=== PATIENT | male | born 1975 | race Caucasian/White ===

== ENCOUNTER 2022-10-01 14:35 | Outpatient (OUT) | payer BC, MEDICARE, SELFPAY ==
[2022-10-01 15:21] LABS: INR 3.48; Prothrombin Time 34.4 sec (9.0-11.6)
== END 2022-10-01 14:36 ==
PROVIDERS: PCP Family Medicine; Visit Provider Family Medicine
DX: I26.99 Other pulmonary embolism without acute cor pulmonale (principal)
CPT/HCPCS: 36415; 85610

== ENCOUNTER 2022-12-18 13:56 | Outpatient (OUT) | payer BC, MEDICARE, SELFPAY ==
[2022-12-18 14:49] LABS: Prothrombin Time 29.9 sec (9.0-11.6)
== END 2022-12-18 13:57 | disposition home or self-care (01) ==
LOC: LAB 14:00
PROVIDERS: PCP Family Medicine; Visit Provider Family Medicine
DX: Z79.01 Long term (current) use of anticoagulants (principal); I26.99 Other pulmonary embolism without acute cor pulmonale
CPT/HCPCS: 36415; 85610

== ENCOUNTER 2023-03-26 13:48 | Outpatient (OUT) | payer BC, MEDICARE, SELFPAY ==
[2023-03-26 15:00] LABS: INR 3.25; Prothrombin Time 32.2 sec (9.0-11.6)
== END 2023-03-26 13:49 | disposition home or self-care (01) ==
LOC: LAB 13:51
PROVIDERS: PCP Family Medicine; Visit Provider Family Medicine
DX: I26.99 Other pulmonary embolism without acute cor pulmonale (principal)
CPT/HCPCS: 36415; 85610

== ENCOUNTER 2023-04-07 10:26 | Outpatient (OUT) | payer BC, MEDICARE, SELFPAY ==
[2023-04-07 11:33] LABS: Estimated Average Glucose 189 mg/dL; Glycohemoglobin A1C 8.2 % (4.5-6.2)
[2023-04-07 11:50] LABS: Basophils Percent Auto 0.2 % (0.2-2.0); Eosinophils Absolute Auto 0.1 10^3/uL (0.0-0.7); Eosinophils Percent Auto 1.8 % (0.9-7.0); Hematocrit 53.5 % (42.0-54.0); Hemoglobin 17.9 g/dL (14.0-18.0); Lymphocytes Absolute Auto 1.7 10^3/uL (1.2-3.8); Lymphocytes Percent Auto 30.9 % (20.5-60.0); Mean Corpuscular HGB Conc 33.5 g/dL (29.9-35.2); Mean Corpuscular Hemoglobin 31.1 pg (25.9-34.0); Mean Corpuscular Volume 92.9 fL (80.0-94.0); Mean Platelet Volume 11.3 fL (9.5-13.5); Monocytes Absolute Auto 0.7 10^3/uL (0.3-0.8); Monocytes Percent Auto 12.1 % (1.7-12.0); Platelet Count 196 10^3/uL (150-450); Red Blood Count 5.76 10^6/uL (4.70-6.10); Red Cell Distribution Width 14.3 % (11.0-15.0); White Blood Count 5.5 10^3/uL (4.0-11.0)
[2023-04-07 11:51] LABS: Alanine Aminotransferase 70 U/L (16-63); Albumin Globulin Ratio 0.9; Albumin Level 3.6 g/dL (3.4-5.0); Alkaline Phosphatase 59 U/L (46-116); Aspartate Amino Transferase 35 U/L (15-37); BUN Creatinine Ratio 17.6; Bilirubin Total 0.6 mg/dL (0.2-1.0); Calcium 9.8 mg/dL (8.5-10.1); Carbon Dioxide 32.8 mmol/L (21.0-32.0); Chloride 99 mmol/L (98-107); Chol HDL Ratio 4.3; Cholesterol 162 mg/dL (<=200); Estimated GFR (African America >60 (>=60); Estimated GFR (Non-African Ame >60 (>=60); Free T3 3.57 pg/mL (2.18-3.98); Globulin 3.8 g/dL; Glucose 152 mg/dL (74-106); HDL Cholesterol 38 mg/dL (40-60); Potassium 4.8 mmol/L (3.5-5.1); Sodium 137 mmol/L (136-145); Total Protein 7.4 g/dL (6.4-8.2); Triglycerides 145 mg/dL (<=150)
[2023-04-07 11:56] LABS: Prostate Specific Antigen Scrn 0.61 ng/mL (<=4.00)
[2023-04-08 04:06] LABS: Testosterone 825 ng/dL (264-916)
== END 2023-04-07 10:27 | disposition home or self-care (01) ==
LOC: LAB 10:28
PROVIDERS: PCP Family Medicine; Visit Provider Family Medicine
DX: Z00.00 Encounter for general adult medical examination without abnormal findings (principal); E78.5 Hyperlipidemia, unspecified; R73.09 Other abnormal glucose; Z12.5 Encounter for screening for malignant neoplasm of prostate; E29.1 Testicular hypofunction
CPT/HCPCS: 36415; 80053; 80061; 83036; 84403; 84436; 84443; 84481; 85025; G0103

== ENCOUNTER 2023-07-01 14:02 | Outpatient (OUT) | payer BC, MEDICARE, SELFPAY ==
--- OUTSIDE RECORDS SUMMARY | 2023-07-01 14:19 | XMS_ITS | CCD ---
Author Organization [facility] Care Team Providers Care Reporting Process Consultant Name Role Phone SKIE, CHICHO Unavailable Unavailable SKIE, CHICHO Unavailable Unavailable HOY, DANE Unavailable Unavailable FOGT, CELIO Unavailable Unavailable [place] Unavailable Unavailable SKIE, CHICHO Unavailable Unavailable [place] Unavailable Unavailable PITRODA, SHAHANA Unavailable Unavailable Dane Pompa Primary Care Physician Durga BANKS Attending Unavailable HOY ., DR VELA Primary Care Unavailable HOY ., DR VELA Admitting Unavailable HOY ., DR VELA Attending Unavailable HOY ., DR VELA Consulting Unavailable HOY ., DR VELA Primary Care Unavailable HOY ., DR VELA Admitting Unavailable HOY ., DR VELA Attending Unavailable HOY ., DR VELA Consulting Unavailable HOY ., DR VELA Admitting Unavailable HOY ., DR VELA Primary Care Unavailable HOY ., DR VELA Attending Unavailable HOY ., DR VELA Consulting Unavailable HOY ., DR VELA Admitting Unavailable HOY ., DR VELA Primary Care Unavailable HOY ., DR VELA Attending Unavailable HOY ., DR VELA Consulting Unavailable HOY ., DR VELA Admitting Unavailable HOY ., DR VELA Primary Care Unavailable HOY ., DR VELA Attending Unavailable HOY ., DR VELA Consulting Unavailable HOY ., DR VELA Consulting Unavailable HOY ., DR VELA Admitting Unavailable HOY ., DR VELA Primary Care Unavailable HOY ., DR VELA Attending Unavailable HOY ., DR VELA Consulting Unavailable HOY ., DR VELA Attending Unavailable HOY ., DR VELA Admitting Unavailable HOY ., DR VELA Primary Care Unavailable HOY ., DR VELA Consulting Unavailable HOY ., DR VELA Primary Care Unavailable HOY ., DR VELA Admitting Unavailable HOY ., DR VELA Attending Unavailable Allergies Allergy Classification Reported Allergen(s) Allergy Type Date of Onset Reaction(s) Facility (2 sources) celecoxib; 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: [CELEBREX] Drug Allergy 3 [facility] (3 sources) morphine; 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: [MORPHINE] Drug Allergy 0 Unknown (qualifier value) [facility] (2 sources) orphenadrine; 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: [Norflex] Drug Allergy 0 [facility] (2 sources) Adhesive bandage; 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: [Adhesive Bandage] Drug allergy Unknown (qualifier value) [facility] [place] (2 sources) celecoxib; 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: [celecoxib] Drug Allergy 3 Unknown [facility] [place] (3 sources) Orphenadrine; 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: [orphenadrine] Drug Allergy 0 Unknown (qualifier value) [facility] [place] (1 source) Orphenadrine Drug Allergy [address] [facility] Rep[facility] Medications Current Medications Medication Drug Class(es) Dates Sig (Normalized) Sig (Original) acetaminophen 325 mg / oxyCODONE hydrochloride 5 mg oral tablet (1 source) Opioid Agonist Start: 2 take 2 tablets by mouth every four hours as needed for pain Percocet 5 mg-325 mg oral tablet 2 tab(s), Oral, q4hr as needed for pain, Refill(s) 0 Start Date: 04/09/22 Status: Ordered adapalene 0.003 mg/mg topical gel (1 source) Retinoid Start: 2 Differin 0.3% topical gel 1 noemy, Topical, Once a day (at bedtime), Refill(s) 0 Start Date: 04/09/22 Status: Ordered atorvastatin 40 mg oral tablet (1 source) HMG-CoA Reductase Inhibitor Start: 2 take 1 tablet by mouth once daily atorvastatin 40 mg Tab 40 mg = 1 tab(s), Oral, Daily, Refills(s) 0 Start Date: 04/09/22 Status: Ordered azelastine hydrochloride 0.5 mg/ml ophthalmic solution (1 source) Histamine-1 Receptor Antagonist Start: 2 azelastine 0.05% Opth Annette 1 drop(s), Daily, Refill(s) 0 Start Date: 04/09/22 Status: Ordered cyclobenzaprine hydrochloride 10 mg oral tablet (1 source) Muscle Relaxant Start: 2 take 2 tablets by mouth at bedtime as needed for muscle spasms cyclobenzaprine 10 mg Tab 20 mg = 2 tab(s), Oral, Bedtime, PRN for spasm, Refills(s) 0 Start Date: 04/09/22 Status: Ordered doxycycline monohydrate 100 mg oral capsule (1 source) Tetracycline-class Drug Start: 2 take 1 capsule by mouth twice daily doxycycline monohydrate 100 mg oral capsule 100 mg = 1 cap(s), Oral, BID, Refills(s) 0 Start Date: 04/09/22 Status: Ordered ibuprofen 800 mg oral tablet (1 source) Nonsteroidal Anti-inflammatory Drug Start: 2 take 1 tablet by mouth four times daily as needed for pain ibuprofen 800 mg Tab 800 mg = 1 tab(s), Oral, QID, PRN as needed for pain, Refills(s) 0 Start Date: 04/09/22 Status: Ordered lisinopril 20 mg oral tablet (1 source) Angiotensin Converting Enzyme Inhibitor Start: 2 take 1 tablet by mouth once daily lisinopril 20 mg Tab 20 mg = 1 tab(s), Oral, Daily, Refills(s) 0 Start Date: 04/09/22 Status: Ordered metFORMIN hydrochloride 500 mg oral tablet (1 source) Biguanide Start: 2 take 1 tablet by mouth twice daily metformin 500 mg Tab 500 mg = 1 tab(s), Oral, BID, Refills(s) 0 Start Date: 04/09/22 Status: Ordered omeprazole 20 mg delayed release oral capsule (1 source) Proton Pump Inhibitor Start: 2 take 1 capsule by mouth once daily omeprazole 20 mg Cap-DR 20 mg = 1 cap(s), Oral, Daily, Refills(s) 0 Start Date: 04/09/22 Status: Ordered oxyCODONE hydrochloride 10 mg oral tablet (1 source) Opioid Agonist Start: 2 take 1-2 tablets by mouth twice daily oxycodone 10 mg oral tablet 1-2 tabs, Oral, BID, Refills(s) 0 Start Date: 04/09/22 Status: Ordered pioglitazone 30 mg oral tablet (1 source) Peroxisome Proliferator Receptor alpha Agonist, Peroxisome Proliferator Receptor gamma Agonist, Thiazolidinedione Start: 2 take 1 tablet by mouth once daily pioglitazone 30 mg Tab 30 mg = 1 tab(s), Oral, Daily, Refills(s) 0 Start Date: 04/09/22 Status: Ordered pregabalin 100 mg oral capsule (1 source) Start: 2 take 1 capsule by mouth three times daily Lyrica 100 mg Cap 100 mg = 1 cap(s), Oral, TID, Refills(s) 0 Start Date: 04/09/22 Status: Ordered testosterone cypionate 200 mg/mL IM Annette (1 source) Start: 2 inject 100 mg by intramuscular injection every week testosterone cypionate 200 mg/mL IM Annette 100 mg = 0.5 mL, IntraMuscular, qWeek, Refills(s) 0 Start Date: 04/09/22 Status: Ordered Vitamin D3 2000 intl units oral Tab (1 source) Start: 2 take 1 tablet by mouth once daily Vitamin D3 2000 intl units oral Tab 50 mcg, Oral, Daily, Refills(s) 0 Start Date: 04/09/22 Status: Ordered warfarin sodium 10 mg oral tablet (2 sources) Vitamin K Antagonist Start: 2 Coumadin 10 mg oral tablet as directed, Refills(s) 0 Start Date: 04/09/22 Status: Ordered Start: 04-09-2022 Coumadin 7.5 m g Tab as directed, Refills(s) 0 Start Date: 04/09/22 Status: Ordered Problems Active Problems Problem Classification Problem Date Documented Da te Episodic/Chronic Diabetes mellitus with complications (1 source) Type 2 diabetes mellitus with 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 edema, bilateral; 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: [TYPE 2 DM MILD NPDR W/O MAC ED KAVIN] Onset: 2 Chronic Diabetes mellitus without complication (2 sources) Type 2 diabetes mellitus without complications; 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: [Diabetes mellitus] Onset: 7 04-09-2022 Chronic Esophageal disorders (1 source) Gastro-esophageal reflux disease without esophagitis; 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: [GASTRO-ESOPHAGEAL REFLUX DISEASE WITHOUT ESOPHAGITIS] Onset: 7 Chronic Essential hypertension (2 sources) Essential hypertension; 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: [Hypertensive disorder] Onset: 2 04-09-2022 Chronic Glaucoma (1 source) Glaucoma 04-09-2022 Chronic Headache; including migraine (1 source) Migraine 04-09-2022 Chronic Other aftercare (5 sources) detention (current) use of anticoagulants; 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: [INTERMEDIATE CURRNT USE 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] Onset: 3 Episodic Other endocrine disorders (1 source) Male hypogonadism 04-09-2022 Chronic Other endocrine disorders (5 sources) Testicular hypofunction; 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: [TESTICULAR HYPOFUNCTION] Onset: 2 Chronic Other eye disorders (1 source) 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 Other inflammatory condition of skin (1 source) Psoriasis 04-09-2022 Chronic Other nervous system disorders (1 source) 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 Other nutritional; endocrine; and metabolic disorders (1 source) Body mass index 30+ - obesity 04-23-2022 Chronic Other skin disorders (2 sources) Actinic keratosis; 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: [Actinic keratosis] Onset: 3 Episodic Other skin disorders (1 source) Acne vulgaris 04-09-2022 Episodic Other upper respiratory disease (1 source) Allergic rhinitis 04-09-2022 Chronic Phlebitis; thrombophlebitis and thromboembolism (2 sources) H/O: Deep vein thrombosis; 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: [Superficial thrombophlebitis] 04-09-2022 Episodic Pulmonary heart disease (6 sources) H/O: pulmonary embolus; 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: [Other pulmonary embolism without acute cor pulmonale] Onset: 3 04-09-2022 Episodic Spondylosis; intervertebral disc disorders; other back problems (1 source) Prolapsed lumbar intervertebral disc 04-09-2022 Chronic 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 (1 source) detention (current) use of oral hypoglycemic drugs; 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: [INTERMEDIATE (CURRENT) USE OF ORAL HYPOGLYCEMIC DRUGS] Onset: 7 Past or Other Problems Problem Classification Problem Date Documented Da te Episodic/Chronic Deficiency and other anemia (1 source) Anemia, unspecified; 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: [ANEMIA UNSPECIFIED] Onset: 10-11-2021 Episodic Malaise and fatigue (1 source) Other fatigue; 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: [OTHER FATIGUE] Onset: 04-10-2022 Episodic Other aftercare (1 source) Other usp (current) drug therapy; 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: [OTH INTERMEDIATE CURRENT DRUG THERAPY] Onset: 04-10-2022 Episodic Other non-traumatic joint disorders (4 sources) Other instability, right wrist; 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: [OTHER INSTABILITY, RIGHT WRIST] Onset: 10-20-2016 Episodic Other screening for suspected conditions (not mental disorders or infectious disease) (6 sources) Encounter for screening for malignant neoplasm of colon; 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: [Encounter for screening for malignant neoplasm of prostate] Onset: 04-10-2022 Episodic Sprains and strains (1 source) Other specified sprain of right wrist, initial encounter; 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: [OTHER SPECIFIED SPRAIN OF RIGHT WRIST, INITIAL ENCOUNTER] Onset: 10-20-2016 Episodic 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 (2 sources) Unknown / UNK(Unknown) Onset: 10-20-2016 Results Test Name Value Interpretation Reference Range Facility PROTIMEon 08-14-2022 INR Coag (PPP) [Relative time] 2.84 {INR} Normal [facility] Comment on above: Performed By: #### P T #### [facility] [address] [place] [address] Dr. Teddy Purcell INR GUIDELINES SEE BELOW Normal [facility] Comment on above: Result Comment: ISMA RED INR: 2.0 - 3.0 CONDITIONS NOT LISTED BELOW 2.5 - 3.5 FOR PROSTHETIC HEART VALVE REPLACEMENT 2.5 - 3.5 RECURRENT THROMBOSIS Performed By: #### P T #### [facility] [address] [address] [address] Teddy Purcell PT Coag (PPP) [Time] 28.4 s Critically high 9.0-11.[address] [facility] Comment on above: Performed By: #### P T #### [facility] [address] [address] [address] Teddy Purcell PROTIMEon 06-23-2022 INR Coag (PPP) [Relative time] 3.22 {INR} Normal [facility] Comment on above: Performed By: #### P T #### [facility] [address] [address] [address] Teddy Purcell INR GUIDELINES SEE BELOW Normal [facility] Comment on above: Result Comment: ISMA RED INR: 2.0 - 3.0 CONDITIONS NOT LISTED BELOW 2.5 - 3.5 FOR PROSTHETIC HEART VALVE REPLACEMENT 2.5 - 3.5 RECURRENT THROMBOSIS Performed By: #### P T #### [facility] [address] [place] [address] Dr. Teddy Purcell PT Coag (PPP) [Time] 31.9 s Critically high 9.0-11.6 [facility] Comment on above: Performed By: #### P T #### [facility] [address] [place] [address] Dr. Teddy Purcell PROTIMEon 06-16-2022 INR Coag (PPP) [Relative time] 3.26 {INR} Normal [facility] Comment on above: Performed By: #### P SASC #### [facility] [address] [place] [address] Dr. Teddy Purcell INR GUIDELINES SEE BELOW Normal [facility] Comment on above: Result Comment: ISMA RED INR: 2.0 - 3.0 CONDITIONS NOT LISTED BELOW 2.5 - 3.5 FOR PROSTHETIC HEART VALVE REPLACEMENT 2.5 - 3.5 RECURRENT THROMBOSIS Performed By: #### P SASC #### [facility] [address] [place] [address] Dr. Teddy Purcell PT Coag (PPP) [Time] 32.3 s Critically high 9.0-11.6 [facility] Comment on above: Performed By: #### P SASC #### [facility] [address] [place] [address] Dr. Teddy Purcell PROTIMEon 06-09-2022 INR Coag (PPP) [Relative time] 4.37 {INR} Critically high [facility] Comment on above: Performed By: #### P T #### [facility] [address] [place] [address] Dr. Teddy Purcell INR GUIDELINES SEE BELOW Normal [facility] Comment on above: Result Comment: ISMA RED INR: 2.0 - 3.0 CONDITIONS NOT LISTED BELOW 2.5 - 3.5 FOR PROSTHETIC HEART VALVE REPLACEMENT 2.5 - 3.5 RECURRENT THROMBOSIS Performed By: #### P T #### [facility] [address] [place] [address] Dr. Teddy Purcell PT Coag (PPP) [Time] 42.6 s Critically high 9.0-11.6 [facility] Comment on above: Performed By: #### P T #### [facility] [address] [place] [address] Dr. Teddy Purcell Facesheeton 04-24-2022 Facesheet [id number] Normal [facility] OCC BLD IMMUNO SCREENon 03-15 OCCULT BLOOD Negative Normal NEGATIVE [facility] Comment on above: Performed By: #### P SASC #### [facility] [address] [place] [address] Dr. Teddy Purcell TESTOSTERONE, TOTALon 2021 Testosterone [Mass/Vol] 905 ng/dL Normal 264-[address] [facility] Comment on above: Result Comment: Adul t male reference interval is based on a population of healthy nonobese males (BMI <30) between 19 and 39 years old. Thea et.al. JCEM 2017,102;5090-1485. PMID: [id number]. Performed By: #### P SASC #### [facility] [address] [place] [address] Dr. Teddy Purcell CBC AUTO DIFFon 04-03-2022 BASO # 0.0 103/ul Normal 0.0-0.1 [facility] Comment on above: Performed By: #### P SASC #### [facility] [address] [place] [address] Dr. Teddy Purcell Basophils/100 WBC (Bld) 0.2 % Normal 0.2-2.[address] [facility] Comment on above: Performed By: #### P SASC #### [facility] [address] [place] [address] Dr. Teddy Purcell EO # 0.1 103/ul Normal 0.0-0.7 [facility] Comment on above: Performed By: #### P SASC #### [facility] [address] [place] [address] Dr. Teddy Purcell Eosinophils/100 WBC (Bld) 2.4 % Normal 0.9-7.0 [facility] Comment on above: Performed By: #### P SASC #### [facility] [address] [place] [address] Dr. Teddy Purcell Erythrocyte distribution width (RBC) [Ratio] 15.7 % Critically high 11.0-15.0 [facility] Comment on above: Performed By: #### P SASC #### [facility] [address] [place] [address] Dr. Teddy Purcell Hematocrit (Bld) [Volume fraction] 51.4 % Normal 42.0-54.0 [facility] Comment on above: Performed By: #### P SASC #### [facility] [address] [place] [address] Dr. Teddy Purcell Hemoglobin (Bld) [Mass/Vol] 16.9 g/dL Normal 14.0-18.0 [facility] Comment on above: Performed By: #### P SASC #### [facility] [address] [place] [address] Dr. Teddy Purcell IG # 0.01 10e3/ul Normal 0.00-0.03 [facility] Comment on above: Performed By: #### P SASC #### [facility] [address] [place] [address] Dr. Teddy Purcell IG % 0.2 % Normal 0.0-0.5 [facility] Comment on above: Performed By: #### P SASC #### [facility] [address] [place] [address] Dr. Teddy Purcell LYMPH # 2.0 103/ul Normal 1.2-3.[address] [facility] Comment on above: Performed By: #### P SASC #### [facility] [address] [place] [address] Dr. Teddy Purcell Lymphocytes/100 WBC (Bld) 33.1 % Normal 20.5-60.0 [facility] Comment on above: Performed By: #### P SASC #### [facility] [address] [place] [address] Dr. Teddy Purcell MANUAL DIFF REQ NO Normal [facility] Comment on above: Performed By: #### P SASC #### [facility] [address] [place] [address] Dr. Teddy Purcell MCH (RBC) [Entitic mass] 29.8 pg Normal 25.9-34.0 [facility] Comment on above: Performed By: #### P SASC #### [facility] [address] [place] [address] Dr. Teddy Purcell MCHC (RBC) [Mass/Vol] 32.9 g/dL Normal 29.9-35.[address] [facility] Comment on above: Performed By: #### P SASC #### [facility] [address] [place] [address] Dr. Teddy Purcell MCV (RBC) [Entitic vol] 90.7 fL Normal 80.0-94.0 [facility] Comment on above: Performed By: #### P SASC #### [facility] [address] [place] [address] Dr. Teddy Purcell MONO # 0.8 103/ul Normal 0.3-0.8 [facility] Comment on above: Performed By: #### P SASC #### [facility] [address] [place] [address] Dr. Teddy Purcell Monocytes/100 WBC (Bld) 12.9 % Critically high 1.7-12.0 [facility] Comment on above: Performed By: #### P SASC #### [facility] [address] [place] [address] Dr. Teddy Purcell NEUT # 3.1 103/ul Normal 1.4-6.[address] [facility] Comment on above: Performed By: #### P SASC #### [facility] [address] [place] [address] Dr. Teddy Purcell Neutrophils/100 WBC (Bld) 51.2 % Normal 43.0-75.[address] [facility] Comment on above: Performed By: #### P SASC #### [facility] [address] [place] [address] Dr. Teddy Purcell Platelet mean volume (Bld) [Entitic vol] 10.0 fL Normal 9.5-13.5 [facility] Comment on above: Performed By: #### P SASC #### [facility] [address] [address] [address] Teddy Purcell PLT 302 103/ul Normal 150-[address] [facility] Comment on above: Performed By: #### P SASC #### [facility] [address] [address] [address] Teddy Purcell RBC 5.67 106/ul Normal 4.70-6.10 [facility] Comment on above: Performed By: #### P SASC #### [facility] [address] [address] [address] Teddy Purcell WBC 6.0 103/ul Normal 4.0-11.0 [facility] Comment on above: Performed By: #### P SASC #### [facility] [address] [place] [address] Dr. Teddy Purcell FREE T3on 04-03-2022 FREE T3 3.52 pg/mlL Normal 2.18-3.98 [facility] Comment on above: Performed By: #### P SASC #### [facility] [address] [address] [address] Teddy Purcell GLYCOHEMOGLOBIN A1Con 2021 ADA RECOMMENDATION SEE BELOW Normal [facility] Comment on above: Result Comment: ADA RECOMMENDED LIMIT 4.0 - 6.0 ADA THERAPEUTIC TARGET < 7.0 ACTION SUGGESTED > 7.0 Performed By: #### P SASC #### [facility] [address] [address] [address] Teddy Purcell Glucose [Mass/Vol] 209 mg/dL Normal [facility] Comment on above: Performed By: #### P SASC #### [facility] [address] [place] [address] Dr. Teddy Purcell HbA1c (Bld) [Mass fraction] 8.9 % Critically high 4.5-6.2 [facility] Comment on above: Performed By: #### P SASC #### [facility] [address] [address] [address] Teddy Purcell LIPID PROFILEon 04-03-2022 CHOL-HDL RATIO NORM SEE BELOW Normal [facility] Comment on above: Result Comment: 3.3 - 4.4 LOW RISK 4.4 - 7.1 AVERAGE RISK 7.1 - 11.0 MODERATE RISK >11.0 HIGH RISK Performed By: #### L IPID, FT3, T4, CMP, TSH #### [facility] [address] [address] [address] Teddy Purcell Cholesterol [Mass/Vol] 150 mg/dL Normal <=200 [facility] Comment on above: Performed By: #### L IPID, FT3, T4, CMP, TSH #### [facility] [address] [address] [address] Teddy Purecll Cholesterol in HDL [Mass/Vol] 31 mg/dL Critically low 40-60 [facility] Comment on above: Performed By: #### L IPID, FT3, T4, CMP, TSH #### [facility] [address] [address] [address] Teddy Purcell Cholesterol in LDL [Mass/Vol] 85.4 mg/dL Normal [facility] Comment on above: Performed By: #### L IPID, FT3, T4, CMP, TSH #### [facility] [address] [address] [address] Teddy Purcell Cholesterol.total/C holesterol in HDL [Mass ratio] 4.8 {ratio} Normal [facility] Comment on above: Performed By: #### L IPID, FT3, T4, CMP, TSH #### [facility] [address] [address] [address] Teddy Purcell HDL NORMAL > or = 60 mg/dl - LO W CARDIOVASCULAR RISK <40 mg/dl - HIGH CARDIOVASCULAR RISK Normal [facility] Comment on above: Performed By: #### L IPID, FT3, T4, CMP, TSH #### [facility] [address] [address] [address] Teddy Purcell LDL CALC NORMAL SEE BELOW Normal [facility] Comment on above: Result Comment: <100 mg/dl OPTIMAL 100 - 129 mg/dl NEAR OR ABOVE OPTIMAL 130 - 159 mg/dl BORDERLINE HIGH 160 - 189 mg/dl HIGH >190 mg/dl VERY HIGH Performed By: #### L IPID, FT3, T4, CMP, TSH #### [facility] [address] [address] [address] Teddy uPrcell Triglyceride [Mass/Vol] 168 mg/dL Critically high <=150 [facility] Comment on above: Performed By: #### L IPID, FT3, T4, CMP, TSH #### [facility] [address] [address] [address] Teddy Purcell VLDL CALC 33.6 mg/dL Normal [facility] Comment on above: Performed By: #### L IPID, FT3, T4, CMP, TSH #### [facility] [address] [place] [address] Dr. Teddy Purcell PROF 14(COMP METB)on 022 Albumin [Mass/Vol] 3.7 g/dL Normal 3.4-5.0 [facility] Comment on above: Performed By: #### L IPID, FT3, T4, CMP, TSH #### [facility] [address] [place] [address] Dr. Teddy Purcell Albumin/Globulin [Mass ratio] 0.9 {ratio} Normal [facility] Comment on above: Performed By: #### L IPID, FT3, T4, CMP, TSH #### [facility] [address] [address] [address] Teddy Purcell ALP [Catalytic activity/Vol] 63 U/L Normal 46-[address] [facility] Comment on above: Performed By: #### L IPID, FT3, T4, CMP, TSH #### [facility] [address] [address] [address] Teddy Purcell ALT [Catalytic activity/Vol] 61 U/L Normal 16-63 [facility] Comment on above: Performed By: #### L IPID, FT3, T4, CMP, TSH #### [facility] [address] [place] [address] Dr. Teddy Purcell Anion gap [Moles/Vol] 9.7 mmol/L Normal [facility] Comment on above: Performed By: #### L IPID, FT3, T4, CMP, TSH #### [facility] [address] [place] [address] Dr. Teddy Purcell AST [Catalytic activity/Vol] 30 U/L Normal 15-37 [facility] Comment on above: Performed By: #### L IPID, FT3, T4, CMP, TSH #### [facility] [address] [place] [address] Dr. Teddy Purcell Bilirubin [Mass/Vol] 0.3 mg/dL Normal 0.2-1.0 [facility] Comment on above: Performed By: #### L IPID, FT3, T4, CMP, TSH #### [facility] [address] [place] [address] Dr. Teddy Purcell Calcium [Mass/Vol] 9.7 mg/dL Normal 8.5-10.1 [facility] Comment on above: Performed By: #### L IPID, FT3, T4, CMP, TSH #### [facility] [address] [place] [address] Dr. Teddy Purcell Chloride [Moles/Vol] 96 mmol/L Critically low 98-107 [facility] Comment on above: Performed By: #### L IPID, FT3, T4, CMP, TSH #### [facility] [address] [place] [address] Dr. Teddy Purcell CO2 [Moles/Vol] 34.7 mmol/L Critically high 21.0-32.0 [facility] Comment on above: Performed By: #### L IPID, FT3, T4, CMP, TSH #### [facility] [address] [place] [address] Dr. Teddy Purcell Creatinine [Mass/Vol] 0.78 mg/dL Normal 0.70-1.30 [facility] Comment on above: Performed By: #### L IPID, FT3, T4, CMP, TSH #### [facility] [facility] [address] [place] [address] Dr. Teddy Purcell EGFR-AF RWANDAN >60 Normal >=60 [facility] Comment on above: Performed By: #### L IPID, FT3, T4, CMP, TSH #### [facility] [address] [address] [address] Teddy Purcell EGFR-NON AF RWANDAN >60 Normal >=60 [facility] Comment on above: Performed By: #### L IPID, FT3, T4, CMP, TSH #### [facility] [address] [address] [address] Teddy Purcell Globulin (S) [Mass/Vol] 3.9 g/dL Normal [facility] Comment on above: Performed By: #### L IPID, FT3, T4, CMP, TSH #### [facility] [address] [address] [address] Teddy Purcell Glucose [Mass/Vol] 165 mg/dL Critically high 74-106 T [facility] Comment on above: Performed By: #### L IPID, FT3, T4, CMP, TSH #### [facility] [address] [address] [address] Teddy Pucrell Potassium [Moles/Vol] 4.4 mmol/L Normal 3.5-5.1 [facility] Comment on above: Performed By: #### L IPID, FT3, T4, CMP, TSH #### [facility] [address] [address] [address] Teddy Purcell Protein [Mass/Vol] 7.6 g/dL Normal 6.4-8.2 [facility] Comment on above: Performed By: #### L IPID, FT3, T4, CMP, TSH #### [facility] [address] [address] [address] Teddy Purcell Sodium [Moles/Vol] 136 mmol/L Normal 136-145 [facility] Comment on above: Performed By: #### L IPID, FT3, T4, CMP, TSH #### [facility] [address] [address] [address] Teddy Purcell Urea nitrogen [Mass/Vol] 14.0 mg/dL Normal 7.0-18.0 [facility] Comment on above: Performed By: #### L IPID, FT3, T4, CMP, TSH #### [facility] [address] [address] [address] Teddy Purcell Urea nitrogen/Creatinine [Mass ratio] 17.9 mg/mg Normal [facility] Comment on above: Performed By: #### L IPID, FT3, T4, CMP, TSH #### [facility] [address] [address] [address] Teddy Purcell PROTIMEon 04-03-2022 INR Coag (PPP) [Relative time] 3.13 {INR} Normal [facility] Comment on above: Performed By: #### P T #### [facility] [address] [place] [address] Dr. Teddy Purcell INR GUIDELINES SEE BELOW Normal [facility] Comment on above: Result Comment: ISMA RED INR: 2.0 - 3.0 CONDITIONS NOT LISTED BELOW 2.5 - 3.5 FOR PROSTHETIC HEART VALVE REPLACEMENT 2.5 - 3.5 RECURRENT THROMBOSIS Performed By: #### P T #### [facility] [address] [place] [address] Dr. Teddy Purcell PT Coag (PPP) [Time] 31.4 s Critically high 9.0-11.6 [facility] Comment on above: Performed By: #### P T #### [facility] [address] [place] [address] Dr. Teddy Purcell Physician Referralon 022 Physician Referral [id number] Normal [facility] T4on 04-03-2022 T4 [Mass/Vol] 7.60 ug/dL Normal 4.50-12.10 [facility] Comment on above: Performed By: #### L IPID, FT3, T4, CMP, TSH #### [facility] [address] [address] [address] Teddy Purcell TSHon 04-03-2022 TSH 1.595 uIU/mL Normal 0.358-3.740 [facility] Comment on above: Performed By: #### L IPID, FT3, T4, CMP, TSH #### [facility] [address] [address] [address] Teddy Purcell PROTIMEon 12-05-2021 INR Coag (PPP) [Relative time] 3.69 {INR} Normal [facility] Comment on above: Performed By: #### P T #### [facility] [address] [address] [address] Teddy Purcell INR GUIDELINES SEE BELOW Normal [facility] Comment on above: Result Comment: ISMA RED INR: 2.0 - 3.0 CONDITIONS NOT LISTED BELOW 2.5 - 3.5 FOR PROSTHETIC HEART VALVE REPLACEMENT 2.5 - 3.5 RECURRENT THROMBOSIS Performed By: #### P T #### [facility] [address] [address] [address] Teddy Purcell PT Coag (PPP) [Time] 36.6 s Critically high 9.0-11.6 [facility] Comment on above: Performed By: #### P T #### [facility] [address] [address] [address] Teddy Purcell TESTOSTERONE, TOTALon 2021 Testosterone [Mass/Vol] 633 ng/dL Normal 264-916 [facility] Comment on above: Result Comment: Adul t male reference interval is based on a population of healthy nonobese males (BMI <30) between 19 and 39 years old. Thea et.al. JCEM 2017,102;[id number]. PMID: [id number]. Performed By: #### P T #### [facility] [address] [address] [address] Teddy Purcell CBC AUTO DIFFon 10-08-2021 BASO # 0.0 103/ul Normal 0.0-0.1 [facility] Comment on above: Performed By: #### C BC #### [facility] [address] [address] [address] Teddy Purcell Basophils/100 WBC (Bld) 0.4 % Normal 0.2-2.0 [facility] Comment on above: Performed By: #### C BC #### [facility] [address] [address] [address] Teddy Purcell EO # 0.1 103/ul Normal 0.0-0.7 [facility] Comment on above: Performed By: #### C BC #### [facility] [address] [place] [address] Dr. Teddy Purcell Eosinophils/100 WBC (Bld) 2.0 % Normal 0.9-7.0 [facility] Comment on above: Performed By: #### C BC #### [facility] [address] [place] [address] Dr. Teddy Purcell Erythrocyte distribution width (RBC) [Ratio] 13.7 % Normal 11.0-15.0 [facility] Comment on above: Performed By: #### C BC #### [facility] [address] [place] [address] Dr. Teddy Purcell Hematocrit (Bld) [Volume fraction] 45.6 % Normal 42.0-54.0 [facility] Comment on above: Performed By: #### C BC #### [facility] [address] [place] [address] Dr. Teddy Purcell Hemoglobin (Bld) [Mass/Vol] 14.8 g/dL Normal 14.0-18.0 [facility] Comment on above: Performed By: #### C BC #### [facility] [address] [place] [address] Dr. Teddy Purcell IG # 0.01 10e3/ul Normal 0.00-0.03 [facility] Comment on above: Performed By: #### C BC #### [facility] [address] [place] [address] Dr. Teddy Purcell IG % 0.2 % Normal 0.0-0.[address] [facility] Comment on above: Performed By: #### C BC #### [facility] [address] [place] [address] Dr. Teddy Purcell LYMPH # 1.8 103/ul Normal 1.2-3.[address] [facility] Comment on above: Performed By: #### C BC #### [facility] [address] [place] [address] Dr. Teddy Purcell Lymphocytes/100 WBC (Bld) 36.6 % Normal 20.5-60.0 [facility] Comment on above: Performed By: #### C BC #### [facility] [address] [place] [address] Dr. Teddy Purcell MANUAL DIFF REQ NO Normal [facility] Comment on above: Performed By: #### C BC #### [facility] [address] [place] [address] Dr. Teddy Purcell MCH (RBC) [Entitic mass] 30.0 pg Normal 25.9-34.0 [facility] Comment on above: Performed By: #### C BC #### [facility] [address] [place] [address] Dr. Teddy Purcell MCHC (RBC) [Mass/Vol] 32.5 g/dL Normal 29.9-35.2 [facility] Comment on above: Performed By: #### C BC #### [facility] [address] [place] [address] Dr. Teddy Purcell MCV (RBC) [Entitic vol] 92.3 fL Normal 80.0-94.0 [facility] Comment on above: Performed By: #### C BC #### [facility] [address] [place] [address] Dr. Teddy Purcell MONO # 0.7 103/ul Normal 0.3-0.8 [facility] Comment on above: Performed By: #### C BC #### [facility] [address] [place] [address] Dr. Teddy Purcell Monocytes/100 WBC (Bld) 13.7 % Critically high 1.7-12.[address] [facility] Comment on above: Performed By: #### C BC #### [facility] [address] [place] [address] Dr. Teddy Purcell NEUT # 2.3 103/ul Normal 1.4-6.[address] [facility] Comment on above: Performed By: #### C BC #### [facility] [address] [place] [address] Dr. Teddy Purcell Neutrophils/100 WBC (Bld) 47.1 % Normal 43.0-75.0 [facility] Comment on above: Performed By: #### C BC #### [facility] [address] [place] [address] Dr. Teddy Purcell Platelet mean volume (Bld) [Entitic vol] 10.3 fL Normal 9.5-13.[address] [facility] Comment on above: Performed By: #### C BC #### [facility] [address] [place] [address] Dr. Teddy Purcell PLT 252 103/ul Normal 150-[address] [facility] Comment on above: Performed By: #### C BC #### [facility] [address] [place] [address] Dr. Teddy Purcell RBC 4.94 106/ul Normal 4.70-6.[address] [facility] Comment on above: Performed By: #### C BC #### [facility] [address] [place] [address] Dr. Teddy Purcell WBC 5.0 103/ul Normal 4.0-11.[address] [facility] Comment on above: Performed By: #### C BC #### [facility] [address] [place] [address] Dr. Teddy Purcell IRONon 10-08-2021 Iron [Mass/Vol] 85.0 ug/dL Normal 65.0-175.0 [facility] Comment on above: Performed By: #### P SASC #### [facility] [address] [place] [address] Dr. Teddy Purcell MAGNESIUMon 10-08-2021 Magnesium [Mass/Vol] 1.9 mg/dL Normal 1.8-2.[address] [facility] Comment on above: Performed By: #### P SASC #### [facility] [address] [place] [address] Dr. Teddy Purcell PHOSPHORUSon 10-08-2021 Phosphate [Mass/Vol] 3.1 mg/dL Normal 2.6-4.[address] [facility] Comment on above: Performed By: #### P SASC #### [facility] [address] [address] [address] Teddy Purcell PROF 14(COMP METB)on 022 Albumin [Mass/Vol] 3.5 g/dL Normal 3.4-5.0 [facility] Comment on above: Performed By: #### P SASC #### [facility] [address] [address] [address] Teddy Purcell Albumin/Globulin [Mass ratio] 1.0 {ratio} Normal [facility] Comment on above: Performed By: #### P SASC #### [facility] [address] [address] [address] Teddy Purcell ALP [Catalytic activity/Vol] 59 U/L Normal 46-116 [facility] Comment on above: Performed By: #### P SASC #### [facility] [address] [address] [address] Teddy Purcell ALT [Catalytic activity/Vol] 58 U/L Normal 16-63 [facility] Comment on above: Performed By: #### P SASC #### [facility] [address] [address] [address] Teddy Purcell Anion gap [Moles/Vol] 9.5 mmol/L Normal [facility] Comment on above: Performed By: #### P SASC #### [facility] [address] [address] [address] Teddy Purcell AST [Catalytic activity/Vol] 28 U/L Normal 15-[address] [facility] Comment on above: Performed By: #### P SASC #### [facility] [address] [address] [address] Teddy Purcell Bilirubin [Mass/Vol] 0.3 mg/dL Normal 0.2-1.0 [facility] Comment on above: Performed By: #### P SASC #### [facility] [address] [place] [address] Dr. Teddy Purcell Calcium [Mass/Vol] 9.1 mg/dL Normal 8.5-10.1 [facility] Comment on above: Performed By: #### P SASC #### [facility] [address] [address] [address] Teddy Purcell Chloride [Moles/Vol] 104 mmol/L Normal 98-107 [facility] Comment on above: Performed By: #### P SASC #### [facility] [address] [address] [address] Teddy Purcell CO2 [Moles/Vol] 30.8 mmol/L Normal 21.0-32.0 [facility] Comment on above: Performed By: #### P SASC #### [facility] [address] [address] [address] Teddy Purcell Creatinine [Mass/Vol] 0.90 mg/dL Normal 0.70-1.30 [facility] Comment on above: Performed By: #### P SASC #### [facility] [address] [address] [address] Teddy Purcell EGFR-AF RWANDAN >60 Normal >=60 [facility] Comment on above: Performed By: #### P SASC #### [facility] [address] [address] [address] Teddy Purcell EGFR-NON AF RWANDAN >60 Normal >=60 [facility] Comment on above: Performed By: #### P SASC #### [facility] [address] [address] [address] Teddy Purcell Globulin (S) [Mass/Vol] 3.5 g/dL Normal [facility] Comment on above: Performed By: #### P SASC #### [facility] [address] [address] [address] Teddy Purcell Glucose [Mass/Vol] 145 mg/dL Critically high 74-106 [facility] Comment on above: Performed By: #### P SASC #### [facility] [address] [address] [address] Teddy Purcell Potassium [Moles/Vol] 4.3 mmol/L Normal 3.5-5.1 [facility] Comment on above: Performed By: #### P SASC #### [facility] [address] [address] [address] Teddy Purcell Protein [Mass/Vol] 7.0 g/dL Normal 6.4-8.2 [facility] Comment on above: Performed By: #### P SASC #### [facility] [address] [address] [address] Teddy Purcell Sodium [Moles/Vol] 140 mmol/L Normal 136-145 [facility] Comment on above: Performed By: #### P SASC #### [facility] [address] [address] [address] Teddy Purcell Urea nitrogen [Mass/Vol] 17.0 mg/dL Normal 7.0-18.0 [facility] Comment on above: Performed By: #### P SASC #### [facility] [address] [place] [address] Dr. Teddy Purcell Urea nitrogen/Creatinine [Mass ratio] 18.9 mg/mg Normal [facility] Comment on above: Performed By: #### P SASC #### [facility] [address] [address] [address] Teddy Purcell PROTIMEon 10-08-2021 INR Coag (PPP) [Relative time] 2.83 {INR} Normal [facility] Comment on above: Performed By: #### P T #### [facility] [address] [place] [address] Dr. Teddy Purcell INR GUIDELINES SEE BELOW Normal [facility] Comment on above: Result Comment: ISMA RED INR: 2.0 - 3.0 CONDITIONS NOT LISTED BELOW 2.5 - 3.5 FOR PROSTHETIC HEART VALVE REPLACEMENT 2.5 - 3.5 RECURRENT THROMBOSIS Performed By: #### P T #### [facility] [address] [place] [address] Dr. Teddy Purcell PT Coag (PPP) [Time] 28.6 s Critically high 9.0-11.6 [facility] Comment on above: Performed By: #### P T #### [facility] [address] [place] [address] Dr. Teddy Purcell Prothrombin Time INRon 07-04 INR Coag (Bld) [Relative time] 10.5 s Normal 9.0-12.9 [facility] Comment on above: Performed By: #### P T #### [id number] [facility] INR Coag (PPP) [Relative time] 0.9 {INR} Normal [facility] Comment on above: Result Comment: INR Therapeutic Range A) Pre- and Peroperative OAT started two weeks before surgery. NOT HIP SURGERY: 1.5 - 2.5 HIP SURGERY: 2 - 3 B) Primary and secondary prevention of venous THROMBOSIS: 2 - 3 C) Active venous thrombosis, pulmonary embolism and prevention of recurrent venous thrombosis: 2 - 3 D) Prevention of arterial thromboembolism including patients with mechanical heart valves: 3 - 4.5 PERFORMED BY: [place] [address] PATHOLOGIST PLASTICS PATTERNMAKER DANIKA COE M.D. Performed By: #### P T #### [address] Operative Reporton 7 Operative Report MR#: [id number] [facility] Pt. Name: Mariajose Corral Room #: 0C Discharge 10/20/2016 Date: Birthdate: 1975 OPERATIVE REPORTDATE OF SURGERY: 10/20/2016SURGEON: Chicho Barba M.D.PREOPERATIVE DIAGNOSISScapholunate instability, right wrist.POSTOPERATIVE DIAGNOSES1.Scapholunate instability, right wrist2.Type 1B triangular fibrocartilage complex tear, right wrist.PROCEDURE1.Arthrosc opic examination, right wrist.2.Repair of triangular fiber cartilage, right wrist.3.Thermal capsulorrhaphy, right wrist.Babita Jordan M.D.ANESTHESIARegional with an axillary block.INDICATION FOR SURGERYThe patient is a 41-year-old gentleman, who we [facility] with complaints of radial sided wrist pain. His examinationis consistent with a scapholunate instability. He has had persistentworsening pain, but really not much treatment. After discussing options, wefelt that an arthroscopic examination to see the extent of the instabilityand then a thermal capsulorrhaphy would probably be indicated as he has nosignificant x-ray changes. He is brought to the operating room today forthat purpose. The risks and benefits are explained prior to surgery, andwith good understanding, he agreed to proceed.PROCEDURE IN DETAILThe patient was brought to the operating room and placed on the table inthe supine position. An axillary block had been administered per theanesthesia service in the holding area. He was given preoperativeantibiotics. A tourniquet is placed around the proximal right arm and theright upper extremity was prepped and draped in a sterile manner. Duringthe procedure, after standard time-out, the arm was exsanguinated with anEsmarch bandage and the tourniquet was inflated to 250 mmHg. The arm wassuspended with a wrist tower with fingertrap traction on the long and ringfingers. The radial carpal joint distended with normal saline solution andthen standard 3-4 and 4-5 portals were created. The arthroscope wasinserted in the 3-4. As I started looking around, there was a little bit ofsynovitis around the radial styloid dorsally. There was a large step-off chano wall of interosseous ligament at the scapholunate joint. It was difficultto pass. I was able to get under the lunate. The lunate fossa as expectedstill looks good. As to get over to the ulnar side of the wrist, there wasa peripheral tear of the TFCC. I can get my probe under it and lift it upaway from the fovea a little bit. I took a 2.5 full radius shaver, debridedthe edges of the tear, debrided some of the synovitis that was on the ulnarside of the wrist. We then took a zone-specific cannula and placed one 2-0FiberWire suture across the tear. The needles were passed out through theskin and made a 1.5 cm longitudinal incision over the ulnar styloid,dissected down to the capsular plane, and retrieved our sutures. The suturewas tied over the capsule making sure there were no sensory nerves trapped.The wound was later closed with some 5-0 Novafil suture. While I was doingthat, we went to the midcarpal joint and created radial and ulnar midcarpal portals. Once we had adequate visualization, we started ulnarly. Thelunotriquetral joint is stable. He does have a peaked lunate. Thescapholunate joint is unstable. With a probe, I can grossly open the jointup and spread to bones apart. I could not really do a drive-through, so itis a probably stage III instability. I went back down to the radiocarpaljoint and at this time put the scope in the 4-5 portal. We debrided some ofthe synovitis along the dorsal radial aspect of the joint. An Oratec probewas placed in the 3-4 portal, and I did a capsular shrinkage of the capsulebehind the proximal pole of the scaphoid. With our shaver, we debrided alittle bit of the membranous portion of the interosseous ligament. Once weshrink the capsule, the arthroscopic equipment was removed. The portalswere closed with 5-0 Novafil, sterile dressing, Xeroform gauze, 4 x 4,fluffs, Webril and a volar plaster splint, placing the wrist in slightextension was applied and the tourniquet released. All sponge and needlecounts were correct at the time of closure.Electronically Signed by:Chicho Barba M.D. 10/27/2016 09:05 A Chicho Barba M.D.Date Dict: 10/20/2016//Cihcho Barba M.D.Date Trans: 10/24/2016 05:16 P/[id number] c: Celio Oseguera M.D. [facility] [address] [place] [id number] Dane Pompa M.D. [address] [id number] [facility] [place] [id number] Normal [facility] POC GLUCOSE LABon 10-20-2016 Glucose mass conc 117 mg/dL High 70-100 [facility] Comment on above: Performed By: #### 8 [id number] ####[facility] [place] [address], [facility] Glucose mass conc 132 mg/dL High 70-100 [facility] Comment on above: Performed By: #### 8 [id number] ####[facility] [place] [address], [facility] Vital Signs Date Time Vital Sign Value Performing Clinician Bree reyes 04-23-2022 15:13-0500 Blood Pressure Location Durga NILL [facility] [place] 04-23-2022 15:13-0500 Diastolic blood pressure 84 mm[Hg] Durga NILL [facility] [place] 04-23-2022 15:13-0500 Heart rate 76 /min Durga NILL [facility] [place] 04-23-2022 15:13-0500 Respiratory rate 16 /min Durga NILL [facility] [place] 04-23-2022 15:13-0500 Systolic blood pressure 132 mm[Hg] Durga NILL [facility] [place] Encounters Encounter Date Encounter Type Care Provider Facility Start: 08-14-2022 End: 08-15-[address] DANE POMPA . Facility: Start: 06-23-2022 End: 06-24-[address] DANE POMPA . Facility: Start: 06-16-2022 End: 06-17-[address] DANE POMPA . Facility: Start: 06-09-2022 End: 06-10-[address] DANE POMPA . Facility: Start: 04-23-2022 End: 04-24-2022 ambulatory Durga BANKS Facility: [place] Start: 04-23-2022 End: 04-23-2022 Patient encounter procedure Durga BANKS [facility] [place] Start: 04-11-2022 End: 04-11-[address] DANE POMPA . Facility: Start: 04-10-2022 Encounter for genera l adult medical examination without abnormal findings DR DANE POMPA . [facility] Start: 04-03-2022 End: 04-04-[address] DANE POMPA . Facility: Start: 04-03-2022 End: 04-04-2022 Encounter for general adult medical examination without abnormal findings DR DANE POMPA . Facility:[facility] Start: 04-02-2022 ambulatory Durga BANKS Facility:[facility] Start: 12-05-2021 End: 12-06-[address] DANE POMPA . Facility:[facility] Start: 10-08-2021 End: 10-09-[address] DANE POMPA . Facility: Start: 10-20-2016 End: 10-21-2016 Ambulatory [facility] Facility[facility] Procedures Date Procedure Procedure Detail Performing Clinician Start: 04-03-[address] RYAN POMPA . Comment on above: Performed By: #### P [facility] #### [facility] [address] [place] [address] Dr. Teddy Purcell Start: 10-20-2016 ANESTH LOWER ARM SURGERY SHAHANA CALVO Start: 10-20-2016 WRIST ARTHROSCOPY/SURGERY CHICHO CHRIS History of lumbar laminectomy Durga NILL Open acromioplasty f or decompression of rotator cuff Durga NILL Partial resection of colon M ichmaira NILL Repair of ligament Durga N ILL Repair of meniscus Durga N ILL Repair of musculoten dinous cuff of shoulder Durga NILL Tonsillectomy Durga NILL Immunizations Immunization Date Immunization Notes Care Provider Fa cility NEGATED: Highlighted row has not occurred!04-23-2022 influenza virus vaccine, unspecified formulation Durga NILL [facility] [place] Payers Date Payer Category Payer Unknown [id number] 2.16.8 [id number] 1975 Unknown [id number] 2.16.84 [id number] 1975 Unknown [id number] 2.16.84 [id number] 1975 Unknown [id number] 2.16.84 [id number] 1975 Unknown [id number] 2.16.84 [id number] 1975 Unknown [id number] 2.16.84 [id number] 1975 Unknown [id number] 2.16.84 [id number] 1975 Unknown [id number] 2.16.84 [id number] 1975 Unknown [id number] 2.16.84 [id number] 1961 Medicare [id number] 1961 Unknown [id number] Social History Date Type Detail Facility Start: 04-23-2022 Tobacco smoking status Never s moked tobacco (finding) [facility] [place] Tobacco smoking status Never [facility] [place] Sex Assigned At Male [facility] Functional Status Date Assessment Result Facility 04-23-2022 Functional Status N/A [facility] Clinical Note 04-23-2022 Note Date & Type Note Facility 04-23-2022 Note Chief Complaint consultation for scalp lesion HPI Staff 48 year old male presents on consultation from Dr. Pompa for scalp lesion. Reports right parietal lesion present roughly one year. Has not changed in size since first noted. Denies tenderness, itching, bleeding or drainage. 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 Review of Systems PHQ Score Initial Depression Screen Score: 0 ROS - Provider Constitutional: no fever, no sweats, no weight loss. Eyes: no glasses, no blurred vision, no visual loss. ENMT: no dentures, no hoarseness, no swallowing difficulties, no hearing loss, no ear infection(s), no nose bleeds. Cardiovascular: normal blood pressure, no chest pain, regular heartbeat, no heart murmur. Respiratory: no shortness of breath, no cough, no asthma, no wheezing. Gastrointestinal: no nausea, no vomiting, no diarrhea, no constipation, no blood in stool, no change in bowel habits, no abdominal pain, no hepatitis. Genitourinary: no kidney stones, no urine infection, no dysuria. Musculoskeletal: no pain, no weakness. Skin: no changing moles, no rash, yes skin lumps. Neurologic: no seizures, no epilepsy, no headache. Psychiatric: no emotional or psychiatric problem. Heme/Lymph: no bleeding problems, no anemia, no blood clots, no transfusions. Allergy/Immunologic: no swollen lymph nodes/glands, no IV drug abuse. Other: Additional ROS info: Except as noted in the above Review of Systems and in the History of Present Illness, all other systems have been reviewed and are negative or noncontributory. s Physical Exam Vitals & Measurements HR: 76(Peripheral) RR: 16 BP: 132/84 HT: 73 in HT: 185.4 cm WT: 133 kg WT: 292.6 lb BMI: 38.69 HEENT: normal conjunctiva, sclera clear, no scleral icterus, EOM intact, PERRLA, oral mucosa moist without lesions. Neck: trachea midline, no mass, symmetric, no thyromegaly or nodules, no adenopathy Respiratory: lungs CTA, respirations non labored. Cardiovascular: regular rate and rhythm, no murmur, no pedal edema or varicosities. Musculoskeletal: normal gait, digits and nails without infection, nodes, cyanosis, clubbing. Skin: no rashes, no lesions, no ulcers, right parietal scalp with 3 mm raised, firm, nonpigmented lesion, no ulceration or scab Psychiatric/Neuro: oriented to time, place, person, judgement normal, affect appropriate for age, insight intact, no focal deficits. Tests: review of old records completed, Assessment/Plan 1. Solar keratosis (L57.0: Actinic keratosis) likely solar keratosis, no suspicious features; patient unable to stop Coumadin without bridging; recommend observation for now, if increases in size or changes pigmentaion or ulcerates/bleeds, will proceed with excision/cautery; if patient needs to stop Coumadin for another procedure, can try and coordinate excision at that time; call with problems/questions. Follow-up No qualifying data available Problem List/Past Medical History Ongoing Acne vulgaris Allergic rhinitis BMI 38.0-38.9,adult Diabetes Essential hypertension Glaucoma History of DVT (deep vein thrombosis) History of pulmonary embolism HTN (hypertension) Hypogonadism, testicular Lumbar disc herniation Migraines Craig's neuroma Psoriasis Retinal scar Solar keratosis Superficial thrombophlebitis Historical No qualifying data Procedure/Surgical History History of lumbar laminectomy, Ligament repair, Meniscal repair, Open acromioplasty for decompression of rotator cuff, Partial colectomy, Rotator cuff repair, Tonsillectomy. Medications atorvastatin 40 mg Tab, 40 mg= 1 tab(s), Oral, Daily azelastine 0.05% Opth Annette, 1 drop(s), Daily Coumadin 10 mg oral tablet Coumadin 7.5 mg Tab cyclobenzaprine 10 mg Tab, 20 mg= 2 tab(s), Oral, Bedtime, PRN Differin 0.3% topical gel, 1 noemy, Topical, Once a day (at bedtime) doxycycline monohydrate 100 mg oral capsule, 100 mg= 1 cap(s), Oral, BID ibuprofen 800 mg Tab, 800 mg= 1 tab(s), Oral, QID, PRN lisinopril 20 mg Tab, 20 mg= 1 tab(s), Oral, Daily Lyrica 100 mg Cap, 100 mg= 1 cap(s), Oral, TID metformin 500 mg Tab, 500 mg= 1 tab(s), Oral, BID omeprazole 20 mg Cap-DR, 20 mg= 1 cap(s), Oral, Daily oxycodone 10 mg oral tablet, 1-2 tabs, Oral, BID Percocet 5 mg-325 mg oral tablet, 2 tab(s), Oral, q4hr, PRN pioglitazone 30 mg Tab, 30 mg= 1 tab(s), Oral, Daily testosterone cypionate 200 mg/mL IM Annette, 100 mg= 0.5 mL, IntraMuscular, qWeek Vitamin D3 2000 intl units oral Tab, 50 mcg, Oral, Daily Allergies Adhesive Bandage (Unknown) Norflex (Unknown) celecoxib (Unknown) morphine (Unknown) orphenadrine (AOF) Social History Alcohol - Denies Alcohol Use, 04/23/2022 Substa (more content not included)... [facility] Comment on above: Result Comment: Elec tronically Signed By: JOCELYN GUNTER, Durga Myers\Date and Time Signed: 04/23/22 16:03 EST Evaluation + Plan note Note Date & Type Note Facility Evaluation + Plan note No data available for this section [facility] [place] [facility] Discharge instructions Note Date & Type Note Facility Hospital Discharge instructions No data available for this section [facility] [place] Progress note Note Date & Type Note Facility Progress note No data available for this section [facility] [place] Summary Purpose Family History No Family History Records FoundNo Family History Records FoundNo Family History Records FoundNo Family History Records Found Advance Directives No Advanced Directives Records FoundNo Advanced Directives Records FoundNo Advanced Directives Records FoundNo Advanced Directives Records Found Additional Source Comments (unrecognized sect ion and content) No Status Records FoundNo Status Records FoundNo Status Records FoundNo Status Records Found INFORMATION SOURCE (unrecogn ized section and content) DATE CREATED AUTHOR 10/07/2017 [facility] DATE CREATED AUTHOR AUTHOR'S ORGANIZ ATION 07/12/2020 [facility] DATE CREATED AUTHOR AUTHOR'S ORGANIZ ATION 04/24/2022 [facility] DATE CREATED AUTHOR AUTHOR'S ORGANIZ ATION 08/22/2022 [facility] Patient Care team informatio n (unrecognized section and content) Personnel Name: Dane Pompa MD Address: Address: [address] [place] [address] FOR RECORDS PERTAINING TO PATIENTS WHO ARE OR HAVE BEEN ENROLLED IN A CHEMICAL DEPENDENCY/SUBSTANCEABUSE PROGRAM, SOME INFORMATION MAY BE OMITTED. This clinical summary was aggregated from multiple sources. Caution should be exercised in using it in the provision of clinical care. This summary normalizes information from multiple sources, and as a consequence, information in this document may materially change the coding, format and clinical context of patient data. In addition, data may be omitted in some cases. CLINICAL DECISIONS SHOULD BE BASED ON THE PRIMARY CLINICAL RECORDS. [facility] [employer] [facility]. provides no warranty or guarantee of the accuracy or completeness of information in this document.
[2023-07-01 15:03] LABS: INR 3.31; Prothrombin Time 32.8 sec (9.0-11.6)
== END 2023-07-01 14:03 | disposition home or self-care (01) ==
LOC: LAB 14:03
PROVIDERS: PCP Family Medicine; Visit Provider Family Medicine
DX: I26.99 Other pulmonary embolism without acute cor pulmonale (principal)
CPT/HCPCS: 36415; 85610

== ENCOUNTER 2023-09-09 13:04 | Outpatient (OUT) | payer BC, MEDICARE, SELFPAY ==
[2023-09-09 14:42] LABS: Basophils Percent Auto 0.4 % (0.2-2.0); Eosinophils Absolute Auto 0.2 10^3/uL (0.0-0.7); Eosinophils Percent Auto 2.7 % (0.9-7.0); Hematocrit 52.6 % (42.0-54.0); Hemoglobin 17.5 g/dL (14.0-18.0); Immature Granulocytes Abs Auto 0.01 10^3/uL (0.00-0.03); Immature Granulocytes Pct Auto 0.2 % (0.0-0.5); Lymphocytes Absolute Auto 1.7 10^3/uL (1.2-3.8); Lymphocytes Percent Auto 31.3 % (20.5-60.0); Mean Corpuscular HGB Conc 33.3 g/dL (29.9-35.2); Mean Corpuscular Hemoglobin 31.2 pg (25.9-34.0); Mean Corpuscular Volume 93.8 fL (80.0-94.0); Mean Platelet Volume 11.2 fL (9.5-13.5); Monocytes Absolute Auto 0.7 10^3/uL (0.3-0.8); Monocytes Percent Auto 12.7 % (1.7-12.0); Neutrophils Absolute Auto 2.9 10^3/uL (1.4-6.5); Neutrophils Percent Auto 52.7 % (43.0-75.0); Platelet Count 221 10^3/uL (150-450); Red Blood Count 5.61 10^6/uL (4.70-6.10); Red Cell Distribution Width 13.5 % (11.0-15.0); White Blood Count 5.5 10^3/uL (4.0-11.0)
[2023-09-09 15:28] LABS: INR 3.02; Prothrombin Time 28.7 sec (9.0-11.6)
[2023-09-10 04:07] LABS: Testosterone 608 ng/dL (264-916)
== END 2023-09-09 13:05 | disposition home or self-care (01) ==
LOC: LAB 13:10
PROVIDERS: PCP Family Medicine; Visit Provider Family Medicine
DX: E29.1 Testicular hypofunction (principal); I26.99 Other pulmonary embolism without acute cor pulmonale; R79.9 Abnormal finding of blood chemistry, unspecified
CPT/HCPCS: 36415; 84403; 85025; 85610

== ENCOUNTER 2023-12-03 13:42 | Outpatient (OUT) | payer BC, MEDICARE, SELFPAY ==
[2023-12-03 14:33] LABS: INR 3.14; Prothrombin Time 29.7 sec (9.0-11.6)
== END 2023-12-03 13:43 | disposition home or self-care (01) ==
LOC: LAB 13:44
PROVIDERS: PCP Family Medicine; Visit Provider Family Medicine
DX: I26.99 Other pulmonary embolism without acute cor pulmonale (principal)
CPT/HCPCS: 36415; 85610

== ENCOUNTER 2024-04-11 09:25 | Outpatient (OUT) | payer BC, MEDICARE, SELFPAY ==
--- OUTSIDE RECORDS SUMMARY | 2024-04-11 09:47 | XMS_ITS | CCD ---
Author Organization [facility] Care Team Providers Care Analysis Tester Name Role Phone CHRIS, CHICHO Unavailable Unavailable SKIE, CHICHO Unavailable Unavailable SWATI DANE Unavailable Unavailable FOGT, CELIO Unavailable Unavailable [place] Unavailable Unavailable SKIE, CHICHO Unavailable Unavailable [place] Unavailable Unavailable PITRODA, SHAHANA Unavailable Unavailable Dane Pompa Primary Care Physician [phone] Durga BANKS Attending Unavailable HOY ., DR [...] DR VELA Admitting Unavailable HOY ., DR VLEA Primary Care Unavailable HOY ., DR VELA Consulting Unavailable HOY ., DR VELA Primary Care Unavailable HOY ., DR VELA Admitting Unavailable HOY ., DR VELA Attending Unavailable Allergies Allergy Classification Reported Allergen(s) Allergy Type Date of Onset Reaction(s) Facility (2 sources) celecoxib; 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: [CELEBREX] Drug Allergy 3 [facility] Repository (3 sources) morphine; 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: [MORPHINE] Drug Allergy 0 Unknown (qualifier value) [facility] Repository (2 sources) orphenadrine; 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: [Norflex] Drug Allergy 0 AOF [facility] Repository (2 sources) Adhesive bandage; 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: [Adhesive Bandage] Drug allergy Unknown (qualifier value) [facility] [place] (2 sources) celecoxib; 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: [celecoxib] Drug Allergy 3 Unknown [facility] [place] (3 sources) Orphenadrine; 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: [orphenadrine] Drug Allergy 0 Unknown (qualifier value) [facility] [place] (1 source) Orphenadrine Drug Allergy 4 [facility] Rep[facility] Medications Current Medications Medication Drug [...] Migraine 04-09-2022 Chronic Other aftercare (5 sources) rn long term care (current) use of anticoagulants; 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: [NURSING HOME CURRNT USE 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] Onset: 3 Episodic Other [...] intervertebral disc 04-09-2022 Chronic 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 (1 source) residential (current) use of oral hypoglycemic drugs; 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: [MEDICAL INSURANCE BILLER (CURRENT) USE OF ORAL HYPOGLYCEMIC DRUGS] Onset: 7 Past or Other Problems Problem Classification Problem Date Documented Da te Episodic/Chronic Deficiency and other anemia (1 source) Anemia, unspecified; 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: [ANEMIA UNSPECIFIED] Onset: 10-11-2021 Episodic Malaise and fatigue (1 source) Other fatigue; 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: [OTHER FATIGUE] Onset: 04-10-2022 Episodic Other aftercare (1 source) Other group home (current) drug therapy; 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: [OTH MEDICAL INSURANCE BILLER CURRENT DRUG THERAPY] Onset: 04-10-2022 Episodic Other [...] Coag (PPP) [Relative time] 2.84 {INR} Normal [facility] Comment on above: Performed By: #### P T #### [facility] [address] [address] [address] Teddy Purcell INR GUIDELINES SEE BELOW Normal [facility] Comment on above: Result Comment: ISMA RED INR: 2.0 - 3.0 CONDITIONS NOT LISTED BELOW 2.5 - 3.5 FOR PROSTHETIC HEART VALVE REPLACEMENT 2.5 - 3.5 RECURRENT THROMBOSIS Performed By: #### P T #### [facility] [address] [address] [address] Teddy Purcell PT Coag (PPP) [Time] 28.4 s Critically high 9.0-11.6 [facility] Comment on above: Performed By: #### P T #### [facility] [address] [address] [address] Teddy Purcell PROTIMEon 06-23-2022 INR Coag (PPP) [Relative time] 3.22 {INR} Normal [facility] Comment on above: Performed By: #### P T #### [facility] [address] [address] [address] Teddy Purcell INR GUIDELINES SEE BELOW Normal [facility] Comment on above: Result Comment: ISMA RED INR: 2.0 - 3.0 CONDITIONS NOT LISTED BELOW 2.5 - 3.5 FOR PROSTHETIC HEART VALVE REPLACEMENT 2.5 - 3.5 RECURRENT THROMBOSIS Performed By: #### P T #### [facility] [address] [place] [address] Dr. Teddy Purcell PT Coag (PPP) [Time] 31.9 s Critically high 9.0-11.6 [facility] Comment on above: Performed By: #### P T #### [facility] [address] [place] [address] Dr. Teddy Purcell PROTIMEon 06-16-2022 INR Coag (PPP) [Relative time] 3.26 {INR} Normal [facility] Comment on above: Performed By: #### P SASC #### [facility] [address] [place] [address] Dr. Teddy Purcell INR GUIDELINES SEE BELOW Normal [facility] Comment on above: Result Comment: ISMA RED INR: 2.0 - 3.0 CONDITIONS NOT LISTED BELOW 2.5 - 3.5 FOR PROSTHETIC HEART VALVE REPLACEMENT 2.5 - 3.5 RECURRENT THROMBOSIS Performed By: #### P SASC #### [facility] [address] [place] [address] Dr. Teddy Purcell PT Coag (PPP) [Time] 32.3 s Critically high 9.0-11.6 [facility] Comment on above: Performed By: #### P SASC #### [facility] [address] [place] [address] Dr. Teddy Purcell PROTIMEon 06-09-2022 INR Coag (PPP) [Relative time] 4.37 {INR} Critically high [facility] Comment on above: Performed By: #### P T #### [facility] [address] [place] [address] Dr. Teddy Purcell INR GUIDELINES SEE BELOW Normal [facility] Comment on above: Result Comment: ISMA RED INR: 2.0 - 3.0 CONDITIONS NOT LISTED BELOW 2.5 - 3.5 FOR PROSTHETIC HEART VALVE REPLACEMENT 2.5 - 3.5 RECURRENT THROMBOSIS Performed By: #### P T #### [facility] [address] [place] [address] Dr. Teddy Purcell PT Coag (PPP) [Time] 42.6 s Critically high 9.0-11.6 [facility] Comment on above: Performed By: #### P T #### [facility] [address] [place] [address] Dr. Teddy Purcell Facesheeton 04-24-2022 Facesheet [id number]:12 7 [facility] OCC BLD IMMUNO SCREENon 03-15 OCCULT BLOOD Negative Normal NEGATIVE [facility] Comment on above: Performed By: #### P SASC #### [facility] [address] [place] [address] Dr. Teddy Purcell TESTOSTERONE, TOTALon 2021 Testosterone [Mass/Vol] 905 ng/dL Normal 264-916 [facility] Comment on above: Result Comment: Adul t male reference interval is based on a population of healthy nonobese males (BMI <30) between 19 and 39 years old. Thea et.al. JCEM 2017,102;8373-6351. PMID: [id number]. Performed By: #### P SASC #### [facility] [address] [place] [address] Dr. Teddy Purcell CBC AUTO DIFFon 04-03-2022 BASO # 0.0 103/ul Normal 0.0-0.1 [facility] Comment on above: Performed By: #### P SASC #### [facility] [address] [place] [address] Dr. Teddy Purcell Basophils/100 WBC (Bld) 0.2 % Normal 0.2-2.0 [facility] Comment on above: Performed By: #### P SASC #### [facility] [address] [place] [address] Dr. Teddy Purcell EO # 0.1 103/ul Normal 0.0-0.7 [facility] Comment on above: Performed By: #### P SASC #### [facility] [address] [place] [address] Dr. Teddy Purcell Eosinophils/100 WBC (Bld) 2.4 % Normal 0.9-7.0 [facility] Comment on above: Performed By: #### P SASC #### [facility] [address] [place] [address] Dr. Teddy Purcell Erythrocyte distribution width (RBC) [Ratio] 15.7 % Critically high 11.0-15.0 [facility] Comment on above: Performed By: #### P SASC #### [facility] [address] [place] [address] Dr. Teddy Purcell Hematocrit (Bld) [Volume fraction] 51.4 % Normal 42.0-54.0 [facility] Comment on above: Performed By: #### P SASC #### [facility] [address] [place] [address] Dr. Teddy Purcell Hemoglobin (Bld) [Mass/Vol] 16.9 g/dL Normal 14.0-18.0 [facility] Comment on above: Performed By: #### P SASC #### [facility] [address] [place] [address] Dr. Teddy Purcell IG # 0.01 10e3/ul Normal 0.00-0.03 [facility] Comment on above: Performed By: #### P SASC #### [facility] [address] [place] [address] Dr. Teddy Purcell IG % 0.2 % Normal 0.0-0.5 [facility] Comment on above: Performed By: #### P SASC #### [facility] [address] [place] [address] Dr. Teddy Purcell LYMPH # 2.0 103/ul Normal 1.2-3.8 [facility] Comment on above: Performed By: #### P SASC #### [facility] [address] [place] [address] Dr. Teddy Purcell Lymphocytes/100 WBC (Bld) 33.1 % Normal 20.5-60.0 [facility] Comment on above: Performed By: #### P SASC #### [facility] [address] [place] [address] Dr. Teddy Purcell MANUAL DIFF REQ NO Normal [facility] Comment on above: Performed By: #### P SASC #### [facility] [address] [place] [address] Dr. Teddy Purcell MCH (RBC) [Entitic mass] 29.8 pg Normal 25.9-34.0 [facility] Comment on above: Performed By: #### P SASC #### [facility] [address] [place] [address] Dr. Teddy Purcell MCHC (RBC) [Mass/Vol] 32.9 g/dL Normal 29.9-35.2 [facility] Comment on above: Performed By: #### P SASC #### [facility] [address] [place] [address] Dr. Teddy Purcell MCV (RBC) [Entitic vol] 90.7 fL Normal 80.0-94.0 [facility] Comment on above: Performed By: #### P SASC #### [facility] [address] [place] [address] Dr. Teddy Purcell MONO # 0.8 103/ul Normal 0.3-0.8 [facility] Comment on above: Performed By: #### P SASC #### [facility] [address] [place] [address] Dr. Teddy Purcell Monocytes/100 WBC (Bld) 12.9 % Critically high 1.7-12.0 [facility] Comment on above: Performed By: #### P SASC #### [facility] [address] [place] [address] Dr. Teddy Purcell NEUT # 3.1 103/ul Normal 1.4-6.5 [facility] Comment on above: Performed By: #### P SASC #### [facility] [address] [place] [address] Dr. Teddy Purcell Neutrophils/100 WBC (Bld) 51.2 % Normal 43.0-75.0 [facility] Comment on above: Performed By: #### P SASC #### [facility] [address] [place], [place] [id number] Dr. Teddy Purcell Platelet mean volume (Bld) [Entitic vol] 10.0 fL Normal 9.5-13.5 [facility] Comment on above: Performed By: #### P SASC #### [facility] [address] [place] [address] Dr. Teddy Purcell PLT 302 103/ul Normal 150-450 [facility] Comment on above: Performed By: #### P SASC #### [facility] [address] [address] [address] Teddy Purcell RBC 5.67 106/ul Normal 4.70-6.10 [facility] Comment on above: Performed By: #### P SASC #### [facility] [address] [address] [address] Teddy Purcell WBC 6.0 103/ul Normal 4.0-11.0 [facility] Comment on above: Performed By: #### P SASC #### [facility] [address] [place] [address] Dr. Teddy Purcell FREE T3on 04-03-2022 FREE T3 3.52 pg/mlL Normal 2.18-3.98 [facility] Comment on above: Performed By: #### P SASC #### [facility] [address] [place] [address] Dr. Teddy Purcell GLYCOHEMOGLOBIN A1Con 2021 ADA RECOMMENDATION SEE BELOW Normal [facility] Comment on above: Result Comment: ADA RECOMMENDED LIMIT 4.0 - 6.0 ADA THERAPEUTIC TARGET < 7.0 ACTION SUGGESTED > 7.0 Performed By: #### P SASC #### [facility] [address] [place] [address] Dr. Teddy Purcell Glucose [Mass/Vol] 209 mg/dL Normal [facility] Comment on above: Performed By: #### P SASC #### [facility] [address] [place] [address] Dr. Teddy Purcell HbA1c (Bld) [Mass fraction] 8.9 % Critically high 4.5-6.2 [facility] Comment on above: Performed By: #### P SASC #### [facility] [address] [address] [address] Teddy Purcell LIPID PROFILEon 04-03-2022 CHOL-HDL RATIO NORM SEE BELOW Normal [facility] Comment on above: Result Comment: 3.3 - 4.4 LOW RISK 4.4 - 7.1 AVERAGE RISK 7.1 - 11.0 MODERATE RISK >11.0 HIGH RISK Performed By: #### L IPID, FT3, T4, CMP, TSH #### [facility] [address] [address] [address] Teddy Purcell Cholesterol [Mass/Vol] 150 mg/dL Normal <=200 [facility] Comment on above: Performed By: #### L IPID, FT3, T4, CMP, TSH #### [facility] [address] [address] [address] Teddy Purcell Cholesterol in HDL [Mass/Vol] 31 mg/dL Critically low 40-60 [facility] Comment on above: Performed By: #### L IPID, FT3, T4, CMP, TSH #### [facility] [address] [address] [address] Teddy Purcell Cholesterol in LDL [Mass/Vol] 85.4 mg/dL Normal [facility] Comment on above: Performed By: #### L IPID, FT3, T4, CMP, TSH #### [facility] [address] [address] [address] Teddy Purcell Cholesterol.total/C holesterol in HDL [Mass ratio] 4.8 {ratio} Normal [facility] Comment on above: Performed By: #### L IPID, FT3, T4, CMP, TSH #### [facility] [address] [address] [address] Teddy Purcell HDL NORMAL > or = 60 mg/dl - LO W CARDIOVASCULAR RISK <40 mg/dl - HIGH CARDIOVASCULAR RISK Normal [facility] Comment on above: Performed By: #### L IPID, FT3, T4, CMP, TSH #### [facility] [address] [address] [address] Teddy Purcell LDL CALC NORMAL SEE BELOW Normal [facility] Comment on above: Result Comment: <100 mg/dl OPTIMAL 100 - 129 mg/dl NEAR OR ABOVE OPTIMAL 130 - 159 mg/dl BORDERLINE HIGH 160 - 189 mg/dl HIGH >190 mg/dl VERY HIGH Performed By: #### L IPID, FT3, T4, CMP, TSH #### [facility] [address] [address] [address] Teddy Purcell Triglyceride [Mass/Vol] 168 mg/dL Critically high <=150 [facility] Comment on above: Performed By: #### L IPID, FT3, T4, CMP, TSH #### [facility] [address] [address] [address] Teddy Purcell VLDL CALC 33.6 mg/dL Normal [facility] Comment on above: Performed By: #### L IPID, FT3, T4, CMP, TSH #### [facility] [address] [place] [address] Dr. Teddy Purcell PROF 14(COMP METB)on 022 Albumin [Mass/Vol] 3.7 g/dL Normal 3.4-5.0 [facility] Comment on above: Performed By: #### L IPID, FT3, T4, CMP, TSH #### [facility] [address] [place] [address] Dr. Teddy Purcell Albumin/Globulin [Mass ratio] 0.9 {ratio} Normal [facility] Comment on above: Performed By: #### L IPID, FT3, T4, CMP, TSH #### [facility] [address] [address] [address] Teddy Purcell ALP [Catalytic activity/Vol] 63 U/L Normal 46-116 [facility] Comment on above: Performed By: #### L IPID, FT3, T4, CMP, TSH #### [facility] [address] [address] [address] Teddy Purcell ALT [Catalytic activity/Vol] 61 U/L Normal 16-63 [facility] Comment on above: Performed By: #### L IPID, FT3, T4, CMP, TSH #### [facility] [address] [place] [address] Dr. Teddy Purcell Anion gap [Moles/Vol] 9.7 mmol/L Normal [facility] Comment on above: Performed By: #### L IPID, FT3, T4, CMP, TSH #### [facility] [address] [place] [address] Dr. Teddy Purcell AST [Catalytic activity/Vol] 30 U/L Normal 15-37 [facility] Comment on above: Performed By: #### L IPID, FT3, T4, CMP, TSH #### [facility] [address] [place] [address] Dr. Teddy Purcell Bilirubin [Mass/Vol] 0.3 mg/dL Normal 0.2-1.0 [facility] Comment on above: Performed By: #### L IPID, FT3, T4, CMP, TSH #### [facility] [address] [place] [address] Dr. Teddy Purcell Calcium [Mass/Vol] 9.7 mg/dL Normal 8.5-10.1 [facility] Comment on above: Performed By: #### L IPID, FT3, T4, CMP, TSH #### [facility] [address] [place] [address] Dr. Teddy Purcell Chloride [Moles/Vol] 96 mmol/L Critically low 98-107 [facility] Comment on above: Performed By: #### L IPID, FT3, T4, CMP, TSH #### [facility] [address] [place] [address] Dr. Teddy Purcell CO2 [Moles/Vol] 34.7 mmol/L Critically high 21.0-32.0 [facility] Comment on above: Performed By: #### L IPID, FT3, T4, CMP, TSH #### [facility] [address] [place] [address] Dr. Teddy Purcell Creatinine [Mass/Vol] 0.78 mg/dL Normal 0.70-1.30 [facility] Comment on above: Performed By: #### L IPID, FT3, T4, CMP, TSH #### [facility] [address] [address] [address] Teddy Purcell EGFR-AF ANGUILLAN >60 Normal >=60 [facility] Comment on above: Performed By: #### L IPID, FT3, T4, CMP, TSH #### [facility] [address] [place] [address] Dr. Teddy Purcell EGFR-NON AF ANGUILLAN >60 Normal >=60 [facility] Comment on above: Performed By: #### L IPID, FT3, T4, CMP, TSH #### [facility] [address] [place] [address] Dr. Teddy Purcell Globulin (S) [Mass/Vol] 3.9 g/dL Normal [facility] Comment on above: Performed By: #### L IPID, FT3, T4, CMP, TSH #### [facility] [address] [place] [address] Dr. Teddy Purcell Glucose [Mass/Vol] 165 mg/dL Critically high 74-[address] [facility] Comment on above: Performed By: #### L IPID, FT3, T4, CMP, TSH #### [facility] [address] [place] [address] Dr. Teddy Purcell Potassium [Moles/Vol] 4.4 mmol/L Normal 3.5-5.1 [facility] Comment on above: Performed By: #### L IPID, FT3, T4, CMP, TSH #### [facility] [address] [place] [address] Dr. Teddy Purcell Protein [Mass/Vol] 7.6 g/dL Normal 6.4-8.2 [facility] Comment on above: Performed By: #### L IPID, FT3, T4, CMP, TSH #### [facility] [address] [place] [address] Dr. Teddy Purcell Sodium [Moles/Vol] 136 mmol/L Normal 136-145 [facility] Comment on above: Performed By: #### L IPID, FT3, T4, CMP, TSH #### [facility] [address] [place] [address] Dr. Teddy Purcell Urea nitrogen [Mass/Vol] 14.0 mg/dL Normal 7.0-18.0 [facility] Comment on above: Performed By: #### L IPID, FT3, T4, CMP, TSH #### [facility] [address] [address] [address] Teddy Purcell Urea nitrogen/Creatinine [Mass ratio] 17.9 mg/mg Normal [facility] Comment on above: Performed By: #### L IPID, FT3, T4, CMP, TSH #### [facility] [address] [address] [address] Teddy Purcell PROTIMEon 04-03-2022 INR Coag (PPP) [Relative time] 3.13 {INR} Normal [facility] Comment on above: Performed By: #### P T #### [facility] [address] [place] [address] Dr. Teddy Purcell INR GUIDELINES SEE BELOW Normal [facility] Comment on above: Result Comment: ISMA RED INR: 2.0 - 3.0 CONDITIONS NOT LISTED BELOW 2.5 - 3.5 FOR PROSTHETIC HEART VALVE REPLACEMENT 2.5 - 3.5 RECURRENT THROMBOSIS Performed By: #### P T #### [facility] [address] [place] [address] Dr. Teddy Purcell PT Coag (PPP) [Time] 31.4 s Critically high 9.0-11.6 [facility] Comment on above: Performed By: #### P T #### [facility] [address] [place] [address] Dr. Teddy Purcell Physician Referralon 022 Physician Referral [id number]:12 7 [facility] T4on 04-03-2022 T4 [Mass/Vol] 7.60 ug/dL Normal 4.50-12.10 [facility] Comment on above: Performed By: #### L IPID, FT3, T4, CMP, TSH #### [facility] [address] [address] [address] Teddy Purcell TSHon 12-22-2022 TSH 1.595 uIU/mL Normal 0.358-3.740 [facility] Comment on above: Performed By: #### L IPID, FT3, T4, CMP, TSH #### [facility] [address] [address] [address] Teddy Purcell PROTIMEon 12-05-2021 INR Coag (PPP) [Relative time] 3.69 {INR} Normal [facility] Comment on above: Performed By: #### P T #### [facility] [address] [address] [address] Teddy Purcell INR GUIDELINES SEE BELOW Normal [facility] Comment on above: Result Comment: ISMA RED INR: 2.0 - 3.0 CONDITIONS NOT LISTED BELOW 2.5 - 3.5 FOR PROSTHETIC HEART VALVE REPLACEMENT 2.5 - 3.5 RECURRENT THROMBOSIS Performed By: #### P T #### [facility] [address] [address] [address] Teddy Purcell PT Coag (PPP) [Time] 36.6 s Critically high 9.0-11.6 [facility] Comment on above: Performed By: #### P T #### [facility] [address] [place] [address] Dr. Teddy Purcell TESTOSTERONE, TOTALon 2021 Testosterone [Mass/Vol] 633 ng/dL Normal 264-916 [facility] Comment on above: Result Comment: Adul t male reference interval is based on a population of healthy nonobese males (BMI <30) between 19 and 39 years old. Thea et.al. JCEM 2017,102;6554-3218. PMID: [id number]. Performed By: #### P T #### [facility] [address] [address] [address] Teddy Purcell CBC AUTO DIFFon 10-08-2021 BASO # 0.0 103/ul Normal 0.0-0.1 [facility] Comment on above: Performed By: #### C BC #### [facility] [address] [address] [address] Teddy Purcell Basophils/100 WBC (Bld) 0.4 % Normal 0.2-2.0 [facility] Comment on above: Performed By: #### C BC #### [facility] [address] [place] [address] Dr. Teddy Purcell EO # 0.1 103/ul Normal 0.0-0.7 [facility] Comment on above: Performed By: #### C BC #### [facility] [address] [place] [address] Dr. Teddy Purcell Eosinophils/100 WBC (Bld) 2.0 % Normal 0.9-7.0 [facility] Comment on above: Performed By: #### C BC #### [facility] [address] [place] [address] Dr. Teddy Purcell Erythrocyte distribution width (RBC) [Ratio] 13.7 % Normal 11.0-15.0 [facility] Comment on above: Performed By: #### C BC #### [facility] [address] [place] [address] Dr. Teddy Purcell Hematocrit (Bld) [Volume fraction] 45.6 % Normal 42.0-54.0 [facility] Comment on above: Performed By: #### C BC #### [facility] [address] [place] [address] Dr. Teddy Purcell Hemoglobin (Bld) [Mass/Vol] 14.8 g/dL Normal 14.0-18.0 [facility] Comment on above: Performed By: #### C BC #### [facility] [address] [place] [address] Dr. Teddy Purcell IG # 0.01 10e3/ul Normal 0.00-0.03 [facility] Comment on above: Performed By: #### C BC #### [facility] [address] [place] [address] Dr. Teddy Purcell IG % 0.2 % Normal 0.0-0.5 [facility] Comment on above: Performed By: #### C BC #### [facility] [address] [place] [address] Dr. Teddy Purcell LYMPH # 1.8 103/ul Normal 1.2-3.8 [facility] Comment on above: Performed By: #### C BC #### [facility] [address] [place] [address] Dr. Teddy Purcell Lymphocytes/100 WBC (Bld) 36.6 % Normal 20.5-60.0 [facility] Comment on above: Performed By: #### C BC #### [facility] [address] [place] [address] Dr. Teddy Purcell MANUAL DIFF REQ NO Normal [facility] Comment on above: Performed By: #### C BC #### [facility] [address] [place] [address] Dr. Teddy Purcell MCH (RBC) [Entitic mass] 30.0 pg Normal 25.9-34.0 [facility] Comment on above: Performed By: #### C BC #### [facility] [address] [place] [address] Dr. Teddy Purcell MCHC (RBC) [Mass/Vol] 32.5 g/dL Normal 29.9-35.2 [facility] Comment on above: Performed By: #### C BC #### [facility] [address] [place] [address] Dr. Teddy Purcell MCV (RBC) [Entitic vol] 92.3 fL Normal 80.0-94.0 [facility] Comment on above: Performed By: #### C BC #### [facility] [address] [place] [address] Dr. Teddy Purcell MONO # 0.7 103/ul Normal 0.3-0.8 [facility] Comment on above: Performed By: #### C BC #### [facility] [address] [place] [address] Dr. Teddy Purcell Monocytes/100 WBC (Bld) 13.7 % Critically high 1.7-12.0 [facility] Comment on above: Performed By: #### C BC #### [facility] [address] [place] [address] Dr. Teddy Purcell NEUT # 2.3 103/ul Normal 1.4-6.5 [facility] Comment on above: Performed By: #### C BC #### [facility] [address] [place] [address] Dr. Teddy Purcell Neutrophils/100 WBC (Bld) 47.1 % Normal 43.0-75.0 [facility] Comment on above: Performed By: #### C BC #### [facility] [address] [place] [address] Dr. Teddy Purcell Platelet mean volume (Bld) [Entitic vol] 10.3 fL Normal 9.5-13.5 [facility] Comment on above: Performed By: #### C BC #### [facility] [address] [place] [address] Dr. Teddy Purcell PLT 252 103/ul Normal 150-450 [facility] Comment on above: Performed By: #### C BC #### [facility] [address] [place] [address] Dr. Teddy Purcell RBC 4.94 106/ul Normal 4.70-6.10 [facility] Comment on above: Performed By: #### C BC #### [facility] [address] [place] [address] Dr. Teddy Purcell WBC 5.0 103/ul Normal 4.0-11.0 [facility] Comment on above: Performed By: #### C BC #### [facility] [address] [place] [address] Dr. Teddy Purcell IRONon 10-08-2021 Iron [Mass/Vol] 85.0 ug/dL Normal 65.0-175.0 [facility] Comment on above: Performed By: #### P SASC #### [facility] [address] [place] [address] Dr. Teddy Purcell MAGNESIUMon 10-08-2021 Magnesium [Mass/Vol] 1.9 mg/dL Normal 1.8-2.4 [facility] Comment on above: Performed By: #### P SASC #### [facility] [address] [place] [address] Dr. Teddy Purcell PHOSPHORUSon 10-08-2021 Phosphate [Mass/Vol] 3.1 mg/dL Normal 2.6-4.7 [facility] Comment on above: Performed By: #### P SASC #### [facility] [address] [address] [address] Teddy Purcell PROF 14(COMP METB)on 022 Albumin [Mass/Vol] 3.5 g/dL Normal 3.4-5.0 [facility] Comment on above: Performed By: #### P SASC #### [facility] [address] [address] [address] Teddy Purcell Albumin/Globulin [Mass ratio] 1.0 {ratio} Normal [facility] Comment on above: Performed By: #### P SASC #### [facility] [address] [address] [address] Teddy Purcell ALP [Catalytic activity/Vol] 59 U/L Normal 46-116 [facility] Comment on above: Performed By: #### P SASC #### [facility] [address] [address] [address] Teddy Purcell ALT [Catalytic activity/Vol] 58 U/L Normal 16-63 [facility] Comment on above: Performed By: #### P SASC #### [facility] [address] [address] [address] Teddy Purcell Anion gap [Moles/Vol] 9.5 mmol/L Normal [facility] Comment on above: Performed By: #### P SASC #### [facility] [address] [address] [address] Teddy Purcell AST [Catalytic activity/Vol] 28 U/L Normal 15-37 [facility] Comment on above: Performed By: #### P SASC #### [facility] [address] [address] [address] Teddy Purcell Bilirubin [Mass/Vol] 0.3 mg/dL Normal 0.2-1.0 [facility] Comment on above: Performed By: #### P SASC #### [facility] [address] [address] [address] Teddy Purcell Calcium [Mass/Vol] 9.1 mg/dL Normal 8.5-10.1 [facility] Comment on above: Performed By: #### P SASC #### [facility] [address] [address] [address] Teddy Purcell Chloride [Moles/Vol] 104 mmol/L Normal 98-107 [facility] Comment on above: Performed By: #### P SASC #### [facility] [address] [address] [address] Teddy Purcell CO2 [Moles/Vol] 30.8 mmol/L Normal 21.0-32.0 [facility] Comment on above: Performed By: #### P SASC #### [facility] [address] [address] [address] Teddy Purcell Creatinine [Mass/Vol] 0.90 mg/dL Normal 0.70-1.30 [facility] Comment on above: Performed By: #### P SASC #### [facility] [address] [address] [address] Teddy Purcell EGFR-AF ANGUILLAN >60 Normal >=60 [facility] Comment on above: Performed By: #### P SASC #### [facility] [address] [address] [address] Teddy Purcell EGFR-NON AF ANGUILLAN >60 Normal >=60 [facility] Comment on above: Performed By: #### P SASC #### [facility] [address] [address] [address] Teddy Purcell Globulin (S) [Mass/Vol] 3.5 g/dL Normal [facility] Comment on above: Performed By: #### P SASC #### [facility] [address] [address] [address] Teddy Purcell Glucose [Mass/Vol] 145 mg/dL Critically high 74-106 [facility] Comment on above: Performed By: #### P SASC #### [facility] [address] [address] [address] Teddy Purcell Potassium [Moles/Vol] 4.3 mmol/L Normal 3.5-5.1 [facility] Comment on above: Performed By: #### P SASC #### [facility] [address] [address] [address] Teddy Purcell Protein [Mass/Vol] 7.0 g/dL Normal 6.4-8.2 [facility] Comment on above: Performed By: #### P SASC #### [facility] [address] [address] [address] Teddy Purcell Sodium [Moles/Vol] 140 mmol/L Normal 136-145 [facility] Comment on above: Performed By: #### P SASC #### [facility] [address] [address] [address] Teddy Purcell Urea nitrogen [Mass/Vol] 17.0 mg/dL Normal 7.0-18.0 [facility] Comment on above: Performed By: #### P SASC #### [facility] [address] [place] [address] Dr. Teddy Purcell Urea nitrogen/Creatinine [Mass ratio] 18.9 mg/mg Normal [facility] Comment on above: Performed By: #### P SASC #### [facility] [address] [address] [address] Teddy Purcell PROTIMEon 10-08-2021 INR Coag (PPP) [Relative time] 2.83 {INR} Normal [facility] Comment on above: Performed By: #### P T #### [facility] [address] [place] [address] Dr. Teddy Purcell INR GUIDELINES SEE BELOW Normal [facility] Comment on above: Result Comment: ISMA RED INR: 2.0 - 3.0 CONDITIONS NOT LISTED BELOW 2.5 - 3.5 FOR PROSTHETIC HEART VALVE REPLACEMENT 2.5 - 3.5 RECURRENT THROMBOSIS Performed By: #### P T #### [facility] [address] [address] [address] Teddy Purcell PT Coag (PPP) [Time] 28.6 s Critically high 9.0-11.6 [facility] Comment on above: Performed By: #### P T #### [facility] [address] [place] [address] Dr. Teddy Purcell Prothrombin Time INRon 07-04 INR Coag (Bld) [Relative time] 10.5 s Normal 9.0-12.9 [facility] Comment on above: Performed By: #### P T #### [address] [id number] [facility] INR Coag (PPP) [Relative time] 0.9 {INR} Normal [facility] Comment on above: Result Comment: INR Therapeutic [...] heart valves: 3 - 4.5 PERFORMED BY: [place] [address] PATHOLOGIST [employer] SPECIALIST DANIKA COE M.D. Performed By: #### P T #### [place] [id number] [facility] Operative Reporton 7 Operative Report MR#: [id number] [facility] Pt. Name: Mariajose Corral Room #: 0C [...] 10/27/2016 09:05 A Chicho Barba M.D.Date Dict: 10/20/2016//Chicho Barba M.D.Date Trans: 10/24/2016 05:16 P/[id number] c: Celio Oseguera M.D. [facility] [address] [facility] [place] [address] Dane Pompa M.D. [place] [id number] [facility] [place] [address] Normal [facility] POC GLUCOSE LABon 10-20-2016 Glucose mass conc 117 mg/dL High 70-100 [facility] Comment on above: Performed By: #### [id number] ####[facility] [place] [address], [facility] Glucose mass conc 132 mg/dL High 70-100 [facility] Comment on above: Performed By: #### [id number] ####[facility] [place] [address], [facility] Vital Signs Date Time Vital Sign Value Performing Clinician Bree reyes 04-23-2022 15:13-0500 Blood Pressure Location Durga NILL [facility] 04-23-2022 15:13-0500 Diastolic blood pressure 84 mm[Hg] Durga NILL [facility] [place] 04-23-2022 15:13-0500 Heart rate 76 /min Durga NILL [facility] [place] 04-23-2022 15:13-0500 Respiratory rate 16 /min Durga NILL [facility] 04-23-2022 15:13-0500 Systolic blood pressure 132 mm[Hg] Durga NILL [facility] [place] Encounters Encounter Date Encounter Type Care Provider Facility Start: 08-14-2022 End: 08-15-[address] DANE POMPA . Facility:[facility] Start: 06-23-2022 End: 06-24-[address] DANE POMPA . Facility:[facility] Start: 06-16-2022 End: 06-17-[address] DANE POMPA . Facility:[facility] Start: 06-09-2022 End: 06-10-[address] DANE POMPA . Facility: Start: 04-23-2022 End: 04-24-2022 ambulatory Durga BANKS Facility: [facility] Start: 04-23-2022 End: 04-23-2022 Patient encounter procedure Durga BANKS [facility] Start: 04-11-2022 End: 04-11-[address] DANE POMPA . Facility: Start: 04-10-2022 Encounter for genera l adult medical examination without abnormal findings DR DANE POMPA . [facility] Start: 04-03-2022 End: 04-04-[address] DANE POMPA . Facility: Start: 04-03-2022 End: 04-04-2022 Encounter for general adult medical examination without abnormal findings DR DANE POMPA . Facility:[facility] Start: 04-02-2022 ambulatory Durga BANKS Facility:[facility] Start: 12-05-2021 End: 12-06-[address] DANE POMPA . Facility:[facility] Start: 10-08-2021 End: 10-09-[address] DANE POMPA . Facility: Start: 10-20-2016 End: 10-21-2016 Ambulatory [facility] Facility:[facility] Procedures Date Procedure Procedure Detail Performing Clinician Start: 04-03-[address] RYAN POMPA . Comment on above: Performed By: #### P [facility] #### [facility] [address] [place] [address] Dr. Teddy Purcell Start: 10-20-2016 ANESTH LOWER [...] [place] Payers Date Payer Category Payer Unknown [id number] 2.16.8 [id number] 1973 Unknown [id number] 2.16.84 [id number] 1973 Unknown [id number] 2.16.84 [id number] 1973 Unknown [id number] 2.16.84 [id number] 1973 Unknown [id number] 2.16.84 [id number] 1973 Unknown [id number] 2.16.84 [id number] 1973 Unknown [id number] 2.16.84 [id number] 1973 Unknown [id number] 2.16.84 [id number] 1973 Unknown [id number] 2.16.84 [id number] 1961 Medicare [id number] 1961 Unknown [id number] Social History Date Type Detail Facility Start: 04-23-2022 Tobacco smoking status Never s moked tobacco (finding) [facility] Tobacco smoking status Never Gener [facility] Sex Assigned At Male [facility] Functional Status Date Assessment Result Facility 04-23-2022 Functional Status N/A [facility] Clinical Note 04-23-2022 Note Date [...] Use, 04/23/2022 Substa (more content not included)... [facility] Comment on above: Result Comment: Elec [...] section and content) DATE CREATED AUTHOR 10/07/2017 [facility] DATE CREATED AUTHOR AUTHOR'S ORGANIZ ATION 07/12/2020 [facility] DATE CREATED AUTHOR AUTHOR'S ORGANIZ ATION 04/24/2022 [facility] DATE CREATED AUTHOR AUTHOR'S ORGANIZ ATION 08/22/2022 [facility] Patient Care team informatio n (unrecognized section and content) Personnel Name: Dane Pompa MD Address: Address: [address] [place] [address] FOR RECORDS PERTAINING TO PATIENTS WHO ARE [...] BE BASED ON THE PRIMARY CLINICAL RECORDS. [facility] [employer] [facility]. provides no warranty or guarantee of the accuracy or completeness of information in this document.
[2024-04-11 09:58] LABS: Basophils Percent Auto 0.2 % (0.2-2.0); Eosinophils Absolute Auto 0.2 10^3/uL (0.0-0.7); Eosinophils Percent Auto 4.2 % (0.9-7.0); Hematocrit 54.8 % (42.0-54.0); Hemoglobin 18.7 g/dL (14.0-18.0); Immature Granulocytes Abs Auto 0.01 10^3/uL (0.00-0.03); Immature Granulocytes Pct Auto 0.2 % (0.0-0.5); Lymphocytes Absolute Auto 1.7 10^3/uL (1.2-3.8); Lymphocytes Percent Auto 35.7 % (20.5-60.0); Mean Corpuscular HGB Conc 34.1 g/dL (29.9-35.2); Mean Corpuscular Hemoglobin 31.7 pg (25.9-34.0); Mean Corpuscular Volume 92.9 fL (80.0-94.0); Mean Platelet Volume 10.5 fL (9.5-13.5); Monocytes Absolute Auto 0.6 10^3/uL (0.3-0.8); Monocytes Percent Auto 12.3 % (1.7-12.0); Neutrophils Absolute Auto 2.2 10^3/uL (1.4-6.5); Neutrophils Percent Auto 47.4 % (43.0-75.0); Platelet Count 222 10^3/uL (150-450); Red Cell Distribution Width 13.2 % (11.0-15.0); White Blood Count 4.7 10^3/uL (4.0-11.0)
[2024-04-11 10:13] LABS: Estimated Average Glucose 197 mg/dL; Glycohemoglobin A1C 8.5 % (4.5-6.2)
[2024-04-11 10:21] LABS: INR 3.31; Prothrombin Time 31.2 sec (9.0-11.6)
[2024-04-11 10:32] LABS: Alanine Aminotransferase 62 U/L (16-63); Albumin Level 3.5 g/dL (3.4-5.0); Alkaline Phosphatase 56 U/L (46-116); Aspartate Amino Transferase 30 U/L (15-37); BUN Creatinine Ratio 13.3; Bilirubin Total 0.5 mg/dL (0.2-1.0); Calcium 9.4 mg/dL (8.5-10.1); Carbon Dioxide 31.1 mmol/L (21.0-32.0); Chloride 100 mmol/L (98-107); Chol HDL Ratio 7.5; Cholesterol 263 mg/dL (<=200); Estimated GFR (African America >60 (>=60 mL/min/1.73m^2); Estimated GFR (Non-African Ame >60 (>=60 mL/min/1.73m^2); Free T3 3.78 pg/mL (2.18-3.98); Globulin 3.5 g/dL; Glucose 188 mg/dL (74-106); HDL Cholesterol 35 mg/dL (40-60); Potassium 4.1 mmol/L (3.5-5.1); Sodium 137 mmol/L (136-145); Thyroid Stimulating Hormone 1.675 uIU/mL (0.358-3.740); Triglycerides 236 mg/dL (<=150); Uric Acid 4.2 mg/dL (3.5-7.2); VLDL CHOLESTEROL 47.2 mg/dL
[2024-04-11 10:48] LABS: Prostate Specific Antigen Scrn 0.72 ng/mL (<=4.00)
[2024-04-12 04:06] LABS: Testosterone 784 ng/dL (264-916)
== END 2024-04-11 09:26 | disposition home or self-care (01) ==
LOC: LAB 09:28
PROVIDERS: PCP Family Medicine; Visit Provider Family Medicine
DX: E11.3293 Type 2 diabetes mellitus with 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 edema, bilateral (principal); I10 Essential (primary) hypertension; E29.1 Testicular hypofunction; N41.9 Inflammatory disease of prostate, unspecified; M51.26 Other intervertebral disc displacement, lumbar region; M10.9 Gout, unspecified; Z12.12 Encounter for screening for malignant neoplasm of rectum; Z12.5 Encounter for screening for malignant neoplasm of prostate; I26.99 Other pulmonary embolism without acute cor pulmonale
CPT/HCPCS: 36415; 80053; 80061; 83036; 84403; 84436; 84443; 84481; 84550; 85025; 85610; G0103

== ENCOUNTER 2024-07-20 13:26 | Outpatient (OUT) | payer BC, MEDICARE, SELFPAY ==
[2024-07-20 14:35] LABS: INR 3.15; Prothrombin Time 29.8 sec (9.0-11.6)
[2024-07-21 04:11] LABS: Testosterone 317 ng/dL (264-916)
== END 2024-07-20 13:27 | disposition home or self-care (01) ==
LOC: LAB 13:27
PROVIDERS: PCP Family Medicine; Visit Provider Family Medicine
DX: E29.1 Testicular hypofunction (principal); I26.99 Other pulmonary embolism without acute cor pulmonale
CPT/HCPCS: 36415; 84403; 85610

== ENCOUNTER 2024-11-30 13:35 | Outpatient (OUT) | payer BC, MEDICARE, SELFPAY ==
--- OUTSIDE RECORDS SUMMARY | 2024-11-30 13:59 | XMS_ITS | CCD ---
Author Organization [facility] Care Team Providers Care Box Inspector Name Role Phone CHRIS, CHICHO Unavailable Unavailable SKIE, CHICHO Unavailable Unavailable SWATI DANE Unavailable Unavailable FOGT, CELIO Unavailable Unavailable GA Unavailable Unavailable SKIE, CHICHO Unavailable Unavailable GA Unavailable Unavailable PITRODA, SHAHANA Unavailable Unavailable Dane [...] celecoxib; 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: [CELEBREX] Drug Allergy 3 [facility] Rep[facility] (3 sources) morphine; 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: [MORPHINE] Drug Allergy 0 Unknown (qualifier value) [facility] (2 sources) orphenadrine; 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: [Norflex] Drug Allergy 0 AOF [facility] (2 sources) Adhesive bandage; 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: [Adhesive Bandage] Drug allergy Unknown (qualifier value) [facility] [place] (2 sources) celecoxib; 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: [celecoxib] Drug Allergy 3 Unknown General Surgery [place] (3 sources) Orphenadrine; 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: [orphenadrine] Drug Allergy 0 Unknown (qualifier value) General Surgery [place] (1 source) Orphenadrine Drug Allergy 4 [facility] Medications Current Medications Medication Drug Class(es) [...] Migraine 04-09-2022 Chronic Other aftercare (5 sources) long term acute care registered nurse (current) use of anticoagulants; 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: [[facility] CURRNT USE 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] Onset: 3 Episodic Other [...] intervertebral disc 04-09-2022 Chronic 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 (1 source) long term acute care registered nurse (current) use of oral hypoglycemic drugs; 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: [CLIENT SERVICES ACCOUNT MANAGER (CURRENT) USE OF ORAL HYPOGLYCEMIC DRUGS] Onset: 7 Past or Other Problems Problem Classification Problem Date Documented Da te Episodic/Chronic Deficiency and other anemia (1 source) Anemia, unspecified; 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: [ANEMIA UNSPECIFIED] Onset: 10-11-2021 Episodic Malaise and fatigue (1 source) Other fatigue; 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: [OTHER FATIGUE] Onset: 04-10-2022 Episodic Other aftercare (1 source) Other adjunct faculty for medical terminology (current) drug therapy; 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: [OTH CLIENT SERVICES ACCOUNT MANAGER CURRENT DRUG THERAPY] Onset: 04-10-2022 Episodic Other [...] Coag (PPP) [Relative time] 2.84 {INR} Normal [facility] Comment on above: Performed By: #### P T #### [facility] [address] [address] [address] Teddy Purcell INR GUIDELINES SEE BELOW Normal [facility] Comment on above: Result Comment: ISMA RED INR: 2.0 - 3.0 CONDITIONS NOT LISTED BELOW 2.5 - 3.5 FOR PROSTHETIC HEART VALVE REPLACEMENT 2.5 - 3.5 RECURRENT THROMBOSIS Performed By: #### P T #### [facility] [address] [address] [address] Teddy Purcell PT Coag (PPP) [Time] 28.4 s Critically high 9.0-11.6 [facility] Comment on above: Performed By: #### P T #### [facility] [address] [address] [address] Teddy Purcell PROTIMEon 06-23-2022 INR Coag (PPP) [Relative time] 3.22 {INR} Normal [facility] Comment on above: Performed By: #### P T #### [facility] [address] [address] [address] Teddy Purcell INR GUIDELINES SEE BELOW Normal [facility] Comment on above: Result Comment: ISMA RED INR: 2.0 - 3.0 CONDITIONS NOT LISTED BELOW 2.5 - 3.5 FOR PROSTHETIC HEART VALVE REPLACEMENT 2.5 - 3.5 RECURRENT THROMBOSIS Performed By: #### P T #### [facility] [address] [place] [address] Dr. Teddy Purcell PT Coag (PPP) [Time] 31.9 s Critically high 9.0-11.6 [facility] Comment on above: Performed By: #### P T #### [facility] [address] [place] [address] Dr. Teddy Purcell PROTIMEon 06-16-2022 INR Coag (PPP) [Relative time] 3.26 {INR} Normal [facility] Comment on above: Performed By: #### P SASC #### [facility] [address] [place] [address] Dr. Teddy Purcell INR GUIDELINES SEE BELOW Normal [facility] Comment on above: Result Comment: ISMA RED INR: 2.0 - 3.0 CONDITIONS NOT LISTED BELOW 2.5 - 3.5 FOR PROSTHETIC HEART VALVE REPLACEMENT 2.5 - 3.5 RECURRENT THROMBOSIS Performed By: #### P SASC #### [facility] [address] [place] [address] Dr. Teddy Purcell PT Coag (PPP) [Time] 32.3 s Critically high 9.0-11.6 [facility] Comment on above: Performed By: #### P SASC #### [facility] [address] [place] [address] Dr. Teddy Purcell PROTIMEon 06-09-2022 INR Coag (PPP) [Relative time] 4.37 {INR} Critically high [facility] Comment on above: Performed By: #### P T #### [facility] [address] [place] [address] Dr. Teddy Pucrell INR GUIDELINES SEE BELOW Normal [facility] Comment on above: Result Comment: ISMA RED INR: 2.0 - 3.0 CONDITIONS NOT LISTED BELOW 2.5 - 3.5 FOR PROSTHETIC HEART VALVE REPLACEMENT 2.5 - 3.5 RECURRENT THROMBOSIS Performed By: #### P T #### [facility] [address] [place] [address] Dr. Teddy Purcell PT Coag (PPP) [Time] 42.6 s Critically high 9.0-11.6 [facility] Comment on above: Performed By: #### P T #### [facility] [address] [place] [address] Dr. Teddy Purcell Facesheeton 04-24-2022 Facesheet [id number]:12 7 Normal [facility] OCC BLD IMMUNO SCREENon 03-15 OCCULT BLOOD Negative Normal NEGATIVE [facility] Comment on above: Performed By: #### P SASC #### [facility] [address] [place] [address] Dr. Teddy Purcell TESTOSTERONE, TOTALon 2021 Testosterone [Mass/Vol] 905 ng/dL Normal 264-916 [facility] Comment on above: Result Comment: Adul t male reference interval is based on a population of healthy nonobese males (BMI <30) between 19 and 39 years old. Thea et.al. JCEM 2017,102;4488-8344. PMID: [id number]. Performed By: #### P SASC #### [facility] [address] [place] [address] Dr. Teddy Purcell CBC AUTO DIFFon 04-03-2022 BASO # 0.0 103/ul Normal 0.0-0.1 [facility] Comment on above: Performed By: #### P SASC #### [facility] [address] [place] [address] Dr. Teddy Purcell Basophils/100 WBC (Bld) 0.2 % Normal 0.2-2.0 [facility] Comment on above: Performed By: #### P SASC #### [facility] [address] [place] [address] Dr. Teddy Purcell EO # 0.1 103/ul Normal 0.0-0.7 [facility] Comment on above: Performed By: #### P SASC #### [facility] [address] [place] [address] Dr. Teddy Purcell Eosinophils/100 WBC (Bld) 2.4 % Normal 0.9-7.0 [facility] Comment on above: Performed By: #### P SASC #### [facility] [address] [place] [address] Dr. Teddy Purcell Erythrocyte distribution width (RBC) [Ratio] 15.7 % Critically high 11.0-15.0 [facility] Comment on above: Performed By: #### P SASC #### [facility] [address] [place] [address] Dr. Teddy Purcell Hematocrit (Bld) [Volume fraction] 51.4 % Normal 42.0-54.0 [facility] Comment on above: Performed By: #### P SASC #### [facility] [address] [place] [address] Dr. Teddy Purcell Hemoglobin (Bld) [Mass/Vol] 16.9 g/dL Normal 14.0-18.0 [facility] Comment on above: Performed By: #### P SASC #### [facility] [address] [place] [address] Dr. Teddy Purcell IG # 0.01 10e3/ul Normal 0.00-0.03 [facility] Comment on above: Performed By: #### P SASC #### [facility] [address] [place] [address] Dr. Teddy Purcell IG % 0.2 % Normal 0.0-0.5 [facility] Comment on above: Performed By: #### P SASC #### [facility] [address] [place] [address] Dr. Teddy Purcell LYMPH # 2.0 103/ul Normal 1.2-3.8 [facility] Comment on above: Performed By: #### P SASC #### [facility] [address] [place] [address] Dr. Tdedy Purcell Lymphocytes/100 WBC (Bld) 33.1 % Normal 20.5-60.0 [facility] Comment on above: Performed By: #### P SASC #### [facility] [address] [place] [address] Dr. Teddy Purcell MANUAL DIFF REQ NO Normal [facility] Comment on above: Performed By: #### P SASC #### [facility] [address] [place] [address] Dr. Teddy Purcell MCH (RBC) [Entitic mass] 29.8 pg Normal 25.9-34.0 [facility] Comment on above: Performed By: #### P SASC #### [facility] [address] [place] [address] Dr. Teddy Purcell MCHC (RBC) [Mass/Vol] 32.9 g/dL Normal 29.9-35.2 [facility] Comment on above: Performed By: #### P SASC #### [facility] [address] [place] [address] Dr. Teddy Purcell MCV (RBC) [Entitic vol] 90.7 fL Normal 80.0-94.0 [facility] Comment on above: Performed By: #### P SASC #### [facility] [address] [place] [address] Dr. Teddy Purcell MONO # 0.8 103/ul Normal 0.3-0.8 [facility] Comment on above: Performed By: #### P SASC #### [facility] [address] [place] [address] Dr. Teddy Purcell Monocytes/100 WBC (Bld) 12.9 % Critically high 1.7-12.0 [facility] Comment on above: Performed By: #### P SASC #### [facility] [address] [place] [address] Dr. Teddy Purcell NEUT # 3.1 103/ul Normal 1.4-6.5 [facility] Comment on above: Performed By: #### P SASC #### [facility] [address] [place] [address] Dr. Teddy Purcell Neutrophils/100 WBC (Bld) 51.2 % Normal 43.0-75.0 [facility] Comment on above: Performed By: #### P SASC #### [facility] [address] [place], [place] [id number] Dr. Teddy Purcell Platelet mean volume (Bld) [Entitic vol] 10.0 fL Normal 9.5-13.5 [facility] Comment on above: Performed By: #### P SASC #### [facility] [address] [place] [address] Dr. Teddy Purcell PLT 302 103/ul Normal 150-450 [facility] Comment on above: Performed By: #### P SASC #### [facility] [address] [address] [address] Teddy Purcell RBC 5.67 106/ul Normal 4.70-6.10 [facility] Comment on above: Performed By: #### P SASC #### [facility] [address] [address] [address] Teddy Purcell WBC 6.0 103/ul Normal 4.0-11.0 [facility] Comment on above: Performed By: #### P SASC #### [facility] [address] [place] [address] Dr. Teddy Purcell FREE T3on 04-03-2022 FREE T3 3.52 pg/mlL Normal 2.18-3.98 [facility] Comment on above: Performed By: #### P SASC #### [facility] [address] [place] [address] Dr. Teddy Purcell GLYCOHEMOGLOBIN A1Con 2021 ADA RECOMMENDATION SEE BELOW Normal [facility] Comment on above: Result Comment: ADA RECOMMENDED LIMIT 4.0 - 6.0 ADA THERAPEUTIC TARGET < 7.0 ACTION SUGGESTED > 7.0 Performed By: #### P SASC #### [facility] [address] [place] [address] Dr. Teddy Purcell Glucose [Mass/Vol] 209 mg/dL Normal [facility] Comment on above: Performed By: #### P SASC #### [facility] [address] [place] [address] Dr. Teddy Purcell HbA1c (Bld) [Mass fraction] 8.9 % Critically high 4.5-6.2 [facility] Comment on above: Performed By: #### P SASC #### [facility] [address] [address] [address] Teddy Purcell LIPID PROFILEon 04-03-2022 CHOL-HDL RATIO NORM SEE BELOW Normal [facility] Comment on above: Result Comment: 3.3 - 4.4 LOW RISK 4.4 - 7.1 AVERAGE RISK 7.1 - 11.0 MODERATE RISK >11.0 HIGH RISK Performed By: #### L IPID, FT3, T4, CMP, TSH #### [facility] [address] [address] [address] Teddy Purcell Cholesterol [Mass/Vol] 150 mg/dL Normal <=200 [facility] Comment on above: Performed By: #### L IPID, FT3, T4, CMP, TSH #### [facility] [address] [address] [address] Teddy Purcell Cholesterol in HDL [Mass/Vol] 31 mg/dL Critically low 40-60 [facility] Comment on above: Performed By: #### L IPID, FT3, T4, CMP, TSH #### [facility] [address] [address] [address] Teddy Purcell Cholesterol in LDL [Mass/Vol] 85.4 mg/dL Normal [facility] Comment on above: Performed By: #### L IPID, FT3, T4, CMP, TSH #### [facility] [address] [address] [address] Teddy Purcell Cholesterol.total/C holesterol in HDL [Mass ratio] 4.8 {ratio} Normal [facility] Comment on above: Performed By: #### L IPID, FT3, T4, CMP, TSH #### [facility] [address] [address] [address] Teddy Purcell HDL NORMAL > or = 60 mg/dl - LO W CARDIOVASCULAR RISK <40 mg/dl - HIGH CARDIOVASCULAR RISK Normal [facility] Comment on above: Performed By: #### L IPID, FT3, T4, CMP, TSH #### [facility] [address] [address] [address] Teddy Purcell LDL CALC NORMAL SEE BELOW Normal [facility] Comment on above: Result Comment: <100 mg/dl OPTIMAL 100 - 129 mg/dl NEAR OR ABOVE OPTIMAL 130 - 159 mg/dl BORDERLINE HIGH 160 - 189 mg/dl HIGH >190 mg/dl VERY HIGH Performed By: #### L IPID, FT3, T4, CMP, TSH #### [facility] [address] [address] [address] Teddy Purcell Triglyceride [Mass/Vol] 168 mg/dL Critically high <=150 [facility] Comment on above: Performed By: #### L IPID, FT3, T4, CMP, TSH #### [facility] [address] [address] [address] Teddy Purcell VLDL CALC 33.6 mg/dL Normal [facility] Comment on above: Performed By: #### L IPID, FT3, T4, CMP, TSH #### [facility] [address] [place] [address] Dr. Teddy Purcell PROF 14(COMP METB)on 022 Albumin [Mass/Vol] 3.7 g/dL Normal 3.4-5.[address] [facility] Comment on above: Performed By: #### L IPID, FT3, T4, CMP, TSH #### [facility] [address] [place] [address] Dr. Teddy Purcell Albumin/Globulin [Mass ratio] 0.9 {ratio} Normal [facility] Comment on above: Performed By: #### L IPID, FT3, T4, CMP, TSH #### [facility] [address] [address] [address] Teddy Purcell ALP [Catalytic activity/Vol] 63 U/L Normal 46-116 [facility] Comment on above: Performed By: #### L IPID, FT3, T4, CMP, TSH #### [facility] [address] [address] [address] Teddy Purcell ALT [Catalytic activity/Vol] 61 U/L Normal 16-63 [facility] Comment on above: Performed By: #### L IPID, FT3, T4, CMP, TSH #### [facility] [address] [place] [address] Dr. Teddy Purcell Anion gap [Moles/Vol] 9.7 mmol/L Normal [facility] Comment on above: Performed By: #### L IPID, FT3, T4, CMP, TSH #### [facility] [address] [place] [address] Dr. Teddy Purcell AST [Catalytic activity/Vol] 30 U/L Normal 15-37 [facility] Comment on above: Performed By: #### L IPID, FT3, T4, CMP, TSH #### [facility] [address] [place] [address] Dr. Teddy Purcell Bilirubin [Mass/Vol] 0.3 mg/dL Normal 0.2-1.0 [facility] Comment on above: Performed By: #### L IPID, FT3, T4, CMP, TSH #### [facility] [address] [place] [address] Dr. Teddy Purcell Calcium [Mass/Vol] 9.7 mg/dL Normal 8.5-10.[address] [facility] Comment on above: Performed By: #### L IPID, FT3, T4, CMP, TSH #### [facility] [address] [place] [address] Dr. Teddy Purcell Chloride [Moles/Vol] 96 mmol/L Critically low 98-107 [facility] Comment on above: Performed By: #### L IPID, FT3, T4, CMP, TSH #### [facility] [address] [place] [address] Dr. Teddy Purcell CO2 [Moles/Vol] 34.7 mmol/L Critically high 21.0-32.0 [facility] Comment on above: Performed By: #### L IPID, FT3, T4, CMP, TSH #### [facility] [address] [place] [address] Dr. Teddy Purcell Creatinine [Mass/Vol] 0.78 mg/dL Normal 0.70-1.30 [facility] Comment on above: Performed By: #### L IPID, FT3, T4, CMP, TSH #### [facility] [address] [address] [address] Teddy Purcell EGFR-AF ANGUILLAN >60 Normal >=60 [facility] Comment on above: Performed By: #### L IPID, FT3, T4, CMP, TSH #### [facility] [address] [place] [address] Dr. Teddy Purcell EGFR-NON AF ANGUILLAN >60 Normal >=60 [facility] Comment on above: Performed By: #### L IPID, FT3, T4, CMP, TSH #### [facility] [address] [place] [address] Dr. Teddy Purcell Globulin (S) [Mass/Vol] 3.9 g/dL Normal [facility] Comment on above: Performed By: #### L IPID, FT3, T4, CMP, TSH #### [facility] [address] [place] [address] Dr. Teddy Purcell Glucose [Mass/Vol] 165 mg/dL Critically high 74-106 [facility] Comment on above: Performed By: #### L IPID, FT3, T4, CMP, TSH #### [facility] [address] [place] [address] Dr. Teddy Purcell Potassium [Moles/Vol] 4.4 mmol/L Normal 3.5-5.1 [facility] Comment on above: Performed By: #### L IPID, FT3, T4, CMP, TSH #### [facility] [address] [place] [address] Dr. Teddy Purcell Protein [Mass/Vol] 7.6 g/dL Normal 6.4-8.[address] [facility] Comment on above: Performed By: #### L IPID, FT3, T4, CMP, TSH #### [facility] [address] [place] [address] Dr. Teddy Purcell Sodium [Moles/Vol] 136 mmol/L Normal 136-[address] [facility] Comment on above: Performed By: #### L IPID, FT3, T4, CMP, TSH #### [facility] [address] [place] [address] Dr. Teddy Purcell Urea nitrogen [Mass/Vol] 14.0 mg/dL Normal 7.0-18.0 [facility] Comment on above: Performed By: #### L IPID, FT3, T4, CMP, TSH #### [facility] [address] [address] [address] Teddy Purcell Urea nitrogen/Creatinine [Mass ratio] 17.9 mg/mg Normal [facility] Comment on above: Performed By: #### L IPID, FT3, T4, CMP, TSH #### [facility] [address] [address] [address] Teddy Purcell PROTIMEon 04-03-2022 INR Coag (PPP) [Relative time] 3.13 {INR} Normal [facility] Comment on above: Performed By: #### P T #### [facility] [address] [place] [address] Dr. Teddy Purcell INR GUIDELINES SEE BELOW Normal [facility] Comment on above: Result Comment: ISMA RED INR: 2.0 - 3.0 CONDITIONS NOT LISTED BELOW 2.5 - 3.5 FOR PROSTHETIC HEART VALVE REPLACEMENT 2.5 - 3.5 RECURRENT THROMBOSIS Performed By: #### P T #### [facility] [address] [place] [address] Dr. Teddy Purcell PT Coag (PPP) [Time] 31.4 s Critically high 9.0-11.6 [facility] Comment on above: Performed By: #### P T #### [facility] [address] [place] [address] Dr. Teddy Purcell Physician Referralon 022 Physician Referral [id number]:12 7 Normal [facility] T4on 04-03-2022 T4 [Mass/Vol] 7.60 ug/dL Normal 4.50-12.10 The [facility] Comment on above: Performed By: #### L IPID, FT3, T4, CMP, TSH #### [facility] [address] [address] [address] Teddy Purcell TSHon 12-22-2022 TSH 1.595 uIU/mL Normal 0.358-3.740 [facility] Comment on above: Performed By: #### L IPID, FT3, T4, CMP, TSH #### [facility] [address] [address] [address] Teddy Purcell PROTIMEon 12-05-2021 INR Coag (PPP) [Relative time] 3.69 {INR} Normal [facility] Comment on above: Performed By: #### P T #### [facility] [address] [address] [address] Teddy Purcell INR GUIDELINES SEE BELOW Normal [facility] Comment on above: Result Comment: ISMA RED INR: 2.0 - 3.0 CONDITIONS NOT LISTED BELOW 2.5 - 3.5 FOR PROSTHETIC HEART VALVE REPLACEMENT 2.5 - 3.5 RECURRENT THROMBOSIS Performed By: #### P T #### [facility] [address] [address] [address] Teddy Purcell PT Coag (PPP) [Time] 36.6 s Critically high 9.0-11.6 [facility] Comment on above: Performed By: #### P T #### [facility] [address] [place] [address] Dr. Teddy Purcell TESTOSTERONE, TOTALon 2021 Testosterone [Mass/Vol] 633 ng/dL Normal 264-916 [facility] Comment on above: Result Comment: Adul t male reference interval is based on a population of healthy nonobese males (BMI <30) between 19 and 39 years old. Thea et.al. JCEM 2017,102;5233-0540. PMID: [id number]. Performed By: #### P T #### [facility] [address] [address] [address] Teddy Purcell CBC AUTO DIFFon 10-08-2021 BASO # 0.0 103/ul Normal 0.0-0.1 [facility] Comment on above: Performed By: #### C BC #### [facility] [address] [address] [address] Teddy Purcell Basophils/100 WBC (Bld) 0.4 % Normal 0.2-2.0 [facility] Comment on above: Performed By: #### C BC #### [facility] [address] [place] [address] Dr. Teddy Purcell EO # 0.1 103/ul Normal 0.0-0.7 [facility] Comment on above: Performed By: #### C BC #### [facility] [address] [place] [address] Dr. Teddy Purcell Eosinophils/100 WBC (Bld) 2.0 % Normal 0.9-7.0 [facility] Comment on above: Performed By: #### C BC #### [facility] [address] [place] [address] Dr. Teddy Purcell Erythrocyte distribution width (RBC) [Ratio] 13.7 % Normal 11.0-15.0 [facility] Comment on above: Performed By: #### C BC #### [facility] [address] [place] [address] Dr. Teddy Purcell Hematocrit (Bld) [Volume fraction] 45.6 % Normal 42.0-54.0 [facility] Comment on above: Performed By: #### C BC #### [facility] [address] [place] [address] Dr. Teddy Purcell Hemoglobin (Bld) [Mass/Vol] 14.8 g/dL Normal 14.0-18.0 [facility] Comment on above: Performed By: #### C BC #### [facility] [address] [place] [address] Dr. Teddy Purcell IG # 0.01 10e3/ul Normal 0.00-0.03 [facility] Comment on above: Performed By: #### C BC #### [facility] [address] [place] [address] Dr. Teddy Purcell IG % 0.2 % Normal 0.0-0.5 [facility] Comment on above: Performed By: #### C BC #### [facility] [address] [place] [address] Dr. Teddy Purcell LYMPH # 1.8 103/ul Normal 1.2-3.8 [facility] Comment on above: Performed By: #### C BC #### [facility] [address] [place] [address] Dr. Teddy Purcell Lymphocytes/100 WBC (Bld) 36.6 % Normal 20.5-60.0 [facility] Comment on above: Performed By: #### C BC #### [facility] [address] [place] [address] Dr. Teddy Purcell MANUAL DIFF REQ NO Normal [facility] Comment on above: Performed By: #### C BC #### [facility] [address] [place] [address] Dr. Teddy Purcell MCH (RBC) [Entitic mass] 30.0 pg Normal 25.9-34.0 [facility] Comment on above: Performed By: #### C BC #### [facility] [address] [place] [address] Dr. Teddy Purcell MCHC (RBC) [Mass/Vol] 32.5 g/dL Normal 29.9-35.2 [facility] Comment on above: Performed By: #### C BC #### [facility] [address] [place] [address] Dr. Teddy Purcell MCV (RBC) [Entitic vol] 92.3 fL Normal 80.0-94.0 [facility] Comment on above: Performed By: #### C BC #### [facility] [address] [place] [address] Dr. Teddy Purcell MONO # 0.7 103/ul Normal 0.3-0.8 [facility] Comment on above: Performed By: #### C BC #### [facility] [address] [place] [address] Dr. Teddy Purcell Monocytes/100 WBC (Bld) 13.7 % Critically high 1.7-12.0 [facility] Comment on above: Performed By: #### C BC #### [facility] [address] [place] [address] Dr. Teddy Purcell NEUT # 2.3 103/ul Normal 1.4-6.5 [facility] Comment on above: Performed By: #### C BC #### [facility] [address] [place] [address] Dr. Teddy Prucell Neutrophils/100 WBC (Bld) 47.1 % Normal 43.0-75.0 [facility] Comment on above: Performed By: #### C BC #### [facility] [address] [place] [address] Dr. Teddy Purcell Platelet mean volume (Bld) [Entitic vol] 10.3 fL Normal 9.5-13.5 [facility] Comment on above: Performed By: #### C BC #### [facility] [address] [place] [address] Dr. Teddy Purcell PLT 252 103/ul Normal 150-450 [facility] Comment on above: Performed By: #### C BC #### [facility] [address] [place] [address] Dr. Teddy Purcell RBC 4.94 106/ul Normal 4.70-6.10 [facility] Comment on above: Performed By: #### C BC #### [facility] [address] [place] [address] Dr. Teddy Purcell WBC 5.0 103/ul Normal 4.0-11.0 [facility] Comment on above: Performed By: #### C BC #### [facility] [address] [place] [address] Dr. Teddy Purcell IRONon 10-08-2021 Iron [Mass/Vol] 85.0 ug/dL Normal 65.0-175.0 [facility] Comment on above: Performed By: #### P SASC #### [facility] [address] [place] [address] Dr. Teddy Purcell MAGNESIUMon 10-08-2021 Magnesium [Mass/Vol] 1.9 mg/dL Normal 1.8-2.4 [facility] Comment on above: Performed By: #### P SASC #### [facility] [address] [place] [address] Dr. Teddy Purcell PHOSPHORUSon 10-08-2021 Phosphate [Mass/Vol] 3.1 mg/dL Normal 2.6-4.7 [facility] Comment on above: Performed By: #### P SASC #### [facility] [address] [address] [address] Teddy Purcell PROF 14(COMP METB)on 022 Albumin [Mass/Vol] 3.5 g/dL Normal 3.4-5.0 [facility] Comment on above: Performed By: #### P SASC #### [facility] [address] [address] [address] Teddy Purcell Albumin/Globulin [Mass ratio] 1.0 {ratio} Normal [facility] Comment on above: Performed By: #### P SASC #### [facility] [address] [address] [address] Teddy Purcell ALP [Catalytic activity/Vol] 59 U/L Normal 46-116 [facility] Comment on above: Performed By: #### P SASC #### [facility] [address] [address] [address] Teddy Purcell ALT [Catalytic activity/Vol] 58 U/L Normal 16-63 [facility] Comment on above: Performed By: #### P SASC #### [facility] [address] [address] [address] Teddy Purcell Anion gap [Moles/Vol] 9.5 mmol/L Normal [facility] Comment on above: Performed By: #### P SASC #### [facility] [address] [address] [address] Teddy Purcell AST [Catalytic activity/Vol] 28 U/L Normal 15-37 [facility] Comment on above: Performed By: #### P SASC #### [facility] [address] [address] [address] Teddy Purcell Bilirubin [Mass/Vol] 0.3 mg/dL Normal 0.2-1.0 [facility] Comment on above: Performed By: #### P SASC #### [facility] [address] [address] [address] Teddy Purcell Calcium [Mass/Vol] 9.1 mg/dL Normal 8.5-10.[address] [facility] Comment on above: Performed By: #### P SASC #### [facility] [address] [address] [address] Teddy Purcell Chloride [Moles/Vol] 104 mmol/L Normal 98-107 [facility] Comment on above: Performed By: #### P SASC #### [facility] [address] [address] [address] Teddy Purcell CO2 [Moles/Vol] 30.8 mmol/L Normal 21.0-32.0 [facility] Comment on above: Performed By: #### P SASC #### [facility] [address] [address] [address] Teddy Purcell Creatinine [Mass/Vol] 0.90 mg/dL Normal 0.70-1.30 [facility] Comment on above: Performed By: #### P SASC #### [facility] [address] [address] [address] Teddy Purcell EGFR-AF ANGUILLAN >60 Normal >=60 [facility] Comment on above: Performed By: #### P SASC #### [facility] [address] [address] [address] Teddy Purcell EGFR-NON AF ANGUILLAN >60 Normal >=60 [facility] Comment on above: Performed By: #### P SASC #### [facility] [address] [address] [address] Teddy Purcell Globulin (S) [Mass/Vol] 3.5 g/dL Normal [facility] Comment on above: Performed By: #### P SASC #### [facility] [address] [address] [address] Teddy Purcell Glucose [Mass/Vol] 145 mg/dL Critically high 74-106 [facility] Comment on above: Performed By: #### P SASC #### [facility] [address] [address] [address] Teddy Purcell Potassium [Moles/Vol] 4.3 mmol/L Normal 3.5-5.1 [facility] Comment on above: Performed By: #### P SASC #### [facility] [address] [address] [address] Teddy Purcell Protein [Mass/Vol] 7.0 g/dL Normal 6.4-8.2 [facility] Comment on above: Performed By: #### P SASC #### [facility] [address] [address] [address] Teddy Purcell Sodium [Moles/Vol] 140 mmol/L Normal 136-[address] [facility] Comment on above: Performed By: #### P SASC #### [facility] [address] [address] [address] Teddy Purcell Urea nitrogen [Mass/Vol] 17.0 mg/dL Normal 7.0-18.0 [facility] Comment on above: Performed By: #### P SASC #### [facility] [address] [place] [address] Dr. Teddy Purcell Urea nitrogen/Creatinine [Mass ratio] 18.9 mg/mg Normal [facility] Comment on above: Performed By: #### P SASC #### [facility] [address] [address] [address] Teddy Purcell PROTIMEon 10-08-2021 INR Coag (PPP) [Relative time] 2.83 {INR} Normal [facility] Comment on above: Performed By: #### P T #### [facility] [address] [place] [address] Dr. Teddy Purcell INR GUIDELINES SEE BELOW Normal [facility] Comment on above: Result Comment: ISMA RED INR: 2.0 - 3.0 CONDITIONS NOT LISTED BELOW 2.5 - 3.5 FOR PROSTHETIC HEART VALVE REPLACEMENT 2.5 - 3.5 RECURRENT THROMBOSIS Performed By: #### P T #### [facility] [address] [address] [address] Teddy Purcell PT Coag (PPP) [Time] 28.6 s Critically high 9.0-11.6 [facility] Comment on above: Performed By: #### P T #### [facility] [address] [place] [address] Dr. Teddy Purcell Prothrombin Time INRon 07-04 INR Coag (Bld) [Relative time] 10.5 s Normal 9.0-12.9 [facility] Comment on above: Performed By: #### P T #### [id number] [facility] INR Coag (PPP) [Relative time] 0.9 {INR} Normal [facility] Comment on above: Result Comment: INR Therapeutic [...] heart valves: 3 - 4.5 PERFORMED BY: [place] [address] PATHOLOGIST [employer]UCK UNLOADER DANIKA COE M.D. Performed By: #### P T #### [address] [place] [id number] [facility] Operative Reporton 7 Operative Report MR#: [id number] [facility] Pt. Name: Mariajose Corral Room #: [...] Dict: 10/20/2016//Chicho Barba M.D.Date Trans: 10/24/2016 05:16 P/Gloria_JN:[id number] c: Celio Oseguera M.D. [facility] [address] [facility] [place] [address] Dane Pompa M.D. [address] [id number] [facility] [place] [address] Normal [facility] POC GLUCOSE LABon 10-20-2016 Glucose mass conc 117 mg/dL High 70-100 [facility] Comment on above: Performed By: #### 8 5499 ####[facility] [place] [address], [facility] Glucose mass conc 132 mg/dL High 70-100 [facility] Comment on above: Performed By: #### 8 5499 ####[facility] [place] [address], [facility] Vital Signs Date Time Vital Sign Value Performing Clinician Bree reyse 04-23-2022 15:13-0500 Blood Pressure Location Udrga NILL [facility] [place] 04-23-2022 15:13-0500 Diastolic blood pressure 84 mm[Hg] Durga NILL [facility] [place] 04-23-2022 15:13-0500 Heart rate 76 /min Durga NILL [facility] [place] 04-23-2022 15:13-0500 Respiratory rate 16 /min Durga NILL [facility] [place] 04-23-2022 15:13-0500 Systolic blood pressure 132 mm[Hg] Durga NILL [facility] [place] Encounters Encounter Date Encounter Type Care Provider [...] abnormal findings DR DANE POMPA . [facility] Start: 04-03-2022 End: 04-04-[address] DANE POMPA . Facility: Start: 04-03-2022 End: 04-04-2022 Encounter for general adult medical examination without abnormal findings DR DANE POMPA . Facility:[facility] Start: 04-02-2022 ambulatory Durga BANKS Facility:[facility] Start: 12-05-2021 End: 12-06-[address] DANE POMPA . Facility:[facility] Start: 10-08-2021 End: 10-09-[address] DANE POMPA . Facility: Start: 10-20-2016 End: 10-21-2016 Ambulatory [facility] Facility:[facility] Procedures Date Procedure Procedure Detail Performing Clinician Start: 04-03-[address] RYAN POMPA . Comment on above: Performed By: #### P [facility] #### [facility] [address] [place] [address] Dr. Teddy Purcell Start: 10-20-2016 ANESTH LOWER [...] vaccine, unspecified formulation Durga NILL [facility] [place] Payers Date Payer Category Payer Unknown [id number] 2.16.8 [id number] 1975 Unknown [id number] 2.16.84 [id number] 1973 Unknown [id number] 2.16.84 [id number] 1973 Unknown [id number] 2.16.84 [id number] 1973 Unknown [id number] 2.16.84 [id number] 1973 Unknown [id number] 2.16.84 [id number] 1973 Unknown [id number] 2.16.84 [id number] 1973 Unknown [id number] 2.16.84 [id number] 1973 Unknown [id number] 2.16.84 [id number] 1961 Medicare [id number] 1961 Unknown [id number] Social History Date Type Detail Facility Start: 04-23-2022 Tobacco smoking status Never s moked tobacco (finding) [facility] [place] Tobacco smoking status Never Gener al [facility] [place] Sex Assigned At Male [facility] Functional Status Date Assessment Result Facility 04-23-2022 Functional Status N/A [facility] Clinical Note 04-23-2022 Note Date & Type [...] Use, 04/23/2022 Substa (more content not included)... [facility] Comment on above: Result Comment: Elec tronically Signed By: JOCELYN GUNTER, Durga Myers\Date and Time Signed: 04/23/22 16:03 EST Evaluation + Plan note Note Date & Type Note Facility Evaluation + Plan note No data available for this section [facility] [place] [facility] Discharge instructions Note Date & Type Note Facility Hospital Discharge instructions No data available for this section [facility] [place] Progress note Note Date & Type Note Facility Progress note No data available for this section [facility] [place] Summary Purpose Family History No Family History [...] section and content) DATE CREATED AUTHOR 10/07/2017 [facility] DATE CREATED AUTHOR AUTHOR'S ORGANIZ ATION 07/12/2020 [facility] DATE CREATED AUTHOR AUTHOR'S ORGANIZ ATION 04/24/2022 [facility] DATE CREATED AUTHOR AUTHOR'S ORGANIZ ATION 08/22/2022 [facility] Patient Care team informatio n (unrecognized section and content) Personnel Name: Dane Pompa MD Address: Address: [address] [place] [address] FOR RECORDS PERTAINING TO PATIENTS WHO ARE [...] BE BASED ON THE PRIMARY CLINICAL RECORDS. [facility] [email or web address] [facility]. provides no warranty or guarantee of the accuracy or completeness of information in this document.
[2024-11-30 14:33] LABS: INR 2.57; Prothrombin Time 24.8 sec (9.0-11.6)
== END 2024-11-30 13:36 | disposition home or self-care (01) ==
LOC: LAB 13:40
PROVIDERS: PCP Family Medicine; Visit Provider Family Medicine
DX: E29.1 Testicular hypofunction (principal); I26.99 Other pulmonary embolism without acute cor pulmonale
CPT/HCPCS: 36415; 84403; 85610

== ENCOUNTER 2024-12-15 13:44 | Outpatient (OUT) | payer BC, MEDICARE, SELFPAY ==
--- OUTSIDE RECORDS SUMMARY | 2024-11-30 13:06 | XMS_ITS ---
Author Organization [facility] [place] Address [address] [place] [address] Care Team Providers Care Purchasing Expeditor Name Role Phone Jeffrey Pompa Primary Care Provider REASON FOR VISIT inr Medications Medication SIG (Take, Route, Fr equency, Duration) Notes Start Date End Date Status Warfarin Sodium 10 MG 1 tablet Orally Once a day PRN Active Warfarin Sodium 1 MG TAKE 1 TABLET BY [facility] THURSDAY, thursday, THURSDAY, , THURSDAY DIRECTED *TAKE WITH 7.5MG* for 28 days Active Encounters Encounter Location Date Provider Diagnosis [facility] [address] [place] [address] 11/30/2024 Jeffrey Banksjose Plan Of Treatment Medication Medication Name Sig Start Date Stop Date Notes Warfarin Sodium 10 MG 1 tablet Orally Once a day PRN Warfarin Sodium 1 MG TAKE 1 TABLET BY [facility] THURSDAY, thursday, THURSDAY, , THURSDAY DIRECTED *TAKE WITH 7.5MG* for 28 days Next Appt Details Provider Name:Jeffrey Pompa, 01:15:00 PM, [address] [place], [address], Provider Name:Jeffrey Rizvi Aletha, 01:30:00 PM, [address] [place], [address], Progress Notes * Ernesto PACKERDOB:[birth year] (49 yo M)Acc No.[id number]:11/30/2024 Patient: Ernesto ASTORGA :1975 A ge:49 Y S ex:Male Address:[address] [place] [address], [place], [address] * Refills Continue Warfarin Sodium Tablet, 10 MG, Orally, 1 tablet, Once a day Refill Warfarin Sodium Tablet, 1 MG, TAKE 1 TABLET BY MOUTH THURSDAY, thursday, THURSDAY, , THURSDAY DIRECTED *TAKE WITH 7.5MG*, 28 days, Refills=29 * true * Date: Generated for Aquiles salter/Kendra/Lannyitting on: 0 12/15/2024 01:48 PM EDT
--- OUTSIDE RECORDS SUMMARY | 2024-12-01 08:55 | XMS_ITS ---
Author Organization The [facility] [place] Address [address] [place] [address] Care Team Providers Care Stock Trader Name Role Phone Jeffrey Pompa Primary Care Provider REASON FOR VISIT T level Encounters Encounter Location Date Provider Diagnosis [facility] [address] [facility] [address] 12/01/2024 Jeffrey Pompa Plan Of Treatment Next Appt Details Provider Name:Jeffrey Pompa, 01:15:00 PM, [address] [facility] [address], [place], [address], Provider Name:Jeffrey Pompa, 01:30:00 PM, [address] [facility] [address], [place], [address], Progress Notes * Ernesto PACKERDOB:[birth year] (49 yo M)Acc No.[id number]:12/01/2024 Patient: Elvira VANN Ernesto Hickey :1975 A ge:49 Y S ex:Male Address:[address] [place], [address] * true * Date: Generated for Printi ng/Faxing/eTransmitting on: 0 12/15/2024 01:48 PM EDT
--- OUTSIDE RECORDS SUMMARY | 2024-12-01 09:30 | XMS_ITS ---
Author Organization [facility] [place] Address [address] [place] [address] Care Team Providers Care Light Armored Vehicle Officer Name Role Phone Jeffrey Pompa Primary Care Provider REASON FOR VISIT Testosterone Injection Encounters Encounter Location Date Provider Diagnosis [address] [address] 12/01/2024 Jeffrey Pompa Low testosterone E29 .1 Assessments Encounter Date Diagnosis (ICD Code) Assessment Notes Treatment Notes Treatment Clinical Notes Section Notes 12/01/2024 Low testosterone (ICD-10 - E29.1) Plan Of Treatment Next Appt Details Provider Name:Jeffrey Pompa, 01:15:00 PM, [address] [place] [address], [address], Provider Name:Jeffrey Pompa, 01:30:00 PM, [address] [place] [address], [address], Medications Administered Medication Instructions Date of Administration Dosage Notes Testosterone Cypionate 12/01/2024 0.4 mL Progress Notes * Ernesto PACKERDOB:[birth year] (49 yo M)Acc No.[id number]:12/01/2024 Progress Note Patient: Elvira VANNErnesto Provider: Kang Pompa ([facility])MD :1975 A ge:49 Y S ex:Male Date:12/01/2024 Address:[facility] [address] [place], [id number] Check In:01:17 PM ESTCheck O ut:01:24 PM EST Subjective: * Chief Complaints: * T estosterone Injection * HPI: G eneral: presents to the office for a standing order testosterone injection. 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, l umbar Modified On:07/04/2022 Status:confirmed I10 BP (high blood press ure) Modified On:07/01/2023 Status:confirmed D22.9 Nevus Modified On:07/14/2022 Status:confirmed E29.1 Low testosterone Modified On:06/04/2023 Status:confirmed R53.83 Fatigue Modified On:07/14/2022 Status:confirmed L70.0 Acne vulgaris Modified On:07/14/2022 Status:confirmed L40.9 Psoriasis Modified On:07/14/2022 Status:confirmed U07.1 COVID-19 virus infec tion Modified On:07/14/2022 Status:confirmed J01.90 Acute sinusitis Modified On:07/14/2022 Status:confirmed M75.40 Shoulder impingement syndrome Modified On:07/14/2022 Status:confirmed N41.9 Prostatitis Modified On:07/14/2022 Status:confirmed H52.229 Regular astigmatism Modified On:07/14/2022 Status:confirmed H31.009 Retinal scar, unspec ified laterality Modified On:07/14/2022 Status:confirmed 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, unspecified laterality Modified On:07/14/2022 Status:confirmed E11.3293 Mild nonproliferativ e diabetic retinopathy of both eyes without macular edema associated with type 2 diabetes mellitus Modified On:04/03/2023W/U Status:confirmed I80.9 Superficial thrombop hlebitis Modified On:07/14/2022 Status:confirmed M51.26 Herniated lumbar dis c without myelopathy Modified On:07/01/2023 Status:confirmed G57.61 Mortons neuroma, rig ht Modified On:07/14/2022 Status:confirmed G43.909 Migraine headache Modified On:07/14/2022 Status:confirmed I80.209 Thrombophlebitis of deep vein of lower leg, unspecified laterality Modified On:07/14/2022 Status:confirmed J30.9 Allergic rhinitis Modified On:07/14/2022 Status:confirmed I10 Benign hypertension Modified On:07/14/2022 Status:confirmed I26.99 Pulmonary embolism Modified On:07/01/2023 Status:confirmed E29.1 Testicular hypofunct ion Modified On:07/01/2023 Status:confirmed Z00.00 Well adult Modified On:04/01/2023 Status:confirmed L02.211 Abdominal wall absce ss Modified On:09/14/2023 Status:confirmed K21.9 GERD (gastroesophage al reflux disease) Modified On:12/31/2023 Status:confirmed * Medical History: * Surgical History: * Hospitalization/Major Diagno stic Procedure: * Medications: Objective: * Vitals: Assessment: * Assessment: 1. L ow testosterone - E29.1 (Primary) Plan: * Treatment: * Therapeutic Injections: Testosterone Cypionate 200mg : 0.4 mL (Route: Intramuscular) given by SOLITARIO Cannon on left gluteus (Low testosterone) * Procedure Codes: 9 6372 THERAP.INJ. OF MED. INTRAMUSCULAR OR [id number] TESTOST CYPIONATE 1MG * * Sign off status: Completed Visit Status: C HK (Check Out) true * Provider: Kang Pompa ([facility])MD Date: 0 12/01/2024 Generated for Aquiles salter/Kendra/eTransmitting on: 0 12/15/2024 01:47 PM EDT History and Physical Notes * HPI (History of Present Illness) Category Sub-Category Detail Notes Category Not es General presents to the office for a standing order testosterone injection
--- OUTSIDE RECORDS SUMMARY | 2024-12-08 09:30 | XMS_ITS ---
Author Organization The [facility] [place] Address [address] [place] [address] Care Team Providers Care Tuna Purse Seiner Name Role Phone DarrenJeffrey garcia Primary Care Provider REASON FOR VISIT testosterone injection Encounters Encounter Location Date Provider Diagnosis [facility] [address] [place] [address] 12/08/2024 Jeffrey Pompa Decreased testostero ne level E29.1 Assessments Encounter Date Diagnosis (ICD Code) Assessment Notes Treatment Notes Treatment Clinical Notes Section Notes 12/08/2024 Decreased testosterone level (ICD-10 - E29.1) Plan Of Treatment Next Appt Details Provider Name:Jeffrey Pompa, 01:15:00 PM, [address] [place], [address], Provider Name:Jeffrey Pompa, 01:30:00 PM, [address] [place], [address], Medications Administered Medication Instructions Date of Administration Dosage Notes Testosterone Cypionate 12/08/2024 0.4 mL Progress Notes * Ernesto PACKERDOB:[birth year] (49 yo M)Acc No.[id number]:12/08/2024 Progress Note Patient: Elvira VANN Ernesto Hickey Provider: Kang Pompa ([facility])MD :1975 A ge:49 Y S ex:Male Date:12/08/2024 Address:[facility] [address], [address] [place], [id number] Check In:01:19 PM ESTCheck O ut:01:25 PM EST Subjective: * Chief Complaints: * T estosterone injection * HPI: G eneral: patient presents to the office for standing order testosterone injection. * Active Problem [...] associated with type 2 diabetes mellitus Modified On:07/14/2022 Status:confirmed I80.9 Superficial thrombop hlebitis Modified On:07/14/2022 [...] Objective: * Vitals: Assessment: * Assessment: 1. D ecreased testosterone level - E29.1 (Primary) Plan: * Treatment: * Therapeutic Injections: Testosterone Cypionate 200mg : 0.4 mL (Route: Intramuscular) given by SOLITARIO Cannon on right gluteus (Decreased testosterone level) * Procedure Codes: 9 6372 THERAP.INJ. OF MED. INTRAMUSCULAR OR [id number] TESTOST CYPIONATE 1MG * * Sign off status: Completed Visit Status: C HK (Check Out) true * Provider: Kang Pompa ([facility])MD Date: 0 12/08/2024 Generated for Jayeshi ng/Fazackg/eTransmitting on: 0 12/15/2024 01:47 PM EDT History and Physical Notes * HPI (History of Present Illness) Category Sub-Category Detail Notes Category Not es General patient present s to the office for standing order testosterone injection
--- OUTSIDE RECORDS SUMMARY | 2024-12-15 13:48 | XMS_ITS | Clinical Summary ---
Author Organization [facility] Address [address] [place] [address] Care Team Providers Care Home Health Physical Therapist Name Role Phone Unavailable Primary Care Provider Unavailabl e Social History Tobacco Use Types Packs/Day Years Used Date Smoking Tobacco: Never Assessed Sex and Gender Information Value Date Recorded Sex Assigned at Not on file Legal Sex Male 6:35 PM EDT Gender Identity Not on file Sexual Orientation Not on file Last Filed Vital Signs Vital Sign Reading Time Taken Comments Blood Pressure 120/78 03/12/2018 12:00 PM EST Pulse - - Temperature - - Respiratory Rate - - Oxygen Saturation - - Inhaled Oxygen Concentration - - Weight 119 kg (262 lb) 03/12/2018 12:00 PM EST Height 182.9 cm (6') 03/12/2018 12:00 PM EST Body Mass Index 35.53 03/12/2018 12:00 PM EST Plan of Treatment Not on file Insurance [facility]
--- OUTSIDE RECORDS SUMMARY | 2024-12-15 13:48 | XMS_ITS | Patient Health Record ---
Author Organization [facility] in [place] Address [address] [place] [address] Care Team Providers Care [facility]al [facility] Rn Name Role Phone Jeffrey Pompa Primary Care Provider Allergies Allergen (clinical drug ingredient) Drug/Non Drug Allergy documented on EMR Reaction Allergy Type Onset Date Status celecoxib CeleBREX Unknown Drug Allergy Active Norflex Unknown Drug Allergy Active Adhesive Unknown Allergy Active Results Component Value Reference Range Notes CBC AUTO DIFF Reviewed date:04/11/2024 08:31:42 PM Interpretation: Performing Lab: Notes/Report: [facility] , White Blood Count 4.7 4.0-11.0 10 3/uL Red Blood Count 5.90 4.70-6.10 10 6/uL Hemoglobin 18.7 14.0-18.0 g/dL Hematocrit 54.8 42.0-54.0 % Mean Corpuscular Volume 92.9 80.0-94.0 fL Mean Corpuscular Hemoglobin 31.7 25.9-34.0 pg Mean Corpuscular HGB Conc 34.1 29.9-35.2 g/dL Red Cell Distribution Width 13.2 11.0-15.0 % Platelet Count 222 150-450 10 3/uL Mean Platelet Volume 10.5 9.5-13.5 fL Neutrophils Percent Auto 47.4 43.0-75.0 % Lymphocytes Percent Auto 35.7 20.5-60.0 % Monocytes Percent Auto 12.3 1.7-12.0 % Eosinophils Percent Auto 4.2 0.9-7.0 % Basophils Percent Auto 0.2 0.2-2.0 % Immature Granulocytes Pct Auto 0.2 0.0-0.5 % Neutrophils Absolute Auto 2.2 1.4-6.5 10 3/uL Lymphocytes Absolute Auto 1.7 1.2-3.8 10 3/uL Monocytes Absolute Auto 0.6 0.3-0.8 10 3/uL Eosinophils Absolute Auto 0.2 0.0-0.7 10 3/uL Basophils Absolute Auto 0.0 0.0-0.1 10 3/uL Immature Granulocytes Abs Auto 0.01 0.00-0.03 10 3/uL Performing Lab: see note ML - [facility] GLYCOHEMOGLOBIN A1C Reviewed date:04/11/2024 08:31:42 PM Interpretation: Performing Lab: Notes/Report: [facility] , Glycohemoglobin A1C 8.5 4.5-6.2 % > 7.0 ADA RECOMMENDED LIMIT 4.0 - 6.0 ADA THERAPEUTIC TARGET < 7.0 ACTION SUGGESTED Estimated Average Glucose 197 Performing Lab: see note [facility] PSA SCREENING Reviewed date:04/11/2024 08:31:42 PM Interpretation: Performing Lab: Notes/Report: [facility] , Prostate Specific Antigen Scrn 0.72 <=4.00 ng/mL Performing Lab: see note - [facility] Prothrombin Time INR Reviewed date:07/20/2024 06:24:03 PM Interpretation: Performing Lab: Notes/Report: [facility] , Prothrombin Time 29.8 9.0-11.6 sec INR 3.15 2.5-3.5 RECURRENT THROMBOSIS DESIRED INR: 2.5-3.5 FOR PROSTHETIC HEART VALVE REPLACEMENT 2.0-3.0 CONDITIONS NOT LISTED BELOW Performing Lab: see note - [facility] Testosterone Reviewed date:2024 12:13:48 PM Interpretation: Performing Lab: Notes/Report: [facility] , Testosterone 317 264-916 ng/dL Performed at: [facility] healthy nonobese males (BMI <30) between 19 and 39 years Business Project Analyst: Duglas Jacob PhD, Phone: [phone]. Adult male reference interval is based on a population of [address] [place] [id number] old. Thea et.al. JCEM 2017,102;0258-1012. PMID: Performing Lab: see note - [facility] Prothrombin Time INR Reviewed date:11/30/2024 05:07:11 PM Interpretation: Performing Lab: Notes/Report: [facility] , Prothrombin Time 24.8 9.0-11.6 sec INR 2.57 DESIRED INR: 2.5-3.5 RECURRENT THROMBOSIS 2.0-3.0 CONDITIONS NOT LISTED BELOW 2.5-3.5 FOR PROSTHETIC HEART VALVE REPLACEMENT Performing Lab: see note ML - [facility] LB Testosterone Reviewed date:12/01/2024 12:57:42 PM Interpretation: Performing Lab: Notes/Report: [facility] , Testosterone 502 264-916 ng/dL [address] [place], [place] [phone] Adult male reference interval is based on a population of healthy nonobese males (BMI <30) between 19 and 39 years Performed at: [facility] Business Project Analyst: Duglas Jacob PhD, Phone: [phone] old. viviana Sidhu.al. JCEM 2017,102;2149-4150. PMID: [id number]. Performing Lab: see note [facility] Prothrombin Time INR Reviewed date:04/11/2024 08:31:42 PM Interpretation: Performing Lab: Notes/Report: [facility] , Prothrombin Time 31.2 9.0-11.6 sec INR 3.31 2.5-3.5 RECURRENT THROMBOSIS DESIRED INR: 2.0-3.0 CONDITIONS NOT LISTED BELOW 2.5-3.5 FOR PROSTHETIC HEART VALVE REPLACEMENT Performing Lab: see note ML - [facility] LB URIC ACID SERUM Reviewed date:04/11/2024 08:31:42 PM Interpretation: Performing Lab: Notes/Report: [facility] , Uric Acid 4.2 3.5-7.2 mg/dL Performing Lab: see note ML - [facility] LB TSH Reviewed date:04/11/2024 08:31:42 PM Interpretation: Performing Lab: Notes/Report: [facility] , Thyroid Stimulating Hormone 1.675 0.358-3.740 u IU/mL Performing Lab: see note ML - [facility] LB T4 Reviewed date:04/11/2024 08:31:42 PM Interpretation: Performing Lab: Notes/Report: [facility] , T4 Thyroxine 7.60 4.50-12.10 ug/dL Performing Lab: see note ML - [facility] LB PROF 14(COMP METB) Reviewed date:04/11/2024 08:31:42 PM Interpretation: Performing Lab: Notes/Report: [facility] , Sodium 137 136-145 mmol/L Potassium 4.1 3.5-5.1 mmol/L Chloride 100 98-107 mmol/L Carbon Dioxide 31.1 21.0-32.0 mmol/L Anion Gap 10.0 Glucose 188 74-106 mg/dL Blood Urea Nitrogen 12.0 7.0-18.0 mg/dL Creatinine 0.90 0.70-1.30 mg/dL Estimated GFR ( Urmila >60 >=60 mL/min/1.73m 2 Estimated GFR (Non- Aracely >60 >=60 mL/min/1.73m 2 BUN Creatinine Ratio 13.3 Calcium 9.4 8.5-10.1 mg/dL Bilirubin Total 0.5 0.2-1.0 mg/dL Aspartate Amino Transferase 30 15-37 U/L Alanine Aminotransferase 62 16-63 U/L Alkaline Phosphatase 56 46-116 U/L Total Protein 7.0 6.4-8.2 g/dL Albumin Level 3.5 3.4-5.0 g/dL Globulin 3.5 Albumin Globulin Ratio 1.0 Performing Lab: see note ML - [facility] LIPID PROFILE Reviewed date:04/11/2024 08:31:42 PM Interpretation: Performing Lab: Notes/Report: [facility] , Triglycerides 236 <=150 mg/dL Cholesterol 263 <=200 mg/dL HDL Cholesterol 35 40-60 mg/dL > or =60 mg/dl - LOW CARDIOVASCULAR RISK <40 mg/dl - HIGH CARDIOVASCULAR RISK LDL Cholesterol Calculated 181.0 130-159 mg/dl BORDERLINE HIGH 160-189 mg/dl HIGH >190 mg/dl VERY HIGH <100 mg/dl OPTIMAL 100-129 mg/dl NEAR OR ABOVE OPTIMAL VLDL CHOLESTEROL 47.2 Chol HDL Ratio 7.5 >11.0 HIGH RISK 7.1 - 11.0 MODERATE RISK 4.4 - 7.1 AVERAGE RISK 3.3 - 4.4 LOW RISK Performing Lab: see note ML - [facility] FREE T3 Reviewed date:04/11/2024 08:31:42 PM Interpretation: Performing Lab: Notes/Report: [facility] , Free T3 3.78 2.18-3.98 pg/mL Performing Lab: see note ML - [facility] LB Testosterone Reviewed date:04/13/2024 03:33:53 PM Interpretation: Performing Lab: Notes/Report: [facility] , Testosterone 784 264-916 ng/dL Business Project Analyst: Duglas Jacob PhD, Phone: [phone] Adult male reference interval is based on a population of [id number]. [address] [place], [place] [id number] old. Thea et.al. JCEM 2017,102;9937-9346. PMID: healthy nonobese males (BMI <30) between 19 and 39 years Performed at: - [facility] [place] Performing Lab: see note - [facility] Reason For Referral No Information Medications Medication SIG (Take, Route, Frequency, Duration) Notes Start Date End Date Status metFORMIN HCl 500 MG TAKE 1 TABLET BY MO UTH TWICE A DAY for 90 Active Adapalene 0.3 % APPLY SMALL AMOUNT T O AFFECTED AREA DAILY for 30 Activ e Omeprazole 20 MG TAKE 1 CAPSULE BY MO UTH EVERY DAY for 90 Active Warfarin Sodium 7.5 MG TAKE 1 TABLET BY MOUTH EVERY DAY for 30 Active Cholecalciferol 50 MCG (1999) 1 tablet Orally Once a day for 30 day(s) Active Cialis 20 MG 1 tablet as needed O rally every 3 days for 90 days Active Cyclobenzaprine HCl 10 MG TAKE 2 TABLETS BY MOUTH AT BEDTIME for 30 Active Ezetimibe 10 MG 1 tablet Orally Once a day for 30 days 04/14/2024 Active Pioglitazone HCl 30 MG Take 1 tablet by mouth once daily for 30 Active Ibuprofen 800 MG TAKE 1 TABLET BY KISHOR TH FOUR TIMES A DAY NEEDED FOR PAIN for 25 Active Test Strips - Dx: E11.9 Dx: Diabet es Type II Once daily for 90 days 09/29/2024 Active Warfarin Sodium 1 MG TAKE 1 TABLET BY MO UTH THURSDAY, thursday, THURSDAY, , THURSDAY DIRECTED *TAKE WITH 7.5MG* for 28 days Active Lisinopril 20 MG TAKE 1 TABLET BY KISHOR TH EVERY DAY for 90 Active Triamcinolone Acetonide 0.1 % 1 application Externally Twice a day for 30 07/01/2023 Active Blood Glucose Monitor System w/Device use device Dx:E11.9 daily to monitor blood glucose level 09/29/2024 Active Lancets 30G - Use 1 lancet E11.9 o nce daily for 90 09/29/2024 Active Testosterone Cypionate 200 MG/ML INJECT 0.4ML INTRAMUSCULARLY ONCE A WEEK for 28 days 10/02/2024 Active Ketoconazole 2 % 1 application Auto Glass Worker ally Twice a day for 14 PRN 04/01/2023 Active oxyCODONE HCl 10 MG 1-2 tabs Orally dx M 51.26 every 4 to 6 hours for 30 days 11/30/2024 Active Warfarin Sodium 10 MG 1 tablet Orally Once a day PRN Active Lyrica 100 MG 1 capsule Orally DX m51.26 TID for 30 days 11/17/2024 Active Percocet 5-325 MG 2 tablets Orally dx M51.26 every 4 to 6 hours prn for 30 days 11/30/2024 Active Social History Tobacco Use: Social History Observation Description Date Details (start date - stop date) Never Smoker NA - NA Tobacco Use/Smoking Question Answer Notes Patient is a nonsmoker Alcohol Screen (Audit-C) Question Answer Notes Did you have a drink contain ing alcohol in the past year? Yes How often did you have 6 or more drinks on one occasion in the past year? Never (0 point) How many drinks did you have on a typical day when you were drinking in the past year? 3 or 4 drinks (1 point) How often did you have a dri nk containing alcohol in the past year? 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 confirmed Problem Acne vulgaris (17197842) Acne vulgaris (L70.0) Active confirmed Problem Fatigue (66582469) Fatigue (R53.83) Active conf irmed Problem Migraine variant with headache (disorder) (528904417) Migraine headache (G43.909) Active confirmed Problem Psoriasis (5912824) Psoriasis (L40.9) Active co nfirmed Problem Gastroesophageal reflux disease (887838993) GERD (gastroesophageal reflux disease) (K21.9) Active confirmed Problem Pulmonary embolism (14099980) Pulmonary embolism (I26.99) Active confirmed Problem Acute sinusitis (41278514) Acute sinusitis (J01.90) Active confirmed Problem Allergic rhinitis (09498747) Allergic rhinitis (J30.9) Active confirmed Problem Well adult (196194679) Well adult (Z00.00) Active confirmed Problem Benign hypertension (37342899) Benign hypertension (I10) Active confirmed Problem Low testosterone (750686855) Low testosterone (E29.1) Active confirmed Problem Displacement of lumbar intervertebral disc without myelopathy (20079770) Herniated lumbar disc without myelopathy (M51.26) Active confirmed Problem Cellulitis and abscess of trunk (316777659) Abdominal wall abscess (L02.211) Active confirmed Problem Nevus (9958501628) Nevus (D22.9) Active confirm ed Problem Decreased testosterone level (043352125) Decreased testosterone level (E29.1) Active confirmed Problem Prostatitis (1633984) Prostatitis (N41.9) Active confirmed Problem Superficial thrombophlebitis (6222663) Superficial thrombophlebitis (I80.9) Active confirmed Problem Regular astigmatism (71308244) Regular astigmatism (H52.229) Active confirmed Problem Displacement of lumbar intervertebral disc without myelopathy (20020117) Disc displacement, lumbar (M51.26) Active confirmed Problem Shoulder impingement syndrome (050759138) Shoulder impingement syndrome (M75.40) Active confirmed Problem Essential hypertension (02486848) BP (high blood pressure) (I10) Active confirmed Problem Mild nonproliferative retinopathy due to type 2 diabetes mellitus (312324923159247) Type 2 diabetes mellitus with 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 edema, bilateral (E11.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) Active confirmed Problem Mortons neuroma of right foot (184154670964062) Mortons neuroma, right (G57.61) Active confirmed Problem Mild nonproliferative retinopathy due to diabetes mellitus (disorder) (870078463) Mild nonproliferative diabetic retinopathy of both eyes without macular edema associated with type 2 diabetes mellitus (E11.3293) Active confirmed Problem Chorioretinal scar (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78 kg/m2 09/29/2024 Encounters Encounter Location Date Provider Diagnosis [address] [address] 12/31/2023 Jeffrey Hoy Low testosterone E29 .1 ; Type 2 diabetes mellitus with 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 edema, bilateral E11.3293 ; Herniated lumbar disc without myelopathy M51.26 and GERD (gastroesophageal reflux disease) K21.[address] [address] 06/30/2024 Jeffrey Hoy Low testosterone E29 .1 ; Herniated lumbar disc without myelopathy M51.26 ; Benign hypertension I10 and Type 2 diabetes mellitus with 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 edema, bilateral E11.[address] [address] 09/29/2024 Jeffrey Hoy Low testosterone E29 .1 ; Type 2 diabetes mellitus with 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 edema, bilateral E11.3293 ; Herniated lumbar disc without myelopathy M51.26 ; GERD (gastroesophageal reflux disease) K21.9 ; Benign hypertension I10 and Ankle pain M25.[address] [address] 03/30/2024 Jeffrey Hoy Type 2 diabetes neli itus with 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 edema, bilateral E11.3293 ; BP (high blood pressure) I10 ; Low testosterone E29.1 ; Prostatitis N41.9 and Herniated lumbar disc without myelopathy M51.[address] [address] 10/06/2024 Jeffrey Hoy Low testosterone E29 .1 [facility] [address] [place] [place] [place] [address] 10/13/2024 Jeffrey Hoy Low testosterone E29 .1 [facility] [address] [place] [place] [address] 10/19/2024 Jeffrey Hoy Low testosterone E29 .1 [facility] [address] [place] [place] [address] 10/27/2024 Jeffrey Hoy Low testosterone E29 .1 [facility] [address] [place] [place] [address] 11/03/2024 Jeffrey Hoy Low testosterone E29 .1 [facility] [address] [place] [place] [address] 11/17/2024 Jeffrey Hoy 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 [facility] [address] [place] [place] [address] 11/10/2024 Jeffrey Hoy [facility] [address] [place] [place] [place] [address] 11/23/2024 Jeffrey Hoy Low testosterone E29 .1 [facility] [address] [place] [place] [address] 12/01/2024 Jeffrey Hoy Low testosterone E29 .1 [facility] [address] [place] [place] [address] 12/08/2024 Jeffrey Hoy Decreased testostero ne level E29.1 [facility] [address] [place] [place] [address] 12/15/2024 Jeffrey Hoy 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 [facility] [address] [place] [place] [address] 03/24/2024 Jeffrey Hoy Low testosterone E29 .1 [facility] [address] [place] [place] [address] 04/07/2024 Jeffrey Hoy Low testosterone E29 .1 [facility] [address] [place] [place] [address] 2024 Jeffrey Hoy Low testosterone E29 .1 [facility] [address] [place] [place] [address] 07/28/2024 Jeffrey Hoy Low testosterone E29 .1 [facility] [address] [place] [place] [address] 08/04/2024 Jeffrey Hoy Low testosterone E29 .1 [facility] [address] [place] [place] [address] 08/11/2024 Jeffrey Hoy Decreased testostero ne level E29.1 [facility] [address] [place] [place] [address] 08/17/2024 Jeffrey Hoy 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 [facility] [address] [place] [address] 08/25/2024 Jeffrey Hoy 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 [facility] [address] [place] [address] 09/01/2024 Jeffrey Hoy Low testosterone E29 .1 [facility] [address] [place] [place] [address] 09/08/2024 Jeffrey Hoy Low testosterone E29 .1 [facility] [address] [place] [address] 09/15/2024 Jeffrey Hoy 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 [facility] [address] [place] [address] 09/22/2024 Jeffrey Hoy Low testosterone E29 .1 [facility] [address] [place] [place] [address] 04/14/2024 Jeffrey Hoy Low testosterone E29 .1 [facility] [address] [place] [address] 04/21/2024 Jefrfey Hoy Low testosterone E29 .1 [facility] [address] [place] [place] [address] 04/28/2024 Jeffrey Hoy Low testosterone E29 .1 [facility] [address] [place] [place] [address] 05/05/2024 Jeffrey Hoy Decreased testostero ne level E29.1 [facility] [address] [place] [address] 05/12/2024 Jeffrey Hoy Decreased testostero ne level E29.1 [facility] [address] [place] [address] 05/19/2024 Jeffrey Hoy Low testosterone E29 .1 [facility] [address] [place] [address] 05/26/2024 Jeffrey Hoy Decreased testostero ne level E29.1 [facility] [address] [place] [address] 06/02/2024 Jeffrey Hoy Low testosterone E29 .1 [facility] [address] [place] [place] [address] 06/09/2024 Jeffrey Hoy Low testosterone E29 .1 [facility] [address] [place] [address] 06/16/2024 Jeffrey Hoy Low testosterone E29 .1 [facility] [address] [place] [place] [address] 06/23/2024 Jeffrey Hoy Low testosterone E29 .1 [facility] [address] [place] [address] 07/07/2024 Jeffrey Hoy Low testosterone E29 .1 [facility] [address] [place] [address] 07/14/2024 Jeffrey Hoy Decreased testostero ne level E29.1 [facility] [address] [place] [address] 01/14/2024 Jeffrey Hoy Low testosterone E29 .1 [facility] [address] [place] [place] [address] 01/21/2024 Jeffrey Hoy 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 [facility] [address] [place] [address] 01/28/2024 Jeffrey Hoy Low testosterone E29 .1 [facility] [address] [place] [address] 02/04/2024 Jeffrey Hoy Low testosterone E29 .1 [facility] [address] [place] [address] 02/11/2024 Jeffrey Hoy Decreased testostero ne level E29.1 [facility] [address] [place] [place] [address] 02/18/2024 Jeffrey Hoy Low testosterone E29 .1 [facility] [address] [place] [address] 02/25/2024 Jeffrey Hoy 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 [facility] [address] [place] [address] 03/03/2024 Jeffrey Hoy Decreased testostero ne level E29.1 [facility] [address] [place] [address] 03/09/2024 Jeffrey Hoy 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 [facility] [address] [place] [address] 03/17/2024 Jeffrey Hoy Low testosterone E29 .1 [facility] [address] [place] [address] 12/17/2023 Jeffrey Hoy Low testosterone E29 .1 [facility] [address] [place] [address] 12/24/2023 Jeffrey Hoy Decreased testostero ne level E29.1 [facility] [address] [place] [address] 01/07/2024 Jeffrey Hoy Decreased testostero ne level E29.1 [facility] [address] [place] [address] 12/22/2023 Jeffrey Hoy [facility] [address] [facility] [place] [address] 01/04/2024 Jeffrey Hoy [facility] [address] [facility] [place] [address] 01/21/2024 Jeffrey Pompa [facility] [address] [facility] [place] [address] 02/02/2024 Jeffrey Pompa [facility] [address] [facility] [place] [address] 02/19/2024 Jeffrey Pompa [facility] [address] [facility] [place] [address] 03/03/2024 Jeffrey Pompa [facility] [address] [facility] [place] [address] 03/24/2024 Jeffrey Pompa [facility] [address] [facility] [address] 04/11/2024 Jeffrey Pompa High cholesterol E78 .00 [facility] [address] [facility] [place] [address] 04/13/2024 Jeffrey Pompa [facility] [address] [facility] [place] [address] 04/25/2024 Jeffrey Pompa [facility] [address] [facility] [place] [address] 05/02/2024 Jeffrey Darreny Type 2 diabetes neli itus with 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 edema, bilateral E11.3293 [facility] [address] [facility] [place] [address] 05/23/2024 Jeffrey Pompa [facility] [address] [facility] [place] [address] 05/25/2024 Jeffrey Pompa [facility] [address] [facility] [address] 06/01/2024 Jeffrey Darreny Type 2 diabetes neli itus with 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 edema, bilateral E11.3293 [facility] [address] [place] [address] 06/22/2024 Jeffrey Banksy [facility] [address] [place] [address] 07/04/2024 Jeffrey Hoy Type 2 diabetes neli itus with 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 edema, bilateral E11.3293 [facility] [address] [facility] [place] [address] 07/12/2024 Jeffrey Hoy 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 [facility] [address] [place] [place] [address] 07/12/2024 Jeffrey Hoy 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 [facility] [address] [place] [place] [address] 07/14/2024 Jeffrey Hoy 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 [facility] [address] [place] [place] [address] 07/20/2024 Jeffrey Hoy Pulmonary embolism I 26.99 [facility] [address] [place] [place] [address] 07/20/2024 Jeffrey Hoy [facility] [address] [place] [address] 2024 Jeffrey Hoy [facility] [address] [place] [address] 2024 Jeffrey Hoy 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 [facility] [address] [place] [place] [address] 07/22/2024 Jeffrey Hoy [facility] [address] [place] [place] [place] [address] 08/03/2024 Jeffrey Hoy Type 2 diabetes neli itus with 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 edema, bilateral E11.3293 [facility] [address] [place] [address] 08/19/2024 Jeffrey Hoy [facility] [address] [place] [place] [place] [address] 09/01/2024 Jeffrey Hoy Type 2 diabetes neli itus with 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 edema, bilateral E11.3293 [facility] [address] [place] [place] [place] [address] 09/19/2024 Jeffrey Hoy [facility] [address] [place] [place] [place] [address] 09/29/2024 Jeffrey Aletha [facility] [address] [place] [place] [place] [address] 10/02/2024 Jeffrey Aletha [facility] [address] [place] [place] [place] [address] 10/17/2024 Jeffrey Aletha [facility] [address] [place] [place] [place] [address] 11/01/2024 Jeffrey Aletha Low testosterone E29 .1 [facility] [address] [place] [address] 11/17/2024 Jeffrey Pompa [facility] [address] [place] [address] 11/30/2024 Jeffrey Pompa Low testosterone E29 .1 [facility] [address] [place] [place] [address] 11/30/2024 Jeffrey Aletha [facility] [address] [place] [place] [address] 12/01/2024 Jeffrey Pompa Assessments Encounter Date Diagnosis (ICD Code) Assessment Notes Treatment Notes Treatment Clinical Notes Section Notes 12/31/2023 Low testosterone (ICD-10 - E29.1) 12/31/2023 Type 2 diabetes mellitus with 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 edema, bilateral (ICD-10 - E11.3293) 12/17/2023 Low testosterone (ICD-10 - E29.1) 12/24/2023 Decreased testosterone level (ICD-10 - E29.1) 01/07/2024 Decreased testosterone level (ICD-10 - E29.1) 01/14/2024 Low testosterone (ICD-10 - E29.1) 01/21/2024 Testicular hypofunction (ICD-10 - E29.1) 01/28/2024 Low testosterone (ICD-10 - E29.1) 02/04/2024 Low testosterone (ICD-10 - E29.1) 02/11/2024 Decreased testosterone level (ICD-10 - E29.1) 02/18/2024 Low testosterone (ICD-10 - E29.1) 02/25/2024 Testicular hypofunction (ICD-10 - E29.1) 03/03/2024 Decreased testosterone level (ICD-10 - E29.1) 03/09/2024 Testicular hypofunction (ICD-10 - E29.1) 03/17/2024 Low testosterone (ICD-10 - E29.1) 03/30/2024 Type 2 diabetes mellitus with 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 edema, bilateral (ICD-10 - E11.3293) 03/30/2024 BP (high blood pressure) (ICD-10 - I10) 03/24/2024 Low testosterone (ICD-10 - E29.1) 04/07/2024 Low testosterone (ICD-10 - E29.1) 06/30/2024 Low testosterone (ICD-10 - E29.1) 06/30/2024 Herniated lumbar disc without myelopathy (ICD-10 - M51.26) 2024 Low testosterone (ICD-10 - E29.1) 07/28/2024 Low testosterone (ICD-10 - E29.1) 08/04/2024 Low testosterone (ICD-10 - E29.1) 08/11/2024 Decreased testosterone level (ICD-10 - E29.1) 08/17/2024 Testicular hypofunction (ICD-10 - E29.1) 08/25/2024 Testicular hypofunction (ICD-10 - E29.1) 09/01/2024 Low testosterone (ICD-10 - E29.1) 09/08/2024 Low testosterone (ICD-10 - E29.1) 09/15/2024 Testicular hypofunction (ICD-10 - E29.1) 09/22/2024 Low testosterone (ICD-10 - E29.1) 10/06/2024 Low testosterone (ICD-10 - E29.1) 10/13/2024 Low testosterone (ICD-10 - E29.1) 10/19/2024 Low testosterone (ICD-10 - E29.1) 10/27/2024 Low testosterone (ICD-10 - E29.1) 11/03/2024 Low testosterone (ICD-10 - E29.1) 11/17/2024 Testicular hypofunction (ICD-10 - E29.1) 11/23/2024 Low testosterone (ICD-10 - E29.1) 12/01/2024 Low testosterone (ICD-10 - E29.1) 12/08/2024 Decreased testosterone level (ICD-10 - E29.1) 12/15/2024 Testicular hypofunction (ICD-10 - E29.1) 04/11/2024 High cholesterol (ICD-10 - E78.00) 05/02/2024 Type 2 diabetes mellitus with 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 edema, bilateral (ICD-10 - E11.3293) 06/01/2024 Type 2 diabetes mellitus with 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 edema, bilateral (ICD-10 - E11.3293) 07/04/2024 Type 2 diabetes mellitus with 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 edema, bilateral (ICD-10 - E11.3293) 07/12/2024 Testicular hypofunction (ICD-10 - E29.1) 07/12/2024 Testicular hypofunction (ICD-10 - E29.1) 07/14/2024 Testicular hypofunction (ICD-10 - E29.1) 07/20/2024 Pulmonary embolism (ICD-10 - I26.99) 2024 Testicular hypofunction (ICD-10 - E29.1) 08/03/2024 Type 2 diabetes mellitus with 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 edema, bilateral (ICD-10 - E11.3293) 09/01/2024 Type 2 diabetes mellitus with 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 edema, bilateral (ICD-10 - E11.3293) 11/01/2024 Low testosterone (ICD-10 - E29.1) 11/30/2024 Low testosterone (ICD-10 - E29.1) 04/14/2024 Low testosterone (ICD-10 - E29.1) 04/21/2024 Low testosterone (ICD-10 - E29.1) 04/28/2024 Low testosterone (ICD-10 - E29.1) 05/05/2024 Decreased testosterone level (ICD-10 - E29.1) 05/12/2024 Decreased testosterone level (ICD-10 - E29.1) 05/19/2024 Low testosterone (ICD-10 - E29.1) 05/26/2024 Decreased testosterone level (ICD-10 - E29.1) 06/02/2024 Low testosterone (ICD-10 - E29.1) 06/09/2024 Low testosterone (ICD-10 - E29.1) 06/16/2024 Low testosterone (ICD-10 - E29.1) 06/23/2024 Low testosterone (ICD-10 - E29.1) 07/07/2024 Low testosterone (ICD-10 - E29.1) 07/14/2024 Decreased testosterone level (ICD-10 - E29.1) 09/29/2024 Low testosterone (ICD-10 - E29.1) 09/29/2024 Type 2 diabetes mellitus with 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 edema, bilateral (ICD-10 - E11.3293) 09/29/2024 Herniated lumbar disc without myelopathy (ICD-10 - M51.26) 06/30/2024 Benign hypertension (ICD-10 - I10) 03/30/2024 Low testosterone (ICD-10 - E29.1) 12/31/2023 Herniated lumbar disc without myelopathy (ICD-10 - M51.26) 12/31/2023 GERD (gastroesophageal reflux disease) (ICD-10 - K21.9) 03/30/2024 Prostatitis (ICD-10 - N41.9) 06/30/2024 Type 2 diabetes mellitus with 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 edema, bilateral (ICD-10 - E11.3293) 09/29/2024 GERD (gastroesophageal reflux disease) (ICD-10 - K21.9) 09/29/2024 Benign hypertension (ICD-10 - I10) 03/30/2024 Herniated lumbar disc without myelopathy (ICD-10 - M51.26) 09/29/2024 Ankle pain (ICD-10 - M25.579) 09/29/2024 Other Recommended to rest and use a heating pad on the area. Take NSAIDs for pain as needed Plan Of Treatment Pending Test Test Name Order Date CMP (COMPLETE METABOLIC PANEL) 3 CMP (COMPLETE METABOLIC PANEL) 4 HEMOGLOBIN A1C (GLYCO) 04/01/2023 HEMOGLOBIN A1C (GLYCO) 03/30/2024 LIPID PANEL (CHOL/TRIG/HDL/LDL) 03/30/20 24 LIPID PANEL (CHOL/TRIG/HDL/LDL) 04/01/20 23 CBC WITH DIFF 04/01/2023 CBC WITH DIFF 03/30/2024 PSA, PROSTATE-SPECIFIC ANTIGEN 3 URIC ACID 03/30/2024 PT - INR 07/20/2024 TESTOSTERONE 09/03/2023 PSA, TOTAL 03/30/2024 STOOL OCCULT BLOOD 03/30/2024 CBC AUTO DIFF 2023 LIPID PROFILE 04/11/2024 LIVER PROFILE 04/11/2024 TESTOSTERONE, TOTAL 03/30/2024 TESTOSTERONE, TOTAL 06/30/2024 TESTOSTERONE, TOTAL 09/29/2024 TESTOSTERONE, TOTAL 04/01/2023 THYROID PANEL (T4/TSH/FREE T3) 3 THYROID PANEL (T4/TSH/FREE T3) 4 Testosterone 04/08/2023 PROTIME-INR 07/01/2023 Next Appt Details Provider Name:Jeffrey Pompa, 01:15:00 PM, [address] [place], [address], Provider Name:Jeffrey Pompa, 01:30:00 PM, [address] [place], [address], Insurance Providers Payer Name Payer Address Payer Phone Subscriber Number Group Number Insured Name Patient Relationship to Insured Coverage Start Date Coverage End Date [employer] [address] [place] [phone] [id number] Celia Packer Spouse - patient is the spouse of the insured 3 [place] [address] [place] [place] [address] [id number] Ernesto Packer Self - patient is the insured 5 Medications Administered Medication Instructions Date of Administration Dosage Notes Testosterone Cypionate 200mg 07/17/2022 0.5 mL Testosterone Cypionate 200mg 07/23/2022 0.5 mL Testosterone Cypionate 200mg 07/31/2022 0.5 mL Testosterone Cypionate 200mg 07/31/2022 0.5 mL Testosterone Cypionate 200mg 08/07/2022 0.5 mL Testosterone Cypionate 200mg 08/14/2022 0.5 mL Testosterone Cypionate 200mg 08/21/2022 0.5 mL Testosterone Cypionate 200mg 08/28/2022 0.5 mL Testosterone Cypionate 200mg 09/04/2022 100 mg Testosterone Cypionate 200mg 09/04/2022 100 mg Testosterone Cypionate 200mg 09/11/2022 100 mg Testosterone Cypionate 200mg 09/18/2022 0.5 mL Testosterone Cypionate 200mg 09/25/2022 100 mg Testosterone Cypionate 200mg 10/01/2022 Testosterone Cypionate 200mg 10/01/2022 200 mg Testosterone Cypionate 200mg 10/09/2022 0.5 mL Testosterone Cypionate 200mg 10/16/2022 0.5 mL Testosterone Cypionate 200mg 10/23/2022 0.5 mL Testosterone Cypionate 200mg 10/30/2022 0.5 mg Testosterone Cypionate 200mg 11/06/2022 0.5 mL Testosterone Cypionate 200mg 11/13/2022 100 mg Testosterone Cypionate 200mg 11/20/2022 100 mg Testosterone Cypionate 200mg 11/27/2022 0.5 mL Testosterone Cypionate 12/04/2022 0.5 mL Testosterone Cypionate 12/04/2022 0.5 mL Testosterone Cypionate 12/11/2022 0.5 mL Testosterone Cypionate 12/18/2022 0.5 mL Testosterone Cypionate 12/25/2022 1 mL Testosterone Cypionate 12/31/2022 0.5 mL Testosterone Cypionate 12/31/2022 0.5 mL Testosterone Cypionate 01/08/2023 0.5 mL Testosterone Cypionate 01/15/2023 0.5 mL Testosterone Cypionate 01/22/2023 0.5 mL Testosterone Cypionate 01/30/2023 100 mg Testosterone Cypionate 02/05/2023 0.5 mL Testosterone Cypionate 02/12/2023 100 mg Testosterone Cypionate 02/19/2023 0.5 mL Testosterone Cypionate 02/26/2023 0.5 mL Testosterone Cypionate 03/04/2023 100 mg Testosterone Cypionate 03/12/2023 0.5 mL Testosterone Cypionate 03/19/2023 0.5 mL Testosterone Cypionate 03/26/2023 0.5 mL Testosterone Cypionate 04/01/2023 0.5 mL Testosterone Cypionate 04/09/2023 0.5 mL Testosterone Cypionate 04/16/2023 0.5 mL Testosterone Cypionate 04/23/2023 0.5 mL Testosterone Cypionate 04/30/2023 0.5 mL Testosterone Cypionate 05/07/2023 0.5 mL Testosterone Cypionate 05/14/2023 0.5 mL Testosterone Cypionate 05/21/2023 0.5 mL Testosterone Cypionate 05/28/2023 0.5 mL Testosterone Cypionate 06/04/2023 0.5 mL Testosterone Cypionate 06/11/2023 100 mg Testosterone Cypionate 06/18/2023 0.5 mL Testosterone Cypionate 06/25/2023 0.5 mL Testosterone Cypionate 07/01/2023 0.5 mL Testosterone Cypionate 07/09/2023 .5 mL Testosterone Cypionate 07/16/2023 0.5 mL Testosterone Cypionate 07/23/2023 .5 mL Testosterone Cypionate 07/30/2023 .5 mL Testosterone Cypionate 08/06/2023 .5 mL Testosterone Cypionate 08/12/2023 100 mg Testosterone Cypionate 08/20/2023 100 mg Testosterone Cypionate 08/27/2023 .5 mL Testosterone Cypionate 09/03/2023 .5 mL Testosterone Cypionate 09/10/2023 100 mg Testosterone Cypionate 09/17/2023 0.5 mL Testosterone Cypionate 09/24/2023 .5 mL Testosterone Cypionate 09/30/2023 0.5 mL Testosterone Cypionate 10/09/2023 100 mg Testosterone Cypionate 10/16/2023 0.5 mL Testosterone Cypionate 10/22/2023 0.5 mL Testosterone Cypionate 10/29/2023 0.5 mL Testosterone Cypionate 11/05/2023 100 mg Testosterone Cypionate 11/12/2023 0.5 mL Testosterone Cypionate 11/19/2023 0.5 mL Testosterone Cypionate 11/26/2023 Testosterone Cypionate 11/26/2023 0.5 mL Testosterone Cypionate 12/03/2023 0.5 mL Testosterone Cypionate 12/10/2023 0.5 mL Testosterone Cypionate 12/17/2023 0.5 mL Testosterone Cypionate 12/24/2023 100 mg Testosterone Cypionate 12/31/2023 0.5 mg Testosterone Cypionate 01/07/2024 0.5 mL Testosterone Cypionate 01/14/2024 0.5 mL Testosterone Cypionate 01/21/2024 0.5 mL Testosterone Cypionate 01/28/2024 0.5 mL Testosterone Cypionate 02/04/2024 0.5 mL Testosterone Cypionate 02/04/2024 0.5 mL Testosterone Cypionate 02/11/2024 0.5 mL Testosterone Cypionate 02/18/2024 0.5 mL Testosterone Cypionate 02/25/2024 0.5 mL Testosterone Cypionate 03/03/2024 0.5 mL Testosterone Cypionate 03/09/2024 0.5 mL Testosterone Cypionate 03/17/2024 0.5 mg Testosterone Cypionate 03/24/2024 0.5 mL Testosterone Cypionate 03/30/2024 0.5 mL Testosterone Cypionate 04/07/2024 0.5 mL Testosterone Cypionate 04/14/2024 0.3 mL Testosterone Cypionate 04/21/2024 0.3 mL Testosterone Cypionate 04/28/2024 0.3 mL Testosterone Cypionate 05/05/2024 0.3 mL Testosterone Cypionate 05/12/2024 0.5 mL Testosterone Cypionate 05/19/2024 0.5 mL Testosterone Cypionate 05/26/2024 0.3 mL Testosterone Cypionate 05/26/2024 0.3 mL Testosterone Cypionate 06/02/2024 0.3 mL Testosterone Cypionate 06/09/2024 0.3 mL Testosterone Cypionate 06/16/2024 0.3 mL Testosterone Cypionate 06/23/2024 0.3 mL Testosterone Cypionate 06/30/2024 0.3 mL Testosterone Cypionate 07/07/2024 0.3 mL Testosterone Cypionate 07/14/2024 0.3 mL Testosterone Cypionate 2024 0.3 mL Testosterone Cypionate 07/28/2024 0.4 mL Testosterone Cypionate 08/04/2024 0.4 mL Testosterone Cypionate 08/11/2024 0.4 mL Testosterone Cypionate 08/17/2024 0.4 mL Testosterone Cypionate 08/25/2024 0.4 mL Testosterone Cypionate 09/01/2024 0.4 mL Testosterone Cypionate 09/08/2024 0.4 mL Testosterone Cypionate 09/15/2024 0.4 mL Testosterone Cypionate 09/22/2024 0.4 mL Testosterone Cypionate 09/29/2024 0.4 mg Testosterone Cypionate 10/06/2024 0.4 mL Testosterone Cypionate 10/13/2024 0.4 mL Testosterone Cypionate 10/19/2024 0.4 mL Testosterone Cypionate 10/27/2024 0.4 mg Testosterone Cypionate 11/03/2024 0.4 mL Testosterone Cypionate 11/10/2024 0.4 mL Testosterone Cypionate 11/17/2024 0.4 mL Testosterone Cypionate 11/23/2024 0.4 mL Testosterone Cypionate 12/01/2024 0.4 mL Testosterone Cypionate 12/08/2024 0.4 mL Testosterone Cypionate 12/15/2024 0.4 mL Medical (General) History Medical History History ICD Code Nevus D22.9 Low testosterone E29.1 Fatigue R53.83 Acne vulgaris L70.0 Psoriasis L40.9 COVID-19 virus infection U07.1 Acute sinusitis J01.90 Shoulder impingement syndrome M75.40 Prostatitis N41.9 Regular astigmatism H52.229 Retinal scar, unspecified laterality H31 .009 Borderline glaucoma with ocular hyperten marilyn, unspecified laterality H40.059 Mild nonproliferative diabet ic retinopathy of both eyes without macular edema associated with type 2 diabetes mellitus E11.3293 Superficial thrombophlebitis I80.9 Herniated lumbar disc without myelopathy M51.26 Mortons neuroma, right G57.61 Migraine headache G43.909 Thrombophlebitis of deep vein of lower l eg, unspecified laterality I80.209 Allergic rhinitis J30.9 Benign hypertension I10 Pulmonary embolism I26.99 Surgical History Surgery Date(Month/Year) bck surgery 05/2011 right shoulder surgery 05/2002 colon resection 06/2009 left knee surgery 08/2005 right hand surgery 06/2016 Left eye surgery- glaucoma 08/2024 left shoulder surgery 05/2019 Hospitalization History Reason Date(Month/Year) infection scrotum 06/2022
--- OUTSIDE RECORDS SUMMARY | 2024-12-15 14:01 | XMS_ITS | CCD ---
Author Organization [facility] Care Team Providers Care Ethnology Teacher Name Role Phone DAMIE, CHICHO Unavailable Unavailable SKIE, CHICHO Unavailable Unavailable SWATI DANE Unavailable Unavailable FOGT, CELIO Unavailable Unavailable CA Unavailable Unavailable SKIE, CHICHO Unavailable Unavailable CA Unavailable Unavailable PITRODA, SHAHANA Unavailable Unavailable Dane [place] Primary Care Physician [phone] Durga BANKS Attending Unavailable HOY ., DR [...] DR VELA Admitting Unavailable HOY ., DR VEAL Primary Care Unavailable HOY ., DR VELA [...] celecoxib; 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: [CELEBREX] Drug Allergy 3 [facility] Rep[facility] (3 sources) morphine; 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: [MORPHINE] Drug Allergy 0 Unknown (qualifier value) [facility] (2 sources) orphenadrine; 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: [Norflex] Drug Allergy 0 AOF [facility] (2 sources) Adhesive bandage; 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: [Adhesive Bandage] Drug allergy Unknown (qualifier value) [facility] (2 sources) celecoxib; 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: [celecoxib] Drug Allergy 3 Unknown [facility] (3 sources) Orphenadrine; 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: [orphenadrine] Drug Allergy 0 Unknown (qualifier value) [facility] (1 source) Orphenadrine Drug Allergy [address] 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 (CURRENT) USE OF ORAL HYPOGLYCEMIC DRUGS] Onset: 7 Past or Other Problems Problem Classification Problem Date Documented Da te Episodic/Chronic Deficiency and other anemia (1 source) Anemia, unspecified; 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: [ANEMIA UNSPECIFIED] Onset: 10-11-2021 Episodic Malaise and fatigue (1 source) Other fatigue; 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: [OTHER FATIGUE] Onset: 04-10-2022 Episodic Other aftercare (1 source) Other retirement (current) drug therapy; 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: [OTH SOCIAL PSYCHOLOGIST CURRENT DRUG THERAPY] Onset: 04-10-2022 Episodic Other [...] Coag (PPP) [Relative time] 2.84 {INR} Normal [facility] Comment on above: Performed By: #### P T #### [facility] [address] [address] [address] Teddy Purcell INR GUIDELINES SEE BELOW Normal [facility] Comment on above: Result Comment: ISMA RED INR: 2.0 - 3.0 CONDITIONS NOT LISTED BELOW 2.5 - 3.5 FOR PROSTHETIC HEART VALVE REPLACEMENT 2.5 - 3.5 RECURRENT THROMBOSIS Performed By: #### P T #### [facility] [address] [address] [address] Teddy Purcell PT Coag (PPP) [Time] 28.4 s Critically high 9.0-11.6 [facility] Comment on above: Performed By: #### P T #### [facility] [address] [address] [address] Teddy Purcell PROTIMEon 06-23-2022 INR Coag (PPP) [Relative time] 3.22 {INR} Normal [facility] Comment on above: Performed By: #### P T #### [facility] [address] [address] [address] Teddy Purcell INR GUIDELINES SEE BELOW Normal [facility] Comment on above: Result Comment: ISMA RED INR: 2.0 - 3.0 CONDITIONS NOT LISTED BELOW 2.5 - 3.5 FOR PROSTHETIC HEART VALVE REPLACEMENT 2.5 - 3.5 RECURRENT THROMBOSIS Performed By: #### P T #### [facility] [address] [place] [address] Dr. Teddy Purcell PT Coag (PPP) [Time] 31.9 s Critically high 9.0-11.6 [facility] Comment on above: Performed By: #### P T #### [facility] [address] [place] [address] Dr. Teddy Purcell PROTIMEon 06-16-2022 INR Coag (PPP) [Relative time] 3.26 {INR} Normal [facility] Comment on above: Performed By: #### P SASC #### [facility] [address] [place] [address] Dr. Teddy Purcell INR GUIDELINES SEE BELOW Normal [facility] Comment on above: Result Comment: ISMA RED INR: 2.0 - 3.0 CONDITIONS NOT LISTED BELOW 2.5 - 3.5 FOR PROSTHETIC HEART VALVE REPLACEMENT 2.5 - 3.5 RECURRENT THROMBOSIS Performed By: #### P SASC #### [facility] [address] [place] [address] Dr. Teddy Purcell PT Coag (PPP) [Time] 32.3 s Critically high 9.0-11.6 [facility] Comment on above: Performed By: #### P SASC #### [facility] [address] [place] [address] Dr. Teddy Purcell PROTIMEon 06-09-2022 INR Coag (PPP) [Relative time] 4.37 {INR} Critically high [facility] Comment on above: Performed By: #### P T #### [facility] [address] [place] [address] Dr. Teddy Purcell INR GUIDELINES SEE BELOW Normal [facility] Comment on above: Result Comment: ISMA RED INR: 2.0 - 3.0 CONDITIONS NOT LISTED BELOW 2.5 - 3.5 FOR PROSTHETIC HEART VALVE REPLACEMENT 2.5 - 3.5 RECURRENT THROMBOSIS Performed By: #### P T #### [facility] [address] [place] [address] Dr. Teddy Purcell PT Coag (PPP) [Time] 42.6 s Critically high 9.0-11.6 [facility] Comment on above: Performed By: #### P T #### [facility] [address] [place] [address] Dr. Teddy Purcell Facesheeton 04-24-2022 Facesheet [id number]:12 7 Normal [facility] OCC BLD IMMUNO SCREENon 03-15 OCCULT BLOOD Negative Normal NEGATIVE [facility] Comment on above: Performed By: #### P SASC #### [facility] [address] [place] [address] Dr. Teddy Purcell TESTOSTERONE, TOTALon 2021 Testosterone [Mass/Vol] 905 ng/dL Normal 264-916 [facility] Comment on above: Result Comment: Adul t male reference interval is based on a population of healthy nonobese males (BMI <30) between 19 and 39 years old. Thea et.al. JCEM 2017,102;7827-5063. PMID: [id number]. Performed By: #### P SASC #### [facility] [address] [place] [address] Dr. Teddy Purcell CBC AUTO DIFFon 04-03-2022 BASO # 0.0 103/ul Normal 0.0-0.1 [facility] Comment on above: Performed By: #### P SASC #### [facility] [address] [place] [address] Dr. Teddy Purcell Basophils/100 WBC (Bld) 0.2 % Normal 0.2-2.0 [facility] Comment on above: Performed By: #### P SASC #### [facility] [address] [place] [address] Dr. Teddy Purcell EO # 0.1 103/ul Normal 0.0-0.[address] [facility] Comment on above: Performed By: #### P SASC #### [facility] [address] [place] [address] Dr. Teddy Purcell Eosinophils/100 WBC (Bld) 2.4 % Normal 0.9-7.[address] [facility] Comment on above: Performed By: #### P SASC #### [facility] [address] [place] [address] Dr. Teddy Purcell Erythrocyte distribution width (RBC) [Ratio] 15.7 % Critically high 11.0-15.0 [facility] Comment on above: Performed By: #### P SASC #### [facility] [address] [place] [address] Dr. Teddy Purcell Hematocrit (Bld) [Volume fraction] 51.4 % Normal 42.0-54.[address] [facility] Comment on above: Performed By: #### P SASC #### [facility] [address] [place] [address] Dr. Teddy Purcell Hemoglobin (Bld) [Mass/Vol] 16.9 g/dL Normal 14.0-18.[address] [facility] Comment on above: Performed By: #### P SASC #### [facility] [address] [place] [address] Dr. Teddy Purcell IG # 0.01 10e3/ul Normal 0.00-0.[address] [facility] Comment on above: Performed By: #### P SASC #### [facility] [address] [place] [address] Dr. Teddy Purcell IG % 0.2 % Normal 0.0-0.[address] [facility] Comment on above: Performed By: #### P SASC #### [facility] [address] [place] [address] Dr. Teddy Purcell LYMPH # 2.0 103/ul Normal 1.2-3.[address] [facility] Comment on above: Performed By: #### P SASC #### [facility] [address] [place] [address] Dr. Teddy Purcell Lymphocytes/100 WBC (Bld) 33.1 % Normal 20.5-60.[address] [facility] Comment on above: Performed By: #### P SASC #### [facility] [address] [place] [address] Dr. Teddy Purcell MANUAL DIFF REQ NO Normal [facility] Comment on above: Performed By: #### P SASC #### [facility] [address] [place] [address] Dr. Teddy Purcell MCH (RBC) [Entitic mass] 29.8 pg Normal 25.9-34.0 [facility] Comment on above: Performed By: #### P SASC #### [facility] [address] [place] [address] Dr. Teddy Purcell MCHC (RBC) [Mass/Vol] 32.9 g/dL Normal 29.9-35.[address] [facility] Comment on above: Performed By: #### P SASC #### [facility] [address] [place] [address] Dr. Teddy Purcell MCV (RBC) [Entitic vol] 90.7 fL Normal 80.0-94.0 [facility] Comment on above: Performed By: #### P SASC #### [facility] [address] [place] [address] Dr. Teddy Purcell MONO # 0.8 103/ul Normal 0.3-0.8 [facility] Comment on above: Performed By: #### P SASC #### [facility] [address] [place] [address] Dr. Teddy Purcell Monocytes/100 WBC (Bld) 12.9 % Critically high 1.7-12.[address] [facility] Comment on above: Performed By: #### P SASC #### [facility] [address] [place] [address] Dr. Teddy Purcell NEUT # 3.1 103/ul Normal 1.4-6.[address] [facility] Comment on above: Performed By: #### P SASC #### [facility] [address] [place] [address] Dr. Teddy Purcell Neutrophils/100 WBC (Bld) 51.2 % Normal 43.0-75.[address] [facility] Comment on above: Performed By: #### P SASC #### [facility] [address] [place], [place] [id number] Dr. Teddy Purcell Platelet mean volume (Bld) [Entitic vol] 10.0 fL Normal 9.5-13.5 [facility] Comment on above: Performed By: #### P SASC #### [facility] [address] [place] [address] Dr. Teddy Purcell PLT 302 103/ul Normal 150-[address] [facility] Comment on above: Performed By: #### P SASC #### [facility] [address] [address] [address] Teddy Purcell RBC 5.67 106/ul Normal 4.70-6.[address] [facility] Comment on above: Performed By: #### P SASC #### [facility] [address] [address] [address] Teddy Purcell WBC 6.0 103/ul Normal 4.0-11.0 [facility] Comment on above: Performed By: #### P SASC #### [facility] [address] [place] [address] Dr. Teddy Purcell FREE T3on 04-03-2022 FREE T3 3.52 pg/mlL Normal 2.18-3.98 [facility] Comment on above: Performed By: #### P SASC #### [facility] [address] [place] [address] Dr. Teddy Purcell GLYCOHEMOGLOBIN A1Con 2021 ADA RECOMMENDATION SEE BELOW Normal [facility] Comment on above: Result Comment: ADA RECOMMENDED LIMIT 4.0 - 6.0 ADA THERAPEUTIC TARGET < 7.0 ACTION SUGGESTED > 7.0 Performed By: #### P SASC #### [facility] [address] [place] [address] Dr. Teddy Purcell Glucose [Mass/Vol] 209 mg/dL Normal [facility] Comment on above: Performed By: #### P SASC #### [facility] [address] [place] [address] Dr. Teddy Purcell HbA1c (Bld) [Mass fraction] 8.9 % Critically high 4.5-6.[address] [facility] Comment on above: Performed By: #### P SASC #### [facility] [address] [address] [address] Teddy Purcell LIPID PROFILEon 04-03-2022 CHOL-HDL RATIO NORM SEE BELOW Normal [facility] Comment on above: Result Comment: 3.3 - 4.4 LOW RISK 4.4 - 7.1 AVERAGE RISK 7.1 - 11.0 MODERATE RISK >11.0 HIGH RISK Performed By: #### L IPID, FT3, T4, CMP, TSH #### [facility] [address] [address] [address] Teddy Purcell Cholesterol [Mass/Vol] 150 mg/dL Normal <=200 [facility] Comment on above: Performed By: #### L IPID, FT3, T4, CMP, TSH #### [facility] [address] [address] [address] Teddy Purcell Cholesterol in HDL [Mass/Vol] 31 mg/dL Critically low 40-60 [facility] Comment on above: Performed By: #### L IPID, FT3, T4, CMP, TSH #### [facility] [address] [address] [address] Teddy Purcell Cholesterol in LDL [Mass/Vol] 85.4 mg/dL Normal [facility] Comment on above: Performed By: #### L IPID, FT3, T4, CMP, TSH #### [facility] [address] [address] [address] Teddy Purcell Cholesterol.total/C holesterol in HDL [Mass ratio] 4.8 {ratio} Normal [facility] Comment on above: Performed By: #### L IPID, FT3, T4, CMP, TSH #### [facility] [address] [address] [address] Teddy Purcell HDL NORMAL > or = 60 mg/dl - LO W CARDIOVASCULAR RISK <40 mg/dl - HIGH CARDIOVASCULAR RISK Normal [facility] Comment on above: Performed By: #### L IPID, FT3, T4, CMP, TSH #### [facility] [address] [address] [address] Teddy Purcell LDL CALC NORMAL SEE BELOW Normal [facility] Comment on above: Result Comment: <100 mg/dl OPTIMAL 100 - 129 mg/dl NEAR OR ABOVE OPTIMAL 130 - 159 mg/dl BORDERLINE HIGH 160 - 189 mg/dl HIGH >190 mg/dl VERY HIGH Performed By: #### L IPID, FT3, T4, CMP, TSH #### [facility] [address] [address] [address] Teddy Purcell Triglyceride [Mass/Vol] 168 mg/dL Critically high <=150 [facility] Comment on above: Performed By: #### L IPID, FT3, T4, CMP, TSH #### [facility] [address] [address] [address] Teddy Purcell VLDL CALC 33.6 mg/dL Normal [facility] Comment on above: Performed By: #### L IPID, FT3, T4, CMP, TSH #### [facility] [address] [place] [address] Dr. Teddy Purcell PROF 14(COMP METB)on 022 Albumin [Mass/Vol] 3.7 g/dL Normal 3.4-5.0 [facility] Comment on above: Performed By: #### L IPID, FT3, T4, CMP, TSH #### [facility] [address] [place] [address] Dr. Teddy Purcell Albumin/Globulin [Mass ratio] 0.9 {ratio} Normal [facility] Comment on above: Performed By: #### L IPID, FT3, T4, CMP, TSH #### [facility] [address] [address] [address] Teddy Purcell ALP [Catalytic activity/Vol] 63 U/L Normal 46-[address] [facility] Comment on above: Performed By: #### L IPID, FT3, T4, CMP, TSH #### [facility] [address] [address] [address] Teddy Purcell ALT [Catalytic activity/Vol] 61 U/L Normal 16-63 [facility] Comment on above: Performed By: #### L IPID, FT3, T4, CMP, TSH #### [facility] [address] [place] [address] Dr. Teddy Purcell Anion gap [Moles/Vol] 9.7 mmol/L Normal [facility] Comment on above: Performed By: #### L IPID, FT3, T4, CMP, TSH #### [facility] [address] [place] [address] Dr. Teddy Purcell AST [Catalytic activity/Vol] 30 U/L Normal 15-37 [facility] Comment on above: Performed By: #### L IPID, FT3, T4, CMP, TSH #### [facility] [address] [place] [address] Dr. Teddy Purcell Bilirubin [Mass/Vol] 0.3 mg/dL Normal 0.2-1.0 [facility] Comment on above: Performed By: #### L IPID, FT3, T4, CMP, TSH #### [facility] [address] [place] [address] Dr. Teddy Purcell Calcium [Mass/Vol] 9.7 mg/dL Normal 8.5-10.1 [facility] Comment on above: Performed By: #### L IPID, FT3, T4, CMP, TSH #### [facility] [address] [place] [address] Dr. Teddy Purcell Chloride [Moles/Vol] 96 mmol/L Critically low 98-107 [facility] Comment on above: Performed By: #### L IPID, FT3, T4, CMP, TSH #### [facility] [address] [place] [address] Dr. Teddy Purcell CO2 [Moles/Vol] 34.7 mmol/L Critically high 21.0-32.0 [facility] Comment on above: Performed By: #### L IPID, FT3, T4, CMP, TSH #### [facility] [address] [place] [address] Dr. Teddy Purcell Creatinine [Mass/Vol] 0.78 mg/dL Normal 0.70-1.30 [facility] Comment on above: Performed By: #### L IPID, FT3, T4, CMP, TSH #### [facility] [address] [address] [address] Teddy Purcell EGFR-AF PARAGUAYAN >60 Normal >=60 [facility] Comment on above: Performed By: #### L IPID, FT3, T4, CMP, TSH #### [facility] [address] [place] [address] Dr. Teddy Purcell EGFR-NON AF PARAGUAYAN >60 Normal >=60 [facility] Comment on above: Performed By: #### L IPID, FT3, T4, CMP, TSH #### [facility] [address] [place] [address] Dr. Teddy Purcell Globulin (S) [Mass/Vol] 3.9 g/dL Normal [facility] Comment on above: Performed By: #### L IPID, FT3, T4, CMP, TSH #### [facility] [address] [place] [address] Dr. Teddy Purcell Glucose [Mass/Vol] 165 mg/dL Critically high 74-106 [facility] Comment on above: Performed By: #### L IPID, FT3, T4, CMP, TSH #### [facility] [address] [place] [address] Dr. Teddy Purcell Potassium [Moles/Vol] 4.4 mmol/L Normal 3.5-5.1 [facility] Comment on above: Performed By: #### L IPID, FT3, T4, CMP, TSH #### [facility] [address] [place] [address] Dr. Teddy Purcell Protein [Mass/Vol] 7.6 g/dL Normal 6.4-8.2 [facility] Comment on above: Performed By: #### L IPID, FT3, T4, CMP, TSH #### [facility] [address] [place] [address] Dr. Teddy Purcell Sodium [Moles/Vol] 136 mmol/L Normal 136-145 [facility] Comment on above: Performed By: #### L IPID, FT3, T4, CMP, TSH #### [facility] [address] [place] [address] Dr. Teddy Purcell Urea nitrogen [Mass/Vol] 14.0 mg/dL Normal 7.0-18.0 [facility] Comment on above: Performed By: #### L IPID, FT3, T4, CMP, TSH #### [facility] [address] [address] [address] Teddy Purcell Urea nitrogen/Creatinine [Mass ratio] 17.9 mg/mg Normal [facility] Comment on above: Performed By: #### L IPID, FT3, T4, CMP, TSH #### [facility] [address] [address] [address] Teddy Purcell PROTIMEon 04-03-2022 INR Coag (PPP) [Relative time] 3.13 {INR} Normal [facility] Comment on above: Performed By: #### P T #### [facility] [address] [place] [address] Dr. Teddy Purcell INR GUIDELINES SEE BELOW Normal [facility] Comment on above: Result Comment: ISMA RED INR: 2.0 - 3.0 CONDITIONS NOT LISTED BELOW 2.5 - 3.5 FOR PROSTHETIC HEART VALVE REPLACEMENT 2.5 - 3.5 RECURRENT THROMBOSIS Performed By: #### P T #### [facility] [address] [place] [address] Dr. Teddy Purcell PT Coag (PPP) [Time] 31.4 s Critically high 9.0-11.6 [facility] Comment on above: Performed By: #### P T #### [facility] [address] [place] [address] Dr. Teddy Purcell Physician Referralon 022 Physician Referral [id number]:12 7 Normal [facility] T4on 04-03-2022 T4 [Mass/Vol] 7.60 ug/dL Normal 4.50-12.10 [facility] Comment on above: Performed By: #### L IPID, FT3, T4, CMP, TSH #### [facility] [address] [address] [address] Teddy Purcell TSHon 12-22-2022 TSH 1.595 uIU/mL Normal 0.358-3.740 [facility] Comment on above: Performed By: #### L IPID, FT3, T4, CMP, TSH #### [facility] [address] [address] [address] Teddy Purcell PROTIMEon 12-05-2021 INR Coag (PPP) [Relative time] 3.69 {INR} Normal [facility] Comment on above: Performed By: #### P T #### [facility] [address] [address] [address] Teddy Purcell INR GUIDELINES SEE BELOW Normal [facility] Comment on above: Result Comment: ISMA RED INR: 2.0 - 3.0 CONDITIONS NOT LISTED BELOW 2.5 - 3.5 FOR PROSTHETIC HEART VALVE REPLACEMENT 2.5 - 3.5 RECURRENT THROMBOSIS Performed By: #### P T #### [facility] [address] [address] [address] Teddy Purcell PT Coag (PPP) [Time] 36.6 s Critically high 9.0-11.6 [facility] Comment on above: Performed By: #### P T #### [facility] [address] [place] [address] Dr. Teddy Purcell TESTOSTERONE, TOTALon 2021 Testosterone [Mass/Vol] 633 ng/dL Normal 264-916 [facility] Comment on above: Result Comment: Adul t male reference interval is based on a population of healthy nonobese males (BMI <30) between 19 and 39 years old. Thea et.al. JCEM 2017,102;0899-7105. PMID: [id number]. Performed By: #### P T #### [facility] [address] [address] [address] Teddy Purcell CBC AUTO DIFFon 10-08-2021 BASO # 0.0 103/ul Normal 0.0-0.1 [facility] Comment on above: Performed By: #### C BC #### [facility] [address] [address] [address] Teddy Purcell Basophils/100 WBC (Bld) 0.4 % Normal 0.2-2.0 [facility] Comment on above: Performed By: #### C BC #### [facility] [address] [place] [address] Dr. Teddy Purcell EO # 0.1 103/ul Normal 0.0-0.7 [facility] Comment on above: Performed By: #### C BC #### [facility] [address] [place] [address] Dr. Teddy Purcell Eosinophils/100 WBC (Bld) 2.0 % Normal 0.9-7.0 [facility] Comment on above: Performed By: #### C BC #### [facility] [address] [place] [address] Dr. Teddy Purcell Erythrocyte distribution width (RBC) [Ratio] 13.7 % Normal 11.0-15.0 [facility] Comment on above: Performed By: #### C BC #### [facility] [address] [place] [address] Dr. Teddy Purcell Hematocrit (Bld) [Volume fraction] 45.6 % Normal 42.0-54.0 [facility] Comment on above: Performed By: #### C BC #### [facility] [address] [place] [address] Dr. Teddy Purcell Hemoglobin (Bld) [Mass/Vol] 14.8 g/dL Normal 14.0-18.0 [facility] Comment on above: Performed By: #### C BC #### [facility] [address] [place] [address] Dr. Teddy Purcell IG # 0.01 10e3/ul Normal 0.00-0.03 [facility] Comment on above: Performed By: #### C BC #### [facility] [address] [place] [place] [address] Dr. Teddy Purcell IG % 0.2 % Normal 0.0-0.[address] [facility] Comment on above: Performed By: #### C BC #### [facility] [address] [place] [address] Dr. Teddy Purcell LYMPH # 1.8 103/ul Normal 1.2-3.[address] [facility] Comment on above: Performed By: #### C BC #### [facility] [address] [place] [address] Dr. Teddy Purcell Lymphocytes/100 WBC (Bld) 36.6 % Normal 20.5-60.0 [facility] Comment on above: Performed By: #### C BC #### [facility] [address] [place] [address] Dr. Teddy Purcell MANUAL DIFF REQ NO Normal [facility] Comment on above: Performed By: #### C BC #### [facility] [address] [place] [address] Dr. Teddy Purcell MCH (RBC) [Entitic mass] 30.0 pg Normal 25.9-34.0 [facility] Comment on above: Performed By: #### C BC #### [facility] [address] [place] [address] Dr. Teddy Purcell MCHC (RBC) [Mass/Vol] 32.5 g/dL Normal 29.9-35.2 [facility] Comment on above: Performed By: #### C BC #### [facility] [address] [place] [address] Dr. Teddy Purcell MCV (RBC) [Entitic vol] 92.3 fL Normal 80.0-94.0 [facility] Comment on above: Performed By: #### C BC #### [facility] [address] [place] [address] Dr. Teddy Purcell MONO # 0.7 103/ul Normal 0.3-0.[address] [facility] Comment on above: Performed By: #### C BC #### [facility] [address] [place] [address] Dr. Teddy Purcell Monocytes/100 WBC (Bld) 13.7 % Critically high 1.7-12.[address] [facility] Comment on above: Performed By: #### C BC #### [facility] [address] [place] [address] Dr. Teddy Purcell NEUT # 2.3 103/ul Normal 1.4-6.[address] [facility] Comment on above: Performed By: #### C BC #### [facility] [address] [place] [address] Dr. Teddy Purcell Neutrophils/100 WBC (Bld) 47.1 % Normal 43.0-75.0 [facility] Comment on above: Performed By: #### C BC #### [facility] [address] [place] [address] Dr. Teddy Purcell Platelet mean volume (Bld) [Entitic vol] 10.3 fL Normal 9.5-13.5 [facility] Comment on above: Performed By: #### C BC #### [facility] [address] [place] [address] Dr. Teddy Purcell PLT 252 103/ul Normal 150-[address] [facility] Comment on above: Performed By: #### C BC #### [facility] [address] [place] [address] Dr. Teddy Purcell RBC 4.94 106/ul Normal 4.70-6.[address] [facility] Comment on above: Performed By: #### C BC #### [facility] [address] [place] [address] Dr. Teddy Purcell WBC 5.0 103/ul Normal 4.0-11.[address] [facility] Comment on above: Performed By: #### C BC #### [facility] [address] [place] [address] Dr. Teddy Purcell IRONon 10-08-2021 Iron [Mass/Vol] 85.0 ug/dL Normal 65.0-175.0 [facility] Comment on above: Performed By: #### P SASC #### [facility] [address] [place] [address] Dr. Teddy Purcell MAGNESIUMon 10-08-2021 Magnesium [Mass/Vol] 1.9 mg/dL Normal 1.8-2.[address] [facility] Comment on above: Performed By: #### P SASC #### [facility] [address] [place] [address] Dr. Teddy Purcell PHOSPHORUSon 10-08-2021 Phosphate [Mass/Vol] 3.1 mg/dL Normal 2.6-4.7 [facility] Comment on above: Performed By: #### P SASC #### [facility] [address] [address] [address] Teddy Purcell PROF 14(COMP METB)on 022 Albumin [Mass/Vol] 3.5 g/dL Normal 3.4-5.0 [facility] Comment on above: Performed By: #### P SASC #### [facility] [address] [address] [address] Teddy Purcell Albumin/Globulin [Mass ratio] 1.0 {ratio} Normal [facility] Comment on above: Performed By: #### P SASC #### [facility] [address] [address] [address] Teddy Purcell ALP [Catalytic activity/Vol] 59 U/L Normal 46-116 [facility] Comment on above: Performed By: #### P SASC #### [facility] [address] [address] [address] Teddy Purcell ALT [Catalytic activity/Vol] 58 U/L Normal 16-63 [facility] Comment on above: Performed By: #### P SASC #### [facility] [address] [address] [address] Teddy Purcell Anion gap [Moles/Vol] 9.5 mmol/L Normal [facility] Comment on above: Performed By: #### P SASC #### [facility] [address] [address] [address] Teddy Purcell AST [Catalytic activity/Vol] 28 U/L Normal 15-37 [facility] Comment on above: Performed By: #### P SASC #### [facility] [address] [address] [address] Teddy Purcell Bilirubin [Mass/Vol] 0.3 mg/dL Normal 0.2-1.[address] [facility] Comment on above: Performed By: #### P SASC #### [facility] [address] [address] [address] Teddy Purcell Calcium [Mass/Vol] 9.1 mg/dL Normal 8.5-10.1 [facility] Comment on above: Performed By: #### P SASC #### [facility] [address] [address] [address] Teddy Purcell Chloride [Moles/Vol] 104 mmol/L Normal 98-107 [facility] Comment on above: Performed By: #### P SASC #### [facility] [address] [address] [address] Teddy Purcell CO2 [Moles/Vol] 30.8 mmol/L Normal 21.0-32.0 [facility] Comment on above: Performed By: #### P SASC #### [facility] [address] [address] [address] Teddy Purcell Creatinine [Mass/Vol] 0.90 mg/dL Normal 0.70-1.30 [facility] Comment on above: Performed By: #### P SASC #### [facility] [address] [address] [address] Teddy Purcell EGFR-AF PARAGUAYAN >60 Normal >=60 [facility] Comment on above: Performed By: #### P SASC #### [facility] [address] [address] [address] Teddy Purcell EGFR-NON AF PARAGUAYAN >60 Normal >=60 [facility] Comment on above: Performed By: #### P SASC #### [facility] [address] [address] [address] Teddy Purcell Globulin (S) [Mass/Vol] 3.5 g/dL Normal [facility] Comment on above: Performed By: #### P SASC #### [facility] [address] [address] [address] Teddy Purcell Glucose [Mass/Vol] 145 mg/dL Critically high 74-106 [facility] Comment on above: Performed By: #### P SASC #### [facility] [address] [address] [address] Teddy Purcell Potassium [Moles/Vol] 4.3 mmol/L Normal 3.5-5.1 [facility] Comment on above: Performed By: #### P SASC #### [facility] [address] [address] [address] Teddy Purcell Protein [Mass/Vol] 7.0 g/dL Normal 6.4-8.2 [facility] Comment on above: Performed By: #### P SASC #### [facility] [address] [address] [address] Teddy Purcell Sodium [Moles/Vol] 140 mmol/L Normal 136-145 [facility] Comment on above: Performed By: #### P SASC #### [facility] [address] [address] [address] Teddy Purcell Urea nitrogen [Mass/Vol] 17.0 mg/dL Normal 7.0-18.0 [facility] Comment on above: Performed By: #### P SASC #### [facility] [address] [place] [address] Dr. Teddy Purcell Urea nitrogen/Creatinine [Mass ratio] 18.9 mg/mg Normal [facility] Comment on above: Performed By: #### P SASC #### [facility] [address] [address] [address] Teddy Purcell PROTIMEon 10-08-2021 INR Coag (PPP) [Relative time] 2.83 {INR} Normal [facility] Comment on above: Performed By: #### P T #### [facility] [address] [place] [address] Dr. Teddy Purcell INR GUIDELINES SEE BELOW Normal [facility] Comment on above: Result Comment: ISMA RED INR: 2.0 - 3.0 CONDITIONS NOT LISTED BELOW 2.5 - 3.5 FOR PROSTHETIC HEART VALVE REPLACEMENT 2.5 - 3.5 RECURRENT THROMBOSIS Performed By: #### P T #### [facility] [address] [address] [address] Teddy Purcell PT Coag (PPP) [Time] 28.6 s Critically high 9.0-11.6 [facility] Comment on above: Performed By: #### P T #### [facility] [address] [place] [address] Dr. Teddy Purcell Prothrombin Time INRon 07-04 INR Coag (Bld) [Relative time] 10.5 s Normal 9.0-12.9 [facility] Comment on above: Performed By: #### P T #### [address] [place] [id number] [facility] INR Coag (PPP) [Relative time] 0.9 {INR} Normal [facility] Comment on above: Result Comment: INR [...] heart valves: 3 - 4.5 PERFORMED BY: [place] [address] PATHOLOGIST COMPUTER OPERATIONS ANALYST DANIKA COE M.D. Performed By: #### P T #### [place] [id number] [facility] Operative Reporton 7 Operative Report MR#: [id number] [facility] Pt. Name: Mariajose Corral Room #: [...] Dict: 10/20/2016//Chicho Barba M.D.Date Trans: 10/24/2016 05:16 P/[id number] c: Celio Oseguera M.D. [facility] [address] [facility] [place] [address] Dane Pompa M.D. [id number] [facility] [place] [address] Normal [facility] POC GLUCOSE LABon 10-20-2016 Glucose mass conc 117 mg/dL High 70-100 [facility] Comment on above: Performed By: #### [id number] ####[facility] [place] [address], [facility] Glucose mass conc 132 mg/dL High 70-100 [facility] Comment on above: Performed By: #### 8 [id number] ####[facility] [place] [address], [facility] Vital Signs Date Time Vital Sign Value Performing Clinician Bree reyes 04-23-2022 15:13-0500 Blood Pressure Location [facility] 04-23-2022 15:13-0500 Diastolic blood pressure 84 mm[Hg] [facility] 04-23-2022 15:13-0500 Heart rate 76 /min [facility] N[facility] 04-23-2022 15:13-0500 Respiratory rate 16 /min Durga N[facility] 04-23-2022 15:13-0500 Systolic blood pressure 132 mm[Hg] [facility]ga N[facility] Encounters Encounter Date Encounter Type Care Provider [...] DR DANE POMPA . [facility] Start: 04-03-2022 End: 04-04-[address] DANE POMPA . Facility: Start: 04-03-2022 End: 04-04-2022 Encounter for general adult medical examination without abnormal findings DR DANE POMPA . Facility:[facility] Start: 04-02-2022 ambulatory Durga BANKS Facility:[facility] Start: 12-05-2021 End: 12-06-[address] DANE POMPA . Facility:[facility] Start: 10-08-2021 End: 10-09-[address] DANE POMPA . Facility: Start: 10-20-2016 End: 10-21-2016 Ambulatory [facility] Facility:[facility] Procedures Date Procedure Procedure Detail Performing Clinician Start: 04-03-[address] RYAN POMPA . Comment on above: Performed By: #### P [facility] #### [facility] [address] [place] [address] Dr. Teddy Purcell Start: 10-20-2016 ANESTH LOWER [...] vaccine, unspecified formulation [facility]ga N[facility] Payers Date Payer Category Payer Unknown [id number] [id number] [id number] 1973 Unknown [id number] 2.16.84 [id number] 1973 Unknown [id number] 2.16.84 [id number] 1973 Unknown [id number] 2.16.84 [id number] 1973 Unknown [id number] 2.16.84 [id number] 1973 Unknown [id number] 2.16.84 [id number] 1973 Unknown [id number] 2.16.84 [id number] 1973 Unknown [id number] 2.16.84 [id number] 1973 Unknown [id number] 2.16.84 [id number] 1961 Medicare [id number] 1961 Unknown [id number] Social History Date Type Detail Facility Start: 04-23-2022 Tobacco smoking status Never s moked tobacco (finding) [facility] Tobacco smoking status Never [facility] Sex Assigned At Male [facility] Functional Status Date Assessment Result Facility 04-23-2022 Functional Status N/A [facility] Clinical Note 04-23-2022 Note Date & Type [...] Use, 04/23/2022 Substa (more content not included)... [facility] Comment on above: Result Comment: Elec tronically Signed By: JOCELYN GUNTER, Durga Myers\Date and Time Signed: 04/23/22 16:03 EST Evaluation + Plan note Note Date & Type Note Facility Evaluation + Plan note No data available for this section [facility] Discharge instructions Note Date & Type Note Facility Hospital Discharge instructions No data available for this section [facility] Progress note Note Date & Type Note Facility Progress note No data available for this section [facility] Summary Purpose Family History No Family History [...] section and content) DATE CREATED AUTHOR 10/07/2017 [facility] DATE CREATED AUTHOR AUTHOR'S ORGANIZ ATION 07/12/2020 [facility] DATE CREATED AUTHOR AUTHOR'S ORGANIZ ATION 04/24/[address] [facility] DATE CREATED AUTHOR AUTHOR'S ORGANIZ ATION 08/22/2022 [facility] Patient Care team informatio n (unrecognized section and content) Personnel Name: Dane Pompa MD Address: Address: [address] [place] [address] FOR RECORDS PERTAINING TO PATIENTS WHO ARE [...] BE BASED ON THE PRIMARY CLINICAL RECORDS. [facility]. provides no warranty or guarantee of the accuracy or completeness of information in this document.
[2024-12-15 14:42] LABS: INR 2.42; Prothrombin Time 23.5 sec (9.0-11.6)
== END 2024-12-15 13:45 | disposition home or self-care (01) ==
LOC: LAB 13:45
PROVIDERS: PCP Family Medicine; Visit Provider Family Medicine
DX: I26.99 Other pulmonary embolism without acute cor pulmonale (principal)
CPT/HCPCS: 36415; 85610

== ENCOUNTER 2024-12-16 13:30 | Outpatient (OUT) | payer BC, MEDICARE, SELFPAY ==
--- OUTSIDE RECORDS SUMMARY | 2024-12-16 13:38 | XMS_ITS | CCD ---
Author Organization [facility] Care Team Providers Care Scientific Informatics Analyst Name Role Phone DAMIE, CHICHO Unavailable Unavailable SKIE, CHICHO Unavailable Unavailable SWATI DANE Unavailable Unavailable FOGT, CELIO Unavailable Unavailable [place] Unavailable Unavailable SKIE, CHICHO Unavailable Unavailable [place] Unavailable Unavailable PITRODA, SHAHANA Unavailable Unavailable Dane [place] Primary Care Physician [phone] Durga BANKS Attending Unavailable HOY ., DR [...] celecoxib; 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: [CELEBREX] Drug Allergy 3 [facility] (3 sources) morphine; 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: [MORPHINE] Drug Allergy 0 Unknown (qualifier value) [facility] (2 sources) orphenadrine; 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: [Norflex] Drug Allergy 0 AOF [facility] (2 sources) Adhesive bandage; 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: [Adhesive Bandage] Drug allergy Unknown (qualifier value) [facility] [place] (2 sources) celecoxib; 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: [celecoxib] Drug Allergy 3 Unknown [facility] [place] (3 sources) Orphenadrine; 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: [orphenadrine] Drug Allergy 0 Unknown (qualifier value) [facility] [place] (1 source) Orphenadrine Drug Allergy [address] 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; 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: [ASSISTED CURRNT USE 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] Onset: 3 Episodic Other [...] intervertebral disc 04-09-2022 Chronic 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 (1 source) [facility] (current) use of oral hypoglycemic drugs; 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: [BUYER RENTER (CURRENT) USE OF ORAL HYPOGLYCEMIC DRUGS] Onset: 7 Past or Other Problems Problem Classification Problem Date Documented Da te Episodic/Chronic Deficiency and other anemia (1 source) Anemia, unspecified; 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: [ANEMIA UNSPECIFIED] Onset: 10-11-2021 Episodic Malaise and fatigue (1 source) Other fatigue; 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: [OTHER FATIGUE] Onset: 04-10-2022 Episodic Other aftercare (1 source) Other nursing home (current) drug therapy; 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: [OTH BUYER RENTER CURRENT DRUG THERAPY] Onset: 04-10-2022 Episodic Other [...] Coag (PPP) [Relative time] 2.84 {INR} Normal [facility] Comment on above: Performed By: #### P T #### [facility] [address] [address] [address] Teddy Purcell INR GUIDELINES SEE BELOW Normal [facility] Comment on above: Result Comment: ISMA RED INR: 2.0 - 3.0 CONDITIONS NOT LISTED BELOW 2.5 - 3.5 FOR PROSTHETIC HEART VALVE REPLACEMENT 2.5 - 3.5 RECURRENT THROMBOSIS Performed By: #### P T #### [facility] [address] [address] [address] Teddy Purcell PT Coag (PPP) [Time] 28.4 s Critically high 9.0-11.6 [facility] Comment on above: Performed By: #### P T #### [facility] [address] [address] [address] Teddy Purcell PROTIMEon 06-23-2022 INR Coag (PPP) [Relative time] 3.22 {INR} Normal [facility] Comment on above: Performed By: #### P T #### [facility] [address] [address] [address] Teddy Purcell INR GUIDELINES SEE BELOW Normal [facility] Comment on above: Result Comment: ISMA RED INR: 2.0 - 3.0 CONDITIONS NOT LISTED BELOW 2.5 - 3.5 FOR PROSTHETIC HEART VALVE REPLACEMENT 2.5 - 3.5 RECURRENT THROMBOSIS Performed By: #### P T #### [facility] [address] [place] [address] Dr. Teddy Purcell PT Coag (PPP) [Time] 31.9 s Critically high 9.0-11.6 [facility] Comment on above: Performed By: #### P T #### [facility] [address] [place] [address] Dr. Teddy Purcell PROTIMEon 06-16-2022 INR Coag (PPP) [Relative time] 3.26 {INR} Normal [facility] Comment on above: Performed By: #### P SASC #### [facility] [address] [place] [address] Dr. Teddy Purecll INR GUIDELINES SEE BELOW Normal [facility] Comment on above: Result Comment: ISMA RED INR: 2.0 - 3.0 CONDITIONS NOT LISTED BELOW 2.5 - 3.5 FOR PROSTHETIC HEART VALVE REPLACEMENT 2.5 - 3.5 RECURRENT THROMBOSIS Performed By: #### P SASC #### [facility] [address] [place] [address] Dr. Teddy Purcell PT Coag (PPP) [Time] 32.3 s Critically high 9.0-11.6 [facility] Comment on above: Performed By: #### P SASC #### [facility] [address] [place] [address] Dr. Teddy Purcell PROTIMEon 06-09-2022 INR Coag (PPP) [Relative time] 4.37 {INR} Critically high [facility] Comment on above: Performed By: #### P T #### [facility] [address] [place] [address] Dr. Teddy Purcell INR GUIDELINES SEE BELOW Normal [facility] Comment on above: Result Comment: ISMA RED INR: 2.0 - 3.0 CONDITIONS NOT LISTED BELOW 2.5 - 3.5 FOR PROSTHETIC HEART VALVE REPLACEMENT 2.5 - 3.5 RECURRENT THROMBOSIS Performed By: #### P T #### [facility] [address] [place] [address] Dr. Teddy Purcell PT Coag (PPP) [Time] 42.6 s Critically high 9.0-11.6 [facility] Comment on above: Performed By: #### P T #### [facility] [address] [place] [address] Dr. Teddy Purcell Facesheeton 04-24-2022 Facesheet [id number]:12 7 Normal [facility] OCC BLD IMMUNO SCREENon 03-15 OCCULT BLOOD Negative Normal NEGATIVE [facility] Comment on above: Performed By: #### P SASC #### [facility] [address] [place] [address] Dr. Teddy Purcell TESTOSTERONE, TOTALon 2021 Testosterone [Mass/Vol] 905 ng/dL Normal 264-916 [facility] Comment on above: Result Comment: Adul t male reference interval is based on a population of healthy nonobese males (BMI <30) between 19 and 39 years old. Thea et.al. JCEM 2017,102;5990-4118. PMID: [id number]. Performed By: #### P SASC #### [facility] [address] [place] [address] Dr. Teddy Purcell CBC AUTO DIFFon 04-03-2022 BASO # 0.0 103/ul Normal 0.0-0.1 [facility] Comment on above: Performed By: #### P SASC #### [facility] [address] [place] [address] Dr. Teddy Purcell Basophils/100 WBC (Bld) 0.2 % Normal 0.2-2.0 [facility] Comment on above: Performed By: #### P SASC #### [facility] [address] [place] [address] Dr. Teddy Purcell EO # 0.1 103/ul Normal 0.0-0.[address] [facility] Comment on above: Performed By: #### P SASC #### [facility] [address] [place] [address] Dr. Teddy Purcell Eosinophils/100 WBC (Bld) 2.4 % Normal 0.9-7.[address] [facility] Comment on above: Performed By: #### P SASC #### [facility] [address] [place] [address] Dr. Teddy Purcell Erythrocyte distribution width (RBC) [Ratio] 15.7 % Critically high 11.0-15.0 [facility] Comment on above: Performed By: #### P SASC #### [facility] [address] [place] [address] Dr. Teddy Purcell Hematocrit (Bld) [Volume fraction] 51.4 % Normal 42.0-54.[address] [facility] Comment on above: Performed By: #### P SASC #### [facility] [address] [place] [address] Dr. Teddy Purcell Hemoglobin (Bld) [Mass/Vol] 16.9 g/dL Normal 14.0-18.[address] [facility] Comment on above: Performed By: #### P SASC #### [facility] [address] [place] [address] Dr. Teddy Purcell IG # 0.01 10e3/ul Normal 0.00-0.[address] [facility] Comment on above: Performed By: #### P SASC #### [facility] [address] [place] [address] Dr. Teddy Purcell IG % 0.2 % Normal 0.0-0.[address] [facility] Comment on above: Performed By: #### P SASC #### [facility] [address] [place] [address] Dr. Teddy Purcell LYMPH # 2.0 103/ul Normal 1.2-3.[address] [facility] Comment on above: Performed By: #### P SASC #### [facility] [address] [place] [address] Dr. Teddy Purcell Lymphocytes/100 WBC (Bld) 33.1 % Normal 20.5-60.[address] [facility] Comment on above: Performed By: #### P SASC #### [facility] [address] [place] [address] Dr. Teddy Purcell MANUAL DIFF REQ NO Normal [facility] Comment on above: Performed By: #### P SASC #### [facility] [address] [place] [address] Dr. Teddy Purcell MCH (RBC) [Entitic mass] 29.8 pg Normal 25.9-34.0 [facility] Comment on above: Performed By: #### P SASC #### [facility] [address] [place] [address] Dr. Teddy Purcell MCHC (RBC) [Mass/Vol] 32.9 g/dL Normal 29.9-35.[address] [facility] Comment on above: Performed By: #### P SASC #### [facility] [address] [place] [address] Dr. Teddy Purcell MCV (RBC) [Entitic vol] 90.7 fL Normal 80.0-94.0 [facility] Comment on above: Performed By: #### P SASC #### [facility] [address] [place] [address] Dr. Teddy Purcell MONO # 0.8 103/ul Normal 0.3-0.8 [facility] Comment on above: Performed By: #### P SASC #### [facility] [address] [place] [address] Dr. Teddy Purcell Monocytes/100 WBC (Bld) 12.9 % Critically high 1.7-12.[address] [facility] Comment on above: Performed By: #### P SASC #### [facility] [address] [place] [address] Dr. Teddy Purcell NEUT # 3.1 103/ul Normal 1.4-6.[address] [facility] Comment on above: Performed By: #### P SASC #### [facility] [address] [place] [address] Dr. Teddy Purcell Neutrophils/100 WBC (Bld) 51.2 % Normal 43.0-75.[address] [facility] Comment on above: Performed By: #### P SASC #### [facility] [address] [place], [place] [id number] Dr. Teddy Purcell Platelet mean volume (Bld) [Entitic vol] 10.0 fL Normal 9.5-13.5 [facility] Comment on above: Performed By: #### P SASC #### [facility] [address] [place] [address] Dr. Teddy Purcell PLT 302 103/ul Normal 150-[address] [facility] Comment on above: Performed By: #### P SASC #### [facility] [address] [address] [address] Teddy Purcell RBC 5.67 106/ul Normal 4.70-6.[address] [facility] Comment on above: Performed By: #### P SASC #### [facility] [address] [address] [address] Teddy Purcell WBC 6.0 103/ul Normal 4.0-11.0 [facility] Comment on above: Performed By: #### P SASC #### [facility] [address] [place] [address] Dr. Teddy Purcell FREE T3on 04-03-2022 FREE T3 3.52 pg/mlL Normal 2.18-3.98 [facility] Comment on above: Performed By: #### P SASC #### [facility] [address] [place] [address] Dr. Teddy Purcell GLYCOHEMOGLOBIN A1Con 2021 ADA RECOMMENDATION SEE BELOW Normal [facility] Comment on above: Result Comment: ADA RECOMMENDED LIMIT 4.0 - 6.0 ADA THERAPEUTIC TARGET < 7.0 ACTION SUGGESTED > 7.0 Performed By: #### P SASC #### [facility] [address] [place] [address] Dr. Teddy Purcell Glucose [Mass/Vol] 209 mg/dL Normal [facility] Comment on above: Performed By: #### P SASC #### [facility] [address] [place] [address] Dr. Teddy Purcell HbA1c (Bld) [Mass fraction] 8.9 % Critically high 4.5-6.[address] [facility] Comment on above: Performed By: #### P SASC #### [facility] [address] [address] [address] Teddy Purcell LIPID PROFILEon 04-03-2022 CHOL-HDL RATIO NORM SEE BELOW Normal [facility] Comment on above: Result Comment: 3.3 - 4.4 LOW RISK 4.4 - 7.1 AVERAGE RISK 7.1 - 11.0 MODERATE RISK >11.0 HIGH RISK Performed By: #### L IPID, FT3, T4, CMP, TSH #### [facility] [address] [address] [address] Teddy Purcell Cholesterol [Mass/Vol] 150 mg/dL Normal <=200 [facility] Comment on above: Performed By: #### L IPID, FT3, T4, CMP, TSH #### [facility] [address] [address] [address] Teddy Purcell Cholesterol in HDL [Mass/Vol] 31 mg/dL Critically low 40-60 [facility] Comment on above: Performed By: #### L IPID, FT3, T4, CMP, TSH #### [facility] [address] [address] [address] Teddy Purcell Cholesterol in LDL [Mass/Vol] 85.4 mg/dL Normal [facility] Comment on above: Performed By: #### L IPID, FT3, T4, CMP, TSH #### [facility] [address] [address] [address] Teddy Purcell Cholesterol.total/C holesterol in HDL [Mass ratio] 4.8 {ratio} Normal [facility] Comment on above: Performed By: #### L IPID, FT3, T4, CMP, TSH #### [facility] [address] [address] [address] Teddy Purcell HDL NORMAL > or = 60 mg/dl - LO W CARDIOVASCULAR RISK <40 mg/dl - HIGH CARDIOVASCULAR RISK Normal [facility] Comment on above: Performed By: #### L IPID, FT3, T4, CMP, TSH #### [facility] [address] [address] [address] Teddy Purcell LDL CALC NORMAL SEE BELOW Normal [facility] Comment on above: Result Comment: <100 mg/dl OPTIMAL 100 - 129 mg/dl NEAR OR ABOVE OPTIMAL 130 - 159 mg/dl BORDERLINE HIGH 160 - 189 mg/dl HIGH >190 mg/dl VERY HIGH Performed By: #### L IPID, FT3, T4, CMP, TSH #### [facility] [address] [address] [address] Teddy Purcell Triglyceride [Mass/Vol] 168 mg/dL Critically high <=150 [facility] Comment on above: Performed By: #### L IPID, FT3, T4, CMP, TSH #### [facility] [address] [address] [address] Teddy Purcell VLDL CALC 33.6 mg/dL Normal [facility] Comment on above: Performed By: #### L IPID, FT3, T4, CMP, TSH #### [facility] [address] [place] [address] Dr. Teddy Purcell PROF 14(COMP METB)on 022 Albumin [Mass/Vol] 3.7 g/dL Normal 3.4-5.0 [facility] Comment on above: Performed By: #### L IPID, FT3, T4, CMP, TSH #### [facility] [address] [place] [address] Dr. Teddy Purcell Albumin/Globulin [Mass ratio] 0.9 {ratio} Normal [facility] Comment on above: Performed By: #### L IPID, FT3, T4, CMP, TSH #### [facility] [address] [address] [address] Teddy Purcell ALP [Catalytic activity/Vol] 63 U/L Normal 46-[address] [facility] Comment on above: Performed By: #### L IPID, FT3, T4, CMP, TSH #### [facility] [address] [address] [address] Teddy Purcell ALT [Catalytic activity/Vol] 61 U/L Normal 16-63 [facility] Comment on above: Performed By: #### L IPID, FT3, T4, CMP, TSH #### [facility] [address] [place] [address] Dr. Teddy Purcell Anion gap [Moles/Vol] 9.7 mmol/L Normal [facility] Comment on above: Performed By: #### L IPID, FT3, T4, CMP, TSH #### [facility] [address] [place] [address] Dr. Teddy Purcell AST [Catalytic activity/Vol] 30 U/L Normal 15-37 [facility] Comment on above: Performed By: #### L IPID, FT3, T4, CMP, TSH #### [facility] [address] [place] [address] Dr. Teddy Purcell Bilirubin [Mass/Vol] 0.3 mg/dL Normal 0.2-1.0 [facility] Comment on above: Performed By: #### L IPID, FT3, T4, CMP, TSH #### [facility] [address] [place] [address] Dr. Teddy Purcell Calcium [Mass/Vol] 9.7 mg/dL Normal 8.5-10.1 [facility] Comment on above: Performed By: #### L IPID, FT3, T4, CMP, TSH #### [facility] [address] [place] [address] Dr. Teddy Purcell Chloride [Moles/Vol] 96 mmol/L Critically low 98-107 [facility] Comment on above: Performed By: #### L IPID, FT3, T4, CMP, TSH #### [facility] [address] [place] [address] Dr. Teddy Purcell CO2 [Moles/Vol] 34.7 mmol/L Critically high 21.0-32.0 [facility] Comment on above: Performed By: #### L IPID, FT3, T4, CMP, TSH #### [facility] [address] [place] [address] Dr. Teddy Purcell Creatinine [Mass/Vol] 0.78 mg/dL Normal 0.70-1.30 [facility] Comment on above: Performed By: #### L IPID, FT3, T4, CMP, TSH #### [facility] [address] [address] [address] Teddy Purcell EGFR-AF LIBERIAN >60 Normal >=60 [facility] Comment on above: Performed By: #### L IPID, FT3, T4, CMP, TSH #### [facility] [address] [place] [address] Dr. Teddy Purcell EGFR-NON AF LIBERIAN >60 Normal >=60 [facility] Comment on above: Performed By: #### L IPID, FT3, T4, CMP, TSH #### [facility] [address] [place] [address] Dr. Teddy Purcell Globulin (S) [Mass/Vol] 3.9 g/dL Normal [facility] Comment on above: Performed By: #### L IPID, FT3, T4, CMP, TSH #### [facility] [address] [place] [address] Dr. Teddy Purcell Glucose [Mass/Vol] 165 mg/dL Critically high 74-106 [facility] Comment on above: Performed By: #### L IPID, FT3, T4, CMP, TSH #### [facility] [address] [place] [address] Dr. Teddy Purcell Potassium [Moles/Vol] 4.4 mmol/L Normal 3.5-5.1 [facility] Comment on above: Performed By: #### L IPID, FT3, T4, CMP, TSH #### [facility] [address] [place] [address] Dr. Teddy Purcell Protein [Mass/Vol] 7.6 g/dL Normal 6.4-8.2 [facility] Comment on above: Performed By: #### L IPID, FT3, T4, CMP, TSH #### [facility] [address] [place] [address] Dr. Teddy Purcell Sodium [Moles/Vol] 136 mmol/L Normal 136-145 [facility] Comment on above: Performed By: #### L IPID, FT3, T4, CMP, TSH #### [facility] [address] [place] [address] Dr. Teddy Purcell Urea nitrogen [Mass/Vol] 14.0 mg/dL Normal 7.0-18.0 [facility] Comment on above: Performed By: #### L IPID, FT3, T4, CMP, TSH #### [facility] [address] [address] [address] Teddy Purcell Urea nitrogen/Creatinine [Mass ratio] 17.9 mg/mg Normal [facility] Comment on above: Performed By: #### L IPID, FT3, T4, CMP, TSH #### [facility] [address] [address] [address] Teddy Purcell PROTIMEon 04-03-2022 INR Coag (PPP) [Relative time] 3.13 {INR} Normal [facility] Comment on above: Performed By: #### P T #### [facility] [address] [place] [address] Dr. Teddy Purcell INR GUIDELINES SEE BELOW Normal [facility] Comment on above: Result Comment: ISMA RED INR: 2.0 - 3.0 CONDITIONS NOT LISTED BELOW 2.5 - 3.5 FOR PROSTHETIC HEART VALVE REPLACEMENT 2.5 - 3.5 RECURRENT THROMBOSIS Performed By: #### P T #### [facility] [address] [place] [address] Dr. Teddy Purcell PT Coag (PPP) [Time] 31.4 s Critically high 9.0-11.6 [facility] Comment on above: Performed By: #### P T #### [facility] [address] [place] [address] Dr. Teddy Purcell Physician Referralon 022 Physician Referral [id number]:12 7 Normal [facility] T4on 04-03-2022 T4 [Mass/Vol] 7.60 ug/dL Normal 4.50-12.10 [facility] Comment on above: Performed By: #### L IPID, FT3, T4, CMP, TSH #### [facility] [address] [address] [address] Teddy Purcell TSHon 12-22-2022 TSH 1.595 uIU/mL Normal 0.358-3.740 [facility] Comment on above: Performed By: #### L IPID, FT3, T4, CMP, TSH #### [facility] [address] [address] [address] Teddy Purcell PROTIMEon 12-05-2021 INR Coag (PPP) [Relative time] 3.69 {INR} Normal [facility] Comment on above: Performed By: #### P T #### [facility] [address] [address] [address] Teddy Purcell INR GUIDELINES SEE BELOW Normal [facility] Comment on above: Result Comment: ISMA RED INR: 2.0 - 3.0 CONDITIONS NOT LISTED BELOW 2.5 - 3.5 FOR PROSTHETIC HEART VALVE REPLACEMENT 2.5 - 3.5 RECURRENT THROMBOSIS Performed By: #### P T #### [facility] [address] [address] [address] Teddy Purcell PT Coag (PPP) [Time] 36.6 s Critically high 9.0-11.6 [facility] Comment on above: Performed By: #### P T #### [facility] [address] [place] [address] Dr. Teddy Purcell TESTOSTERONE, TOTALon 2021 Testosterone [Mass/Vol] 633 ng/dL Normal 264-916 [facility] Comment on above: Result Comment: Adul t male reference interval is based on a population of healthy nonobese males (BMI <30) between 19 and 39 years old. Thea et.al. JCEM 2017,102;6166-6353. PMID: [id number]. Performed By: #### P T #### [facility] [address] [address] [address] Teddy Purcell CBC AUTO DIFFon 10-08-2021 BASO # 0.0 103/ul Normal 0.0-0.1 [facility] Comment on above: Performed By: #### C BC #### [facility] [address] [address] [address] Teddy Purcell Basophils/100 WBC (Bld) 0.4 % Normal 0.2-2.0 [facility] Comment on above: Performed By: #### C BC #### [facility] [address] [place] [address] Dr. Teddy Purcell EO # 0.1 103/ul Normal 0.0-0.7 [facility] Comment on above: Performed By: #### C BC #### [facility] [address] [place] [address] Dr. Teddy Purcell Eosinophils/100 WBC (Bld) 2.0 % Normal 0.9-7.0 [facility] Comment on above: Performed By: #### C BC #### [facility] [address] [place] [address] Dr. Teddy Purcell Erythrocyte distribution width (RBC) [Ratio] 13.7 % Normal 11.0-15.0 [facility] Comment on above: Performed By: #### C BC #### [facility] [address] [place] [address] Dr. Teddy Purcell Hematocrit (Bld) [Volume fraction] 45.6 % Normal 42.0-54.0 [facility] Comment on above: Performed By: #### C BC #### [facility] [address] [place] [address] Dr. Teddy Purcell Hemoglobin (Bld) [Mass/Vol] 14.8 g/dL Normal 14.0-18.0 [facility] Comment on above: Performed By: #### C BC #### [facility] [address] [place] [address] Dr. Teddy Purcell IG # 0.01 10e3/ul Normal 0.00-0.03 [facility] Comment on above: Performed By: #### C BC #### [facility] [address] [place] [address] Dr. Teddy Purcell IG % 0.2 % Normal 0.0-0.[address] [facility] Comment on above: Performed By: #### C BC #### [facility] [address] [place] [address] Dr. Teddy Purcell LYMPH # 1.8 103/ul Normal 1.2-3.[address] [facility] Comment on above: Performed By: #### C BC #### [facility] [address] [place] [address] Dr. Teddy Purcell Lymphocytes/100 WBC (Bld) 36.6 % Normal 20.5-60.0 [facility] Comment on above: Performed By: #### C BC #### [facility] [address] [place] [address] Dr. Teddy Purcell MANUAL DIFF REQ NO Normal [facility] Comment on above: Performed By: #### C BC #### [facility] [address] [place] [address] Dr. Teddy Purcell MCH (RBC) [Entitic mass] 30.0 pg Normal 25.9-34.0 [facility] Comment on above: Performed By: #### C BC #### [facility] [address] [place] [address] Dr. Teddy Purcell MCHC (RBC) [Mass/Vol] 32.5 g/dL Normal 29.9-35.2 [facility] Comment on above: Performed By: #### C BC #### [facility] [address] [place] [address] Dr. Teddy Purcell MCV (RBC) [Entitic vol] 92.3 fL Normal 80.0-94.0 [facility] Comment on above: Performed By: #### C BC #### [facility] [address] [place] [address] Dr. Teddy Purcell MONO # 0.7 103/ul Normal 0.3-0.[address] [facility] Comment on above: Performed By: #### C BC #### [facility] [address] [place] [address] Dr. Teddy Purcell Monocytes/100 WBC (Bld) 13.7 % Critically high 1.7-12.[address] [facility] Comment on above: Performed By: #### C BC #### [facility] [address] [place] [address] Dr. Teddy Purcell NEUT # 2.3 103/ul Normal 1.4-6.[address] [facility] Comment on above: Performed By: #### C BC #### [facility] [address] [place] [address] Dr. Teddy Purcell Neutrophils/100 WBC (Bld) 47.1 % Normal 43.0-75.0 [facility] Comment on above: Performed By: #### C BC #### [facility] [address] [place] [address] Dr. Teddy Purcell Platelet mean volume (Bld) [Entitic vol] 10.3 fL Normal 9.5-13.5 [facility] Comment on above: Performed By: #### C BC #### [facility] [address] [place] [address] Dr. Teddy Purcell PLT 252 103/ul Normal 150-[address] [facility] Comment on above: Performed By: #### C BC #### [facility] [address] [place] [address] Dr. Teddy Purcell RBC 4.94 106/ul Normal 4.70-6.[address] [facility] Comment on above: Performed By: #### C BC #### [facility] [address] [place] [address] Dr. Teddy Purcell WBC 5.0 103/ul Normal 4.0-11.[address] [facility] Comment on above: Performed By: #### C BC #### [facility] [address] [place] [address] Dr. Teddy Purcell IRONon 10-08-2021 Iron [Mass/Vol] 85.0 ug/dL Normal 65.0-175.0 [facility] Comment on above: Performed By: #### P SASC #### [facility] [address] [place] [address] Dr. Teddy Purcell MAGNESIUMon 10-08-2021 Magnesium [Mass/Vol] 1.9 mg/dL Normal 1.8-2.[address] [facility] Comment on above: Performed By: #### P SASC #### [facility] [address] [place] [address] Dr. Teddy Purcell PHOSPHORUSon 10-08-2021 Phosphate [Mass/Vol] 3.1 mg/dL Normal 2.6-4.7 [facility] Comment on above: Performed By: #### P SASC #### [facility] [address] [address] [address] Teddy Purcell PROF 14(COMP METB)on 022 Albumin [Mass/Vol] 3.5 g/dL Normal 3.4-5.0 [facility] Comment on above: Performed By: #### P SASC #### [facility] [address] [address] [address] Teddy Purcell Albumin/Globulin [Mass ratio] 1.0 {ratio} Normal [facility] Comment on above: Performed By: #### P SASC #### [facility] [address] [address] [address] Teddy Purcell ALP [Catalytic activity/Vol] 59 U/L Normal 46-116 [facility] Comment on above: Performed By: #### P SASC #### [facility] [address] [address] [address] Teddy Purcell ALT [Catalytic activity/Vol] 58 U/L Normal 16-63 [facility] Comment on above: Performed By: #### P SASC #### [facility] [address] [address] [address] Teddy Purcell Anion gap [Moles/Vol] 9.5 mmol/L Normal [facility] Comment on above: Performed By: #### P SASC #### [facility] [address] [address] [address] Teddy Purcell AST [Catalytic activity/Vol] 28 U/L Normal 15-37 [facility] Comment on above: Performed By: #### P SASC #### [facility] [address] [address] [address] Teddy Purcell Bilirubin [Mass/Vol] 0.3 mg/dL Normal 0.2-1.[address] [facility] Comment on above: Performed By: #### P SASC #### [facility] [address] [address] [address] Teddy Purcell Calcium [Mass/Vol] 9.1 mg/dL Normal 8.5-10.1 [facility] Comment on above: Performed By: #### P SASC #### [facility] [address] [address] [address] Teddy Purcell Chloride [Moles/Vol] 104 mmol/L Normal 98-107 [facility] Comment on above: Performed By: #### P SASC #### [facility] [address] [address] [address] Teddy Purcell CO2 [Moles/Vol] 30.8 mmol/L Normal 21.0-32.0 [facility] Comment on above: Performed By: #### P SASC #### [facility] [address] [address] [address] Teddy Purcell Creatinine [Mass/Vol] 0.90 mg/dL Normal 0.70-1.30 [facility] Comment on above: Performed By: #### P SASC #### [facility] [address] [address] [address] Teddy Purcell EGFR-AF LIBERIAN >60 Normal >=60 [facility] Comment on above: Performed By: #### P SASC #### [facility] [address] [address] [address] Teddy Purcell EGFR-NON AF LIBERIAN >60 Normal >=60 [facility] Comment on above: Performed By: #### P SASC #### [facility] [address] [address] [address] Teddy Purcell Globulin (S) [Mass/Vol] 3.5 g/dL Normal [facility] Comment on above: Performed By: #### P SASC #### [facility] [address] [address] [address] Teddy Purcell Glucose [Mass/Vol] 145 mg/dL Critically high 74-106 [facility] Comment on above: Performed By: #### P SASC #### [facility] [address] [address] [address] Teddy Purcell Potassium [Moles/Vol] 4.3 mmol/L Normal 3.5-5.1 [facility] Comment on above: Performed By: #### P SASC #### [facility] [address] [address] [address] Teddy Purcell Protein [Mass/Vol] 7.0 g/dL Normal 6.4-8.2 [facility] Comment on above: Performed By: #### P SASC #### [facility] [address] [address] [address] Teddy Purcell Sodium [Moles/Vol] 140 mmol/L Normal 136-145 [facility] Comment on above: Performed By: #### P SASC #### [facility] [address] [address] [address] Teddy Purcell Urea nitrogen [Mass/Vol] 17.0 mg/dL Normal 7.0-18.0 [facility] Comment on above: Performed By: #### P SASC #### [facility] [address] [place] [address] Dr. Teddy Purcell Urea nitrogen/Creatinine [Mass ratio] 18.9 mg/mg Normal [facility] Comment on above: Performed By: #### P SASC #### [facility] [address] [address] [address] Teddy Purcell PROTIMEon 10-08-2021 INR Coag (PPP) [Relative time] 2.83 {INR} Normal [facility] Comment on above: Performed By: #### P T #### [facility] [address] [place] [address] Dr. Teddy Purcell INR GUIDELINES SEE BELOW Normal [facility] Comment on above: Result Comment: ISMA RED INR: 2.0 - 3.0 CONDITIONS NOT LISTED BELOW 2.5 - 3.5 FOR PROSTHETIC HEART VALVE REPLACEMENT 2.5 - 3.5 RECURRENT THROMBOSIS Performed By: #### P T #### [facility] [address] [address] [address] Teddy Purcell PT Coag (PPP) [Time] 28.6 s Critically high 9.0-11.6 [facility] Comment on above: Performed By: #### P T #### [facility] [address] [place] [address] Dr. Teddy Purcell Prothrombin Time INRon 07-04 INR Coag (Bld) [Relative time] 10.5 s Normal 9.0-12.9 [facility] Comment on above: Performed By: #### P T #### [address] [id number] [facility] INR Coag (PPP) [Relative time] 0.9 {INR} Normal [facility] Comment on above: Result [...] heart valves: 3 - 4.5 PERFORMED BY: [place] [address] PATHOLOGIST LAB DIRECTOR DANIKA COE M.D. Performed By: #### P T #### [place] [id number] [facility] Operative Reporton 7 Operative Report MR#: [id number] [facility] Pt. Name: Mariajose Corral Room #: 0C [...] Dict: 10/20/2016//Chicho Barba M.D.Date Trans: 10/24/2016 05:16 P/[id number] c: Celio Oseguera M.D. [facility] [address] [facility] [place] [address] Dane Pompa M.D. [place] [id number] [facility] [place] [address] Normal [facility] POC GLUCOSE LABon 10-20-2016 Glucose mass conc 117 mg/dL High 70-100 [facility] Comment on above: Performed By: #### [id number] ####[facility] [place] [address], [facility] Glucose mass conc 132 mg/dL High 70-100 [facility] Comment on above: Performed By: #### [id number] ####[facility] [place] [address], [facility] Vital Signs Date Time Vital Sign Value Performing Clinician Bree reyes 04-23-2022 15:13-0500 Blood Pressure Location Durga NILL [facility] 04-23-2022 15:13-0500 Diastolic blood pressure 84 mm[Hg] Durga NILL [facility] [place] 04-23-2022 15:13-0500 Heart rate 76 /min Durga NILL [facility] [place] 04-23-2022 15:13-0500 Respiratory rate 16 /min Durga NILL [facility] 04-23-2022 15:13-0500 Systolic blood pressure 132 mm[Hg] Durga NILL [facility] [place] Encounters Encounter Date Encounter Type Care Provider [...] DANE POMPA . [facility] Start: 04-03-2022 End: 04-04-[address] DANE POMPA . Facility: Start: 04-03-2022 End: 04-04-2022 Encounter for general adult medical examination without abnormal findings DR DANE POMPA . Facility:[facility] Start: 04-02-2022 ambulatory Durga BANKS Facility:[facility] Start: 12-05-2021 End: 12-06-[address] DANE POMPA . Facility:[facility] Start: 10-08-2021 End: 10-09-[address] DANE POMPA . Facility: Start: 10-20-2016 End: 10-21-2016 Ambulatory [facility] Facility:[facility] Procedures Date Procedure Procedure Detail Performing Clinician Start: 04-03-[address] RYAN POMPA . Comment on above: Performed By: #### P [facility] #### [facility] [address] [place] [address] Dr. Teddy Purcell Start: 10-20-2016 ANESTH LOWER [...] vaccine, unspecified formulation Durga NILL [facility] [place] Payers Date Payer Category Payer Unknown [id number] 2.16.8 [id number] 1973 Unknown [id number] 2.16.84 [id number] 1973 Unknown [id number] 2.16.84 [id number] 1973 Unknown [id number] 2.16.84 [id number] 1973 Unknown [id number] 2.16.84 [id number] 1973 Unknown [id number] 2.16.84 [id number] 1973 Unknown [id number] 2.16.84 [id number] 1973 Unknown [id number] 2.16.84 [id number] 1973 Unknown [id number] 2.16.84 [id number] 1961 Medicare [id number] 1961 Unknown [id number] Social History Date Type Detail Facility Start: 04-23-2022 Tobacco smoking status Never s moked tobacco (finding) [facility] Tobacco smoking status Never [facility] Sex Assigned At Male [facility] Functional Status Date Assessment Result Facility 04-23-2022 Functional Status N/A [facility] Clinical Note 04-23-2022 Note Date & [...] Use, 04/23/2022 Substa (more content not included)... [facility] Comment on above: Result Comment: Elec tronically Signed By: JOCELYN GUNTER, Durga Myers\Date and Time Signed: 04/23/22 16:03 EST Evaluation + Plan note Note Date & Type Note Facility Evaluation + Plan note No data available for this section [facility] [place] [facility] Discharge instructions Note Date & Type Note Facility Hospital Discharge instructions No data available for this section [facility] [place] Progress note Note Date & Type Note Facility Progress note No data available for this section [facility] [place] Summary Purpose Family History No Family History [...] section and content) DATE CREATED AUTHOR 10/07/2017 [facility] DATE CREATED AUTHOR AUTHOR'S ORGANIZ ATION 07/12/2020 [facility] DATE CREATED AUTHOR AUTHOR'S ORGANIZ ATION 04/24/2022 [facility] DATE CREATED AUTHOR AUTHOR'S ORGANIZ ATION 08/22/2022 [facility] Patient Care team informatio n (unrecognized section and content) Personnel Name: Dane Pompa MD Address: Address: [address] [place] [address] FOR RECORDS PERTAINING TO PATIENTS WHO ARE [...] BE BASED ON THE PRIMARY CLINICAL RECORDS. [facility] [employer] [facility]. provides no warranty or guarantee of the accuracy or completeness of information in this document.
[2024-12-16 14:01] LABS: INR 2.56; Prothrombin Time 24.7 sec (9.0-11.6)
== END 2024-12-16 13:31 | disposition home or self-care (01) ==
LOC: LAB 13:30
PROVIDERS: PCP Family Medicine; Visit Provider Family Medicine
DX: I26.99 Other pulmonary embolism without acute cor pulmonale (principal)
CPT/HCPCS: 36415; 85610

== ENCOUNTER 2024-12-22 13:30 | Outpatient (OUT) | payer BC, MEDICARE, SELFPAY ==
--- OUTSIDE RECORDS SUMMARY | 2024-12-22 13:51 | XMS_ITS | CCD ---
Author Organization [facility] Team Providers Care Hand Former Name Role Phone DAMIE, CHICHO Unavailable Unavailable SKIE, CHICHO Unavailable Unavailable SWATI DANE Unavailable Unavailable FOGT, CELIO Unavailable Unavailable [place] Unavailable Unavailable SKIE, CHICHO Unavailable Unavailable [place] Unavailable Unavailable PITRODA, SHAHANA Unavailable Unavailable Dane [place] Primary Care Physician [phone] Durga BANKS Attending Unavailable HOY ., DR [...] celecoxib; 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: [CELEBREX] Drug Allergy 3 [facility] Repository (3 sources) morphine; 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: [MORPHINE] Drug Allergy 0 Unknown (qualifier value) [facility] Rep[facility] (2 sources) orphenadrine; 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: [Norflex] Drug Allergy 0 AOF [facility] Repository (2 sources) Adhesive bandage; 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: [Adhesive Bandage] Drug allergy Unknown (qualifier value) [facility] [place] (2 sources) celecoxib; 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: [celecoxib] Drug Allergy 3 Unknown [facility] [place] (3 sources) Orphenadrine; 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: [orphenadrine] Drug Allergy 0 Unknown (qualifier value) [facility] [place] (1 source) Orphenadrine Drug Allergy 4 [facility] Medications Current Medications Medication Drug [...] sources) detention (current) use of anticoagulants; 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: [HEALTH EVALUATOR CURRNT USE 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] Onset: 3 Episodic Other [...] (current) use of oral hypoglycemic drugs; 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: [HEALTH EVALUATOR (CURRENT) USE OF ORAL HYPOGLYCEMIC DRUGS] Onset: 7 Past or Other Problems Problem Classification Problem Date Documented Da te Episodic/Chronic Deficiency and other anemia (1 source) Anemia, unspecified; 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: [ANEMIA UNSPECIFIED] Onset: 10-11-2021 Episodic Malaise and fatigue (1 source) Other fatigue; 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: [OTHER FATIGUE] Onset: 04-10-2022 Episodic Other aftercare (1 source) Other long term care pharmacist (current) drug therapy; 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: [OTH HEALTH EVALUATOR CURRENT DRUG THERAPY] Onset: 04-10-2022 Episodic Other [...] Coag (PPP) [Relative time] 2.84 {INR} Normal [facility] Comment on above: Performed By: #### P T #### [facility] [address] [address] [address] Teddy Purcell INR GUIDELINES SEE BELOW Normal [facility] Comment on above: Result Comment: ISMA RED INR: 2.0 - 3.0 CONDITIONS NOT LISTED BELOW 2.5 - 3.5 FOR PROSTHETIC HEART VALVE REPLACEMENT 2.5 - 3.5 RECURRENT THROMBOSIS Performed By: #### P T #### [facility] [address] [address] [address] Teddy Purcell PT Coag (PPP) [Time] 28.4 s Critically high 9.0-11.6 [facility] Comment on above: Performed By: #### P T #### [facility] [address] [address] [address] Teddy Purcell PROTIMEon 06-23-2022 INR Coag (PPP) [Relative time] 3.22 {INR} Normal [facility] Comment on above: Performed By: #### P T #### [facility] [address] [address] [address] Teddy Purcell INR GUIDELINES SEE BELOW Normal [facility] Comment on above: Result Comment: ISMA RED INR: 2.0 - 3.0 CONDITIONS NOT LISTED BELOW 2.5 - 3.5 FOR PROSTHETIC HEART VALVE REPLACEMENT 2.5 - 3.5 RECURRENT THROMBOSIS Performed By: #### P T #### [facility] [address] [place] [address] Dr. Teddy Purcell PT Coag (PPP) [Time] 31.9 s Critically high 9.0-11.6 [facility] Comment on above: Performed By: #### P T #### [facility] [address] [place] [address] Dr. Teddy Purcell PROTIMEon 06-16-2022 INR Coag (PPP) [Relative time] 3.26 {INR} Normal [facility] Comment on above: Performed By: #### P SASC #### [facility] [address] [place] [address] Dr. Teddy Purcell INR GUIDELINES SEE BELOW Normal [facility] Comment on above: Result Comment: ISMA RED INR: 2.0 - 3.0 CONDITIONS NOT LISTED BELOW 2.5 - 3.5 FOR PROSTHETIC HEART VALVE REPLACEMENT 2.5 - 3.5 RECURRENT THROMBOSIS Performed By: #### P SASC #### [facility] [address] [place] [address] Dr. Teddy Purcell PT Coag (PPP) [Time] 32.3 s Critically high 9.0-11.6 [facility] Comment on above: Performed By: #### P SASC #### [facility] [address] [place] [address] Dr. Teddy Purcell PROTIMEon 06-09-2022 INR Coag (PPP) [Relative time] 4.37 {INR} Critically high [facility] Comment on above: Performed By: #### P T #### [facility] [address] [place] [address] Dr. Teddy Purcell INR GUIDELINES SEE BELOW Normal [facility] Comment on above: Result Comment: ISMA RED INR: 2.0 - 3.0 CONDITIONS NOT LISTED BELOW 2.5 - 3.5 FOR PROSTHETIC HEART VALVE REPLACEMENT 2.5 - 3.5 RECURRENT THROMBOSIS Performed By: #### P T #### [facility] [address] [place] [address] Dr. Teddy Purcell PT Coag (PPP) [Time] 42.6 s Critically high 9.0-11.6 [facility] Comment on above: Performed By: #### P T #### [facility] [address] [place] [address] Dr. Teddy Purcell Facesheeton 04-24-2022 Facesheet [id number]:[address] [facility] OCC BLD IMMUNO SCREENon 03-15 OCCULT BLOOD Negative Normal NEGATIVE [facility] Comment on above: Performed By: #### P SASC #### [facility] [address] [place] [address] Dr. Teddy Purcell TESTOSTERONE, TOTALon 2021 Testosterone [Mass/Vol] 905 ng/dL Normal 264-916 [facility] Comment on above: Result Comment: Adul t male reference interval is based on a population of healthy nonobese males (BMI <30) between 19 and 39 years old. Thea et.al. JCEM 2017,102;0881-1226. PMID: [id number]. Performed By: #### P SASC #### [facility] [address] [place] [address] Dr. Teddy Purcell CBC AUTO DIFFon 04-03-2022 BASO # 0.0 103/ul Normal 0.0-0.1 [facility] Comment on above: Performed By: #### P SASC #### [facility] [address] [place] [address] Dr. Teddy Purcell Basophils/100 WBC (Bld) 0.2 % Normal 0.2-2.0 [facility] Comment on above: Performed By: #### P SASC #### [facility] [address] [place] [address] Dr. Teddy Purcell EO # 0.1 103/ul Normal 0.0-0.7 [facility] Comment on above: Performed By: #### P SASC #### [facility] [address] [place] [address] Dr. Teddy Purcell Eosinophils/100 WBC (Bld) 2.4 % Normal 0.9-7.0 [facility] Comment on above: Performed By: #### P SASC #### [facility] [address] [place] [address] Dr. Teddy Purcell Erythrocyte distribution width (RBC) [Ratio] 15.7 % Critically high 11.0-15.0 [facility] Comment on above: Performed By: #### P SASC #### [facility] [address] [place] [address] Dr. Teddy Purcell Hematocrit (Bld) [Volume fraction] 51.4 % Normal 42.0-54.0 [facility] Comment on above: Performed By: #### P SASC #### [facility] [address] [place] [address] Dr. Teddy Purcell Hemoglobin (Bld) [Mass/Vol] 16.9 g/dL Normal 14.0-18.0 [facility] Comment on above: Performed By: #### P SASC #### [facility] [address] [place] [address] Dr. Teddy Purcell IG # 0.01 10e3/ul Normal 0.00-0.03 [facility] Comment on above: Performed By: #### P SASC #### [facility] [address] [place] [address] Dr. Teddy Purcell IG % 0.2 % Normal 0.0-0.5 [facility] Comment on above: Performed By: #### P SASC #### [facility] [address] [place] [address] Dr. Teddy Purcell LYMPH # 2.0 103/ul Normal 1.2-3.8 [facility] Comment on above: Performed By: #### P SASC #### [facility] [address] [place] [address] Dr. Teddy Purcell Lymphocytes/100 WBC (Bld) 33.1 % Normal 20.5-60.0 [facility] Comment on above: Performed By: #### P SASC #### [facility] [address] [place] [address] Dr. Teddy Purcell MANUAL DIFF REQ NO Normal [facility] Comment on above: Performed By: #### P SASC #### [facility] [address] [place] [address] Dr. Teddy Purcell MCH (RBC) [Entitic mass] 29.8 pg Normal 25.9-34.0 [facility] Comment on above: Performed By: #### P SASC #### [facility] [address] [place] [address] Dr. Teddy Purcell MCHC (RBC) [Mass/Vol] 32.9 g/dL Normal 29.9-35.2 [facility] Comment on above: Performed By: #### P SASC #### [facility] [address] [place] [address] Dr. Teddy Purcell MCV (RBC) [Entitic vol] 90.7 fL Normal 80.0-94.0 [facility] Comment on above: Performed By: #### P SASC #### [facility] [address] [place] [address] Dr. Teddy Purcell MONO # 0.8 103/ul Normal 0.3-0.8 [facility] Comment on above: Performed By: #### P SASC #### [facility] [address] [place] [address] Dr. Teddy Purcell Monocytes/100 WBC (Bld) 12.9 % Critically high 1.7-12.0 [facility] Comment on above: Performed By: #### P SASC #### [facility] [address] [place] [address] Dr. Teddy Purcell NEUT # 3.1 103/ul Normal 1.4-6.5 [facility] Comment on above: Performed By: #### P SASC #### [facility] [address] [place] [address] Dr. Teddy Purcell Neutrophils/100 WBC (Bld) 51.2 % Normal 43.0-75.0 [facility] Comment on above: Performed By: #### P SASC #### [facility] [address] [place], [place] [address] Dr. Teddy Purcell Platelet mean volume (Bld) [Entitic vol] 10.0 fL Normal 9.5-13.5 [facility] Comment on above: Performed By: #### P SASC #### [facility] [address] [place] [address] Dr. Teddy Purcell PLT 302 103/ul Normal 150-450 [facility] Comment on above: Performed By: #### P SASC #### [facility] [address] [address] [address] Teddy Purcell RBC 5.67 106/ul Normal 4.70-6.10 [facility] Comment on above: Performed By: #### P SASC #### [facility] [address] [address] [address] Teddy Purcell WBC 6.0 103/ul Normal 4.0-11.0 [facility] Comment on above: Performed By: #### P SASC #### [facility] [address] [place] [address] Dr. Teddy Purcell FREE T3on 04-03-2022 FREE T3 3.52 pg/mlL Normal 2.18-3.98 [facility] Comment on above: Performed By: #### P SASC #### [facility] [address] [place] [address] Dr. Teddy Purcell GLYCOHEMOGLOBIN A1Con 2021 ADA RECOMMENDATION SEE BELOW Normal [facility] Comment on above: Result Comment: ADA RECOMMENDED LIMIT 4.0 - 6.0 ADA THERAPEUTIC TARGET < 7.0 ACTION SUGGESTED > 7.0 Performed By: #### P SASC #### [facility] [address] [place] [address] Dr. Teddy Purcell Glucose [Mass/Vol] 209 mg/dL Normal [facility] Comment on above: Performed By: #### P SASC #### [facility] [address] [place] [address] Dr. Teddy Purcell HbA1c (Bld) [Mass fraction] 8.9 % Critically high 4.5-6.2 [facility] Comment on above: Performed By: #### P SASC #### [facility] [address] [address] [address] Teddy Purcell LIPID PROFILEon 04-03-2022 CHOL-HDL RATIO NORM SEE BELOW Normal [facility] Comment on above: Result Comment: 3.3 - 4.4 LOW RISK 4.4 - 7.1 AVERAGE RISK 7.1 - 11.0 MODERATE RISK >11.0 HIGH RISK Performed By: #### L IPID, FT3, T4, CMP, TSH #### [facility] [address] [address] [address] Teddy Purcell Cholesterol [Mass/Vol] 150 mg/dL Normal <=200 [facility] Comment on above: Performed By: #### L IPID, FT3, T4, CMP, TSH #### [facility] [address] [address] [address] Teddy Purcell Cholesterol in HDL [Mass/Vol] 31 mg/dL Critically low 40-60 [facility] Comment on above: Performed By: #### L IPID, FT3, T4, CMP, TSH #### [facility] [address] [address] [address] Teddy Purcell Cholesterol in LDL [Mass/Vol] 85.4 mg/dL Normal [facility] Comment on above: Performed By: #### L IPID, FT3, T4, CMP, TSH #### [facility] [address] [address] [address] Teddy Purcell Cholesterol.total/C holesterol in HDL [Mass ratio] 4.8 {ratio} Normal [facility] Comment on above: Performed By: #### L IPID, FT3, T4, CMP, TSH #### [facility] [address] [address] [address] Teddy Purcell HDL NORMAL > or = 60 mg/dl - LO W CARDIOVASCULAR RISK <40 mg/dl - HIGH CARDIOVASCULAR RISK Normal [facility] Comment on above: Performed By: #### L IPID, FT3, T4, CMP, TSH #### [facility] [address] [address] [address] Teddy Purcell LDL CALC NORMAL SEE BELOW Normal [facility] Comment on above: Result Comment: <100 mg/dl OPTIMAL 100 - 129 mg/dl NEAR OR ABOVE OPTIMAL 130 - 159 mg/dl BORDERLINE HIGH 160 - 189 mg/dl HIGH >190 mg/dl VERY HIGH Performed By: #### L IPID, FT3, T4, CMP, TSH #### [facility] [address] [address] [address] Teddy Purcell Triglyceride [Mass/Vol] 168 mg/dL Critically high <=150 [facility] Comment on above: Performed By: #### L IPID, FT3, T4, CMP, TSH #### [facility] [address] [address] [address] Teddy Purcell VLDL CALC 33.6 mg/dL Normal [facility] Comment on above: Performed By: #### L IPID, FT3, T4, CMP, TSH #### [facility] [address] [place] [address] Dr. Teddy Purcell PROF 14(COMP METB)on 022 Albumin [Mass/Vol] 3.7 g/dL Normal 3.4-5.0 [facility] Comment on above: Performed By: #### L IPID, FT3, T4, CMP, TSH #### [facility] [address] [place] [address] Dr. Teddy Purcell Albumin/Globulin [Mass ratio] 0.9 {ratio} Normal [facility] Comment on above: Performed By: #### L IPID, FT3, T4, CMP, TSH #### [facility] [address] [address] [address] Teddy Purcell ALP [Catalytic activity/Vol] 63 U/L Normal 46-116 [facility] Comment on above: Performed By: #### L IPID, FT3, T4, CMP, TSH #### [facility] [address] [address] [address] Teddy Purcell ALT [Catalytic activity/Vol] 61 U/L Normal 16-63 [facility] Comment on above: Performed By: #### L IPID, FT3, T4, CMP, TSH #### [facility] [address] [place] [address] Dr. Teddy Purcell Anion gap [Moles/Vol] 9.7 mmol/L Normal [facility] Comment on above: Performed By: #### L IPID, FT3, T4, CMP, TSH #### [facility] [address] [place] [address] Dr. Teddy Purcell AST [Catalytic activity/Vol] 30 U/L Normal 15-37 [facility] Comment on above: Performed By: #### L IPID, FT3, T4, CMP, TSH #### [facility] [address] [place] [address] Dr. Teddy Purcell Bilirubin [Mass/Vol] 0.3 mg/dL Normal 0.2-1.0 [facility] Comment on above: Performed By: #### L IPID, FT3, T4, CMP, TSH #### [facility] [address] [place] [address] Dr. Teddy Purcell Calcium [Mass/Vol] 9.7 mg/dL Normal 8.5-10.1 [facility] Comment on above: Performed By: #### L IPID, FT3, T4, CMP, TSH #### [facility] [address] [place] [address] Dr. Teddy Purcell Chloride [Moles/Vol] 96 mmol/L Critically low 98-107 [facility] Comment on above: Performed By: #### L IPID, FT3, T4, CMP, TSH #### [facility] [address] [place] [address] Dr. Teddy Purcell CO2 [Moles/Vol] 34.7 mmol/L Critically high 21.0-32.0 [facility] Comment on above: Performed By: #### L IPID, FT3, T4, CMP, TSH #### [facility] [address] [place] [address] Dr. Teddy Purcell Creatinine [Mass/Vol] 0.78 mg/dL Normal 0.70-1.30 [facility] Comment on above: Performed By: #### L IPID, FT3, T4, CMP, TSH #### [facility] [address] [address] [address] Teddy Purcell EGFR-AF MARTINIQUAIS >60 Normal >=60 [facility] Comment on above: Performed By: #### L IPID, FT3, T4, CMP, TSH #### [facility] [address] [place] [address] Dr. Teddy Purcell EGFR-NON AF MARTINIQUAIS >60 Normal >=60 [facility] Comment on above: Performed By: #### L IPID, FT3, T4, CMP, TSH #### [facility] [address] [place] [address] Dr. Teddy Purcell Globulin (S) [Mass/Vol] 3.9 g/dL Normal [facility] Comment on above: Performed By: #### L IPID, FT3, T4, CMP, TSH #### [facility] [address] [place] [address] Dr. Teddy Purcell Glucose [Mass/Vol] 165 mg/dL Critically high 74-106 [facility] Comment on above: Performed By: #### L IPID, FT3, T4, CMP, TSH #### [facility] [address] [place] [address] Dr. Teddy Purcell Potassium [Moles/Vol] 4.4 mmol/L Normal 3.5-5.1 [facility] Comment on above: Performed By: #### L IPID, FT3, T4, CMP, TSH #### [facility] [address] [place] [address] Dr. Teddy Purcell Protein [Mass/Vol] 7.6 g/dL Normal 6.4-8.2 [facility] Comment on above: Performed By: #### L IPID, FT3, T4, CMP, TSH #### [facility] [address] [place] [address] Dr. Teddy Purcell Sodium [Moles/Vol] 136 mmol/L Normal 136-145 [facility] Comment on above: Performed By: #### L IPID, FT3, T4, CMP, TSH #### [facility] [address] [place] [address] Dr. Teddy Purcell Urea nitrogen [Mass/Vol] 14.0 mg/dL Normal 7.0-18.0 [facility] Comment on above: Performed By: #### L IPID, FT3, T4, CMP, TSH #### [facility] [address] [address] [address] Teddy Purcell Urea nitrogen/Creatinine [Mass ratio] 17.9 mg/mg Normal [facility] Comment on above: Performed By: #### L IPID, FT3, T4, CMP, TSH #### [facility] [address] [address] [address] Teddy Purcell PROTIMEon 04-03-2022 INR Coag (PPP) [Relative time] 3.13 {INR} Normal [facility] Comment on above: Performed By: #### P T #### [facility] [address] [place] [address] Dr. Teddy Purcell INR GUIDELINES SEE BELOW Normal [facility] Comment on above: Result Comment: ISMA RED INR: 2.0 - 3.0 CONDITIONS NOT LISTED BELOW 2.5 - 3.5 FOR PROSTHETIC HEART VALVE REPLACEMENT 2.5 - 3.5 RECURRENT THROMBOSIS Performed By: #### P T #### [facility] [address] [place] [address] Dr. Teddy Purcell PT Coag (PPP) [Time] 31.4 s Critically high 9.0-11.6 [facility] Comment on above: Performed By: #### P T #### [facility] [address] [place] [address] Dr. Teddy Purcell Physician Referralon 022 Physician Referral [id number]:[address] [facility] T4on 04-03-2022 T4 [Mass/Vol] 7.60 ug/dL Normal 4.50-12.10 [facility] Comment on above: Performed By: #### L IPID, FT3, T4, CMP, TSH #### [facility] [address] [address] [address] Teddy Purcell TSHon 12-22-2022 TSH 1.595 uIU/mL Normal 0.358-3.740 [facility] Comment on above: Performed By: #### L IPID, FT3, T4, CMP, TSH #### [facility] [address] [address] [address] Teddy Purcell PROTIMEon 12-05-2021 INR Coag (PPP) [Relative time] 3.69 {INR} Normal [facility] Comment on above: Performed By: #### P T #### [facility] [address] [address] [address] Teddy Purcell INR GUIDELINES SEE BELOW Normal [facility] Comment on above: Result Comment: ISMA RED INR: 2.0 - 3.0 CONDITIONS NOT LISTED BELOW 2.5 - 3.5 FOR PROSTHETIC HEART VALVE REPLACEMENT 2.5 - 3.5 RECURRENT THROMBOSIS Performed By: #### P T #### [facility] [address] [address] [address] Teddy Purcell PT Coag (PPP) [Time] 36.6 s Critically high 9.0-11.6 [facility] Comment on above: Performed By: #### P T #### [facility] [address] [place] [address] Dr. Teddy Purcell TESTOSTERONE, TOTALon 2021 Testosterone [Mass/Vol] 633 ng/dL Normal 264-916 [facility] Comment on above: Result Comment: Adul t male reference interval is based on a population of healthy nonobese males (BMI <30) between 19 and 39 years old. Thea et.al. JCEM 2017,102;6135-5426. PMID: [id number]. Performed By: #### P T #### [facility] [address] [address] [address] Teddy Purcell CBC AUTO DIFFon 10-08-2021 BASO # 0.0 103/ul Normal 0.0-0.1 [facility] Comment on above: Performed By: #### C BC #### [facility] [address] [address] [address] Teddy Purcell Basophils/100 WBC (Bld) 0.4 % Normal 0.2-2.0 [facility] Comment on above: Performed By: #### C BC #### [facility] [address] [place] [address] Dr. Teddy Purcell EO # 0.1 103/ul Normal 0.0-0.7 [facility] Comment on above: Performed By: #### C BC #### [facility] [address] [place] [address] Dr. Teddy Purcell Eosinophils/100 WBC (Bld) 2.0 % Normal 0.9-7.0 [facility] Comment on above: Performed By: #### C BC #### [facility] [address] [place] [address] Dr. Teddy Purcell Erythrocyte distribution width (RBC) [Ratio] 13.7 % Normal 11.0-15.0 [facility] Comment on above: Performed By: #### C BC #### [facility] [address] [place] [address] Dr. Teddy Purcell Hematocrit (Bld) [Volume fraction] 45.6 % Normal 42.0-54.0 [facility] Comment on above: Performed By: #### C BC #### [facility] [address] [place] [address] Dr. Teddy Purcell Hemoglobin (Bld) [Mass/Vol] 14.8 g/dL Normal 14.0-18.0 [facility] Comment on above: Performed By: #### C BC #### [facility] [address] [place] [address] Dr. Teddy Purcell IG # 0.01 10e3/ul Normal 0.00-0.03 [facility] Comment on above: Performed By: #### C BC #### [facility] [address] [place] [address] Dr. Teddy Purcell IG % 0.2 % Normal 0.0-0.5 [facility] Comment on above: Performed By: #### C BC #### [facility] [address] [place] [address] Dr. Teddy Purcell LYMPH # 1.8 103/ul Normal 1.2-3.8 [facility] Comment on above: Performed By: #### C BC #### [facility] [address] [place] [address] Dr. Teddy Purcell Lymphocytes/100 WBC (Bld) 36.6 % Normal 20.5-60.0 [facility] Comment on above: Performed By: #### C BC #### [facility] [address] [place] [address] Dr. Teddy Purcell MANUAL DIFF REQ NO Normal [facility] Comment on above: Performed By: #### C BC #### [facility] [address] [place] [address] Dr. Teddy Purcell MCH (RBC) [Entitic mass] 30.0 pg Normal 25.9-34.0 [facility] Comment on above: Performed By: #### C BC #### [facility] [address] [place] [address] Dr. Teddy Purcell MCHC (RBC) [Mass/Vol] 32.5 g/dL Normal 29.9-35.2 [facility] Comment on above: Performed By: #### C BC #### [facility] [address] [place] [address] Dr. Teddy Purcell MCV (RBC) [Entitic vol] 92.3 fL Normal 80.0-94.0 [facility] Comment on above: Performed By: #### C BC #### [facility] [address] [place] [address] Dr. Teddy Purcell MONO # 0.7 103/ul Normal 0.3-0.8 [facility] Comment on above: Performed By: #### C BC #### [facility] [address] [place] [address] Dr. Teddy Purcell Monocytes/100 WBC (Bld) 13.7 % Critically high 1.7-12.0 [facility] Comment on above: Performed By: #### C BC #### [facility] [address] [place] [address] Dr. Teddy Purcell NEUT # 2.3 103/ul Normal 1.4-6.5 [facility] Comment on above: Performed By: #### C BC #### [facility] [address] [place] [address] Dr. Teddy Purcell Neutrophils/100 WBC (Bld) 47.1 % Normal 43.0-75.0 [facility] Comment on above: Performed By: #### C BC #### [facility] [address] [place] [address] Dr. Teddy Purcell Platelet mean volume (Bld) [Entitic vol] 10.3 fL Normal 9.5-13.5 [facility] Comment on above: Performed By: #### C BC #### [facility] [address] [place] [address] Dr. Teddy Purcell PLT 252 103/ul Normal 150-450 [facility] Comment on above: Performed By: #### C BC #### [facility] [address] [place] [address] Dr. Teddy Purcell RBC 4.94 106/ul Normal 4.70-6.10 [facility] Comment on above: Performed By: #### C BC #### [facility] [address] [place] [address] Dr. Teddy Purcell WBC 5.0 103/ul Normal 4.0-11.0 [facility] Comment on above: Performed By: #### C BC #### [facility] [address] [place] [address] Dr. Teddy Purcell IRONon 10-08-2021 Iron [Mass/Vol] 85.0 ug/dL Normal 65.0-175.0 [facility] Comment on above: Performed By: #### P SASC #### [facility] [address] [place] [address] Dr. Teddy Purcell MAGNESIUMon 10-08-2021 Magnesium [Mass/Vol] 1.9 mg/dL Normal 1.8-2.4 [facility] Comment on above: Performed By: #### P SASC #### [facility] [address] [place] [address] Dr. Tedyd Purcell PHOSPHORUSon 10-08-2021 Phosphate [Mass/Vol] 3.1 mg/dL Normal 2.6-4.7 [facility] Comment on above: Performed By: #### P SASC #### [facility] [address] [address] [address] Teddy Purcell PROF 14(COMP METB)on 022 Albumin [Mass/Vol] 3.5 g/dL Normal 3.4-5.0 [facility] Comment on above: Performed By: #### P SASC #### [facility] [address] [address] [address] Teddy Purcell Albumin/Globulin [Mass ratio] 1.0 {ratio} Normal [facility] Comment on above: Performed By: #### P SASC #### [facility] [address] [address] [address] Teddy Purcell ALP [Catalytic activity/Vol] 59 U/L Normal 46-116 [facility] Comment on above: Performed By: #### P SASC #### [facility] [address] [address] [address] Teddy Purcell ALT [Catalytic activity/Vol] 58 U/L Normal 16-63 [facility] Comment on above: Performed By: #### P SASC #### [facility] [address] [address] [address] Teddy Purcell Anion gap [Moles/Vol] 9.5 mmol/L Normal [facility] Comment on above: Performed By: #### P SASC #### [facility] [address] [address] [address] Teddy Purcell AST [Catalytic activity/Vol] 28 U/L Normal 15-37 [facility] Comment on above: Performed By: #### P SASC #### [facility] [address] [address] [address] Teddy Purcell Bilirubin [Mass/Vol] 0.3 mg/dL Normal 0.2-1.0 [facility] Comment on above: Performed By: #### P SASC #### [facility] [address] [address] [address] Teddy Purcell Calcium [Mass/Vol] 9.1 mg/dL Normal 8.5-10.1 [facility] Comment on above: Performed By: #### P SASC #### [facility] [address] [address] [address] Teddy Purcell Chloride [Moles/Vol] 104 mmol/L Normal 98-107 [facility] Comment on above: Performed By: #### P SASC #### [facility] [address] [address] [address] Teddy Purcell CO2 [Moles/Vol] 30.8 mmol/L Normal 21.0-32.0 [facility] Comment on above: Performed By: #### P SASC #### [facility] [address] [address] [address] Teddy Purcell Creatinine [Mass/Vol] 0.90 mg/dL Normal 0.70-1.30 [facility] Comment on above: Performed By: #### P SASC #### [facility] [address] [address] [address] Teddy Purcell EGFR-AF MARTINIQUAIS >60 Normal >=60 [facility] Comment on above: Performed By: #### P SASC #### [facility] [address] [address] [address] Teddy Purcell EGFR-NON AF MARTINIQUAIS >60 Normal >=60 [facility] Comment on above: Performed By: #### P SASC #### [facility] [address] [address] [address] Teddy Purcell Globulin (S) [Mass/Vol] 3.5 g/dL Normal [facility] Comment on above: Performed By: #### P SASC #### [facility] [address] [address] [address] Teddy Purcell Glucose [Mass/Vol] 145 mg/dL Critically high 74-106 [facility] Comment on above: Performed By: #### P SASC #### [facility] [address] [address] [address] Teddy Purcell Potassium [Moles/Vol] 4.3 mmol/L Normal 3.5-5.1 [facility] Comment on above: Performed By: #### P SASC #### [facility] [address] [address] [address] Teddy Purcell Protein [Mass/Vol] 7.0 g/dL Normal 6.4-8.2 [facility] Comment on above: Performed By: #### P SASC #### [facility] [address] [address] [address] Teddy Purcell Sodium [Moles/Vol] 140 mmol/L Normal 136-145 [facility] Comment on above: Performed By: #### P SASC #### [facility] [address] [address] [address] Teddy Purcell Urea nitrogen [Mass/Vol] 17.0 mg/dL Normal 7.0-18.0 [facility] Comment on above: Performed By: #### P SASC #### [facility] [address] [place] [address] Dr. Teddy Purcell Urea nitrogen/Creatinine [Mass ratio] 18.9 mg/mg Normal [facility] Comment on above: Performed By: #### P SASC #### [facility] [address] [address] [address] Teddy Purcell PROTIMEon 10-08-2021 INR Coag (PPP) [Relative time] 2.83 {INR} Normal [facility] Comment on above: Performed By: #### P T #### [facility] [address] [place] [address] Dr. Teddy Purcell INR GUIDELINES SEE BELOW Normal [facility] Comment on above: Result Comment: ISMA RED INR: 2.0 - 3.0 CONDITIONS NOT LISTED BELOW 2.5 - 3.5 FOR PROSTHETIC HEART VALVE REPLACEMENT 2.5 - 3.5 RECURRENT THROMBOSIS Performed By: #### P T #### [facility] [address] [address] [address] Teddy Purcell PT Coag (PPP) [Time] 28.6 s Critically high 9.0-11.6 [facility] Comment on above: Performed By: #### P T #### [facility] [address] [place] [address] Dr. Teddy Purcell Prothrombin Time INRon 07-04 INR Coag (Bld) [Relative time] 10.5 s Normal 9.0-12.9 [facility] Comment on above: Performed By: #### P T #### [place] [id number] [facility] INR Coag (PPP) [Relative time] 0.9 {INR} Normal [facility] Comment on above: Result [...] heart valves: 3 - 4.5 PERFORMED BY: [place] [address] PATHOLOGIST LABORER PIPELINES DANIKA COE M.D. Performed By: #### P T #### [place] [id number] [facility] Operative Reporton 7 Operative Report MR#: [id number] [facility] Pt. Name: Mariajose Corral Room #: [...] Dict: 10/20/2016//Chicho Barba M.D.Date Trans: 10/24/2016 05:16 P/[id number] c: Celio Oseguera M.D. [facility] [address] [place] [address] Dane Pompa M.D. [place] [id number] [facility] [place] [address] Normal [facility] POC GLUCOSE LABon 10-20-2016 Glucose mass conc 117 mg/dL High 70-100 [facility] Comment on above: Performed By: #### 8 [id number] ####[facility] [place] [address], [facility] Glucose mass conc 132 mg/dL High 70-100 [facility] Comment on above: Performed By: #### 8 5499 ####[facility] [place] [address], [facility] Vital Signs Date Time Vital Sign Value Performing Clinician Bree reyes 04-23-2022 15:13-0500 Blood Pressure Location Durga NILL [facility] 04-23-2022 15:13-0500 Diastolic blood pressure 84 mm[Hg] Durga NILL [facility] 04-23-2022 15:13-0500 Heart rate 76 /min Durga NILL [facility] [place] 04-23-2022 15:13-0500 Respiratory rate 16 /min Durga NILL [facility] 04-23-2022 15:13-0500 Systolic blood pressure 132 mm[Hg] Durga NILL [facility] Encounters Encounter Date Encounter Type Care Provider [...] abnormal findings DR DANE POMPA . [facility] Start: 04-03-2022 End: 04-04-[address] DANE POMPA . Facility: Start: 04-03-2022 End: 04-04-2022 Encounter for general adult medical examination without abnormal findings DR DANE POMPA . Facility:[facility] Start: 04-02-2022 ambulatory Durga BANKS Facility:[facility] Start: 12-05-2021 End: 12-06-[address] DANE POMPA . Facility:[facility] Start: 10-08-2021 End: 10-09-[address] DANE POMPA . Facility: Start: 10-20-2016 End: 10-21-2016 Ambulatory [facility] Facility:[facility] Procedures Date Procedure Procedure Detail Performing Clinician Start: 04-03-[address] RYAN POMPA . Comment on above: Performed By: #### P [facility] #### [facility] [address] [place] [address] Dr. Teddy Purcell Start: 10-20-2016 ANESTH LOWER [...] vaccine, unspecified formulation Durga NILL [facility] [place] Payers Date Payer Category Payer Unknown [id number] 2.16.8 [id number] 1975 Unknown [id number] 2.16.84 [id number] 1973 Unknown [id number] 2.16.84 [id number] 1973 Unknown [id number] 2.16.84 [id number] 1973 Unknown [id number] 2.16.84 [id number] 1973 Unknown [id number] 2.16.84 [id number] 1973 Unknown [id number] 2.16.84 [id number] 1973 Unknown [id number] 2.16.84 [id number] 1973 Unknown [id number] 2.16.84 [id number] 1961 Medicare [id number] 1961 Unknown [id number] Social History Date Type Detail Facility Start: 04-23-2022 Tobacco smoking status Never s moked tobacco (finding) [facility] Tobacco smoking status Never [facility] [place] Sex Assigned At Male [facility] Functional Status Date Assessment Result Facility 04-23-2022 Functional Status N/A [facility] Clinical Note 04-23-2022 Note Date & [...] Use, 04/23/2022 Substa (more content not included)... [facility] Comment on above: Result Comment: Elec tronically Signed By: JOCELYN GUNTER, Durga Myers\Date and Time Signed: 04/23/22 16:03 EST Evaluation + Plan note Note Date & Type Note Facility Evaluation + Plan note No data available for this section [facility] Discharge instructions Note Date & Type Note Facility Hospital Discharge instructions No data available for this section [facility] [place] Progress note Note Date & Type Note Facility Progress note No data available for this section [facility] [place] Summary Purpose Family History No Family History [...] content) DATE CREATED AUTHOR 10/07/2017 [facility] DATE CREATED AUTHOR AUTHOR'S ORGANIZ ATION 07/12/[address] [facility] DATE CREATED AUTHOR AUTHOR'S ORGANIZ ATION 04/24/2022 [facility] DATE CREATED AUTHOR AUTHOR'S ORGANIZ ATION 08/22/[address] [facility] Patient Care team informatio n (unrecognized section and content) Personnel Name: Dane Pompa MD Address: Address: [address] [place] [address] FOR RECORDS PERTAINING TO PATIENTS WHO ARE [...] ON THE PRIMARY CLINICAL RECORDS. [facility]. provides no warranty or guarantee of the accuracy or completeness of information in this document.
[2024-12-22 14:54] LABS: INR 2.80; Prothrombin Time 26.8 sec (9.0-11.6)
== END 2024-12-22 13:31 | disposition home or self-care (01) ==
LOC: LAB 13:32
PROVIDERS: PCP Family Medicine; Visit Provider Family Medicine
DX: I26.99 Other pulmonary embolism without acute cor pulmonale (principal)
CPT/HCPCS: 36415; 85610

== ENCOUNTER 2024-12-26 14:01 | Outpatient (OUT) | payer BC, MEDICARE, SELFPAY ==
[2024-12-26 14:56] LABS: INR 3.02; Prothrombin Time 28.7 sec (9.0-11.6)
--- OUTSIDE RECORDS SUMMARY | 2024-12-26 18:10 | XMS_ITS | CCD ---
Author Organization [facility] Team Providers Care Content Administrator Name Role Phone DAMIE, CHICHO Unavailable Unavailable SKIE, CHICHO Unavailable Unavailable SWATI DANE Unavailable Unavailable FOGT, CELIO Unavailable Unavailable [place] Unavailable Unavailable SKIE, CHICHO Unavailable Unavailable [place] Unavailable Unavailable PITRODA, SHAHANA Unavailable Unavailable Dane [place] Primary Care Physician [phone] [place] BANKS Attending Unavailable HOY ., DR [...] celecoxib; 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: [CELEBREX] Drug Allergy 3 [facility] Repository (3 sources) morphine; 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: [MORPHINE] Drug Allergy 0 Unknown (qualifier value) [facility] Repository (2 sources) orphenadrine; 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: [Norflex] Drug Allergy 0 AOF [facility] Repository (2 sources) Adhesive bandage; 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: [Adhesive Bandage] Drug allergy Unknown (qualifier value) [facility] [place] (2 sources) celecoxib; 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: [celecoxib] Drug Allergy 3 Unknown [facility] [place] (3 sources) Orphenadrine; 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: [orphenadrine] Drug Allergy 0 Unknown (qualifier value) [facility] [place] (1 source) Orphenadrine Drug Allergy 4 [facility] Medications Current Medications Medication Drug [...] Migraine 04-09-2022 Chronic Other aftercare (5 sources) penitentiary (current) use of anticoagulants; 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: [WHIPPED TOPPING MIXER CURRNT USE 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] Onset: 3 Episodic Other [...] intervertebral disc 04-09-2022 Chronic 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 (1 source) penitentiary (current) use of oral hypoglycemic drugs; 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: [WHIPPED TOPPING MIXER (CURRENT) USE OF ORAL HYPOGLYCEMIC DRUGS] Onset: 7 Past or Other Problems Problem Classification Problem Date Documented Da te Episodic/Chronic Deficiency and other anemia (1 source) Anemia, unspecified; 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: [ANEMIA UNSPECIFIED] Onset: 10-11-2021 Episodic Malaise and fatigue (1 source) Other fatigue; 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: [OTHER FATIGUE] Onset: 04-10-2022 Episodic Other aftercare (1 source) Other fingerprint expert (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 Teddy Purcell INR GUIDELINES SEE BELOW Normal [facility] Comment on above: Result Comment: ISMA RED INR: 2.0 - 3.0 CONDITIONS NOT LISTED BELOW 2.5 - 3.5 FOR PROSTHETIC HEART VALVE REPLACEMENT 2.5 - 3.5 RECURRENT THROMBOSIS Performed By: #### P T #### [facility] [address] [address] [address] Teddy Purcell PT Coag (PPP) [Time] 28.4 s Critically high 9.0-11.6 [facility] Comment on above: Performed By: #### P T #### [facility] [address] [address] [address] Teddy Purcell PROTIMEon 06-23-2022 INR Coag (PPP) [Relative time] 3.22 {INR} Normal [facility] Comment on above: Performed By: #### P T #### [facility] [address] [address] [address] Teddy Purcell INR GUIDELINES SEE BELOW Normal [facility] Comment on above: Result Comment: ISMA RED INR: 2.0 - 3.0 CONDITIONS NOT LISTED BELOW 2.5 - 3.5 FOR PROSTHETIC HEART VALVE REPLACEMENT 2.5 - 3.5 RECURRENT THROMBOSIS Performed By: #### P T #### [facility] [address] [place] [address] Dr. Teddy Purcell PT Coag (PPP) [Time] 31.9 s Critically high 9.0-11.6 [facility] Comment on above: Performed By: #### P T #### [facility] [address] [place] [address] Dr. Teddy Purcell PROTIMEon 06-16-2022 INR Coag (PPP) [Relative time] 3.26 {INR} Normal [facility] Comment on above: Performed By: #### P SASC #### [facility] [address] [place] [address] Dr. Teddy Purcell INR GUIDELINES SEE BELOW Normal [facility] Comment on above: Result Comment: ISMA RED INR: 2.0 - 3.0 CONDITIONS NOT LISTED BELOW 2.5 - 3.5 FOR PROSTHETIC HEART VALVE REPLACEMENT 2.5 - 3.5 RECURRENT THROMBOSIS Performed By: #### P SASC #### [facility] [address] [place] [address] Dr. Teddy Purcell PT Coag (PPP) [Time] 32.3 s Critically high 9.0-11.6 [facility] Comment on above: Performed By: #### P SASC #### [facility] [address] [place] [address] Dr. Teddy Purcell PROTIMEon 06-09-2022 INR Coag (PPP) [Relative time] 4.37 {INR} Critically high [facility] Comment on above: Performed By: #### P T #### [facility] [address] [place] [address] Dr. Teddy Purcell INR GUIDELINES SEE BELOW Normal [facility] Comment on above: Result Comment: ISMA RED INR: 2.0 - 3.0 CONDITIONS NOT LISTED BELOW 2.5 - 3.5 FOR PROSTHETIC HEART VALVE REPLACEMENT 2.5 - 3.5 RECURRENT THROMBOSIS Performed By: #### P T #### [facility] [address] [place] [address] Dr. Teddy Purcell PT Coag (PPP) [Time] 42.6 s Critically high 9.0-11.6 [facility] Comment on above: Performed By: #### P T #### [facility] [address] [place] [address] Dr. Teddy Purcell Facesheeton 04-24-2022 Facesheet [id number]:12 7 Normal [facility] OCC BLD IMMUNO SCREENon 03-15 OCCULT BLOOD Negative Normal NEGATIVE [facility] Comment on above: Performed By: #### P SASC #### [facility] [address] [place] [address] Dr. Teddy Purcell TESTOSTERONE, TOTALon 2021 Testosterone [Mass/Vol] 905 ng/dL Normal 264-916 [facility] Comment on above: Result Comment: Adul t male reference interval is based on a population of healthy nonobese males (BMI <30) between 19 and 39 years old. Thea et.al. JCEM 2017,102;8995-9930. PMID: [id number]. Performed By: #### P SASC #### [facility] [address] [place] [address] Dr. Teddy Purcell CBC AUTO DIFFon 04-03-2022 BASO # 0.0 103/ul Normal 0.0-0.1 [facility] Comment on above: Performed By: #### P SASC #### [facility] [address] [place] [address] Dr. Teddy Purcell Basophils/100 WBC (Bld) 0.2 % Normal 0.2-2.0 [facility] Comment on above: Performed By: #### P SASC #### [facility] [address] [place] [address] Dr. Teddy Purcell EO # 0.1 103/ul Normal 0.0-0.7 [facility] Comment on above: Performed By: #### P SASC #### [facility] [address] [place] [address] Dr. Teddy Purcell Eosinophils/100 WBC (Bld) 2.4 % Normal 0.9-7.0 [facility] Comment on above: Performed By: #### P SASC #### [facility] [address] [place] [address] Dr. Teddy Purcell Erythrocyte distribution width (RBC) [Ratio] 15.7 % Critically high 11.0-15.0 [facility] Comment on above: Performed By: #### P SASC #### [facility] [address] [place] [address] Dr. Teddy Purcell Hematocrit (Bld) [Volume fraction] 51.4 % Normal 42.0-54.0 [facility] Comment on above: Performed By: #### P SASC #### [facility] [address] [place] [address] Dr. Teddy Purcell Hemoglobin (Bld) [Mass/Vol] 16.9 g/dL Normal 14.0-18.0 [facility] Comment on above: Performed By: #### P SASC #### [facility] [address] [place] [address] Dr. Teddy Purcell IG # 0.01 10e3/ul Normal 0.00-0.03 [facility] Comment on above: Performed By: #### P SASC #### [facility] [address] [place] [address] Dr. Teddy Purcell IG % 0.2 % Normal 0.0-0.5 [facility] Comment on above: Performed By: #### P SASC #### [facility] [address] [place] [address] Dr. Teddy Purcell LYMPH # 2.0 103/ul Normal 1.2-3.8 [facility] Comment on above: Performed By: #### P SASC #### [facility] [address] [place] [address] Dr. Teddy Purcell Lymphocytes/100 WBC (Bld) 33.1 % Normal 20.5-60.0 [facility] Comment on above: Performed By: #### P SASC #### [facility] [address] [place] [address] Dr. Teddy Purcell MANUAL DIFF REQ NO Normal [facility] Comment on above: Performed By: #### P SASC #### [facility] [address] [place] [address] Dr. Teddy Purcell MCH (RBC) [Entitic mass] 29.8 pg Normal 25.9-34.0 [facility] Comment on above: Performed By: #### P SASC #### [facility] [address] [place] [address] Dr. Teddy Purcell MCHC (RBC) [Mass/Vol] 32.9 g/dL Normal 29.9-35.2 [facility] Comment on above: Performed By: #### P SASC #### [facility] [address] [place] [address] Dr. Teddy Purcell MCV (RBC) [Entitic vol] 90.7 fL Normal 80.0-94.0 [facility] Comment on above: Performed By: #### P SASC #### [facility] [address] [place] [address] Dr. Teddy Purcell MONO # 0.8 103/ul Normal 0.3-0.8 [facility] Comment on above: Performed By: #### P SASC #### [facility] [address] [place] [address] Dr. Teddy Purcell Monocytes/100 WBC (Bld) 12.9 % Critically high 1.7-12.0 [facility] Comment on above: Performed By: #### P SASC #### [facility] [address] [place] [address] Dr. Teddy Purcell NEUT # 3.1 103/ul Normal 1.4-6.5 [facility] Comment on above: Performed By: #### P SASC #### [facility] [address] [place] [address] Dr. Teddy Purcell Neutrophils/100 WBC (Bld) 51.2 % Normal 43.0-75.0 [facility] Comment on above: Performed By: #### P SASC #### [facility] [address] [place], [place] [id number] Dr. Teddy Purcell Platelet mean volume (Bld) [Entitic vol] 10.0 fL Normal 9.5-13.5 [facility] Comment on above: Performed By: #### P SASC #### [facility] [address] [place] [address] Dr. Teddy Purcell PLT 302 103/ul Normal 150-450 [facility] Comment on above: Performed By: #### P SASC #### [facility] [address] [address] [address] Teddy Purcell RBC 5.67 106/ul Normal 4.70-6.10 [facility] Comment on above: Performed By: #### P SASC #### [facility] [address] [address] [address] Teddy Purcell WBC 6.0 103/ul Normal 4.0-11.0 [facility] Comment on above: Performed By: #### P SASC #### [facility] [address] [place] [address] Dr. Teddy Purcell FREE T3on 04-03-2022 FREE T3 3.52 pg/mlL Normal 2.18-3.98 [facility] Comment on above: Performed By: #### P SASC #### [facility] [address] [place] [address] Dr. Teddy Purcell GLYCOHEMOGLOBIN A1Con 2021 ADA RECOMMENDATION SEE BELOW Normal [facility] Comment on above: Result Comment: ADA RECOMMENDED LIMIT 4.0 - 6.0 ADA THERAPEUTIC TARGET < 7.0 ACTION SUGGESTED > 7.0 Performed By: #### P SASC #### [facility] [address] [place] [address] Dr. Teddy Purcell Glucose [Mass/Vol] 209 mg/dL Normal [facility] Comment on above: Performed By: #### P SASC #### [facility] [address] [place] [address] Dr. Teddy Purcell HbA1c (Bld) [Mass fraction] 8.9 % Critically high 4.5-6.2 [facility] Comment on above: Performed By: #### P SASC #### [facility] [address] [address] [address] Teddy Purcell LIPID PROFILEon 04-03-2022 CHOL-HDL RATIO NORM SEE BELOW Normal [facility] Comment on above: Result Comment: 3.3 - 4.4 LOW RISK 4.4 - 7.1 AVERAGE RISK 7.1 - 11.0 MODERATE RISK >11.0 HIGH RISK Performed By: #### L IPID, FT3, T4, CMP, TSH #### [facility] [address] [address] [address] Teddy Purcell Cholesterol [Mass/Vol] 150 mg/dL Normal <=200 [facility] Comment on above: Performed By: #### L IPID, FT3, T4, CMP, TSH #### [facility] [address] [address] [address] Teddy Purcell Cholesterol in HDL [Mass/Vol] 31 mg/dL Critically low 40-60 [facility] Comment on above: Performed By: #### L IPID, FT3, T4, CMP, TSH #### [facility] [address] [address] [address] Teddy Purcell Cholesterol in LDL [Mass/Vol] 85.4 mg/dL Normal [facility] Comment on above: Performed By: #### L IPID, FT3, T4, CMP, TSH #### [facility] [address] [address] [address] Teddy Purcell Cholesterol.total/C holesterol in HDL [Mass ratio] 4.8 {ratio} Normal [facility] Comment on above: Performed By: #### L IPID, FT3, T4, CMP, TSH #### [facility] [address] [address] [address] Teddy Purcell HDL NORMAL > or = 60 mg/dl - LO W CARDIOVASCULAR RISK <40 mg/dl - HIGH CARDIOVASCULAR RISK Normal [facility] Comment on above: Performed By: #### L IPID, FT3, T4, CMP, TSH #### [facility] [address] [address] [address] Teddy Purcell LDL CALC NORMAL SEE BELOW Normal [facility] Comment on above: Result Comment: <100 mg/dl OPTIMAL 100 - 129 mg/dl NEAR OR ABOVE OPTIMAL 130 - 159 mg/dl BORDERLINE HIGH 160 - 189 mg/dl HIGH >190 mg/dl VERY HIGH Performed By: #### L IPID, FT3, T4, CMP, TSH #### [facility] [address] [address] [address] Teddy Purcell Triglyceride [Mass/Vol] 168 mg/dL Critically high <=150 [facility] Comment on above: Performed By: #### L IPID, FT3, T4, CMP, TSH #### [facility] [address] [address] [address] Teddy Purcell VLDL CALC 33.6 mg/dL Normal [facility] Comment on above: Performed By: #### L IPID, FT3, T4, CMP, TSH #### [facility] [address] [place] [address] Dr. Teddy Purcell PROF 14(COMP METB)on 022 Albumin [Mass/Vol] 3.7 g/dL Normal 3.4-5.0 [facility] Comment on above: Performed By: #### L IPID, FT3, T4, CMP, TSH #### [facility] [address] [place] [address] Dr. Teddy Purcell Albumin/Globulin [Mass ratio] 0.9 {ratio} Normal [facility] Comment on above: Performed By: #### L IPID, FT3, T4, CMP, TSH #### [facility] [address] [address] [address] Teddy Purcell ALP [Catalytic activity/Vol] 63 U/L Normal 46-116 [facility] Comment on above: Performed By: #### L IPID, FT3, T4, CMP, TSH #### [facility] [address] [address] [address] Teddy Purcell ALT [Catalytic activity/Vol] 61 U/L Normal 16-63 [facility] Comment on above: Performed By: #### L IPID, FT3, T4, CMP, TSH #### [facility] [address] [place] [address] Dr. Teddy Purcell Anion gap [Moles/Vol] 9.7 mmol/L Normal [facility] Comment on above: Performed By: #### L IPID, FT3, T4, CMP, TSH #### [facility] [address] [place] [address] Dr. Teddy Purcell AST [Catalytic activity/Vol] 30 U/L Normal 15-37 [facility] Comment on above: Performed By: #### L IPID, FT3, T4, CMP, TSH #### [facility] [address] [place] [address] Dr. Teddy Purcell Bilirubin [Mass/Vol] 0.3 mg/dL Normal 0.2-1.0 [facility] Comment on above: Performed By: #### L IPID, FT3, T4, CMP, TSH #### [facility] [address] [place] [address] Dr. Teddy Purcell Calcium [Mass/Vol] 9.7 mg/dL Normal 8.5-10.1 [facility] Comment on above: Performed By: #### L IPID, FT3, T4, CMP, TSH #### [facility] [address] [place] [address] Dr. Teddy Purcell Chloride [Moles/Vol] 96 mmol/L Critically low 98-107 [facility] Comment on above: Performed By: #### L IPID, FT3, T4, CMP, TSH #### [facility] [address] [place] [address] Dr. Teddy Purcell CO2 [Moles/Vol] 34.7 mmol/L Critically high 21.0-32.0 [facility] Comment on above: Performed By: #### L IPID, FT3, T4, CMP, TSH #### [facility] [address] [place] [address] Dr. Teddy Purcell Creatinine [Mass/Vol] 0.78 mg/dL Normal 0.70-1.30 [facility] Comment on above: Performed By: #### L IPID, FT3, T4, CMP, TSH #### [facility] [address] [address] [address] Teddy Purcell EGFR-AF PRYDEINIG >60 Normal >=60 [facility] Comment on above: Performed By: #### L IPID, FT3, T4, CMP, TSH #### [facility] [address] [place] [address] Dr. Teddy Purcell EGFR-NON AF PRYDEINIG >60 Normal >=60 [facility] Comment on above: Performed By: #### L IPID, FT3, T4, CMP, TSH #### [facility] [address] [place] [address] Dr. Teddy Purcell Globulin (S) [Mass/Vol] 3.9 g/dL Normal [facility] Comment on above: Performed By: #### L IPID, FT3, T4, CMP, TSH #### [facility] [address] [place] [address] Dr. Teddy Purcell Glucose [Mass/Vol] 165 mg/dL Critically high 74-106 [facility] Comment on above: Performed By: #### L IPID, FT3, T4, CMP, TSH #### [facility] [address] [place] [address] Dr. Teddy Purcell Potassium [Moles/Vol] 4.4 mmol/L Normal 3.5-5.1 [facility] Comment on above: Performed By: #### L IPID, FT3, T4, CMP, TSH #### [facility] [address] [place] [address] Dr. Teddy Purcell Protein [Mass/Vol] 7.6 g/dL Normal 6.4-8.2 [facility] Comment on above: Performed By: #### L IPID, FT3, T4, CMP, TSH #### [facility] [address] [place] [address] Dr. Teddy Purcell Sodium [Moles/Vol] 136 mmol/L Normal 136-145 [facility] Comment on above: Performed By: #### L IPID, FT3, T4, CMP, TSH #### [facility] [address] [place] [address] Dr. Teddy Purcell Urea nitrogen [Mass/Vol] 14.0 mg/dL Normal 7.0-18.0 [facility] Comment on above: Performed By: #### L IPID, FT3, T4, CMP, TSH #### [facility] [address] [address] [address] Teddy Purcell Urea nitrogen/Creatinine [Mass ratio] 17.9 mg/mg Normal [facility] Comment on above: Performed By: #### L IPID, FT3, T4, CMP, TSH #### [facility] [address] [address] [address] Teddy Purcell PROTIMEon 04-03-2022 INR Coag (PPP) [Relative time] 3.13 {INR} Normal [facility] Comment on above: Performed By: #### P T #### [facility] [address] [place] [address] Dr. Teddy Purcell INR GUIDELINES SEE BELOW Normal [facility] Comment on above: Result Comment: ISMA RED INR: 2.0 - 3.0 CONDITIONS NOT LISTED BELOW 2.5 - 3.5 FOR PROSTHETIC HEART VALVE REPLACEMENT 2.5 - 3.5 RECURRENT THROMBOSIS Performed By: #### P T #### [facility] [address] [place] [address] Dr. Teddy Purcell PT Coag (PPP) [Time] 31.4 s Critically high 9.0-11.6 [facility] Comment on above: Performed By: #### P T #### [facility] [address] [place] [address] Dr. Teddy Purcell Physician Referralon 022 Physician Referral [id number]:12 7 Normal [facility] T4on 04-03-2022 T4 [Mass/Vol] 7.60 ug/dL Normal 4.50-12.10 [facility] Comment on above: Performed By: #### L IPID, FT3, T4, CMP, TSH #### [facility] [address] [address] [address] Teddy Purcell TSHon 12-22-2022 TSH 1.595 uIU/mL Normal 0.358-3.740 [facility] Comment on above: Performed By: #### L IPID, FT3, T4, CMP, TSH #### [facility] [address] [address] [address] Teddy Purcell PROTIMEon 12-05-2021 INR Coag (PPP) [Relative time] 3.69 {INR} Normal [facility] Comment on above: Performed By: #### P T #### [facility] [address] [address] [address] Teddy Purcell INR GUIDELINES SEE BELOW Normal [facility] Comment on above: Result Comment: ISMA RED INR: 2.0 - 3.0 CONDITIONS NOT LISTED BELOW 2.5 - 3.5 FOR PROSTHETIC HEART VALVE REPLACEMENT 2.5 - 3.5 RECURRENT THROMBOSIS Performed By: #### P T #### [facility] [address] [address] [address] Teddy Purcell PT Coag (PPP) [Time] 36.6 s Critically high 9.0-11.6 [facility] Comment on above: Performed By: #### P T #### [facility] [address] [place] [address] Dr. Teddy Purcell TESTOSTERONE, TOTALon 2021 Testosterone [Mass/Vol] 633 ng/dL Normal 264-916 [facility] Comment on above: Result Comment: Adul t male reference interval is based on a population of healthy nonobese males (BMI <30) between 19 and 39 years old. Thea et.al. JCEM 2017,102;8835-0642. PMID: [id number]. Performed By: #### P T #### [facility] [address] [address] [address] Teddy Purcell CBC AUTO DIFFon 10-08-2021 BASO # 0.0 103/ul Normal 0.0-0.1 [facility] Comment on above: Performed By: #### C BC #### [facility] [address] [address] [address] Teddy Purcell Basophils/100 WBC (Bld) 0.4 % Normal 0.2-2.0 [facility] Comment on above: Performed By: #### C BC #### [facility] [address] [place] [address] Dr. Teddy Purcell EO # 0.1 103/ul Normal 0.0-0.7 [facility] Comment on above: Performed By: #### C BC #### [facility] [address] [place] [address] Dr. Teddy Purcell Eosinophils/100 WBC (Bld) 2.0 % Normal 0.9-7.0 [facility] Comment on above: Performed By: #### C BC #### [facility] [address] [place] [address] Dr. Teddy Purcell Erythrocyte distribution width (RBC) [Ratio] 13.7 % Normal 11.0-15.0 [facility] Comment on above: Performed By: #### C BC #### [facility] [address] [place] [address] Dr. Teddy Purcell Hematocrit (Bld) [Volume fraction] 45.6 % Normal 42.0-54.0 [facility] Comment on above: Performed By: #### C BC #### [facility] [address] [place] [address] Dr. Teddy Purcell Hemoglobin (Bld) [Mass/Vol] 14.8 g/dL Normal 14.0-18.0 [facility] Comment on above: Performed By: #### C BC #### [facility] [address] [place] [address] Dr. Teddy Purcell IG # 0.01 10e3/ul Normal 0.00-0.03 [facility] Comment on above: Performed By: #### C BC #### [facility] [address] [place] [address] Dr. Teddy Purcell IG % 0.2 % Normal 0.0-0.5 [facility] Comment on above: Performed By: #### C BC #### [facility] [address] [place] [address] Dr. Teddy Purcell LYMPH # 1.8 103/ul Normal 1.2-3.8 [facility] Comment on above: Performed By: #### C BC #### [facility] [address] [place] [address] Dr. Teddy Purcell Lymphocytes/100 WBC (Bld) 36.6 % Normal 20.5-60.0 [facility] Comment on above: Performed By: #### C BC #### [facility] [address] [place] [address] Dr. Teddy Purcell MANUAL DIFF REQ NO Normal [facility] Comment on above: Performed By: #### C BC #### [facility] [address] [place] [address] Dr. Teddy Purcell MCH (RBC) [Entitic mass] 30.0 pg Normal 25.9-34.0 [facility] Comment on above: Performed By: #### C BC #### [facility] [address] [place] [address] Dr. Teddy Purcell MCHC (RBC) [Mass/Vol] 32.5 g/dL Normal 29.9-35.2 [facility] Comment on above: Performed By: #### C BC #### [facility] [address] [place] [address] Dr. Teddy Purcell MCV (RBC) [Entitic vol] 92.3 fL Normal 80.0-94.0 [facility] Comment on above: Performed By: #### C BC #### [facility] [address] [place] [address] Dr. Teddy Purcell MONO # 0.7 103/ul Normal 0.3-0.8 [facility] Comment on above: Performed By: #### C BC #### [facility] [address] [place] [address] Dr. Teddy Purcell Monocytes/100 WBC (Bld) 13.7 % Critically high 1.7-12.0 [facility] Comment on above: Performed By: #### C BC #### [facility] [address] [place] [address] Dr. Teddy Purcell NEUT # 2.3 103/ul Normal 1.4-6.5 [facility] Comment on above: Performed By: #### C BC #### [facility] [address] [place] [address] Dr. Teddy Purcell Neutrophils/100 WBC (Bld) 47.1 % Normal 43.0-75.0 [facility] Comment on above: Performed By: #### C BC #### [facility] [address] [place] [address] Dr. Teddy Purcell Platelet mean volume (Bld) [Entitic vol] 10.3 fL Normal 9.5-13.5 [facility] Comment on above: Performed By: #### C BC #### [facility] [address] [place] [address] Dr. Teddy Purcell PLT 252 103/ul Normal 150-450 [facility] Comment on above: Performed By: #### C BC #### [facility] [address] [place] [address] Dr. Teddy Purcell RBC 4.94 106/ul Normal 4.70-6.10 [facility] Comment on above: Performed By: #### C BC #### [facility] [address] [place] [address] Dr. Teddy Purcell WBC 5.0 103/ul Normal 4.0-11.0 [facility] Comment on above: Performed By: #### C BC #### [facility] [address] [place] [address] Dr. Teddy Purcell IRONon 10-08-2021 Iron [Mass/Vol] 85.0 ug/dL Normal 65.0-175.0 [facility] Comment on above: Performed By: #### P SASC #### [facility] [address] [place] [address] Dr. Teddy Purcell MAGNESIUMon 10-08-2021 Magnesium [Mass/Vol] 1.9 mg/dL Normal 1.8-2.4 [facility] Comment on above: Performed By: #### P SASC #### [facility] [address] [place] [address] Dr. Teddy Purcell PHOSPHORUSon 10-08-2021 Phosphate [Mass/Vol] 3.1 mg/dL Normal 2.6-4.7 [facility] Comment on above: Performed By: #### P SASC #### [facility] [address] [address] [address] Teddy Purcell PROF 14(COMP METB)on 022 Albumin [Mass/Vol] 3.5 g/dL Normal 3.4-5.0 [facility] Comment on above: Performed By: #### P SASC #### [facility] [address] [address] [address] Teddy Purcell Albumin/Globulin [Mass ratio] 1.0 {ratio} Normal [facility] Comment on above: Performed By: #### P SASC #### [facility] [address] [address] [address] Teddy Purcell ALP [Catalytic activity/Vol] 59 U/L Normal 46-116 [facility] Comment on above: Performed By: #### P SASC #### [facility] [address] [address] [address] Teddy Purcell ALT [Catalytic activity/Vol] 58 U/L Normal 16-63 [facility] Comment on above: Performed By: #### P SASC #### [facility] [address] [address] [address] Teddy Purcell Anion gap [Moles/Vol] 9.5 mmol/L Normal [facility] Comment on above: Performed By: #### P SASC #### [facility] [address] [address] [address] Teddy Purcell AST [Catalytic activity/Vol] 28 U/L Normal 15-37 [facility] Comment on above: Performed By: #### P SASC #### [facility] [address] [address] [address] Teddy Purcell Bilirubin [Mass/Vol] 0.3 mg/dL Normal 0.2-1.0 [facility] Comment on above: Performed By: #### P SASC #### [facility] [address] [address] [address] Teddy Purcell Calcium [Mass/Vol] 9.1 mg/dL Normal 8.5-10.1 [facility] Comment on above: Performed By: #### P SASC #### [facility] [address] [address] [address] Teddy Purcell Chloride [Moles/Vol] 104 mmol/L Normal 98-107 [facility] Comment on above: Performed By: #### P SASC #### [facility] [address] [address] [address] Teddy Purcell CO2 [Moles/Vol] 30.8 mmol/L Normal 21.0-32.0 [facility] Comment on above: Performed By: #### P SASC #### [facility] [address] [address] [address] Teddy Purcell Creatinine [Mass/Vol] 0.90 mg/dL Normal 0.70-1.30 [facility] Comment on above: Performed By: #### P SASC #### [facility] [address] [address] [address] Teddy Purcell EGFR-AF PRYDEINIG >60 Normal >=60 [facility] Comment on above: Performed By: #### P SASC #### [facility] [address] [address] [address] Teddy Purcell EGFR-NON AF PRYDEINIG >60 Normal >=60 [facility] Comment on above: Performed By: #### P SASC #### [facility] [address] [address] [address] Teddy Purcell Globulin (S) [Mass/Vol] 3.5 g/dL Normal [facility] Comment on above: Performed By: #### P SASC #### [facility] [address] [address] [address] Teddy Purcell Glucose [Mass/Vol] 145 mg/dL Critically high 74-106 [facility] Comment on above: Performed By: #### P SASC #### [facility] [address] [address] [address] Teddy Purcell Potassium [Moles/Vol] 4.3 mmol/L Normal 3.5-5.1 [facility] Comment on above: Performed By: #### P SASC #### [facility] [address] [address] [address] Teddy Purcell Protein [Mass/Vol] 7.0 g/dL Normal 6.4-8.2 [facility] Comment on above: Performed By: #### P SASC #### [facility] [address] [address] [address] Teddy Purcell Sodium [Moles/Vol] 140 mmol/L Normal 136-145 [facility] Comment on above: Performed By: #### P SASC #### [facility] [address] [address] [address] Teddy Purcell Urea nitrogen [Mass/Vol] 17.0 mg/dL Normal 7.0-18.0 [facility] Comment on above: Performed By: #### P SASC #### [facility] [address] [place] [address] Dr. Teddy Purcell Urea nitrogen/Creatinine [Mass ratio] 18.9 mg/mg Normal [facility] Comment on above: Performed By: #### P SASC #### [facility] [address] [address] [address] Teddy Purcell PROTIMEon 10-08-2021 INR Coag (PPP) [Relative time] 2.83 {INR} Normal [facility] Comment on above: Performed By: #### P T #### [facility] [address] [place] [address] Dr. Teddy Purcell INR GUIDELINES SEE BELOW Normal The [facility] Comment on above: Result Comment: ISMA RED INR: 2.0 - 3.0 CONDITIONS NOT LISTED BELOW 2.5 - 3.5 FOR PROSTHETIC HEART VALVE REPLACEMENT 2.5 - 3.5 RECURRENT THROMBOSIS Performed By: #### P T #### [facility] [address] [address] [address] Teddy Purcell PT Coag (PPP) [Time] 28.6 s Critically high 9.0-11.6 [facility] Comment on above: Performed By: #### P T #### [facility] [address] [place] [address] Dr. Teddy Purcell Prothrombin Time INRon 07-04 INR Coag (Bld) [Relative time] 10.5 s Normal 9.0-12.[address] [facility] Comment on above: Performed By: #### P T #### [id number] [facility] INR Coag (PPP) [Relative time] 0.9 {INR} Normal [facility] Comment on above: Result Comment: INR [...] heart valves: 3 - 4.5 PERFORMED BY: [place] [id number] PATHOLOGIST [employer]IATION ONCOLOGY MANAGER DANIKA COE M.D. Performed By: #### P T #### [id number] [facility] Operative Reporton 7 Operative Report MR#: [id number] [facility] Pt. Name: Mariajose Corral Room #: 0C [...] Dict: 10/20/2016//Chicho Barba M.D.Date Trans: 10/24/2016 05:16 P/[id number] c: Celio Oseguera M.D. [facility] [address] [facility] [place] [address] Dane Pompa M.D. [address] [facility] [place] [address] Normal [facility] POC GLUCOSE LABon 10-20-2016 Glucose mass conc 117 mg/dL High 70-100 [facility] Comment on above: Performed By: #### [id number] ####[facility] [place] [address], [facility] Glucose mass conc 132 mg/dL High 70-100 [facility] Comment on above: Performed By: #### [id number] ####[facility] [place] [address], [facility] Vital Signs Date Time Vital Sign Value Performing Clinician Bree reyes 04-23-2022 15:13-0500 Blood Pressure Location Durga N[facility] 04-23-2022 15:13-0500 Diastolic blood pressure 84 mm[Hg] [facility] [place] 04-23-2022 15:13-0500 Heart rate 76 /min Durga N[facility] [place] 04-23-2022 15:13-0500 Respiratory rate 16 /min Durga [...] abnormal findings DR DANE POMPA . [facility] Start: 04-03-2022 End: 04-04-[address] DANE POMPA . Facility: Start: 04-03-2022 End: 04-04-2022 Encounter for general adult medical examination without abnormal findings DR DANE POMPA . Facility:[facility] Start: 04-02-2022 ambulatory Durga BANKS Facility:[facility] Start: 12-05-2021 End: 12-06-[address] DANE POMPA . Facility:[facility] Start: 10-08-2021 End: 10-09-[address] DANE POMPA . Facility: Start: 10-20-2016 End: 10-21-2016 Ambulatory [facility] Facility:[facility] Procedures Date Procedure Procedure Detail Performing Clinician Start: 04-03-[address] RYAN POMPA . Comment on above: Performed By: #### P [facility] #### [facility] [address] [place] [address] Dr. Teddy Purcell Start: 10-20-2016 ANESTH LOWER [...] vaccine, unspecified formulation Durga NILL [facility] [place] Payers Date Payer Category Payer Unknown [id number] 2.16.8 [id number] 1973 Unknown [id number] 2.16.84 [id number] 1973 Unknown [id number] 2.16.84 [id number] 1973 Unknown [id number] 2.16.84 [id number] 1973 Unknown [id number] 2.16.84 [id number] 1973 Unknown [id number] 2.16.84 [id number] 1973 Unknown [id number] 2.16.84 [id number] 1973 Unknown [id number] 2.16.84 [id number] 1973 Unknown [id number] 2.16.84 [id number] 1961 Medicare [id number] 1961 Unknown [id number] Social History Date Type Detail Facility Start: 04-23-2022 Tobacco smoking status Never s moked tobacco (finding) [facility] Tobacco smoking status Never [facility] [place] Sex Assigned At Male [facility] Functional Status Date Assessment Result Facility 04-23-2022 Functional Status N/A [facility] Clinical Note 04-23-2022 Note Date & [...] Use, 04/23/2022 Substa (more content not included)... [facility] Comment on above: Result Comment: Elec tronically Signed By: JOCELYN GUNTER, Durga Myers\Date and Time Signed: 04/23/22 16:03 EST Evaluation + Plan note Note Date & Type Note Facility Evaluation + Plan note No data available for this section [facility] Discharge instructions Note Date & Type Note Facility Hospital Discharge instructions No data available for this section [facility] [place] Progress note Note Date & Type Note Facility Progress note No data available for this section [facility] [place] Summary Purpose Family History No Family History [...] and content) DATE CREATED AUTHOR 10/07/2017 [facility] DATE CREATED AUTHOR AUTHOR'S ORGANIZ ATION 07/12/2020 [facility] DATE CREATED AUTHOR AUTHOR'S ORGANIZ ATION 04/24/2022 [facility] DATE CREATED AUTHOR AUTHOR'S ORGANIZ ATION 08/22/[address] [facility] Patient Care team informatio n (unrecognized section and content) Personnel Name: Dane Pompa MD Address: Address: [address] [place] [address] FOR RECORDS PERTAINING TO PATIENTS WHO ARE [...] BE BASED ON THE PRIMARY CLINICAL RECORDS. [facility] [employer] [facility]. provides no warranty or guarantee of the accuracy or completeness of information in this document.
== END 2024-12-26 14:02 | disposition home or self-care (01) ==
LOC: LAB 14:03
PROVIDERS: PCP Family Medicine; Visit Provider Family Medicine
DX: I26.99 Other pulmonary embolism without acute cor pulmonale (principal)
CPT/HCPCS: 36415; 85610

== ENCOUNTER 2025-01-05 13:39 | Outpatient (OUT) | payer BC, MEDICARE, SELFPAY ==
--- OUTSIDE RECORDS SUMMARY | 2025-01-05 13:44 | XMS_ITS | CCD ---
Author Organization [facility] Care Team Providers Care Slackman Name Role Phone DAMIE, CHICHO Unavailable Unavailable SKIE, CHICHO Unavailable Unavailable HOY, DANE Unavailable Unavailable FOGT, CELIO Unavailable Unavailable AL Unavailable Unavailable SKIE, CHICHO Unavailable Unavailable AL Unavailable Unavailable PITRODA, SHAHANA Unavailable Unavailable Dane Pompa Primary Care Physician DIMASY ., DR VELA Primary Care Unavailable HOY [...] DR VELA Consulting Unavailable HOY ., DR EVLA Admitting Unavailable HOY ., DR VELA Primary [...] Primary Care Unavailable HOY ., DR VELA Admjoey Unavailable HOY ., DR VELA Attending Unavailable HoyDane Attending Unavailable HoyDane Admitting Unavailable HoyDane Attending Unavailable HoyDane Admitting Unavailable Allergies Allergy Classification Reported Allergen(s) Allergy Type Date of Onset Reaction(s) Facility (2 sources) celecoxib; 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: [CELEBREX] Drug Allergy 3 [facility] Repository (3 sources) morphine; 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: [MORPHINE] Drug Allergy 0 Unknown (qualifier value) [facility] Repository (2 sources) orphenadrine; 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: [Norflex] Drug Allergy 0 [facility] Repository (2 sources) Adhesive bandage; 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: [Adhesive Bandage] Drug allergy Unknown (qualifier value) [facility] [place] (2 sources) celecoxib; 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: [celecoxib] Drug Allergy 3 Unknown [facility] [place] (3 sources) Orphenadrine; 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: [orphenadrine] Drug Allergy 0 Unknown (qualifier value) [facility] [place] (1 source) Orphenadrine Drug Allergy 4 [facility] Repository Medications Current Medications Medication Drug [...] Migraine 04-09-2022 Chronic Other aftercare (5 sources) jail (current) use of anticoagulants; 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: [RETIREMENT CURRNT USE 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] Onset: 3 Episodic Other [...] intervertebral disc 04-09-2022 Chronic 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 (1 source) 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; 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: [RETIREMENT (CURRENT) USE OF ORAL HYPOGLYCEMIC DRUGS] Onset: 7 Past or Other Problems Problem Classification Problem Date Documented Da te Episodic/Chronic Deficiency and other anemia (1 source) Anemia, unspecified; 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: [ANEMIA UNSPECIFIED] Onset: 10-11-2021 Episodic Malaise and fatigue (1 source) Other fatigue; 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: [OTHER FATIGUE] Onset: 04-10-2022 Episodic Other aftercare (1 source) Other snf (current) drug therapy; 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: [OTH DIRECTOR EQUIPMENT CURRENT DRUG THERAPY] Onset: 04-10-2022 Episodic Other [...] Test Name Value Interpretation Reference Range Facility PT & PTTon 12-26-2024 INR Coag (PPP) [Relative time] 2.45 {INR} Invalid Interpretation Code [facility] Comment on above: Result Comment: INR results are specifically intended to assess patients stabilized on long-term Anticoagulation therapy suggested INR???s ???Less Intensive Anticoagulation??? 2.0 ??? 3.0 Conventional Range 3.0 ??? 4.5 Performed By: #### 1 [id number] #### [facility] [address] [place] [address] PT 27.9 second(s) High 9.4-12.5 [facility] Comment on above: Result Comment: 15 d ays - 4 weeks 1 - 5 months 6 -11 months 1- 5 years 6-10 years 11 -17 years Mean: 11.2 (9.5-12.6) Mean: 11.0 (9.7-12.8) Mean: 11.0 (9.8-13.0) Mean: 11.3 (9.9-13.4) Mean: 11.7 (10.0-14.6) Mean: 11.8 (10.0 - 14.1) Pediatric Reference ranges were obtained from a study by viviana Nelson al. prepared from 1437 samples obtained at 7 different centers using the same coagulation reagent and instrumentation as [facility]. Currently there are no coagulation studies available worldwide for children to 14 days, and no normal ranges. Performed By: #### 1 [id number] #### [facility] [address] [place] [address] PTT 51.0 second(s) High 25.1-36.5 [facility] Comment on above: Result Comment: Para meter 15 days - 4 weeks 1 - 5 months 6 - 11 months 1 - 5 years 6 - 10 years 11 - 17 years PTT Mean: 35.4 (27.6-45.6) Mean: 33.5 (24.8-40.7) Mean: 32.4 (25.1-40.7) Mean: 31.6 (24.0-39.2) Mean: 31.6 (26.9-38.7) Mean: 31.0 (24.6-38.4) Pediatric Reference ranges were obtained from a study by viviana Nelson al. prepared from 1437 samples obtained at 7 different centers using the same coagulation reagent and instrumentation as [facility]. Currently there are no coagulation studies available worldwide for children to 14 days, and no normal ranges. Heparin therapeutic range (represented by Anti-Factor Xa activity of 0.2 - 0.4 U/mL) corresponds to PTT of 56.6 - 109.0 sec. Performed By: #### 1 [id number] #### [facility] [address] [place] [address] PROTIMEon 08-14-2022 INR Coag (PPP) [Relative time] 2.84 {INR} Normal [facility] Comment on above: Performed By: #### P T #### [facility] [address] [place] [address] Dr. Teddy Purcell INR GUIDELINES SEE BELOW Normal [facility] Comment on above: Result Comment: ISMA RED INR: 2.0 - 3.0 CONDITIONS NOT LISTED BELOW 2.5 - 3.5 FOR PROSTHETIC HEART VALVE REPLACEMENT 2.5 - 3.5 RECURRENT THROMBOSIS Performed By: #### P T #### [facility] [address] [address] [address] Teddy Purcell PT Coag (PPP) [Time] 28.4 s Critically high 9.0-11.6 [facility] Comment on above: Performed By: #### P T #### [facility] [address] [place] [address] Dr. Teddy Purcell PROTIMEon 06-23-2022 INR Coag (PPP) [Relative time] 3.22 {INR} Normal [facility] Comment on above: Performed By: #### P T #### [facility] [address] [place] [address] Dr. Teddy Purcell INR GUIDELINES SEE BELOW Normal [facility] Comment on above: Result Comment: ISMA RED INR: 2.0 - 3.0 CONDITIONS NOT LISTED BELOW 2.5 - 3.5 FOR PROSTHETIC HEART VALVE REPLACEMENT 2.5 - 3.5 RECURRENT THROMBOSIS Performed By: #### P T #### [facility] [address] [place] [address] Dr. Teddy Purcell PT Coag (PPP) [Time] 31.9 s Critically high 9.0-11.6 [facility] Comment on above: Performed By: #### P T #### [facility] [address] [place] [address] Dr. Teddy Purcell PROTIMEon 06-16-2022 INR Coag (PPP) [Relative time] 3.26 {INR} Normal [facility] Comment on above: Performed By: #### P SASC #### [facility] [address] [place] [address] Dr. Teddy Purcell INR GUIDELINES SEE BELOW Normal [facility] Comment on above: Result Comment: ISMA RED INR: 2.0 - 3.0 CONDITIONS NOT LISTED BELOW 2.5 - 3.5 FOR PROSTHETIC HEART VALVE REPLACEMENT 2.5 - 3.5 RECURRENT THROMBOSIS Performed By: #### P SASC #### [facility] [address] [place] [address] Dr. Teddy Purcell PT Coag (PPP) [Time] 32.3 s Critically high 9.0-11.6 [facility] Comment on above: Performed By: #### P SASC #### [facility] [address] [place] [address] Dr. Teddy SALINASIMEon 06-09-2022 INR Coag (PPP) [Relative time] 4.37 {INR} Critically high [facility] Comment on above: Performed By: #### P T #### [facility] [address] [address] [address] Teddy Purcell INR GUIDELINES SEE BELOW Normal [facility] Comment on above: Result Comment: ISMA RED INR: 2.0 - 3.0 CONDITIONS NOT LISTED BELOW 2.5 - 3.5 FOR PROSTHETIC HEART VALVE REPLACEMENT 2.5 - 3.5 RECURRENT THROMBOSIS Performed By: #### P T #### [facility] [address] [address] [address] Teddy Purcell PT Coag (PPP) [Time] 42.6 s Critically high 9.0-11.6 [facility] Comment on above: Performed By: #### P T #### [facility] [address] [address] [address] Teddy Purcell OCC BLD IMMUNO SCREENon 03-15 OCCULT BLOOD Negative Normal NEGATIVE [facility] Comment on above: Performed By: #### P SASC #### [facility] [address] [address] [address] Teddy Purcell TESTOSTERONE, TOTALon 2021 Testosterone [Mass/Vol] 905 ng/dL Normal 264-916 [facility] Comment on above: Result Comment: Adul t male reference interval is based on a population of healthy nonobese males (BMI <30) between 19 and 39 years old. Thea et.al. JCEM 2017,102;1519-9540. PMID: [id number]. Performed By: #### P SASC #### [facility] [address] [address] [address] Teddy Purcell CBC AUTO DIFFon 04-03-2022 BASO # 0.0 103/ul Normal 0.0-0.1 [facility] Comment on above: Performed By: #### P SASC #### [facility] [address] [address] [address] Teddy Purcell Basophils/100 WBC (Bld) 0.2 % Normal 0.2-2.0 [facility] Comment on above: Performed By: #### P SASC #### [facility] [address] [place] [address] Dr. Teddy Purcell EO # 0.1 103/ul Normal 0.0-0.7 [facility] Comment on above: Performed By: #### P SASC #### [facility] [address] [place] [address] Dr. Teddy Purcell Eosinophils/100 WBC (Bld) 2.4 % Normal 0.9-7.0 [facility] Comment on above: Performed By: #### P SASC #### [facility] [address] [place] [address] Dr. Teddy Purcell Erythrocyte distribution width (RBC) [Ratio] 15.7 % Critically high 11.0-15.0 [facility] Comment on above: Performed By: #### P SASC #### [facility] [address] [place] [address] Dr. Teddy Purcell Hematocrit (Bld) [Volume fraction] 51.4 % Normal 42.0-54.0 [facility] Comment on above: Performed By: #### P SASC #### [facility] [address] [place] [address] Dr. Teddy Purcell Hemoglobin (Bld) [Mass/Vol] 16.9 g/dL Normal 14.0-18.0 [facility] Comment on above: Performed By: #### P SASC #### [facility] [address] [place] [address] Dr. Teddy Purcell IG # 0.01 10e3/ul Normal 0.00-0.03 [facility] Comment on above: Performed By: #### P SASC #### [facility] [address] [place] [address] Dr. Teddy Purcell IG % 0.2 % Normal 0.0-0.5 [facility] Comment on above: Performed By: #### P SASC #### [facility] [address] [place] [address] Dr. Teddy Purcell LYMPH # 2.0 103/ul Normal 1.2-3.8 [facility] Comment on above: Performed By: #### P SASC #### [facility] [address] [place] [address] Dr. Teddy Purcell Lymphocytes/100 WBC (Bld) 33.1 % Normal 20.5-60.0 [facility] Comment on above: Performed By: #### P SASC #### [facility] [address] [place] [address] Dr. Teddy Purcell MANUAL DIFF REQ NO Normal [facility] Comment on above: Performed By: #### P SASC #### [facility] [address] [place] [address] Dr. Teddy Purcell MCH (RBC) [Entitic mass] 29.8 pg Normal 25.9-34.0 [facility] Comment on above: Performed By: #### P SASC #### [facility] [address] [place] [address] Dr. Teddy Purcell MCHC (RBC) [Mass/Vol] 32.9 g/dL Normal 29.9-35.2 [facility] Comment on above: Performed By: #### P SASC #### [facility] [address] [place] [address] Dr. Teddy Purcell MCV (RBC) [Entitic vol] 90.7 fL Normal 80.0-94.0 [facility] Comment on above: Performed By: #### P SASC #### [facility] [address] [place] [address] Dr. Teddy Purcell MONO # 0.8 103/ul Normal 0.3-0.8 [facility] Comment on above: Performed By: #### P SASC #### [facility] [address] [place] [address] Dr. Teddy Purcell Monocytes/100 WBC (Bld) 12.9 % Critically high 1.7-12.0 [facility] Comment on above: Performed By: #### P SASC #### [facility] [address] [place] [address] Dr. Teddy Purcell NEUT # 3.1 103/ul Normal 1.4-6.5 [facility] Comment on above: Performed By: #### P SASC #### [facility] [address] [place] [address] Dr. Teddy Purcell Neutrophils/100 WBC (Bld) 51.2 % Normal 43.0-75.0 [facility] Comment on above: Performed By: #### P SASC #### [facility] [address] [place] [address] Dr. Teddy Purcell Platelet mean volume (Bld) [Entitic vol] 10.0 fL Normal 9.5-13.5 [facility] Comment on above: Performed By: #### P SASC #### [facility] [address] [place] [address] Dr. Teddy Purcell PLT 302 103/ul Normal 150-450 [facility] Comment on above: Performed By: #### P SASC #### [facility] [address] [place] [address] Dr. Teddy Purcell RBC 5.67 106/ul Normal 4.70-6.10 [facility] Comment on above: Performed By: #### P SASC #### [facility] [address] [place] [address] Dr. Teddy Purcell WBC 6.0 103/ul Normal 4.0-11.0 [facility] Comment on above: Performed By: #### P SASC #### [facility] [address] [place] [address] Dr. Teddy Purcell FREE T3on 04-03-2022 FREE T3 3.52 pg/mlL Normal 2.18-3.98 [facility] Comment on above: Performed By: #### P SASC #### [facility] [address] [place] [address] Dr. Teddy Purcell GLYCOHEMOGLOBIN A1Con 2021 ADA RECOMMENDATION SEE BELOW Normal [facility] Comment on above: Result Comment: ADA RECOMMENDED LIMIT 4.0 - 6.0 ADA THERAPEUTIC TARGET < 7.0 ACTION SUGGESTED > 7.0 Performed By: #### P SASC #### [facility] [address] [address] [address] Teddy Purcell Glucose [Mass/Vol] 209 mg/dL Normal [facility] Comment on above: Performed By: #### P SASC #### [facility] [address] [address] [address] Teddy Purcell HbA1c (Bld) [Mass fraction] 8.9 % Critically high 4.5-6.2 [facility] Comment on above: Performed By: #### P SASC #### [facility] [address] [place] [address] Dr. Teddy Purcell LIPID PROFILEon 04-03-2022 CHOL-HDL RATIO NORM SEE BELOW Normal [facility] Comment on above: Result Comment: 3.3 - 4.4 LOW RISK 4.4 - 7.1 AVERAGE RISK 7.1 - 11.0 MODERATE RISK >11.0 HIGH RISK Performed By: #### L IPID, FT3, T4, CMP, TSH #### [facility] [address] [place] [address] Dr. Teddy Purcell Cholesterol [Mass/Vol] 150 mg/dL Normal <=200 [facility] Comment on above: Performed By: #### L IPID, FT3, T4, CMP, TSH #### [facility] [address] [place] [address] Dr. Teddy Purcell Cholesterol in HDL [Mass/Vol] 31 mg/dL Critically low 40-60 [facility] Comment on above: Performed By: #### L IPID, FT3, T4, CMP, TSH #### [facility] [address] [place] [address] Dr. Teddy Purcell Cholesterol in LDL [Mass/Vol] 85.4 mg/dL Normal [facility] Comment on above: Performed By: #### L IPID, FT3, T4, CMP, TSH #### [facility] [address] [address] [address] Teddy Purcell Cholesterol.total/C holesterol in HDL [Mass ratio] 4.8 {ratio} Normal [facility] Comment on above: Performed By: #### L IPID, FT3, T4, CMP, TSH #### [facility] [address] [address] [address] Teddy Purcell HDL NORMAL > or = 60 mg/dl - LO W CARDIOVASCULAR RISK <40 mg/dl - HIGH CARDIOVASCULAR RISK Normal [facility] Comment on above: Performed By: #### L IPID, FT3, T4, CMP, TSH #### [facility] [address] [address] [address] Teddy Purcell LDL CALC NORMAL SEE BELOW Normal [facility] Comment on above: Result Comment: <100 mg/dl OPTIMAL 100 - 129 mg/dl NEAR OR ABOVE OPTIMAL 130 - 159 mg/dl BORDERLINE HIGH 160 - 189 mg/dl HIGH >190 mg/dl VERY HIGH Performed By: #### L IPID, FT3, T4, CMP, TSH #### [facility] [address] [address] [address] Teddy Purcell Triglyceride [Mass/Vol] 168 mg/dL Critically high <=150 [facility] Comment on above: Performed By: #### L IPID, FT3, T4, CMP, TSH #### [facility] [address] [address] [address] Teddy Purcell VLDL CALC 33.6 mg/dL Normal [facility] Comment on above: Performed By: #### L IPID, FT3, T4, CMP, TSH #### [facility] [address] [address] [address] Teddy Purcell PROF 14(COMP METB)on 022 Albumin [Mass/Vol] 3.7 g/dL Normal 3.4-5.0 [facility] Comment on above: Performed By: #### L IPID, FT3, T4, CMP, TSH #### [facility] [address] [address] [address] Teddy Purcell Albumin/Globulin [Mass ratio] 0.9 {ratio} Normal [facility] Comment on above: Performed By: #### L IPID, FT3, T4, CMP, TSH #### [facility] [address] [address] [address] Teddy Purcell ALP [Catalytic activity/Vol] 63 U/L Normal 46-116 [facility] Comment on above: Performed By: #### L IPID, FT3, T4, CMP, TSH #### [facility] [address] [address] [address] Teddy Purcell ALT [Catalytic activity/Vol] 61 U/L Normal 16-63 [facility] Comment on above: Performed By: #### L IPID, FT3, T4, CMP, TSH #### [facility] [address] [place] [address] Dr. Teddy Purcell Anion gap [Moles/Vol] 9.7 mmol/L Normal [facility] Comment on above: Performed By: #### L IPID, FT3, T4, CMP, TSH #### [facility] [address] [place] [address] Dr. Teddy Purcell AST [Catalytic activity/Vol] 30 U/L Normal 15-37 [facility] Comment on above: Performed By: #### L IPID, FT3, T4, CMP, TSH #### [facility] [address] [place] [address] Dr. Teddy Purcell Bilirubin [Mass/Vol] 0.3 mg/dL Normal 0.2-1.0 [facility] Comment on above: Performed By: #### L IPID, FT3, T4, CMP, TSH #### [facility] [address] [place] [address] Dr. Teddy Purcell Calcium [Mass/Vol] 9.7 mg/dL Normal 8.5-10.1 [facility] Comment on above: Performed By: #### L IPID, FT3, T4, CMP, TSH #### [facility] [address] [place] [address] Dr. Teddy Purcell Chloride [Moles/Vol] 96 mmol/L Critically low 98-107 [facility] Comment on above: Performed By: #### L IPID, FT3, T4, CMP, TSH #### [facility] [address] [place] [address] Dr. Teddy Purcell CO2 [Moles/Vol] 34.7 mmol/L Critically high 21.0-32.0 [facility] Comment on above: Performed By: #### L IPID, FT3, T4, CMP, TSH #### [facility] [address] [place] [address] Dr. Teddy Purcell Creatinine [Mass/Vol] 0.78 mg/dL Normal 0.70-1.30 [facility] Comment on above: Performed By: #### L IPID, FT3, T4, CMP, TSH #### [facility] [address] [place] [address] Dr. Teddy Purcell EGFR-AF CANADIAN >60 Normal >=60 [facility] Comment on above: Performed By: #### L IPID, FT3, T4, CMP, TSH #### [facility] [address] [place] [address] Dr. Teddy Purcell EGFR-NON AF CANADIAN >60 Normal >=60 [facility] Comment on above: Performed By: #### L IPID, FT3, T4, CMP, TSH #### [facility] [address] [place] [address] Dr. Teddy Purcell Globulin (S) [Mass/Vol] 3.9 g/dL Normal [facility] Comment on above: Performed By: #### L IPID, FT3, T4, CMP, TSH #### [facility] [address] [place] [address] Dr. Teddy Purcell Glucose [Mass/Vol] 165 mg/dL Critically high 74-106 [facility] Comment on above: Performed By: #### L IPID, FT3, T4, CMP, TSH #### [facility] [address] [place] [address] Dr. Teddy Purcell Potassium [Moles/Vol] 4.4 mmol/L Normal 3.5-5.1 [facility] Comment on above: Performed By: #### L IPID, FT3, T4, CMP, TSH #### [facility] [address] [place] [address] Dr. Teddy Purcell Protein [Mass/Vol] 7.6 g/dL Normal 6.4-8.2 [facility] Comment on above: Performed By: #### L IPID, FT3, T4, CMP, TSH #### [facility] [address] [address] [address] Teddy Purcell Sodium [Moles/Vol] 136 mmol/L Normal 136-145 [facility] Comment on above: Performed By: #### L IPID, FT3, T4, CMP, TSH #### [facility] [address] [place] [address] Dr. Teddy Purcell Urea nitrogen [Mass/Vol] 14.0 mg/dL Normal 7.0-18.0 [facility] Comment on above: Performed By: #### L IPID, FT3, T4, CMP, TSH #### [facility] [address] [place] [address] Dr. Teddy Purcell Urea nitrogen/Creatinine [Mass ratio] 17.9 mg/mg Normal [facility] Comment on above: Performed By: #### L IPID, FT3, T4, CMP, TSH #### [facility] [address] [place] [address] Dr. Teddy Purcell PROTIMEon 04-03-2022 INR Coag (PPP) [Relative time] 3.13 {INR} Normal [facility] Comment on above: Performed By: #### P T #### [facility] [address] [place] [address] Dr. Teddy Purcell INR GUIDELINES SEE BELOW Normal [facility] Comment on above: Result Comment: ISMA RED INR: 2.0 - 3.0 CONDITIONS NOT LISTED BELOW 2.5 - 3.5 FOR PROSTHETIC HEART VALVE REPLACEMENT 2.5 - 3.5 RECURRENT THROMBOSIS Performed By: #### P T #### [facility] [address] [place] [address] Dr. Teddy Purcell PT Coag (PPP) [Time] 31.4 s Critically high 9.0-11.6 [facility] Comment on above: Performed By: #### P T #### [facility] [address] [place] [address] Dr. Teddy Purcell T4on 04-03-2022 T4 [Mass/Vol] 7.60 ug/dL Normal 4.50-12.10 [facility] Comment on above: Performed By: #### L IPID, FT3, T4, CMP, TSH #### [facility] [address] [address] [address] Teddy Purcell TSHon 04-03-2022 TSH 1.595 uIU/mL Normal 0.358-3.740 [facility] Comment on above: Performed By: #### L IPID, FT3, T4, CMP, TSH #### [facility] [address] [id number] Teddy Purcell PROTIMEon 12-05-2021 INR Coag (PPP) [Relative time] 3.69 {INR} Normal [facility] Comment on above: Performed By: #### P T #### [facility] [address] [address] [address] Teddy Purcell INR GUIDELINES SEE BELOW Normal [facility] Comment on above: Result Comment: ISMA RED INR: 2.0 - 3.0 CONDITIONS NOT LISTED BELOW 2.5 - 3.5 FOR PROSTHETIC HEART VALVE REPLACEMENT 2.5 - 3.5 RECURRENT THROMBOSIS Performed By: #### P T #### [facility] [address] [place] [address] Dr. Teddy Purcell PT Coag (PPP) [Time] 36.6 s Critically high 9.0-11.6 [facility] Comment on above: Performed By: #### P T #### [facility] [address] [place] [address] Dr. Teddy Purcell TESTOSTERONE, TOTALon 2021 Testosterone [Mass/Vol] 633 ng/dL Normal 264-916 [facility] Comment on above: Result Comment: Adul t male reference interval is based on a population of healthy nonobese males (BMI <30) between 19 and 39 years old. Thea et.al. JCEM 2017,102;9042-6641. PMID: [id number]. Performed By: #### P T #### [facility] [address] [place] [address] Dr. Teddy Purcell CBC AUTO DIFFon 10-08-2021 BASO # 0.0 103/ul Normal 0.0-0.1 [facility] Comment on above: Performed By: #### C BC #### [facility] [address] [address] [address] Teddy Purcell Basophils/100 WBC (Bld) 0.4 % Normal 0.2-2.0 [facility] Comment on above: Performed By: #### C BC #### [facility] [address] [address] [address] Teddy Purcell EO # 0.1 103/ul Normal 0.0-0.7 [facility] Comment on above: Performed By: #### C BC #### [facility] [address] [place] [address] Dr. Teddy Purcell Eosinophils/100 WBC (Bld) 2.0 % Normal 0.9-7.0 [facility] Comment on above: Performed By: #### C BC #### [facility] [address] [place] [address] Dr. Teddy Purcell Erythrocyte distribution width (RBC) [Ratio] 13.7 % Normal 11.0-15.0 [facility] Comment on above: Performed By: #### C BC #### [facility] [address] [place] [address] Dr. Teddy Purcell Hematocrit (Bld) [Volume fraction] 45.6 % Normal 42.0-54.0 [facility] Comment on above: Performed By: #### C BC #### [facility] [address] [place] [address] Dr. Teddy Purcell Hemoglobin (Bld) [Mass/Vol] 14.8 g/dL Normal 14.0-18.0 [facility] Comment on above: Performed By: #### C BC #### [facility] [address] [place] [address] Dr. Teddy Purcell IG # 0.01 10e3/ul Normal 0.00-0.03 [facility] Comment on above: Performed By: #### C BC #### [facility] [address] [place] [address] Dr. Teddy Purcell IG % 0.2 % Normal 0.0-0.5 [facility] Comment on above: Performed By: #### C BC #### [facility] [address] [place] [address] Dr. Teddy Purcell LYMPH # 1.8 103/ul Normal 1.2-3.8 [facility] Comment on above: Performed By: #### C BC #### [facility] [address] [place] [address] Dr. Teddy Purcell Lymphocytes/100 WBC (Bld) 36.6 % Normal 20.5-60.0 [facility] Comment on above: Performed By: #### C BC #### [facility] [address] [place] [address] Dr. Teddy Purcell MANUAL DIFF REQ NO Normal [facility] Comment on above: Performed By: #### C BC #### [facility] [address] [place] [address] Dr. Teddy Purcell MCH (RBC) [Entitic mass] 30.0 pg Normal 25.9-34.0 [facility] Comment on above: Performed By: #### C BC #### [facility] [address] [place] [address] Dr. Teddy Purcell MCHC (RBC) [Mass/Vol] 32.5 g/dL Normal 29.9-35.2 [facility] Comment on above: Performed By: #### C BC #### [facility] [address] [place] [address] Dr. Teddy Purcell MCV (RBC) [Entitic vol] 92.3 fL Normal 80.0-94.0 [facility] Comment on above: Performed By: #### C BC #### [facility] [address] [place] [address] Dr. Teddy Purcell MONO # 0.7 103/ul Normal 0.3-0.8 [facility] Comment on above: Performed By: #### C BC #### [facility] [address] [place] [address] Dr. Teddy Purcell Monocytes/100 WBC (Bld) 13.7 % Critically high 1.7-12.0 [facility] Comment on above: Performed By: #### C BC #### [facility] [address] [place] [address] Dr. Teddy Purcell NEUT # 2.3 103/ul Normal 1.4-6.5 [facility] Comment on above: Performed By: #### C BC #### [facility] [address] [place] [address] Dr. Teddy Purcell Neutrophils/100 WBC (Bld) 47.1 % Normal 43.0-75.0 [facility] Comment on above: Performed By: #### C BC #### [facility] [address] [place] [address] Dr. Teddy Purcell Platelet mean volume (Bld) [Entitic vol] 10.3 fL Normal 9.5-13.5 [facility] Comment on above: Performed By: #### C BC #### [facility] [address] [place] [address] Dr. Teddy Purcell PLT 252 103/ul Normal 150-450 [facility] Comment on above: Performed By: #### C BC #### [facility] [address] [place] [address] Dr. Teddy Purcell RBC 4.94 106/ul Normal 4.70-6.10 [facility] Comment on above: Performed By: #### C BC #### [facility] [address] [place] [address] Dr. Teddy Purcell WBC 5.0 103/ul Normal 4.0-11.0 [facility] Comment on above: Performed By: #### C BC #### [facility] [address] [place] [address] Dr. Teddy Purcell IRONon 10-08-2021 Iron [Mass/Vol] 85.0 ug/dL Normal 65.0-175.0 [facility] Comment on above: Performed By: #### P SASC #### [facility] [address] [place] [address] Dr. Teddy Purcell MAGNESIUMon 10-08-2021 Magnesium [Mass/Vol] 1.9 mg/dL Normal 1.8-2.4 [facility] Comment on above: Performed By: #### P SASC #### [facility] [address] [address] [address] Teddy Purcell PHOSPHORUSon 10-08-2021 Phosphate [Mass/Vol] 3.1 mg/dL Normal 2.6-4.7 [facility] Comment on above: Performed By: #### P SASC #### [facility] [address] [address] [address] Teddy Purcell PROF 14(COMP METB)on 022 Albumin [Mass/Vol] 3.5 g/dL Normal 3.4-5.0 [facility] Comment on above: Performed By: #### P SASC #### [facility] [address] [place] [address] Dr. Teddy Purcell Albumin/Globulin [Mass ratio] 1.0 {ratio} Normal [facility] Comment on above: Performed By: #### P SASC #### [facility] [address] [place] [address] Dr. Teddy Purcell ALP [Catalytic activity/Vol] 59 U/L Normal 46-116 [facility] Comment on above: Performed By: #### P SASC #### [facility] [address] [place] [address] Dr. Teddy Purcell ALT [Catalytic activity/Vol] 58 U/L Normal 16-63 [facility] Comment on above: Performed By: #### P SASC #### [facility] [address] [place] [address] Dr. Teddy Purcell Anion gap [Moles/Vol] 9.5 mmol/L Normal [facility] Comment on above: Performed By: #### P SASC #### [facility] [address] [address] [address] Teddy Purcell AST [Catalytic activity/Vol] 28 U/L Normal 15-37 [facility] Comment on above: Performed By: #### P SASC #### [facility] [address] [place] [address] Dr. Teddy Purcell Bilirubin [Mass/Vol] 0.3 mg/dL Normal 0.2-1.0 [facility] Comment on above: Performed By: #### P SASC #### [facility] [address] [address] [address] Teddy Purcell Calcium [Mass/Vol] 9.1 mg/dL Normal 8.5-10.1 [facility] Comment on above: Performed By: #### P SASC #### [facility] [address] [address] [address] Teddy Purcell Chloride [Moles/Vol] 104 mmol/L Normal 98-107 [facility] Comment on above: Performed By: #### P SASC #### [facility] [address] [address] [address] Teddy Purcell CO2 [Moles/Vol] 30.8 mmol/L Normal 21.0-32.0 [facility] Comment on above: Performed By: #### P SASC #### [facility] [address] [address] [address] Teddy Purcell Creatinine [Mass/Vol] 0.90 mg/dL Normal 0.70-1.30 [facility] Comment on above: Performed By: #### P SASC #### [facility] [address] [address] [address] Teddy Purcell EGFR-AF CANADIAN >60 Normal >=60 [facility] Comment on above: Performed By: #### P SASC #### [facility] [address] [address] [address] Teddy Purcell EGFR-NON AF CANADIAN >60 Normal >=60 [facility] Comment on above: Performed By: #### P SASC #### [facility] [address] [address] [address] Teddy Purcell Globulin (S) [Mass/Vol] 3.5 g/dL Normal [facility] Comment on above: Performed By: #### P SASC #### [facility] [address] [address] [address] Teddy Purcell Glucose [Mass/Vol] 145 mg/dL Critically high 74-106 [facility] Comment on above: Performed By: #### P SASC #### [facility] [address] [address] [address] Teddy Purcell Potassium [Moles/Vol] 4.3 mmol/L Normal 3.5-5.1 [facility] Comment on above: Performed By: #### P SASC #### [facility] [address] [address] [address] Teddy Purcell Protein [Mass/Vol] 7.0 g/dL Normal 6.4-8.2 [facility] Comment on above: Performed By: #### P SASC #### [facility] [address] [address] [address] Teddy Pucrell Sodium [Moles/Vol] 140 mmol/L Normal 136-145 [facility] Comment on above: Performed By: #### P SASC #### [facility] [address] [address] [address] Teddy Purcell Urea nitrogen [Mass/Vol] 17.0 mg/dL Normal 7.0-18.0 [facility] Comment on above: Performed By: #### P SASC #### [facility] [address] [address] [address] Teddy Purcell Urea nitrogen/Creatinine [Mass ratio] 18.9 mg/mg Normal [facility] Comment on above: Performed By: #### P SASC #### [facility] [address] [address] [address] Teddy Purcell PROTIMEon 10-08-2021 INR Coag (PPP) [Relative time] 2.83 {INR} Normal [facility] Comment on above: Performed By: #### P T #### [facility] [address] [address] [address] Teddy Purcell INR GUIDELINES SEE BELOW Normal [facility] Comment on above: Result Comment: ISMA RED INR: 2.0 - 3.0 CONDITIONS NOT LISTED BELOW 2.5 - 3.5 FOR PROSTHETIC HEART VALVE REPLACEMENT 2.5 - 3.5 RECURRENT THROMBOSIS Performed By: #### P T #### [facility] [address] [address] [address] Teddy Purcell PT Coag (PPP) [Time] 28.6 s Critically high 9.0-11.6 [facility] Comment on above: Performed By: #### P T #### [facility] [address] [address] [address] Teddy Purcell Prothrombin Time INRon 07-04 INR Coag (Bld) [Relative time] 10.5 s Normal 9.0-12.9 [facility] Comment on above: Performed By: #### P T #### [facility] [address] [place], [place] [id number] [facility] INR Coag (PPP) [Relative time] 0.9 {INR} Normal [facility] Comment on above: Result Comment: INR [...] heart valves: 3 - 4.5 PERFORMED BY: [place] [address] PATHOLOGIST FILM SORTER DANIKA COE M.D. Performed By: #### P T #### [facility] [address] [place] [address] Operative Reporton 7 Operative Report MR#: [id number] [facility] Pt. Name: Mariajose Packer Room #: 0C Discharge 10/20/2016 Date: Birthdate: 1975 OPERATIVE REPORTDATE OF SURGERY: 10/20/2016SURGEON: Chicho Barba M.D.PREOPERATIVE DIAGNOSISScapholunate instability, right wrist.POSTOPERATIVE DIAGNOSES1.Scapholunate instability, right wrist2.Type 1B triangular fibrocartilage complex tear, right wrist.PROCEDURE1.Arthros copic examination, right wrist.2.Repair of triangular fiber cartilage, [...] Dict: 10/20/2016//Chicho Barba M.D.Date Trans: 10/24/2016 05:16 [id number] cc: Celio Oseguera M.D. [facility] [address] [place] [address] [place] [address] Dane Pompa M.D. [address] [place] [address] [place] [facility] POC GLUCOSE LABon 10-20-2016 Glucose mass conc 117 mg/dL High 70-100 [facility] Comment on above: Performed By: #### 8 [id number] ####[facility] [place] [address], [facility] Glucose mass conc 132 mg/dL High 70-100 [facility] Comment on above: Performed By: #### 8 [id number] ####[facility] Vital Signs Date Time Vital Sign Value Performing Clinician Bree reyes 04-23-2022 15:13-0500 Blood Pressure Location [employer] [facility] [place] 04-23-2022 15:13-0500 Diastolic blood pressure 84 mm[Hg] Durga [employer] [facility] [place] 04-23-2022 15:13-0500 Heart rate 76 /min Durga NILL [facility] [place] 04-23-2022 15:13-0500 Respiratory rate 16 /min Durga NILL [employer] [facility] [place] 04-23-2022 15:13-0500 Systolic blood pressure 132 mm[Hg] Durga NILL [employer] [facility] [place] Encounters Encounter Date Encounter Type Care Provider Facility Start: 12-26-2024 End: 12-26-2024 ambulatory Dane Pompa Facility[place] Start: 08-14-2022 End: 08-15-[address] DANE POMPA . Facility: Start: 06-23-2022 End: 06-24-[address] DANE POMPA . Facility: Start: 06-16-2022 End: 06-17-[address] DANE POMPA . Facility:[facility] Start: 06-09-2022 End: 06-10-[address] DANE POMPA . Facility:[facility] Start: 04-23-2022 End: 04-23-2022 Patient encounter procedure Durga BANKS [facility] [place] Start: 04-11-2022 End: 04-11-[address] DANE POMPA . Facility:[facility] Start: 04-10-2022 Encounter for genera l adult medical examination without abnormal findings DR DANE POMPA . [facility] Start: 04-03-2022 End: 04-04-[address] DANE POMPA . Facility:[facility] Start: 04-03-2022 End: 04-04-2022 Encounter for general adult medical examination without abnormal findings DR DAEN POMPA . Facility:[facility] Start: 12-05-2021 End: 12-06-[address] DANE POMPA . Facility:[facility] Start: 10-08-2021 End: 10-09-[address] DANE POMPA . Facility:[facility] Start: 10-20-2016 End: 10-21-2016 Ambulatory CHICHO BARBA Facility:[facility] Procedures Date Procedure Procedure Detail Performing Clinician Start: 04-03-[address] RYAN POMPA . Comment on above: Performed By: #### P [facility] #### [facility] [address] [place] [address] Dr. Teddy Purcell Start: 10-20-2016 ANESTH LOWER ARM SURGERY SHAHANA CALVO Start: 10-20-2016 WRIST ARTHROSCOPY/SURGERY CHICHO CHRIS History of lumbar laminectomy Durga NILL Open acromioplasty f or decompression of rotator cuff Durga NILL Partial resection of colon M ichael NILL Repair of ligament Durga N ILL Repair of meniscus Durga N ILL Repair of musculoten dinous cuff of shoulder Durga NILL Tonsillectomy Durga NILL Immunizations Immunization Date Immunization Notes Care Provider Fa cility NEGATED: Highlighted row has not occurred!04-23-2022 influenza virus vaccine, unspecified formulation Durga NILL [facility] Payers Date Payer Category Payer Unknown [id number] 2.16.84 [id number] 1975 Unknown [id number] 2.16.84 [id number] 1975 Unknown [id number] 2.16.84 [id number] 1973 Unknown [id number] 2.16.84 [id number] 1973 Unknown [id number] 2.16.84 [id number] 1973 Unknown [id number] 2.16.84 [id number] 1973 Unknown [id number] 2.16.84 [id number] 1973 Unknown [id number] 2.16.84 [id number] 1973 Unknown [id number] 2.16.8 [id number] 1961 Medicare [id number] 1961 Unknown [id number] Social History Date Type Detail Facility Start: 04-23-2022 Tobacco smoking status Never s moked tobacco (finding) [facility] [place] Tobacco smoking status Never [facility] [place] Sex Assigned At Male [facility] Functional Status Date Assessment Result Facility 04-23-2022 Functional Status N/A [facility] Evaluation + Plan note Note Date & Type Note Facility Evaluation + Plan note No data available for this section [facility] Discharge instructions Note Date & Type Note Facility Hospital Discharge instructions No data available for this section [facility] Progress note Note Date & Type Note Facility Progress note No data available for this section [facility] Summary Purpose Family History No Family History [...] section and content) DATE CREATED AUTHOR 10/07/2017 [facility] DATE CREATED AUTHOR AUTHOR'S ORGANIZ ATION 07/12/2020 [facility] DATE CREATED AUTHOR AUTHOR'S ORGANIZ ATION 08/22/2022 [facility] DATE CREATED AUTHOR AUTHOR'S ORGANIZ ATION 12/27/2024 [facility] DATE CREATED AUTHOR AUTHOR'S ORGANIZ ATION 01/03/2025 [facility] Patient Care team informatio n (unrecognized section and content) Personnel Name: Dane Pompa MD Address: Address: [address] [place] [address] FOR RECORDS PERTAINING TO PATIENTS WHO ARE [...] BASED ON THE PRIMARY CLINICAL RECORDS. [facility] [employer] [facility]. provides no warranty or guarantee of the accuracy or completeness of information in this document.
[2025-01-05 14:32] LABS: Prothrombin Time 38.7 sec (9.0-11.6)
[2025-01-05 14:39] LABS: INR 4.21
== END 2025-01-05 13:40 | disposition home or self-care (01) ==
LOC: LAB 13:41
PROVIDERS: PCP Family Medicine; Visit Provider Family Medicine
DX: I26.99 Other pulmonary embolism without acute cor pulmonale (principal)
CPT/HCPCS: 36415; 85610

== ENCOUNTER 2025-01-12 13:34 | Outpatient (OUT) | payer BC, MEDICARE, SELFPAY ==
--- OUTSIDE RECORDS SUMMARY | 2024-12-29 09:30 | XMS_ITS ---
Author Organization The [facility] in [place] Address [address] [place] [address] Care Team Providers Care Tool Trouble Shooter Name Role Phone Jeffrey Pompa Primary Care Provider Allergies Allergen (clinical drug ingredient) Drug/Non Drug Allergy documented on EMR Reaction Allergy Type Onset Date Status celecoxib CeleBREX Unknown Drug Allergy Active Norflex Unknown Drug Allergy Active Adhesive Unknown Allergy Active REASON FOR VISIT 3mon, Due for weekly Testosterone Injection per standing order-, Patient needs refill of Oxycodone,Percocet, and IBU to [facility] Medications Medication SIG (Take, Route, Frequency, Duration) Notes Start Date End Date Status Ketoconazole 2 % 1 application Telephone Station Installer ally Twice a day; Duration: 14 PRN 04/01/2023 Active oxyCODONE HCl 10 MG 1-2 tabs Orally dx M 51.26 every 4 to 6 hours; Duration: 30 days 11/30/2024 Active Lisinopril 20 MG TAKE 1 TABLET BY EVERY DAY; Duration: 90 Active Lancets 30G - Use 1 lancet E11.9 o nce daily; Duration: 90 09/29/2024 Active Lyrica 100 MG 1 capsule Orally DX m51.26 TID; Duration: 30 days 12/16/2024 Active Cialis 20 MG 1 tablet as needed O rally every 3 days; Duration: 90 days Active Cholecalciferol 50 MCG (1999 UT) 1 tablet Orally Once a day; Duration: 30 day(s) Active Ezetimibe 10 MG 1 tablet Orally Once a day; Duration: 30 days 04/14/2024 Active Cyclobenzaprine HCl 10 MG TAKE 2 TABLETS BY MOUTH AT BEDTIME; Duration: 30 Active Ibuprofen 800 MG TAKE 1 TABLET BY KISHOR FOUR TIMES A DAY NEEDED FOR PAIN; Duration: 25 Active Blood Glucose Monitor System w/Device use device Dx:E11.9 daily to monitor blood glucose level 09/29/2024 Active Adapalene 0.3 % APPLY SMALL AMOUNT T O AFFECTED AREA DAILY; Duration: 30 Active Warfarin Sodium 7.5 MG TAKE 1 TABLET BY MOUTH EVERY DAY; Duration: 30 Active Warfarin Sodium 2 MG Take 1 tablet with 7.5mg to EQUAL 9.5mg Orally Once a day; Duration: 30 days Active Warfarin Sodium 10 MG 1 tablet Orally Once a day PRN Active Omeprazole 20 MG TAKE 1 CAPSULE BY [facility] EVERY DAY; Duration: 90 Active Test Strips - Dx: E11.9 Dx: Diabet es Type II Once daily; Duration: 90 days 09/29/2024 Active Pioglitazone HCl 30 MG Take 1 tablet by mouth once daily; Duration: 30 Active Triamcinolone Acetonide 0.1 % 1 application Externally Twice a day; Duration: 30 07/01/2023 Active Testosterone Cypionate 200 MG/ML INJECT 0.4ML INTRAMUSCULARLY ONCE A WEEK; Duration: 28 days 12/15/2024 Active metFORMIN HCl 500 MG TAKE 1 TABLET BY [facility] TWICE A DAY; Duration: 90 Active Percocet 5-325 MG 2 tablets Orally dx M51.26 every 4 to 6 hours prn; Duration: 30 days 11/30/2024 Active Social History Tobacco Use: Social History Observation Description Date Details (start date - stop date) Never Smoker NA - NA Tobacco Use/Smoking Question Answer Notes Patient is a nonsmoker Vital Signs Weight 270.0 lbs 12/29/2024 Height 73 in 12/29/2024 Blood pressure systolic 130 mm Hg 12/30/19 25 Blood pressure diastolic 82 mm Hg 025 BMI 35.62 kg/m2 12/29/2024 Encounters Encounter Location Date Provider Diagnosis [facility] [address] [place] [address] 12/29/2024 Jeffrey Pompa 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 ; Type 2 diabetes mellitus with 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 edema, bilateral E11.3293 ; BP (high blood pressure) I10 ; Low testosterone E29.1 and Herniated lumbar disc without myelopathy M51.26 Assessments Encounter Date Diagnosis (ICD Code) Assessment Notes Treatment Notes Treatment Clinical Notes Section Notes 12/29/2024 Testicular hypofunction (ICD-10 - E29.1) 12/29/2024 Type 2 diabetes mellitus with 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 edema, bilateral (ICD-10 - E11.3293) 12/29/2024 BP (high blood pressure) (ICD-10 - I10) 12/29/2024 Low testosterone (ICD-10 - E29.1) 12/29/2024 Herniated lumbar disc without myelopathy (ICD-10 - M51.26) 12/29/2024 Other Recommended to rest and use a heating pad on the area. Take NSAIDs for pain as needed Plan Of Treatment Medication Medication Name Sig Start Date Stop Date Notes oxyCODONE HCl 10 MG 1-2 tabs Orally dx M 51.26 every 4 to 6 hours; Duration: 30 days 11/30/2024 Percocet 5-325 MG 2 tablets Orally dx M51.26 every 4 to 6 hours prn; Duration: 30 days 11/30/2024 Treatment Notes Assessment Notes Other Recommended to rest and use a heating pad on the area. Take NSAIDs for pain as needed Next Appt Details Provider Name:Jeffrey Rizvi Aletha, 01:45:00 PM, [address] [place], [address], Provider Name:Jeffrey Rizvi Aletha, 01:45:00 PM, [address] [place], [address], Provider Name:Jeffrey Rizvi Aletha, 01:30:00 PM, [address] [place], [address], Medications Administered Medication Instructions Date of Administration Dosage Notes Testosterone Cypionate 12/29/2024 0.4 mL Progress Notes * Ernesto PACKERDOB:[birth year] (49 yo M)Acc No.[id number]:12/29/2024 Progress Note Patient: Ernesto ASTORGA Ruperto Provider: Kang Pompa ([facility])MD :1975 A ge:49 Y S ex:Male Date:12/29/2024 Address:[address], [id number] Check In:01:15 PM ESTCheck O ut:01:51 PM EST Subjective: * Chief Complaints: * 3 monDue for weekly Testosterone Injection per standing order-Patient needs refill of Oxycodone, Percocet, and IBU [facility] * HPI: B ack Pain: good day na nd 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 * ROS: G eneral/Constitutional: Lightheadedness d enies. C hange in appetite d enies. W eight Change d enies. C ardiovascular: Irregular heartbeat d enies. S welling in hands/feet?denies. R espiratory: Shortness of breath d enies. S hortness of breath with exertion d enies. W heezing d enies. M usculoskeletal: Comments S HPI for details. N eurologic: Dizziness d enies. F ainting d enies. H eadache?denies. 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, bilateral Modified On:07/01/2023U Status:confirmed M51.26 Disc displacement, l umbar Modified On:07/04/2022U Status:confirmed I10 BP (high blood press ure) Modified On:07/01/2023U Status:confirmed D22.9 Nevus Modified On:07/14/2022 Status:confirmed E29.1 Low testosterone Modified On:06/04/2023U Status:confirmed R53.83 Fatigue Modified On:07/14/2022 Status:confirmed L70.0 [...] K21.9 GERD (gastroesophage al reflux disease) Modified On:09/19/2024W/U Status:confirmed * Medical History: * Surgical History: b ck surgery 05/2011right shoulder surgery 05/2002left shoulder surgery 05/2019colon resection 06/2009left knee surgery 08/2005right hand surgery 06/2016Left eye surgery- glaucoma 08/2024 * Hospitalization/Major Diagno stic Procedure: i nfection scrotum 06/2022 * Family History: F ather: alive 73 yrs, diagnosed with Diabetes mellitus without mention of complication, type II or unspecified type, not stated as uncontrolled, Unspecified heart disease. M other: alive 72 yrs. B rother(s): alive. S ister(s): alive. S on(s): alive. 1 brother(s) , 3 sister(s) - healthy. 2 son(s) - healthy. . mother breast cancer. * Social History: T obacco Use: T obacco Use/Smoking P atient is a n onsmoker * Medications: T akingAdapalene 0.3 % Gel APPLY SMALL AMOUNT TO AFFECTED AREA DAILY Blood Glucose Monitor System w/Device Kit use device Dx:E11.9 daily to monitor blood glucose level Cholecalciferol 50 MCG (2000 UT) Tablet 1 tablet Orally Once a day Cialis(Tadalafil) 20 MG Tablet 1 tablet as needed Orally every 3 days Cyclobenzaprine HCl 10 MG Tablet TAKE 2 TABLETS BY MOUTH AT BEDTIME Ezetimibe 10 MG Tablet 1 tablet Orally Once a day Ibuprofen 800 MG Tablet TAKE 1 TABLET BY MOUTH FOUR TIMES A DAY NEEDED FOR PAIN Ketoconazole 2 % Cream 1 application Externally Twice a day , Notes to Pharmacist: PRNLancets 30G - Miscellaneous Use 1 lancet E11.9 once daily Lisinopril 20 MG Tablet TAKE 1 TABLET BY MOUTH EVERY DAY Lyrica(Pregabalin) 100 MG Capsule 1 capsule Orally DX m51.26 TID metFORMIN HCl 500 MG Tablet TAKE 1 TABLET BY MOUTH TWICE A DAY Omeprazole 20 MG Capsule Delayed Release TAKE 1 CAPSULE BY MOUTH EVERY DAY oxyCODONE HCl 10 MG Tablet 1-2 tabs Orally dx M51.26 every 4 to 6 hours Percocet(oxyCODONE-Acetaminophen) 5-325 MG Tablet 2 tablets Orally dx M51.26 every 4 to 6 hours prn Pioglitazone HCl 30 MG Tablet Take 1 tablet by mouth once daily Test Strips - - Dx: E11.9 Dx: Diabetes Type II Once daily Testosterone Cypionate 200 MG/ML Solution INJECT 0.4ML INTRAMUSCULARLY ONCE A WEEK Triamcinolone Acetonide 0.1 % Cream 1 application Externally Twice a day Warfarin Sodium 7.5 MG Tablet TAKE 1 TABLET BY MOUTH EVERY DAY Warfarin Sodium 10 MG Tablet 1 tablet Orally Once a day , Notes to Pharmacist: PRNWarfarin Sodium 2 MG Tablet Take 1 tablet with 7.5mg to EQUAL 9.5mg Orally Once a day Medication List reviewed and reconciled with the patientTaking Adapalene 0.3 % Gel APPLY SMALL AMOUNT TO AFFECTED AREA DAILY Taking Blood Glucose Monitor System w/Device Kit use device Dx:E11.9 daily to monitor blood glucose level Taking Cholecalciferol 50 MCG (2000 UT) Tablet 1 tablet Orally Once a day Taking Cialis(Tadalafil) 20 MG Tablet 1 tablet as needed Orally every 3 days Taking Cyclobenzaprine HCl 10 MG Tablet TAKE 2 TABLETS BY MOUTH AT BEDTIME Taking Ezetimibe 10 MG Tablet 1 tablet Orally Once a day Taking Ibuprofen 800 MG Tablet TAKE 1 TABLET BY MOUTH FOUR TIMES A DAY NEEDED FOR PAIN Taking Ketoconazole 2 % Cream 1 application Externally Twice a day , Notes to Pharmacist: PRNTaking Lancets 30G - Miscellaneous Use 1 lancet E11.9 once daily Taking Lisinopril 20 MG Tablet TAKE 1 TABLET BY MOUTH EVERY DAY Taking Lyrica(Pregabalin) 100 MG Capsule 1 capsule Orally DX m51.26 TID Taking metFORMIN HCl 500 MG Tablet TAKE 1 TABLET BY MOUTH TWICE A DAY Taking Omeprazole 20 MG Capsule Delayed Release TAKE 1 CAPSULE BY MOUTH EVERY DAY Taking oxyCODONE HCl 10 MG Tablet 1-2 tabs Orally dx M51.26 every 4 to 6 hours Taking Percocet(oxyCODONE-Acetaminophen) 5-325 MG Tablet 2 tablets Orally dx M51.26 every 4 to 6 hours prn Taking Pioglitazone HCl 30 MG Tablet Take 1 tablet by mouth once daily Taking Test Strips - - Dx: E11.9 Dx: Diabetes Type II Once daily Taking Testosterone Cypionate 200 MG/ML Solution INJECT 0.4ML INTRAMUSCULARLY ONCE A WEEK Taking Triamcinolone Acetonide 0.1 % Cream 1 application Externally Twice a day Taking Warfarin Sodium 7.5 MG Tablet TAKE 1 TABLET BY MOUTH EVERY DAY Taking Warfarin Sodium 10 MG Tablet 1 tablet Orally Once a day , Notes to Pharmacist: PRNTaking Warfarin Sodium 2 MG Tablet Take 1 tablet with 7.5mg to EQUAL 9.5mg Orally Once a day Medication List reviewed and reconciled with the patient * Allergies: N orflexCeleBREXAdhesiveno[Allergies Verified] Objective: * Vitals: W t:270.0lbs, Ht: 73 in, BP:130/82mm Hg, BMI:35.62Index, Ht-cm: 185.42 cm, Wt-k.47 kg. * Examination: G eneral Examination: GENERAL APPEARANCE: i n no acute distress, well developed, well nourished. LUNGS: clear to auscultation bilaterally. CARDIO: S1, S2 normal, no murmurs, rubs, gallops. MUSCULOSKELETAL: P oor rom due to LDD _ not a bdad day today. EXTREMITIES: no clubbing, cyanosis, or edema. NEUROLOGIC: alert, oriented to time, place, & person.? Assessment: * Assessment: 1. T esticular hypofunction - E29.1 (Primary) 2 . T ype 2 diabetes mellitus with 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 edema, bilateral - E11.3293 ? 3 . B P (high blood pressure) - I10 4 . L ow testosterone - E29.1 5. H erniated lumbar disc without myelopathy - M51.26 Plan: * Treatment: 2. O thers Notes: Recommended to rest and use a heating pad on the area. Take NSAIDs for pain as needed ? * Therapeutic Injections: Testosterone Cypionate 200mg : 0.4 mL (Route: Intramuscular) given by Lindsey Newman SA on left gluteus (Testicular hypofunction) * Procedure Codes: 9 6372 THERAP.INJ. OF MED. INTRAMUSCULAR OR [id number] TESTOST CYPIONATE 1MG * * Sign off status: Completed Visit Status: Lupe HIGGINBOTHAM (Check Out) true * Provider: Kang Pompa ([facility])MD Date: 0 12/29/2024 Generated for Printi gaetano/Kendra/eTransmitting on: 1 01:38 PM EDT History and Physical Notes * Examination Category Sub-Category Detail Notes Category Not es General Examination GENERAL APPEARANCE: in no ac [facility] distress, well developed, well nourished CARDIO: S1, S2 normal, no mu rmurs, rubs, gallops LUNGS: clear to auscultatio n bilaterally NEUROLOGIC: alert, oriented to t gretel, place, & person EXTREMITIES: no clubbing, cyanosi s, or edema MUSCULOSKELETAL: Poor rom due to LDD _ not a bdad day today
--- OUTSIDE RECORDS SUMMARY | 2025-01-05 09:30 | XMS_ITS ---
Author Organization [facility] in [place] Address [address] [place] [address] Care Team Providers Care Ship Erector Name Role Phone Jeffrey Pompa Primary Care Provider REASON FOR VISIT Pt presents for testosterone injection Encounters Encounter Location Date Provider Diagnosis [facility] [address] [place] [address] 01/05/2025 Jeffrey Pompa Low testosterone E29 .1 Assessments Encounter Date Diagnosis (ICD Code) Assessment Notes Treatment Notes Treatment Clinical Notes Section Notes 01/05/2025 Low testosterone (ICD-10 - E29.1) Plan Of Treatment Next Appt Details Provider Name:Jeffrey Pompa, 01:45:00 PM, [address] [facility] [place], [address], Provider Name:Jeffrey Rizvi Darrenjose, 01:45:00 PM, [address] [place] [address] [place], [address], Provider Name:Jeffrey Rizvi Darrenjose, 01:30:00 PM, [address] [place] [address], [address], Medications Administered Medication Instructions Date of Administration Dosage Notes Testosterone Cypionate 01/05/2025 0.4 mL Progress Notes * Ernesto PACKERDOB:[birth year] (49 yo M)Acc No.[id number]:01/05/2025 Progress Note Patient: Ernesto ASTORGA Provider: Kang Pompa ([facility])MD :1975 A ge:49 Y S ex:Male Date:01/05/2025 Address:[facility] [address], [place], [id number] Check In:01:17 PM ESTCheck O ut:01:32 PM EST Subjective: * Chief Complaints: * P t presents for testosterone injection * Active Problem List E29.1 Decreased testostero [...] glaucoma with ocular hypertension, unspecified laterality Modified On:04/03/2023W/U Status:confirmed E11.3293 Mild nonproliferativ e diabetic retinopathy [...] : 0.4 mL (Route: Intramuscular) given by ADWOA Guillory on right gluteus (Low testosterone) * Procedure Codes: J 1071 TESTOST CYPIONATE [id number] THERAP.INJ. OF MED. INTRAMUSCULAR OR SUBCUTANEOUS * * Sign off status: Completed Visit Status: C HK (Check Out) true * Provider: Kang Pompa ([facility])MD Date: 0 01/05/2025 Generated for Aquiles salter/Kendra/Bailee on: 1 01:38 PM EDT
--- OUTSIDE RECORDS SUMMARY | 2025-01-12 13:39 | XMS_ITS | Patient Health Record ---
Author Organization [facility] in [place] Address [address] [place] [address] Care Team Providers Care Spa Assistant Manager Name Role Phone Jeffrey Pompa Primary Care Provider Allergies Allergen (clinical drug ingredient) Drug/Non Drug Allergy documented on EMR Reaction Allergy Type Onset Date Status celecoxib CeleBREX Unknown Drug Allergy Active Norflex Unknown Drug Allergy Active Adhesive Unknown Allergy Active Results Component Value Reference Range Notes CBC AUTO DIFF Reviewed date:04/11/2024 08:31:42 PM Interpretation: Performing Lab: Notes/Report: [facility] , White Blood Count 4.7 4.0-11.0 10 [...] 0.00-0.03 10 3/uL Performing Lab: see note - [facility] GLYCOHEMOGLOBIN A1C Reviewed date:04/11/2024 08:31:42 PM Interpretation: Performing Lab: Notes/Report: [facility] , Glycohemoglobin A1C 8.5 4.5-6.2 % > 7.0 ADA RECOMMENDED LIMIT 4.0 - 6.0 ADA THERAPEUTIC TARGET < 7.0 ACTION SUGGESTED Estimated Average Glucose 197 Performing Lab: see note - [facility] PSA SCREENING Reviewed date:04/11/2024 08:31:42 PM Interpretation: Performing Lab: Notes/Report: [facility] , Prostate Specific Antigen Scrn 0.72 <=4.00 ng/mL Performing Lab: see note - [facility] Testosterone Reviewed date:04/13/2024 03:33:53 PM Interpretation: Performing Lab: Notes/Report: [facility] , Testosterone 784 264-916 ng/dL Warehouse Distribution Specialist: Duglas Jacob PhD, Phone: [phone] Adult male reference interval is based on a population of [id number]. [address] [place], [place] [id number] old. viviana Sidhu.al. JCEM 2017,102;1499-9952. PMID: healthy nonobese males (BMI <30) between 19 and 39 years [facility] at[facility] Performing Lab: see note - [facility] Prothrombin Time INR Reviewed date:11/30/2024 05:07:11 PM Interpretation: Performing Lab: Notes/Report: [facility] , Prothrombin Time 24.8 9.0-11.6 sec INR 2.57 DESIRED INR: 2.5-3.5 RECURRENT THROMBOSIS 2.0-3.0 CONDITIONS NOT LISTED BELOW 2.5-3.5 FOR PROSTHETIC HEART VALVE REPLACEMENT Performing Lab: see note - [facility] Testosterone Reviewed date:12/01/2024 12:57:42 PM Interpretation: Performing Lab: Notes/Report: [facility] , Testosterone 502 264-916 ng/dL [address] [place], [place] [id number] Adult male reference interval is based on a population of healthy nonobese males (BMI <30) between 19 and 39 years Performed at: [facility] Warehouse Distribution Specialist: Duglas Jacob PhD, Phone: [phone] old. viviana Sidhu.al. JCEM 2017,102;5179-4948. PMID: [id number]. Performing Lab: see note [facility] Prothrombin Time INR Reviewed date:12/15/2024 03:58:41 PM Interpretation: Performing Lab: Notes/Report: [facility] , Prothrombin Time 23.5 9.0-11.6 sec INR 2.42 2.0-3.0 CONDITIONS NOT LISTED BELOW 2.5-3.5 RECURRENT THROMBOSIS DESIRED INR: 2.5-3.5 FOR PROSTHETIC HEART VALVE REPLACEMENT Performing Lab: see note ML - [facility] Prothrombin Time INR Reviewed date:12/17/2024 04:26:40 PM Interpretation: Performing Lab: Notes/Report: [facility] , Prothrombin Time 24.7 9.0-11.6 sec INR 2.56 DESIRED INR: 2.0-3.0 CONDITIONS NOT LISTED BELOW 2.5-3.5 FOR PROSTHETIC HEART VALVE REPLACEMENT 2.5-3.5 RECURRENT THROMBOSIS Performing Lab: see note ML - [facility] Prothrombin Time INR Reviewed date:12/22/2024 07:42:45 PM Interpretation: Performing Lab: Notes/Report: [facility] , Prothrombin Time 26.8 9.0-11.6 sec INR 2.80 2.5-3.5 RECURRENT THROMBOSIS 2.5-3.5 FOR PROSTHETIC HEART VALVE REPLACEMENT DESIRED INR: 2.0-3.0 CONDITIONS NOT LISTED BELOW Performing Lab: see note - [facility] Prothrombin Time INR Reviewed date:12/26/2024 04:09:33 PM Interpretation: Performing Lab: Notes/Report: [facility] , Prothrombin Time 28.7 9.0-11.6 sec INR 3.02 2.5-3.5 FOR PROSTHETIC HEART VALVE REPLACEMENT 2.5-3.5 RECURRENT THROMBOSIS 2.0-3.0 CONDITIONS NOT LISTED BELOW DESIRED INR: Performing Lab: see note [facility] LB Prothrombin Time INR Reviewed date:01/05/2025 06:01:50 PM Interpretation: Performing Lab: Notes/Report: [facility] , Prothrombin Time 38.7 9.0-11.6 sec INR 4.21 2.5-3.5 RECURRENT THROMBOSIS 2.5-3.5 FOR PROSTHETIC HEART VALVE REPLACEMENT 2.0-3.0 CONDITIONS NOT LISTED BELOW RESULTS CALLED TO DESIRED INR: Performing Lab: see note [facility] Testosterone Reviewed date:2024 12:13:48 PM Interpretation: Performing Lab: Notes/Report: [facility] , Testosterone 317 264-916 ng/dL Performed at: [facility] healthy nonobese males (BMI <30) between 19 and 39 years Warehouse Distribution Specialist: Duglas Jacob PhD, Phone: [phone]. Adult male reference interval is based on a population of [address] [place], [place] [id number] old. Thea et.al. JCEM 2017,102;8663-4093. PMID: Performing Lab: see note [facility] LB Prothrombin Time INR Reviewed date:07/20/2024 06:24:03 PM Interpretation: Performing Lab: Notes/Report: [facility] , Prothrombin Time 29.8 9.0-11.6 sec INR 3.15 2.5-3.5 RECURRENT THROMBOSIS DESIRED INR: 2.5-3.5 FOR PROSTHETIC HEART VALVE REPLACEMENT 2.0-3.0 CONDITIONS NOT LISTED BELOW Performing Lab: see note - [facility] LB Prothrombin Time INR Reviewed date:04/11/2024 08:31:42 PM Interpretation: Performing Lab: Notes/Report: [facility] , Prothrombin Time 31.2 9.0-11.6 sec INR 3.31 2.5-3.5 RECURRENT THROMBOSIS DESIRED INR: 2.0-3.0 CONDITIONS NOT LISTED BELOW 2.5-3.5 FOR PROSTHETIC HEART VALVE REPLACEMENT Performing Lab: see note ML - [facility] LB URIC ACID SERUM Reviewed date:04/11/2024 08:31:42 PM Interpretation: Performing Lab: Notes/Report: [facility] , Uric Acid 4.2 3.5-7.2 mg/dL Performing Lab: see note ML - [facility] LB TSH Reviewed date:04/11/2024 08:31:42 PM Interpretation: Performing Lab: Notes/Report: [facility] , Thyroid Stimulating Hormone 1.675 0.358-3.740 u IU/mL Performing Lab: see note ML - [facility] LB T4 Reviewed date:04/11/2024 08:31:42 PM Interpretation: Performing Lab: Notes/Report: [facility] , T4 Thyroxine 7.60 4.50-12.10 ug/dL Performing Lab: see note ML - [facility] LB PROF 14(COMP METB) Reviewed date:04/11/2024 08:31:42 PM Interpretation: Performing Lab: Notes/Report: [facility] , Sodium 137 136-145 mmol/L Potassium 4.1 [...] 1.0 Performing Lab: see note ML - [facility] LB LIPID PROFILE Reviewed date:04/11/2024 08:31:42 PM Interpretation: Performing Lab: Notes/Report: [facility] , Triglycerides 236 <=150 mg/dL Cholesterol 263 [...] RISK Performing Lab: see note ML - [facility] FREE T3 Reviewed date:04/11/2024 08:31:42 PM Interpretation: Performing Lab: Notes/Report: [facility] , Free T3 3.78 2.18-3.98 pg/mL Performing Lab: see note ML - [facility] Reason For Referral No Information Medications Medication SIG (Take, Route, Frequency, Duration) Notes Start Date End Date Status Glucose Meter check blood sugar 3 times daily DX E11.9; Duration: 90 days glucose meter covered by insurance 01/12/2025 Active Blood Glucose Monitor System w/Device use device Dx:E11.9 daily to monitor blood glucose level 09/29/2024 Active Adapalene 0.3 % APPLY SMALL AMOUNT T O AFFECTED AREA DAILY; Duration: 30 Active Cialis 20 MG 1 tablet as needed O rally every 3 days; Duration: 90 days Active Cholecalciferol 50 MCG (1999 UT) 1 tablet Orally Once a day; Duration: 30 day(s) Active Ezetimibe 10 MG 1 tablet Orally Once a day; Duration: 30 days 04/14/2024 Active Cyclobenzaprine HCl 10 MG TAKE 2 TABLETS BY MOUTH AT BEDTIME; Duration: 30 Active Ketoconazole 2 % 1 application [employer] The[employer]ist ally Twice a day; Duration: 14 PRN 04/01/2023 Active Lisinopril 20 MG TAKE 1 TABLET BY EVERY DAY; Duration: 90 Active Lancets 30G - Use 1 lancet E11.9 o nce daily; Duration: 90 09/29/2024 Active Percocet 5-325 MG 2 tablets Orally dx M51.26 every 4 to 6 hours prn; Duration: 30 days 12/30/2024 Active oxyCODONE HCl 10 MG 1-2 tabs Orally dx M 51.26 every 4 to 6 hours; Duration: 30 days 12/30/2024 Active Warfarin Sodium 2 MG Take 1 tablet with 7.5mg to EQUAL 9.5mg Orally Once a day; Duration: 30 days Active Warfarin Sodium 10 MG 1 tablet Orally Once a day PRN Active Omeprazole 20 MG TAKE 1 CAPSULE BY [facility] EVERY DAY; Duration: 90 Active metFORMIN HCl 500 MG TAKE 1 TABLET BY [facility] TWICE A DAY; Duration: 90 Active Lancets - used to check blood sugar 3 times daily DX E11.9; Duration: 30 days 01/12/2025 Active Test Strips - Dx: E11.9 Dx: Diabet es Type II Once daily; Duration: 90 days 09/29/2024 Active Pioglitazone HCl 30 MG Take 1 tablet by mouth once daily; Duration: 30 Active Triamcinolone Acetonide 0.1 % 1 application Externally Twice a day; Duration: 30 07/01/2023 Active Testosterone Cypionate 200 MG/ML INJECT 0.4ML INTRAMUSCULARLY ONCE A WEEK; Duration: 28 days 12/15/2024 Active Warfarin Sodium 7.5 MG TAKE 1 TABLET BY MOUTH EVERY DAY; Duration: 30 Active Ibuprofen 800 MG TAKE 1 TABLET BY [place] FOUR TIMES A DAY NEEDED FOR PAIN; Duration: 25 Active Lyrica 100 MG 1 capsule Orally DX m51.26 TID; Duration: 30 days 12/16/2024 Active Test Strips - used to check blood sugar 3 times daily DX E11.9; Duration: 30 days 01/12/2025 Active Social History Tobacco Use: Social History [...] Problem Status W/U Status Risk Notes Problem Testicular hypofunction (584609668) 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 confirmed Problem Acne vulgaris (51677717) Acne vulgaris (L70.0) Active confirmed Problem Fatigue (26161115) Fatigue (R53.83) Active conf irmed Problem Migraine variant with headache (disorder) (933363470) Migraine headache (G43.909) Active confirmed Problem Psoriasis (8963567) Psoriasis (L40.9) Active co nfirmed Problem Gastroesophageal reflux disease (412789171) GERD (gastroesophageal reflux disease) (K21.9) Active confirmed Problem Pulmonary embolism (09788435) Pulmonary embolism (I26.99) Active confirmed Problem Acute sinusitis (36322305) Acute sinusitis (J01.90) Active confirmed Problem Allergic rhinitis (04826666) Allergic rhinitis (J30.9) Active confirmed Problem Well adult (424878824) Well adult (Z00.00) Active confirmed Problem Benign hypertension (71724245) Benign hypertension (I10) Active confirmed Problem Low testosterone (294117667) Low testosterone (E29.1) Active confirmed Problem Displacement of lumbar intervertebral disc without myelopathy (78065254) Herniated lumbar disc without myelopathy (M51.26) Active confirmed Problem Cellulitis and abscess of trunk (530557041) Abdominal wall abscess (L02.211) Active confirmed Problem Nevus (2304250514) Nevus (D22.9) Active confirm ed Problem Decreased testosterone level (738574383) Decreased testosterone level (E29.1) Active confirmed Problem Prostatitis (8497833) Prostatitis (N41.9) Active confirmed Problem Superficial thrombophlebitis (5272104) Superficial thrombophlebitis (I80.9) Active confirmed Problem Regular astigmatism (59386898) Regular astigmatism (H52.229) Active confirmed Problem Displacement of lumbar intervertebral disc without myelopathy (20020117) Disc displacement, lumbar (M51.26) Active confirmed Problem Shoulder impingement syndrome (850146044) Shoulder impingement syndrome (M75.40) Active confirmed Problem Essential hypertension (48178315) BP (high blood pressure) (I10) Active confirmed Problem Mild nonproliferative retinopathy due to type 2 diabetes mellitus (356967785850801) Type 2 diabetes mellitus with 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 edema, bilateral (E11.3293) Active confirmed Problem Mortons neuroma of right foot (678409143994246) Mortons neuroma, right (G57.61) Active confirmed Problem Mild nonproliferative retinopathy due to diabetes mellitus (disorder) (583582545) Mild nonproliferative diabetic retinopathy of both eyes without macular edema associated with type 2 diabetes mellitus (E11.3293) Active confirmed Problem Chorioretinal scar (34791097) Retinal scar, unspecified laterality (H31.009) Active confirmed Problem Ocular hypertension (7568941) Borderline glaucoma with ocular hypertension, 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) Active confirmed Problem Disease caused by Severe acute respiratory syndrome coronavirus 2 (disorder) (621216535) COVID-19 virus infection (U07.1) Active confirmed Problem Thrombophlebitis of deep vein of lower leg, unspecified laterality (I80.209) Active confirmed Vital Signs Blood pressure diastolic 82 mm Hg 12/29/2024 Height 73 in 12/29/2024 Blood pressure systolic 130 mm Hg 12/29/2024 Weight 270.0 lbs 12/29/2024 BMI 35.62 kg/m2 12/29/2024 Encounters Encounter Location Date Provider Diagnosis [facility] [address] [facility] [place] [place] [address] 01/21/2024 Jeffrey Pompa [facility] [address] [facility] [place] [address] 02/02/2024 Jeffrey [facility] [address] [place] [address] 02/19/2024 Jeffrey Pompa [facility] [address] [facility] [place] [place] [address] 03/03/2024 Jeffrey Pompa [facility] [address] [facility] [place] [place] [address] 03/24/2024 Jeffrey Pompa [facility] [address] [place] [address] 04/11/2024 Jeffrey Pompa High cholesterol E78 .00 [facility] [address] [place] [address] 04/13/2024 Jeffrey Pompa [facility] [address] [place] [address] 04/25/2024 Jeffrey Hoy [facility] [address] [place] [facility] [place] [address] 05/02/2024 Jeffrey Hoy Type 2 diabetes neli itus with 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 edema, bilateral E11.3293 [facility] [address] [place] [facility] [place] [address] 05/23/2024 Jeffrey Hoy [facility] [address] [place] [address] 05/25/2024 Jeffrey Hoy [facility] [address] [place] [address] 06/01/2024 Jeffrey Hoy Type 2 diabetes neli itus with 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 edema, bilateral E11.3293 [facility] [address] [place] [facility] [place] [place] [address] 06/22/2024 Jeffrey Hoy [facility] [address] [place] [facility] [place] [address] 07/04/2024 Jeffrey Hoy Type 2 diabetes neli itus with 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 edema, bilateral E11.3293 [facility] [address] [place] [place] [address] 07/12/2024 Jeffrey Hoy 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 [facility] [address] [place] [address] 07/12/2024 Jeffrey Hoy 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 [facility] [address] [place] [address] 07/14/2024 Jeffrey Hoy 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 [facility] [address] [place] [address] 07/20/2024 Jeffrey Hoy Pulmonary embolism I 26.99 [facility] [address] [place] [address] 07/20/2024 Jeffrey Hoy [facility] [address] [place] [address] 2024 Jeffrey Pompa [facility] [address] [place] [address] 2024 Jeffrey Hoy 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 [facility] [address] [place] [address] 07/22/2024 Jeffrey Pompa [facility] [address] [place] [address] 08/03/2024 Jeffrey Hoy Type 2 diabetes neli itus with 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 edema, bilateral E11.3293 [facility] [address] [place] [place] [address] 08/19/2024 Jeffrey Pompa [facility] [address] [place] [address] 09/01/2024 Jeffrey Hoy Type 2 diabetes neli itus with 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 edema, bilateral E11.3293 [facility] [address] [place] [address] 09/19/2024 Jeffrey Banksy [facility] [address] [place] [address] 09/29/2024 Jeffrey Pompa [facility] [address] [place] [address] 10/02/2024 Jeffrey Pompa [facility] [address] [place] [address] 10/17/2024 Jeffrey Banksy [facility] [address] [place] [address] 11/01/2024 Jeffrey Hoy Low testosterone E29 .1 [facility] [address] [place] [place] [address] 11/17/2024 Jeffrey Banksy [facility] [address] [place] [place] [address] 11/30/2024 Jeffrey Hoy Low testosterone E29 .1 [facility] [address] [place] [address] 11/30/2024 Jeffrey Hoy [facility] [address] [facility] [place] [address] 12/01/2024 Jeffrey Banksjose [facility] [address] [facility] [place] [address] 12/15/2024 Jeffrey Banksy [facility] [address] [facility] [place] [address] 12/16/2024 Jeffrey Pompa [facility] [address] [facility] [place] [address] 12/17/2024 Jeffrey Banksy [facility] [address] [facility] [place] [address] 12/22/2024 Jeffrey Pompa Deep vein phlebitis and thrombophlebitis of lower extremity, unspecified laterality I80.209 [facility] [address] [facility] [place] [address] 12/26/2024 Jeffrey Aletha [facility] [address] [place] [address] 12/27/2024 Jeffrey Banksjose [facility] [address] [facility] [place] [address] 12/30/2024 Jeffrey Hoy 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 [facility] [address] [facility] [place] [address] 01/05/2025 Jeffrey Pompa [facility] [address] [place] [place] [address] 01/12/2025 Jeffrey Banksy [facility] [address] [facility] [place] [address] 03/24/2024 Jeffrey Hoy Low testosterone E29 .1 [facility] [address] [facility] [place] [address] 04/07/2024 Jeffrey Hoy Low testosterone E29 .1 [facility] [address] [facility] [place] [address] 10/06/2024 Jeffrey Hoy Low testosterone E29 .1 [facility] [address] [place] [address] 10/13/2024 Jeffrey Hoy Low testosterone E29 .1 [facility] [address] [place] [address] 10/19/2024 Jeffrey Hoy Low testosterone E29 .1 [facility] [address] [place] [address] 10/27/2024 Jeffrey Hoy Low testosterone E29 .1 [facility] [address] [place] [address] 11/03/2024 Jeffrey Hoy Low testosterone E29 .1 [facility] [address] [place] [address] 11/17/2024 Jeffrey Hoy 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 [facility] [address] [place] [address] 11/10/2024 Jeffrey Hoy [facility] [address] [place] [address] 11/23/2024 Jeffrey Hoy Low testosterone E29 .1 [facility] [address] [place] [address] 12/01/2024 Jeffrey Hoy Low testosterone E29 .1 [facility] [address] [place] [address] 12/08/2024 Jeffrey Hoy Decreased testostero ne level E29.1 [facility] [address] [place] [address] 12/15/2024 Jeffrey Hoy 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 [facility] [address] [place] [address] 12/22/2024 Jeffrey Hoy Low testosterone E29 .1 [facility] [address] [place] [address] 01/05/2025 Jeffrey Hoy Low testosterone E29 .1 [facility] [address] [place] [address] 2024 Jeffrey Hoy Low testosterone E29 .1 [facility] [address] [place] [address] 07/28/2024 Jeffrey Hoy Low testosterone E29 .1 [facility] [address] [place] [address] 08/04/2024 Jeffrey Hoy Low testosterone E29 .1 [facility] [address] [place] [address] 08/11/2024 Jeffrey Hoy Decreased testostero ne level E29.1 [facility] [address] [place] [address] 08/17/2024 Jeffrey Hoy 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 [facility] [address] [place] [address] 08/25/2024 Jeffrey Hoy 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 [facility] [address] [place] [address] 09/01/2024 Jeffrey Hoy Low testosterone E29 .1 [facility] [address] [place] [address] 09/08/2024 Jeffrey Hoy Low testosterone E29 .1 [facility] [address] [place] [address] 09/15/2024 Jeffrey Hoy 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 [facility] [address] [place] [address] 09/22/2024 Jeffrey Hoy Low testosterone E29 .1 [facility] [address] [place] [address] 04/14/2024 Jeffrey Hoy Low testosterone E29 .1 [facility] [address] [place] [address] 04/21/2024 Jeffrey Hoy Low testosterone E29 .1 [facility] [address] [place] [address] 04/28/2024 Jeffrey Hoy Low testosterone E29 .1 [facility] [address] [place] [address] 05/05/2024 Jeffrey Hoy Decreased testostero ne level E29.1 [facility] [address] [place] [address] 05/12/2024 Jeffrey Hoy Decreased testostero ne level E29.1 [facility] [address] [place] [address] 05/19/2024 Jeffrey Hoy Low testosterone E29 .1 [facility] [address] [place] [address] 05/26/2024 Jeffrey Hoy Decreased testostero ne level E29.1 [facility] [address] [place] [address] 06/02/2024 Jeffrey Hoy Low testosterone E29 .1 [facility] [address] [place] [address] 06/09/2024 Jeffrey Hoy Low testosterone E29 .1 [facility] [address] [place] [address] 06/16/2024 Jeffrey Hoy Low testosterone E29 .1 [facility] [address] [place] [address] 06/23/2024 Jeffrey Hoy Low testosterone E29 .1 [facility] [address] [place] [address] 07/07/2024 Jeffrey Hoy Low testosterone E29 .1 [facility] [address] [place] [address] 07/14/2024 Jeffrey Hoy Decreased testostero ne level E29.1 [facility] [address] [place] [address] 01/14/2024 Jeffrey Hoy Low testosterone E29 .1 [facility] [address] [place] [address] 01/21/2024 Jeffrey Hoy 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 [facility] [address] [place] [address] 01/28/2024 Jeffrey Hoy Low testosterone E29 .1 [facility] [address] [place] [address] 02/04/2024 Jeffrey Hoy Low testosterone E29 .1 [facility] [address] [place] [address] 02/11/2024 Jeffrey Hoy Decreased testostero ne level E29.1 [facility] [address] [place] [address] 02/18/2024 Jeffrey Hoy Low testosterone E29 .1 [facility] [address] [place] [address] 02/25/2024 Jeffrey Hoy 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 [facility] [address] [place] [address] 03/03/2024 Jeffrey Hoy Decreased testostero ne level E29.1 [facility] [address] [place] [address] 03/09/2024 Jeffrey Hoy 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 [facility] [address] [place] [address] 03/17/2024 Jeffrey Hoy Low testosterone E29 .1 [facility] [address] [place] [address] 06/30/2024 Jeffrey Hoy Low testosterone E29 .1 ; Herniated lumbar disc without myelopathy M51.26 ; Benign hypertension I10 and Type 2 diabetes mellitus with 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 edema, bilateral E11.3293 [facility] [address] [place] [address] 09/29/2024 Jeffrey Hoy Low testosterone E29 .1 ; Type 2 diabetes mellitus with 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 edema, bilateral E11.3293 ; Herniated lumbar disc without myelopathy M51.26 ; GERD (gastroesophageal reflux disease) K21.9 ; Benign hypertension I10 and Ankle pain M25.579 [facility] [address] [place] [address] 12/29/2024 Jeffrey Hoy 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 ; Type 2 diabetes mellitus with 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 edema, bilateral E11.3293 ; BP (high blood pressure) I10 ; Low testosterone E29.1 and Herniated lumbar disc without myelopathy M51.26 [facility] [address] [place] [address] 03/30/2024 Jeffrey Pompa Type 2 diabetes neli itus with 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 edema, bilateral E11.3293 ; BP (high blood pressure) I10 ; Low testosterone E29.1 ; Prostatitis N41.9 and Herniated lumbar disc without myelopathy M51.26 Assessments Encounter Date Diagnosis (ICD Code) Assessment Notes Treatment Notes Treatment Clinical Notes Section Notes 01/14/2024 Low testosterone (ICD-10 - E29.1) 01/21/2024 [...] lumbar disc without myelopathy (ICD-10 - M51.26) 10/06/2024 Low testosterone (ICD-10 - E29.1) 10/13/2024 Low testosterone (ICD-10 - E29.1) 10/19/2024 Low testosterone (ICD-10 - E29.1) 10/27/2024 Low testosterone (ICD-10 - E29.1) 11/03/2024 Low testosterone (ICD-10 - E29.1) 11/17/2024 Testicular hypofunction (ICD-10 - E29.1) 11/23/2024 Low testosterone (ICD-10 - E29.1) 12/01/2024 Low testosterone (ICD-10 - E29.1) 12/08/2024 Decreased testosterone level (ICD-10 - E29.1) 12/15/2024 Testicular hypofunction (ICD-10 - E29.1) 12/22/2024 Low testosterone (ICD-10 - E29.1) 01/05/2025 Low testosterone (ICD-10 - E29.1) 04/11/2024 High cholesterol (ICD-10 [...] E29.1) 11/30/2024 Low testosterone (ICD-10 - E29.1) 12/22/2024 Deep vein phlebitis and thrombophlebitis of lower extremity, unspecified laterality (ICD-10 - I80.209) 12/30/2024 Testicular hypofunction (ICD-10 - E29.1) 04/14/2024 Low testosterone (ICD-10 [...] without macular edema, bilateral (ICD-10 - E11.3293) 2024 Low testosterone (ICD-10 - E29.1) 07/28/2024 Low testosterone (ICD-10 - E29.1) 08/04/2024 Low testosterone (ICD-10 - E29.1) 08/11/2024 Decreased testosterone level (ICD-10 - E29.1) 08/17/2024 Testicular hypofunction (ICD-10 - E29.1) 08/25/2024 Testicular hypofunction (ICD-10 - E29.1) 09/01/2024 Low testosterone (ICD-10 - E29.1) 09/08/2024 Low testosterone (ICD-10 - E29.1) 09/15/2024 Testicular hypofunction (ICD-10 - E29.1) 09/22/2024 Low testosterone (ICD-10 - E29.1) 12/29/2024 Testicular hypofunction (ICD-10 - E29.1) 12/29/2024 Type 2 diabetes mellitus with 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 edema, bilateral (ICD-10 - E11.3293) 12/29/2024 BP (high blood pressure) (ICD-10 - I10) 09/29/2024 Herniated lumbar disc without myelopathy (ICD-10 - M51.26) 06/30/2024 Benign hypertension (ICD-10 - I10) 03/30/2024 Low testosterone (ICD-10 - E29.1) 03/30/2024 Prostatitis (ICD-10 - N41.9) 06/30/2024 Type 2 diabetes mellitus with 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 edema, bilateral (ICD-10 - E11.3293) 09/29/2024 GERD (gastroesophageal reflux disease) (ICD-10 - K21.9) 12/29/2024 Low testosterone (ICD-10 - E29.1) 12/29/2024 Herniated lumbar disc without myelopathy (ICD-10 - M51.26) 09/29/2024 Benign hypertension (ICD-10 - I10) 03/30/2024 Herniated lumbar disc without myelopathy (ICD-10 - M51.26) 09/29/2024 Ankle pain (ICD-10 - M25.579) 09/29/2024 Other Recommended to rest and use a heating pad on the area. Take NSAIDs for pain as needed 12/29/2024 Other Recommended to rest and use [...] WITH DIFF 04/01/2023 CBC WITH DIFF 03/30/2024 PT (PROTIME), INR AND PTT (PT/INR AND PT T) 12/22/2024 PSA, PROSTATE-SPECIFIC ANTIGEN 3 URIC ACID 03/30/2024 PT - INR 07/20/2024 TESTOSTERONE 09/03/2023 PSA, TOTAL 03/30/2024 STOOL OCCULT BLOOD 03/30/2024 CBC AUTO DIFF 2023 LIPID PROFILE 04/11/2024 LIVER PROFILE 04/11/2024 TESTOSTERONE, TOTAL 03/30/2024 TESTOSTERONE, TOTAL 06/30/2024 TESTOSTERONE, TOTAL 09/29/2024 TESTOSTERONE, TOTAL 04/01/2023 THYROID PANEL (T4/TSH/FREE T3) THYROID PANEL (T4/TSH/FREE T3) 4 Testosterone 04/08/2023 PROTIME-INR 07/01/2023 Next Appt Details Provider Name:Jeffrey Pompa, 01:45:00 PM, [address] , [place], [place], [address], Provider Name:Jeffrey Pompa, 01:45:00 PM, [address] , [place], [place], [address], Provider Name:Jeffrey Pompa, 01:30:00 PM, [address] [facility], [place], [place], [address], Insurance Providers Payer Name Payer Address Payer Phone Subscriber Number Group Number Insured Name Patient Relationship to Insured Coverage Start Date Coverage End Date [employer] [address] [place] [address] [id number] Celia Packer Spouse - patient is the spouse of the insured 3 [employer] [place] [address] [address] [place] [address] [id number] Ernesto Packer Self - patient is the [...] 0.4 mL Testosterone Cypionate 12/15/2024 0.4 mL Testosterone Cypionate 12/22/2024 0.4 mL Testosterone Cypionate 12/29/2024 0.4 mL Testosterone Cypionate 01/05/2025 0.4 mL Testosterone Cypionate 01/12/2025 0.4 mL Medical (General) History Medical History [...] Pulmonary embolism I26.99 Surgical History Surgery Date(Month/Year) left shoulder surgery 05/2019 right shoulder surgery 05/2002 bck surgery 05/2011 Left eye surgery- glaucoma 08/2024 right hand surgery 06/2016 left knee surgery 08/2005 colon resection 06/2009 Hospitalization History Reason Date(Month/Year) infection scrotum 06/2022
--- OUTSIDE RECORDS SUMMARY | 2025-01-12 13:39 | XMS_ITS | Clinical Summary ---
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
[2025-01-12 14:21] LABS: INR 3.09; Prothrombin Time 29.3 sec (9.0-11.6)
--- OUTSIDE RECORDS SUMMARY | 2025-01-12 19:31 | XMS_ITS | CCD ---
Author Organization [facility] Providers Care Digestion Operator Name Role Phone DAMIE, CHICHO Unavailable Unavailable [...] celecoxib; 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: [CELEBREX] Drug Allergy 3 [facility] (3 sources) morphine; 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: [MORPHINE] Drug Allergy 0 Unknown (qualifier value) [facility] (2 sources) orphenadrine; 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: [Norflex] Drug Allergy 0 AOF [facility] (2 sources) Adhesive bandage; 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: [Adhesive Bandage] Drug allergy Unknown (qualifier value) [facility] [place] (2 sources) celecoxib; 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: [celecoxib] Drug Allergy 3 Unknown [facility] [place] (3 sources) Orphenadrine; 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: [orphenadrine] Drug Allergy 0 Unknown (qualifier value) [facility] [place] (1 source) Orphenadrine Drug Allergy 4 [facility] Repository Medications Current Medications Medication Drug [...] Migraine 04-09-2022 Chronic Other aftercare (5 sources) longterm (current) use of anticoagulants; 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: [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 FUNCTION TECHNICIAN CURRNT USE 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] Onset: 3 Episodic Other [...] intervertebral disc 04-09-2022 Chronic 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 (1 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) 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; 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: [PULMONARY FUNCTION TECHNICIAN (CURRENT) USE OF ORAL HYPOGLYCEMIC DRUGS] Onset: 7 Past or Other Problems Problem Classification Problem Date Documented Da te Episodic/Chronic Deficiency and other anemia (1 source) Anemia, unspecified; 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: [ANEMIA UNSPECIFIED] Onset: 10-11-2021 Episodic Malaise and fatigue (1 source) Other fatigue; 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: [OTHER FATIGUE] Onset: 04-10-2022 Episodic Other aftercare (1 source) Other correction (current) drug therapy; 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: [OTH PENITENTIARY CURRENT DRUG THERAPY] Onset: 04-10-2022 Episodic Other [...] [Relative time] 2.45 {INR} Invalid Interpretation Code [facility] Comment on above: Result Comment: INR results are specifically intended to assess patients stabilized on long-term Anticoagulation therapy suggested INR???s ???Less Intensive Anticoagulation??? 2.0 ??? 3.0 Conventional Range 3.0 ??? 4.5 Performed By: #### 1 [id number] #### [facility] [address] [place] [address] PT 27.9 second(s) High 9.4-12.5 [facility] Comment on above: Result Comment: 15 [...] the same coagulation reagent and instrumentation as [facility]. Currently there are no coagulation studies available worldwide for children to 14 days, and no normal ranges. Performed By: #### 1 [id number] #### [facility] [address] [place] [address] PTT 51.0 second(s) High 25.1-36.5 [facility] Comment on above: Result Comment: Para [...] the same coagulation reagent and instrumentation as [facility]. Currently there are no coagulation studies available worldwide for children to 14 days, and no normal ranges. Heparin therapeutic range (represented by Anti-Factor Xa activity of 0.2 - 0.4 U/mL) corresponds to PTT of 56.6 - 109.0 sec. Performed By: #### 1 [id number] #### [facility] [address] [place] [address] PROTIMEon 08-14-2022 INR Coag (PPP) [Relative time] 2.84 {INR} Normal [facility] Comment on above: Performed By: #### P T #### [facility] [address] [place] [address] Dr. Teddy Purcell INR GUIDELINES SEE BELOW Normal [facility] Comment on above: Result Comment: ISMA RED INR: 2.0 - 3.0 CONDITIONS NOT LISTED BELOW 2.5 - 3.5 FOR PROSTHETIC HEART VALVE REPLACEMENT 2.5 - 3.5 RECURRENT THROMBOSIS Performed By: #### P T #### [facility] [address] [address] [address] Teddy Purcell PT Coag (PPP) [Time] 28.4 s Critically high 9.0-11.6 [facility] Comment on above: Performed By: #### P T #### [facility] [address] [place] [address] Dr. Teddy Purcell PROTIMEon 06-23-2022 INR Coag (PPP) [Relative time] 3.22 {INR} Normal [facility] Comment on above: Performed By: #### P T #### [facility] [address] [place] [address] Dr. Teddy Purcell INR GUIDELINES SEE BELOW Normal [facility] Comment on above: Result Comment: ISMA RED INR: 2.0 - 3.0 CONDITIONS NOT LISTED BELOW 2.5 - 3.5 FOR PROSTHETIC HEART VALVE REPLACEMENT 2.5 - 3.5 RECURRENT THROMBOSIS Performed By: #### P T #### [facility] [address] [place] [address] Dr. Teddy Purcell PT Coag (PPP) [Time] 31.9 s Critically high 9.0-11.6 [facility] Comment on above: Performed By: #### P T #### [facility] [address] [place] [address] Dr. Teddy Purcell PROTIMEon 06-16-2022 INR Coag (PPP) [Relative time] 3.26 {INR} Normal [facility] Comment on above: Performed By: #### P SASC #### [facility] [address] [place] [address] Dr. Teddy Purcell INR GUIDELINES SEE BELOW Normal [facility] Comment on above: Result Comment: ISMA RED INR: 2.0 - 3.0 CONDITIONS NOT LISTED BELOW 2.5 - 3.5 FOR PROSTHETIC HEART VALVE REPLACEMENT 2.5 - 3.5 RECURRENT THROMBOSIS Performed By: #### P SASC #### [facility] [address] [place] [address] Dr. Teddy Purcell PT Coag (PPP) [Time] 32.3 s Critically high 9.0-11.6 [facility] Comment on above: Performed By: #### P SASC #### [facility] [address] [place] [address] Dr. Teddy SALINASIMEon 06-09-2022 INR Coag (PPP) [Relative time] 4.37 {INR} Critically high [facility] Comment on above: Performed By: #### P T #### [facility] [address] [address] [address] Teddy Purcell INR GUIDELINES SEE BELOW Normal [facility] Comment on above: Result Comment: ISMA RED INR: 2.0 - 3.0 CONDITIONS NOT LISTED BELOW 2.5 - 3.5 FOR PROSTHETIC HEART VALVE REPLACEMENT 2.5 - 3.5 RECURRENT THROMBOSIS Performed By: #### P T #### [facility] [address] [address] [address] Teddy Purcell PT Coag (PPP) [Time] 42.6 s Critically high 9.0-11.6 [facility] Comment on above: Performed By: #### P T #### [facility] [address] [address] [address] Teddy Purcell OCC BLD IMMUNO SCREENon 03-15 OCCULT BLOOD Negative Normal NEGATIVE [facility] Comment on above: Performed By: #### P SASC #### [facility] [address] [address] [address] Teddy Purcell TESTOSTERONE, TOTALon 2021 Testosterone [Mass/Vol] 905 ng/dL Normal 264-916 [facility] Comment on above: Result Comment: Adul t male reference interval is based on a population of healthy nonobese males (BMI <30) between 19 and 39 years old. Thea et.al. JCEM 2017,102;7027-1678. PMID: [id number]. Performed By: #### P SASC #### [facility] [address] [address] [address] Teddy Purcell CBC AUTO DIFFon 04-03-2022 BASO # 0.0 103/ul Normal 0.0-0.1 [facility] Comment on above: Performed By: #### P SASC #### [facility] [address] [address] [address] Teddy Purcell Basophils/100 WBC (Bld) 0.2 % Normal 0.2-2.0 [facility] Comment on above: Performed By: #### P SASC #### [facility] [address] [place] [address] Dr. Teddy Purcell EO # 0.1 103/ul Normal 0.0-0.7 [facility] Comment on above: Performed By: #### P SASC #### [facility] [address] [place] [address] Dr. Teddy Purcell Eosinophils/100 WBC (Bld) 2.4 % Normal 0.9-7.0 [facility] Comment on above: Performed By: #### P SASC #### [facility] [address] [place] [address] Dr. Teddy Purcell Erythrocyte distribution width (RBC) [Ratio] 15.7 % Critically high 11.0-15.0 [facility] Comment on above: Performed By: #### P SASC #### [facility] [address] [place] [address] Dr. Teddy Purcell Hematocrit (Bld) [Volume fraction] 51.4 % Normal 42.0-54.0 [facility] Comment on above: Performed By: #### P SASC #### [facility] [address] [place] [address] Dr. Teddy Purcell Hemoglobin (Bld) [Mass/Vol] 16.9 g/dL Normal 14.0-18.0 [facility] Comment on above: Performed By: #### P SASC #### [facility] [address] [place] [address] Dr. Teddy Purcell IG # 0.01 10e3/ul Normal 0.00-0.03 [facility] Comment on above: Performed By: #### P SASC #### [facility] [address] [place] [address] Dr. Teddy Purcell IG % 0.2 % Normal 0.0-0.5 [facility] Comment on above: Performed By: #### P SASC #### [facility] [address] [place] [address] Dr. Teddy Purcell LYMPH # 2.0 103/ul Normal 1.2-3.8 [facility] Comment on above: Performed By: #### P SASC #### [facility] [address] [place] [address] Dr. Teddy Purcell Lymphocytes/100 WBC (Bld) 33.1 % Normal 20.5-60.0 [facility] Comment on above: Performed By: #### P SASC #### [facility] [address] [place] [address] Dr. Teddy Purcell MANUAL DIFF REQ NO Normal [facility] Comment on above: Performed By: #### P SASC #### [facility] [address] [place] [address] Dr. Teddy Purcell MCH (RBC) [Entitic mass] 29.8 pg Normal 25.9-34.0 [facility] Comment on above: Performed By: #### P SASC #### [facility] [address] [place] [address] Dr. Teddy Purcell MCHC (RBC) [Mass/Vol] 32.9 g/dL Normal 29.9-35.2 [facility] Comment on above: Performed By: #### P SASC #### [facility] [address] [place] [address] Dr. Teddy Purcell MCV (RBC) [Entitic vol] 90.7 fL Normal 80.0-94.0 [facility] Comment on above: Performed By: #### P SASC #### [facility] [address] [place] [address] Dr. Teddy Purcell MONO # 0.8 103/ul Normal 0.3-0.8 [facility] Comment on above: Performed By: #### P SASC #### [facility] [address] [place] [address] Dr. eTddy Purcell Monocytes/100 WBC (Bld) 12.9 % Critically high 1.7-12.0 [facility] Comment on above: Performed By: #### P SASC #### [facility] [address] [place] [address] Dr. Teddy Purcell NEUT # 3.1 103/ul Normal 1.4-6.5 [facility] Comment on above: Performed By: #### P SASC #### [facility] [address] [place] [address] Dr. Teddy Purcell Neutrophils/100 WBC (Bld) 51.2 % Normal 43.0-75.0 [facility] Comment on above: Performed By: #### P SASC #### [facility] [address] [place] [address] Dr. Teddy Purcell Platelet mean volume (Bld) [Entitic vol] 10.0 fL Normal 9.5-13.5 [facility] Comment on above: Performed By: #### P SASC #### [facility] [address] [place] [address] Dr. Teddy Purcell PLT 302 103/ul Normal 150-450 [facility] Comment on above: Performed By: #### P SASC #### [facility] [address] [place] [address] Dr. Teddy Purcell RBC 5.67 106/ul Normal 4.70-6.10 [facility] Comment on above: Performed By: #### P SASC #### [facility] [address] [place] [address] Dr. Teddy Purcell WBC 6.0 103/ul Normal 4.0-11.0 [facility] Comment on above: Performed By: #### P SASC #### [facility] [address] [place] [address] Dr. Teddy Purcell FREE T3on 04-03-2022 FREE T3 3.52 pg/mlL Normal 2.18-3.98 [facility] Comment on above: Performed By: #### P SASC #### [facility] [address] [place] [address] Dr. Teddy Purcell GLYCOHEMOGLOBIN A1Con 2021 ADA RECOMMENDATION SEE BELOW Normal [facility] Comment on above: Result Comment: ADA RECOMMENDED LIMIT 4.0 - 6.0 ADA THERAPEUTIC TARGET < 7.0 ACTION SUGGESTED > 7.0 Performed By: #### P SASC #### [facility] [address] [address] [address] Teddy Purcell Glucose [Mass/Vol] 209 mg/dL Normal [facility] Comment on above: Performed By: #### P SASC #### [facility] [address] [address] [address] Teddy Purcell HbA1c (Bld) [Mass fraction] 8.9 % Critically high 4.5-6.2 [facility] Comment on above: Performed By: #### P SASC #### [facility] [address] [place] [address] Dr. Teddy Purcell LIPID PROFILEon 04-03-2022 CHOL-HDL RATIO NORM SEE BELOW Normal [facility] Comment on above: Result Comment: 3.3 - 4.4 LOW RISK 4.4 - 7.1 AVERAGE RISK 7.1 - 11.0 MODERATE RISK >11.0 HIGH RISK Performed By: #### L IPID, FT3, T4, CMP, TSH #### [facility] [address] [place] [address] Dr. Teddy Purcell Cholesterol [Mass/Vol] 150 mg/dL Normal <=200 [facility] Comment on above: Performed By: #### L IPID, FT3, T4, CMP, TSH #### [facility] [address] [place] [address] Dr. Teddy Purcell Cholesterol in HDL [Mass/Vol] 31 mg/dL Critically low 40-60 [facility] Comment on above: Performed By: #### L IPID, FT3, T4, CMP, TSH #### [facility] [address] [place] [address] Dr. Teddy Purcell Cholesterol in LDL [Mass/Vol] 85.4 mg/dL Normal [facility] Comment on above: Performed By: #### L IPID, FT3, T4, CMP, TSH #### [facility] [address] [address] [address] Teddy Purcell Cholesterol.total/C holesterol in HDL [Mass ratio] 4.8 {ratio} Normal [facility] Comment on above: Performed By: #### L IPID, FT3, T4, CMP, TSH #### [facility] [address] [address] [address] Teddy Purcell HDL NORMAL > or = 60 mg/dl - LO W CARDIOVASCULAR RISK <40 mg/dl - HIGH CARDIOVASCULAR RISK Normal [facility] Comment on above: Performed By: #### L IPID, FT3, T4, CMP, TSH #### [facility] [address] [address] [address] Teddy Purcell LDL CALC NORMAL SEE BELOW Normal [facility] Comment on above: Result Comment: <100 mg/dl OPTIMAL 100 - 129 mg/dl NEAR OR ABOVE OPTIMAL 130 - 159 mg/dl BORDERLINE HIGH 160 - 189 mg/dl HIGH >190 mg/dl VERY HIGH Performed By: #### L IPID, FT3, T4, CMP, TSH #### [facility] [address] [address] [address] Teddy Purcell Triglyceride [Mass/Vol] 168 mg/dL Critically high <=150 [facility] Comment on above: Performed By: #### L IPID, FT3, T4, CMP, TSH #### [facility] [address] [address] [address] Teddy Purcell VLDL CALC 33.6 mg/dL Normal [facility] Comment on above: Performed By: #### L IPID, FT3, T4, CMP, TSH #### [facility] [address] [address] [address] Teddy Purcell PROF 14(COMP METB)on 022 Albumin [Mass/Vol] 3.7 g/dL Normal 3.4-5.0 [facility] Comment on above: Performed By: #### L IPID, FT3, T4, CMP, TSH #### [facility] [address] [address] [address] Teddy Purcell Albumin/Globulin [Mass ratio] 0.9 {ratio} Normal [facility] Comment on above: Performed By: #### L IPID, FT3, T4, CMP, TSH #### [facility] [address] [address] [address] Teddy Purcell ALP [Catalytic activity/Vol] 63 U/L Normal 46-116 [facility] Comment on above: Performed By: #### L IPID, FT3, T4, CMP, TSH #### [facility] [address] [address] [address] Teddy Purcell ALT [Catalytic activity/Vol] 61 U/L Normal 16-63 [facility] Comment on above: Performed By: #### L IPID, FT3, T4, CMP, TSH #### [facility] [address] [place] [address] Dr. Teddy Purcell Anion gap [Moles/Vol] 9.7 mmol/L Normal [facility] Comment on above: Performed By: #### L IPID, FT3, T4, CMP, TSH #### [facility] [address] [place] [address] Dr. Teddy Purcell AST [Catalytic activity/Vol] 30 U/L Normal 15-37 [facility] Comment on above: Performed By: #### L IPID, FT3, T4, CMP, TSH #### [facility] [address] [place] [address] Dr. Teddy Purcell Bilirubin [Mass/Vol] 0.3 mg/dL Normal 0.2-1.0 [facility] Comment on above: Performed By: #### L IPID, FT3, T4, CMP, TSH #### [facility] [address] [place] [address] Dr. Teddy Purcell Calcium [Mass/Vol] 9.7 mg/dL Normal 8.5-10.1 [facility] Comment on above: Performed By: #### L IPID, FT3, T4, CMP, TSH #### [facility] [address] [place] [address] Dr. Teddy Purcell Chloride [Moles/Vol] 96 mmol/L Critically low 98-107 [facility] Comment on above: Performed By: #### L IPID, FT3, T4, CMP, TSH #### [facility] [address] [place] [address] Dr. Teddy Purcell CO2 [Moles/Vol] 34.7 mmol/L Critically high 21.0-32.0 [facility] Comment on above: Performed By: #### L IPID, FT3, T4, CMP, TSH #### [facility] [address] [place] [address] Dr. Teddy Purcell Creatinine [Mass/Vol] 0.78 mg/dL Normal 0.70-1.30 [facility] Comment on above: Performed By: #### L IPID, FT3, T4, CMP, TSH #### [facility] [address] [place] [address] Dr. Teddy Purcell EGFR-AF MOSOTHO >60 Normal >=60 [facility] Comment on above: Performed By: #### L IPID, FT3, T4, CMP, TSH #### [facility] [address] [place] [address] Dr. Teddy Purcell EGFR-NON AF MOSOTHO >60 Normal >=60 [facility] Comment on above: Performed By: #### L IPID, FT3, T4, CMP, TSH #### [facility] [address] [place] [address] Dr. Teddy Purcell Globulin (S) [Mass/Vol] 3.9 g/dL Normal [facility] Comment on above: Performed By: #### L IPID, FT3, T4, CMP, TSH #### [facility] [address] [place] [address] Dr. Teddy Purcell Glucose [Mass/Vol] 165 mg/dL Critically high 74-106 [facility] Comment on above: Performed By: #### L IPID, FT3, T4, CMP, TSH #### [facility] [address] [place] [address] Dr. Teddy Purcell Potassium [Moles/Vol] 4.4 mmol/L Normal 3.5-5.1 [facility] Comment on above: Performed By: #### L IPID, FT3, T4, CMP, TSH #### [facility] [address] [place] [address] Dr. Teddy Purcell Protein [Mass/Vol] 7.6 g/dL Normal 6.4-8.2 [facility] Comment on above: Performed By: #### L IPID, FT3, T4, CMP, TSH #### [facility] [address] [address] [address] Teddy Purcell Sodium [Moles/Vol] 136 mmol/L Normal 136-145 [facility] Comment on above: Performed By: #### L IPID, FT3, T4, CMP, TSH #### [facility] [address] [place] [address] Dr. Teddy Purcell Urea nitrogen [Mass/Vol] 14.0 mg/dL Normal 7.0-18.0 [facility] Comment on above: Performed By: #### L IPID, FT3, T4, CMP, TSH #### [facility] [address] [place] [address] Dr. Teddy Purcell Urea nitrogen/Creatinine [Mass ratio] 17.9 mg/mg Normal [facility] Comment on above: Performed By: #### L IPID, FT3, T4, CMP, TSH #### [facility] [address] [place] [address] Dr. Teddy Purcell PROTIMEon 04-03-2022 INR Coag (PPP) [Relative time] 3.13 {INR} Normal [facility] Comment on above: Performed By: #### P T #### [facility] [address] [place] [address] Dr. Teddy Purcell INR GUIDELINES SEE BELOW Normal [facility] Comment on above: Result Comment: ISMA RED INR: 2.0 - 3.0 CONDITIONS NOT LISTED BELOW 2.5 - 3.5 FOR PROSTHETIC HEART VALVE REPLACEMENT 2.5 - 3.5 RECURRENT THROMBOSIS Performed By: #### P T #### [facility] [address] [place] [address] Dr. Teddy Purcell PT Coag (PPP) [Time] 31.4 s Critically high 9.0-11.6 [facility] Comment on above: Performed By: #### P T #### [facility] [address] [place] [address] Dr. Teddy Purcell T4on 04-03-2022 T4 [Mass/Vol] 7.60 ug/dL Normal 4.50-12.10 [facility] Comment on above: Performed By: #### L IPID, FT3, T4, CMP, TSH #### [facility] [address] [address] [address] Teddy Purcell TSHon 04-03-2022 TSH 1.595 uIU/mL Normal 0.358-3.740 [facility] Comment on above: Performed By: #### L IPID, FT3, T4, CMP, TSH #### [facility] [address] [id number] Teddy Purcell PROTIMEon 12-05-2021 INR Coag (PPP) [Relative time] 3.69 {INR} Normal [facility] Comment on above: Performed By: #### P T #### [facility] [address] [address] [address] Teddy Purcell INR GUIDELINES SEE BELOW Normal [facility] Comment on above: Result Comment: ISMA RED INR: 2.0 - 3.0 CONDITIONS NOT LISTED BELOW 2.5 - 3.5 FOR PROSTHETIC HEART VALVE REPLACEMENT 2.5 - 3.5 RECURRENT THROMBOSIS Performed By: #### P T #### [facility] [address] [place] [address] Dr. Teddy Prucell PT Coag (PPP) [Time] 36.6 s Critically high 9.0-11.6 [facility] Comment on above: Performed By: #### P T #### [facility] [address] [place] [address] Dr. Teddy Purcell TESTOSTERONE, TOTALon 2021 Testosterone [Mass/Vol] 633 ng/dL Normal 264-916 [facility] Comment on above: Result Comment: Adul t male reference interval is based on a population of healthy nonobese males (BMI <30) between 19 and 39 years old. Thea et.al. JCEM 2017,102;1802-6238. PMID: [id number]. Performed By: #### P T #### [facility] [address] [place] [address] Dr. Teddy Purcell CBC AUTO DIFFon 10-08-2021 BASO # 0.0 103/ul Normal 0.0-0.1 [facility] Comment on above: Performed By: #### C BC #### [facility] [address] [address] [address] Teddy Purcell Basophils/100 WBC (Bld) 0.4 % Normal 0.2-2.0 [facility] Comment on above: Performed By: #### C BC #### [facility] [address] [address] [address] Teddy Purcell EO # 0.1 103/ul Normal 0.0-0.7 [facility] Comment on above: Performed By: #### C BC #### [facility] [address] [place] [address] Dr. Teddy Purcell Eosinophils/100 WBC (Bld) 2.0 % Normal 0.9-7.0 [facility] Comment on above: Performed By: #### C BC #### [facility] [address] [place] [address] Dr. Teddy Purcell Erythrocyte distribution width (RBC) [Ratio] 13.7 % Normal 11.0-15.0 [facility] Comment on above: Performed By: #### C BC #### [facility] [address] [place] [address] Dr. Teddy Purcell Hematocrit (Bld) [Volume fraction] 45.6 % Normal 42.0-54.0 [facility] Comment on above: Performed By: #### C BC #### [facility] [address] [place] [address] Dr. Teddy Purcell Hemoglobin (Bld) [Mass/Vol] 14.8 g/dL Normal 14.0-18.0 [facility] Comment on above: Performed By: #### C BC #### [facility] [address] [place] [address] Dr. Teddy Purcell IG # 0.01 10e3/ul Normal 0.00-0.03 [facility] Comment on above: Performed By: #### C BC #### [facility] [address] [place] [address] Dr. Teddy Purcell IG % 0.2 % Normal 0.0-0.5 [facility] Comment on above: Performed By: #### C BC #### [facility] [address] [place] [address] Dr. Teddy Purcell LYMPH # 1.8 103/ul Normal 1.2-3.8 [facility] Comment on above: Performed By: #### C BC #### [facility] [address] [place] [address] Dr. Teddy Purcell Lymphocytes/100 WBC (Bld) 36.6 % Normal 20.5-60.0 [facility] Comment on above: Performed By: #### C BC #### [facility] [address] [place] [address] Dr. Teddy Purcell MANUAL DIFF REQ NO Normal [facility] Comment on above: Performed By: #### C BC #### [facility] [address] [place] [address] Dr. Teddy Purcell MCH (RBC) [Entitic mass] 30.0 pg Normal 25.9-34.0 [facility] Comment on above: Performed By: #### C BC #### [facility] [address] [place] [address] Dr. Teddy Purcell MCHC (RBC) [Mass/Vol] 32.5 g/dL Normal 29.9-35.2 [facility] Comment on above: Performed By: #### C BC #### [facility] [address] [place] [address] Dr. Teddy Purcell MCV (RBC) [Entitic vol] 92.3 fL Normal 80.0-94.0 [facility] Comment on above: Performed By: #### C BC #### [facility] [address] [place] [address] Dr. Teddy Purcell MONO # 0.7 103/ul Normal 0.3-0.8 [facility] Comment on above: Performed By: #### C BC #### [facility] [address] [place] [address] Dr. Teddy Purcell Monocytes/100 WBC (Bld) 13.7 % Critically high 1.7-12.0 [facility] Comment on above: Performed By: #### C BC #### [facility] [address] [place] [address] Dr. Teddy Purcell NEUT # 2.3 103/ul Normal 1.4-6.5 [facility] Comment on above: Performed By: #### C BC #### [facility] [address] [place] [address] Dr. Teddy Purcell Neutrophils/100 WBC (Bld) 47.1 % Normal 43.0-75.0 [facility] Comment on above: Performed By: #### C BC #### [facility] [address] [place] [address] Dr. Teddy Purcell Platelet mean volume (Bld) [Entitic vol] 10.3 fL Normal 9.5-13.5 [facility] Comment on above: Performed By: #### C BC #### [facility] [address] [place] [address] Dr. Teddy Purcell PLT 252 103/ul Normal 150-450 [facility] Comment on above: Performed By: #### C BC #### [facility] [address] [place] [address] Dr. Teddy Purcell RBC 4.94 106/ul Normal 4.70-6.10 [facility] Comment on above: Performed By: #### C BC #### [facility] [address] [place] [address] Dr. Teddy Purcell WBC 5.0 103/ul Normal 4.0-11.0 [facility] Comment on above: Performed By: #### C BC #### [facility] [address] [place] [address] Dr. Teddy Purcell IRONon 10-08-2021 Iron [Mass/Vol] 85.0 ug/dL Normal 65.0-175.0 [facility] Comment on above: Performed By: #### P SASC #### [facility] [address] [place] [address] Dr. Teddy Purcell MAGNESIUMon 10-08-2021 Magnesium [Mass/Vol] 1.9 mg/dL Normal 1.8-2.4 [facility] Comment on above: Performed By: #### P SASC #### [facility] [address] [address] [address] Teddy Purcell PHOSPHORUSon 10-08-2021 Phosphate [Mass/Vol] 3.1 mg/dL Normal 2.6-4.7 [facility] Comment on above: Performed By: #### P SASC #### [facility] [address] [address] [address] Teddy Purcell PROF 14(COMP METB)on 022 Albumin [Mass/Vol] 3.5 g/dL Normal 3.4-5.0 [facility] Comment on above: Performed By: #### P SASC #### [facility] [address] [place] [address] Dr. Teddy Purcell Albumin/Globulin [Mass ratio] 1.0 {ratio} Normal [facility] Comment on above: Performed By: #### P SASC #### [facility] [address] [place] [address] Dr. Teddy Purcell ALP [Catalytic activity/Vol] 59 U/L Normal 46-116 [facility] Comment on above: Performed By: #### P SASC #### [facility] [address] [place] [address] Dr. Teddy Purcell ALT [Catalytic activity/Vol] 58 U/L Normal 16-63 [facility] Comment on above: Performed By: #### P SASC #### [facility] [address] [place] [address] Dr. Teddy Purcell Anion gap [Moles/Vol] 9.5 mmol/L Normal [facility] Comment on above: Performed By: #### P SASC #### [facility] [address] [address] [address] Teddy Purcell AST [Catalytic activity/Vol] 28 U/L Normal 15-37 [facility] Comment on above: Performed By: #### P SASC #### [facility] [address] [place] [address] Dr. Teddy Purcell Bilirubin [Mass/Vol] 0.3 mg/dL Normal 0.2-1.0 [facility] Comment on above: Performed By: #### P SASC #### [facility] [address] [address] [address] Teddy Purcell Calcium [Mass/Vol] 9.1 mg/dL Normal 8.5-10.1 [facility] Comment on above: Performed By: #### P SASC #### [facility] [address] [address] [address] eTddy Purcell Chloride [Moles/Vol] 104 mmol/L Normal 98-107 [facility] Comment on above: Performed By: #### P SASC #### [facility] [address] [address] [address] Teddy Purcell CO2 [Moles/Vol] 30.8 mmol/L Normal 21.0-32.0 [facility] Comment on above: Performed By: #### P SASC #### [facility] [address] [address] [address] Teddy Purcell Creatinine [Mass/Vol] 0.90 mg/dL Normal 0.70-1.30 [facility] Comment on above: Performed By: #### P SASC #### [facility] [address] [address] [address] Teddy Purcell EGFR-AF MOSOTHO >60 Normal >=60 [facility] Comment on above: Performed By: #### P SASC #### [facility] [address] [address] [address] Teddy Purcell EGFR-NON AF [place]OTHO >60 Normal >=60 [facility] Comment on above: Performed By: #### P SASC #### [facility] [address] [address] [address] Teddy Purcell Globulin (S) [Mass/Vol] 3.5 g/dL Normal [facility] Comment on above: Performed By: #### P SASC #### [facility] [address] [address] [address] Teddy Purcell Glucose [Mass/Vol] 145 mg/dL Critically high 74-106 [facility] Comment on above: Performed By: #### P SASC #### [facility] [address] [address] [address] Teddy Purcell Potassium [Moles/Vol] 4.3 mmol/L Normal 3.5-5.1 [facility] Comment on above: Performed By: #### P SASC #### [facility] [address] [address] [address] Teddy Purcell Protein [Mass/Vol] 7.0 g/dL Normal 6.4-8.2 [facility] Comment on above: Performed By: #### P SASC #### [facility] [address] [address] [address] Teddy Purcell Sodium [Moles/Vol] 140 mmol/L Normal 136-145 [facility] Comment on above: Performed By: #### P SASC #### [facility] [address] [address] [address] Teddy Purcell Urea nitrogen [Mass/Vol] 17.0 mg/dL Normal 7.0-18.0 [facility] Comment on above: Performed By: #### P SASC #### [facility] [address] [address] [address] Teddy Purcell Urea nitrogen/Creatinine [Mass ratio] 18.9 mg/mg Normal [facility] Comment on above: Performed By: #### P SASC #### [facility] [address] [address] [address] Teddy Purcell PROTIMEon 10-08-2021 INR Coag (PPP) [Relative time] 2.83 {INR} Normal [facility] Comment on above: Performed By: #### P T #### [facility] [address] [address] [address] Teddy Purcell INR GUIDELINES SEE BELOW Normal [facility] Comment on above: Result Comment: ISMA RED INR: 2.0 - 3.0 CONDITIONS NOT LISTED BELOW 2.5 - 3.5 FOR PROSTHETIC HEART VALVE REPLACEMENT 2.5 - 3.5 RECURRENT THROMBOSIS Performed By: #### P T #### [facility] [address] [address] [address] Teddy Purcell PT Coag (PPP) [Time] 28.6 s Critically high 9.0-11.6 [facility] Comment on above: Performed By: #### P T #### [facility] [address] [address] [address] Teddy Purcell Prothrombin Time INRon 07-04 INR Coag (Bld) [Relative time] 10.5 s Normal 9.0-12.9 [facility] Comment on above: Performed By: #### P T #### [facility] [address] [place], [place] [id number] [facility] INR Coag (PPP) [Relative time] 0.9 {INR} Normal [facility] Comment on above: Result Comment: INR [...] heart valves: 3 - 4.5 PERFORMED BY: [place] [address] PATHOLOGIST IRRIGATIONIST DANIKA COE M.D. Performed By: #### P T #### [facility] [address] [place] [address] Operative Reporton 7 Operative Report MR#: [id number] [facility] Pt. Name: Mariajose Packer Room #: 0C [...] Dict: 10/20/2016//Chicho Barba M.D.Date Trans: 10/24/2016 05:16 [id number] cc: Celio Oseguera M.D. [facility] [address] [place] [address] [place] [address] Dane Pompa M.D. [address] [place] [address] [facility] POC GLUCOSE LABon 10-20-2016 Glucose mass conc 117 mg/dL High 70-100 [facility] Comment on above: Performed By: #### 8 5499 ####[facility] [place] [address], [facility] Glucose mass conc 132 mg/dL High 70-100 [facility] Comment on above: Performed By: #### 8 5499 ####[facility] Vital Signs Date Time Vital Sign Value Performing Clinician Bree reyes 04-23-2022 15:13-0500 Blood Pressure Location [employer] [email or web address] [place] 04-23-2022 15:13-0500 Diastolic blood pressure 84 mm[Hg] Durga [employer] [email or web address] [place] 04-23-2022 15:13-0500 Heart rate 76 /min Durga NILL [facility] [place] 04-23-2022 15:13-0500 Respiratory rate 16 /min Durga NILL [email or web address] [place] 04-23-2022 15:13-0500 Systolic blood pressure 132 mm[Hg] Durga NILL [email or web address] [place] Encounters Encounter Date Encounter Type Care Provider Facility Start: 12-26-2024 End: 12-26-2024 ambulatory Dane Pompa Facility:[facility] Start: 08-14-2022 End: 08-15-[address] DANE POMPA . Facility: Start: 06-23-2022 End: 06-24-[address] DANE POMPA . Facility: Start: 06-16-2022 End: 06-17-[address] DANE POMPA . Facility:[facility] Start: 06-09-2022 End: 06-10-[address] DANE POMPA . Facility:[facility] Start: 04-23-2022 End: 04-23-2022 Patient encounter procedure Durga BANKS [facility] [place] Start: 04-11-2022 End: 04-11-[address] DANE POMPA . Facility:[facility] Start: 04-10-2022 Encounter for genera l adult medical examination without abnormal findings DR DANE POMPA . [facility] Start: 04-03-2022 End: 04-04-[address] DANE POMPA . Facility:[facility] Start: 04-03-2022 End: 04-04-2022 Encounter for general adult medical examination without abnormal findings DR DANE POMPA . Facility:[facility] Start: 12-05-2021 End: 12-06-[address] DANE POMPA . Facility:[facility] Start: 10-08-2021 End: 10-09-[address] DANE POMPA . Facility:[facility] Start: 10-20-2016 End: 10-21-2016 Ambulatory CHICHO BARBA Facility:[facility] Procedures Date Procedure Procedure Detail Performing Clinician Start: 04-03-[address] RYAN POMPA . Comment on above: Performed By: #### P [facility] #### [facility] [address] [place] [address] Dr. Teddy Purcell Start: 10-20-2016 ANESTH LOWER [...] [place] Payers Date Payer Category Payer Unknown [id number] 2.16.84 [id number] 1973 Unknown [id number] 2.16.84 [id number] 1973 Unknown [id number] 2.16.84 [id number] 1973 Unknown [id number] 2.16.84 [id number] 1973 Unknown [id number] 2.16.84 [id number] 1973 Unknown [id number] 2.16.84 [id number] 1973 Unknown [id number] 2.16.84 [id number] 1973 Unknown [id number] 2.16.84 [id number] 1973 Unknown [id number] 2.16.8 [id number] 1961 Medicare [id number] 1961 Unknown [id number] Social History Date Type Detail Facility Start: 04-23-2022 Tobacco smoking status Never s moked tobacco (finding) [facility] [place] Tobacco smoking status Never Gener al [facility] [place] Sex Assigned At Male [facility] Functional Status Date Assessment Result Facility 04-23-2022 Functional Status N/A [facility] [place] Evaluation + Plan note Note Date & Type Note Facility Evaluation + Plan note No data available for this section [facility] Discharge instructions Note Date & Type Note Facility Hospital Discharge instructions No data available for this section [facility] note Note Date & Type Note Facility Progress note No data available for this section [facility] [place] Summary Purpose Family History No Family History [...] section and content) DATE CREATED AUTHOR 10/07/[address] [facility] DATE CREATED AUTHOR AUTHOR'S ORGANIZ ATION 07/12/2020 [facility] DATE CREATED AUTHOR AUTHOR'S ORGANIZ ATION 08/22/[address] [facility] DATE CREATED AUTHOR AUTHOR'S ORGANIZ ATION 12/27/2024 [facility] DATE CREATED AUTHOR AUTHOR'S ORGANIZ ATION 01/03/2025 [facility] Patient Care team informatio n (unrecognized section and content) Personnel Name: Dane Pompa MD Address: Address: [address] [place] [address] FOR RECORDS PERTAINING TO PATIENTS WHO ARE [...] BE BASED ON THE PRIMARY CLINICAL RECORDS. [facility] [employer] [facility]. provides no warranty or guarantee of the accuracy or completeness of information in this document.
== END 2025-01-12 13:35 | disposition home or self-care (01) ==
LOC: LAB 13:37
PROVIDERS: PCP Family Medicine; Visit Provider Family Medicine
DX: I26.99 Other pulmonary embolism without acute cor pulmonale (principal)
CPT/HCPCS: 36415; 85610

== ENCOUNTER 2025-01-19 13:46 | Outpatient (OUT) | payer BC, MEDICARE, SELFPAY ==
--- OUTSIDE RECORDS SUMMARY | 2025-01-19 13:52 | XMS_ITS | CCD ---
Author Organization [facility] [place] Care Team Providers Care Wood Caulker Name Role Phone DAMIE, CHICHO Unavailable Unavailable SKIE, CHICHO Unavailable Unavailable HOY, DANE Unavailable Unavailable FOGT, CELIO Unavailable Unavailable [place] Unavailable Unavailable SKIE, CHICHO Unavailable Unavailable [place] Unavailable Unavailable PITRODA, SHAHANA Unavailable Unavailable Dane [place] Primary Care Physician [phone] DIM[address] ., DR VELA Primary Care Unavailable [...] celecoxib; 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: [CELEBREX] Drug Allergy 3 [facility] (3 sources) morphine; 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: [MORPHINE] Drug Allergy 0 Unknown (qualifier value) [facility] (2 sources) orphenadrine; 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: [Norflex] Drug Allergy 0 [facility] (2 sources) Adhesive bandage; 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: [Adhesive Bandage] Drug allergy Unknown (qualifier value) [facility] [place] (2 sources) celecoxib; 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: [celecoxib] Drug Allergy 3 Unknown [facility] [place] (3 sources) Orphenadrine; 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: [orphenadrine] Drug Allergy 0 Unknown (qualifier value) [facility] [place] (1 source) Orphenadrine Drug Allergy 4 [facility] Medications Current Medications Medication Drug [...] Migraine 04-09-2022 Chronic Other aftercare (5 sources) custodial (current) use of anticoagulants; 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] Onset: 3 Episodic Other [...] intervertebral disc 04-09-2022 Chronic 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 (1 source) 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; 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: [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) USE OF ORAL HYPOGLYCEMIC DRUGS] Onset: 7 Past or Other Problems Problem Classification Problem Date Documented Da te Episodic/Chronic Deficiency and other anemia (1 source) Anemia, unspecified; 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: [ANEMIA UNSPECIFIED] Onset: 10-11-2021 Episodic Malaise and fatigue (1 source) Other fatigue; 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: [OTHER FATIGUE] Onset: 04-10-2022 Episodic Other aftercare (1 source) Other care home (current) drug therapy; 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: [OTH [facility] CURRENT DRUG THERAPY] Onset: 04-10-2022 Episodic Other [...] [Relative time] 2.45 {INR} Invalid Interpretation Code [facility] Comment on above: Result Comment: INR results are specifically intended to assess patients stabilized on long-term Anticoagulation therapy suggested INR???s ???Less Intensive Anticoagulation??? 2.0 ??? 3.0 Conventional Range 3.0 ??? 4.5 Performed By: #### 1 [id number] #### [facility] [address] [place] [address] PT 27.9 second(s) High 9.4-12.5 [facility] Comment on above: Result Comment: 15 [...] the same coagulation reagent and instrumentation as [facility]. Currently there are no coagulation studies available worldwide for children to 14 days, and no normal ranges. Performed By: #### 1 [id number] #### [facility] [address] [place] [address] PTT 51.0 second(s) High 25.1-36.5 [facility] Comment on above: Result Comment: Para [...] the same coagulation reagent and instrumentation as [facility]. Currently there are no coagulation studies available worldwide for children to 14 days, and no normal ranges. Heparin therapeutic range (represented by Anti-Factor Xa activity of 0.2 - 0.4 U/mL) corresponds to PTT of 56.6 - 109.0 sec. Performed By: #### 1 [id number] #### [facility] [address] [place] [address] PROTIMEon 08-14-2022 INR Coag (PPP) [Relative time] 2.84 {INR} Normal [facility] Comment on above: Performed By: #### P T #### [facility] [address] [place] [address] Dr. Teddy Purcell INR GUIDELINES SEE BELOW Normal [facility] Comment on above: Result Comment: ISMA RED INR: 2.0 - 3.0 CONDITIONS NOT LISTED BELOW 2.5 - 3.5 FOR PROSTHETIC HEART VALVE REPLACEMENT 2.5 - 3.5 RECURRENT THROMBOSIS Performed By: #### P T #### [facility] [address] [address] [address] Teddy Purcell PT Coag (PPP) [Time] 28.4 s Critically high 9.0-11.6 [facility] Comment on above: Performed By: #### P T #### [facility] [address] [place] [address] Dr. Teddy Purcell PROTIMEon 06-23-2022 INR Coag (PPP) [Relative time] 3.22 {INR} Normal [facility] Comment on above: Performed By: #### P T #### [facility] [address] [place] [address] Dr. Teddy Purcell INR GUIDELINES SEE BELOW Normal [facility] Comment on above: Result Comment: ISMA RED INR: 2.0 - 3.0 CONDITIONS NOT LISTED BELOW 2.5 - 3.5 FOR PROSTHETIC HEART VALVE REPLACEMENT 2.5 - 3.5 RECURRENT THROMBOSIS Performed By: #### P T #### [facility] [address] [place] [address] Dr. Teddy Purcell PT Coag (PPP) [Time] 31.9 s Critically high 9.0-11.6 [facility] Comment on above: Performed By: #### P T #### [facility] [address] [place] [address] Dr. Teddy Purcell PROTIMEon 06-16-2022 INR Coag (PPP) [Relative time] 3.26 {INR} Normal [facility] Comment on above: Performed By: #### P SASC #### [facility] [address] [place] [address] Dr. Teddy Purcell INR GUIDELINES SEE BELOW Normal [facility] Comment on above: Result Comment: ISMA RED INR: 2.0 - 3.0 CONDITIONS NOT LISTED BELOW 2.5 - 3.5 FOR PROSTHETIC HEART VALVE REPLACEMENT 2.5 - 3.5 RECURRENT THROMBOSIS Performed By: #### P SASC #### [facility] [address] [place] [address] Dr. Teddy Purcell PT Coag (PPP) [Time] 32.3 s Critically high 9.0-11.6 [facility] Comment on above: Performed By: #### P SASC #### [facility] [address] [place] [address] Dr. Teddy SALINASIMEon 06-09-2022 INR Coag (PPP) [Relative time] 4.37 {INR} Critically high [facility] Comment on above: Performed By: #### P T #### [facility] [address] [address] [address] Teddy Purcell INR GUIDELINES SEE BELOW Normal [facility] Comment on above: Result Comment: ISMA RED INR: 2.0 - 3.0 CONDITIONS NOT LISTED BELOW 2.5 - 3.5 FOR PROSTHETIC HEART VALVE REPLACEMENT 2.5 - 3.5 RECURRENT THROMBOSIS Performed By: #### P T #### [facility] [address] [address] [address] Teddy Purcell PT Coag (PPP) [Time] 42.6 s Critically high 9.0-11.6 [facility] Comment on above: Performed By: #### P T #### [facility] [address] [address] [address] Teddy Purcell OCC BLD IMMUNO SCREENon 03-15 OCCULT BLOOD Negative Normal NEGATIVE [facility] Comment on above: Performed By: #### P SASC #### [facility] [address] [address] [address] Teddy Purcell TESTOSTERONE, TOTALon 2021 Testosterone [Mass/Vol] 905 ng/dL Normal 264-916 [facility] Comment on above: Result Comment: Adul t male reference interval is based on a population of healthy nonobese males (BMI <30) between 19 and 39 years old. Thea et.al. JCEM 2017,102;0055-2783. PMID: [id number]. Performed By: #### P SASC #### [facility] [address] [address] [address] Teddy Purcell CBC AUTO DIFFon 04-03-2022 BASO # 0.0 103/ul Normal 0.0-0.1 [facility] Comment on above: Performed By: #### P SASC #### [facility] [address] [address] [address] Teddy Purcell Basophils/100 WBC (Bld) 0.2 % Normal 0.2-2.0 [facility] Comment on above: Performed By: #### P SASC #### [facility] [address] [place] [address] Dr. Teddy Purcell EO # 0.1 103/ul Normal 0.0-0.7 [facility] Comment on above: Performed By: #### P SASC #### [facility] [address] [place] [address] Dr. Teddy Purcell Eosinophils/100 WBC (Bld) 2.4 % Normal 0.9-7.0 [facility] Comment on above: Performed By: #### P SASC #### [facility] [address] [place] [address] Dr. Teddy Purcell Erythrocyte distribution width (RBC) [Ratio] 15.7 % Critically high 11.0-15.0 [facility] Comment on above: Performed By: #### P SASC #### [facility] [address] [place] [address] Dr. Teddy Purcell Hematocrit (Bld) [Volume fraction] 51.4 % Normal 42.0-54.0 [facility] Comment on above: Performed By: #### P SASC #### [facility] [address] [place] [address] Dr. Teddy Purcell Hemoglobin (Bld) [Mass/Vol] 16.9 g/dL Normal 14.0-18.0 [facility] Comment on above: Performed By: #### P SASC #### [facility] [address] [place] [address] Dr. Teddy Purcell IG # 0.01 10e3/ul Normal 0.00-0.03 [facility] Comment on above: Performed By: #### P SASC #### [facility] [address] [place] [address] Dr. Teddy Purcell IG % 0.2 % Normal 0.0-0.5 [facility] Comment on above: Performed By: #### P SASC #### [facility] [address] [place] [address] Dr. Teddy Purcell LYMPH # 2.0 103/ul Normal 1.2-3.8 [facility] Comment on above: Performed By: #### P SASC #### [facility] [address] [place] [address] Dr. Teddy Purcell Lymphocytes/100 WBC (Bld) 33.1 % Normal 20.5-60.0 [facility] Comment on above: Performed By: #### P SASC #### [facility] [address] [place] [address] Dr. Teddy Purcell MANUAL DIFF REQ NO Normal [facility] Comment on above: Performed By: #### P SASC #### [facility] [address] [place] [address] Dr. Teddy Purcell MCH (RBC) [Entitic mass] 29.8 pg Normal 25.9-34.0 [facility] Comment on above: Performed By: #### P SASC #### [facility] [address] [place] [address] Dr. Teddy Purcell MCHC (RBC) [Mass/Vol] 32.9 g/dL Normal 29.9-35.2 [facility] Comment on above: Performed By: #### P SASC #### [facility] [address] [place] [address] Dr. Teddy Purcell MCV (RBC) [Entitic vol] 90.7 fL Normal 80.0-94.0 [facility] Comment on above: Performed By: #### P SASC #### [facility] [address] [place] [address] Dr. Teddy Purcell MONO # 0.8 103/ul Normal 0.3-0.8 [facility] Comment on above: Performed By: #### P SASC #### [facility] [address] [place] [address] Dr. Teddy Purcell Monocytes/100 WBC (Bld) 12.9 % Critically high 1.7-12.0 [facility] Comment on above: Performed By: #### P SASC #### [facility] [address] [place] [address] Dr. Teddy Purcell NEUT # 3.1 103/ul Normal 1.4-6.5 [facility] Comment on above: Performed By: #### P SASC #### [facility] [address] [place] [address] Dr. Teddy Purcell Neutrophils/100 WBC (Bld) 51.2 % Normal 43.0-75.0 [facility] Comment on above: Performed By: #### P SASC #### [facility] [address] [place] [address] Dr. Teddy Purcell Platelet mean volume (Bld) [Entitic vol] 10.0 fL Normal 9.5-13.5 [facility] Comment on above: Performed By: #### P SASC #### [facility] [address] [place] [address] Dr. Teddy Purcell PLT 302 103/ul Normal 150-450 [facility] Comment on above: Performed By: #### P SASC #### [facility] [address] [place] [address] Dr. Teddy Purcell RBC 5.67 106/ul Normal 4.70-6.10 [facility] Comment on above: Performed By: #### P SASC #### [facility] [address] [place] [address] Dr. Teddy Purcell WBC 6.0 103/ul Normal 4.0-11.0 [facility] Comment on above: Performed By: #### P SASC #### [facility] [address] [place] [address] Dr. Teddy Purcell FREE T3on 04-03-2022 FREE T3 3.52 pg/mlL Normal 2.18-3.98 [facility] Comment on above: Performed By: #### P SASC #### [facility] [address] [place] [address] Dr. Teddy Purcell GLYCOHEMOGLOBIN A1Con 2021 ADA RECOMMENDATION SEE BELOW Normal [facility] Comment on above: Result Comment: ADA RECOMMENDED LIMIT 4.0 - 6.0 ADA THERAPEUTIC TARGET < 7.0 ACTION SUGGESTED > 7.0 Performed By: #### P SASC #### [facility] [address] [address] [address] Teddy Purcell Glucose [Mass/Vol] 209 mg/dL Normal [facility] Comment on above: Performed By: #### P SASC #### [facility] [address] [address] [address] Teddy Purcell HbA1c (Bld) [Mass fraction] 8.9 % Critically high 4.5-6.2 [facility] Comment on above: Performed By: #### P SASC #### [facility] [address] [place] [address] Dr. Teddy Purcell LIPID PROFILEon 04-03-2022 CHOL-HDL RATIO NORM SEE BELOW Normal [facility] Comment on above: Result Comment: 3.3 - 4.4 LOW RISK 4.4 - 7.1 AVERAGE RISK 7.1 - 11.0 MODERATE RISK >11.0 HIGH RISK Performed By: #### L IPID, FT3, T4, CMP, TSH #### [facility] [address] [place] [address] Dr. Teddy Purcell Cholesterol [Mass/Vol] 150 mg/dL Normal <=200 [facility] Comment on above: Performed By: #### L IPID, FT3, T4, CMP, TSH #### [facility] [address] [place] [address] Dr. Teddy Purcell Cholesterol in HDL [Mass/Vol] 31 mg/dL Critically low 40-60 [facility] Comment on above: Performed By: #### L IPID, FT3, T4, CMP, TSH #### [facility] [address] [place] [address] Dr. Teddy Purcell Cholesterol in LDL [Mass/Vol] 85.4 mg/dL Normal [facility] Comment on above: Performed By: #### L IPID, FT3, T4, CMP, TSH #### [facility] [address] [address] [address] Teddy Purcell Cholesterol.total/C holesterol in HDL [Mass ratio] 4.8 {ratio} Normal [facility] Comment on above: Performed By: #### L IPID, FT3, T4, CMP, TSH #### [facility] [address] [address] [address] Teddy Purcell HDL NORMAL > or = 60 mg/dl - LO W CARDIOVASCULAR RISK <40 mg/dl - HIGH CARDIOVASCULAR RISK Normal [facility] Comment on above: Performed By: #### L IPID, FT3, T4, CMP, TSH #### [facility] [address] [address] [address] Teddy Purcell LDL CALC NORMAL SEE BELOW Normal [facility] Comment on above: Result Comment: <100 mg/dl OPTIMAL 100 - 129 mg/dl NEAR OR ABOVE OPTIMAL 130 - 159 mg/dl BORDERLINE HIGH 160 - 189 mg/dl HIGH >190 mg/dl VERY HIGH Performed By: #### L IPID, FT3, T4, CMP, TSH #### [facility] [address] [address] [address] Teddy Purcell Triglyceride [Mass/Vol] 168 mg/dL Critically high <=150 [facility] Comment on above: Performed By: #### L IPID, FT3, T4, CMP, TSH #### [facility] [address] [address] [address] Teddy Purcell VLDL CALC 33.6 mg/dL Normal [facility] Comment on above: Performed By: #### L IPID, FT3, T4, CMP, TSH #### [facility] [address] [address] [address] Teddy Purcell PROF 14(COMP METB)on 022 Albumin [Mass/Vol] 3.7 g/dL Normal 3.4-5.0 [facility] Comment on above: Performed By: #### L IPID, FT3, T4, CMP, TSH #### [facility] [address] [address] [address] Teddy Purcell Albumin/Globulin [Mass ratio] 0.9 {ratio} Normal [facility] Comment on above: Performed By: #### L IPID, FT3, T4, CMP, TSH #### [facility] [address] [address] [address] Teddy Purcell ALP [Catalytic activity/Vol] 63 U/L Normal 46-116 [facility] Comment on above: Performed By: #### L IPID, FT3, T4, CMP, TSH #### [facility] [address] [address] [address] Teddy Purcell ALT [Catalytic activity/Vol] 61 U/L Normal 16-63 [facility] Comment on above: Performed By: #### L IPID, FT3, T4, CMP, TSH #### [facility] [address] [place] [address] Dr. Teddy Purcell Anion gap [Moles/Vol] 9.7 mmol/L Normal [facility] Comment on above: Performed By: #### L IPID, FT3, T4, CMP, TSH #### [facility] [address] [place] [address] Dr. Teddy Purcell AST [Catalytic activity/Vol] 30 U/L Normal 15-37 [facility] Comment on above: Performed By: #### L IPID, FT3, T4, CMP, TSH #### [facility] [address] [place] [address] Dr. Teddy Purcell Bilirubin [Mass/Vol] 0.3 mg/dL Normal 0.2-1.0 [facility] Comment on above: Performed By: #### L IPID, FT3, T4, CMP, TSH #### [facility] [address] [place] [address] Dr. Teddy Purcell Calcium [Mass/Vol] 9.7 mg/dL Normal 8.5-10.1 [facility] Comment on above: Performed By: #### L IPID, FT3, T4, CMP, TSH #### [facility] [address] [place] [address] Dr. Teddy Purcell Chloride [Moles/Vol] 96 mmol/L Critically low 98-107 [facility] Comment on above: Performed By: #### L IPID, FT3, T4, CMP, TSH #### [facility] [address] [place] [address] Dr. Teddy Purcell CO2 [Moles/Vol] 34.7 mmol/L Critically high 21.0-32.0 [facility] Comment on above: Performed By: #### L IPID, FT3, T4, CMP, TSH #### [facility] [address] [place] [address] Dr. Teddy Purcell Creatinine [Mass/Vol] 0.78 mg/dL Normal 0.70-1.30 [facility] Comment on above: Performed By: #### L IPID, FT3, T4, CMP, TSH #### [facility] [address] [place] [address] Dr. Teddy Purcell EGFR-AF COMORAN >60 Normal >=60 [facility] Comment on above: Performed By: #### L IPID, FT3, T4, CMP, TSH #### [facility] [address] [place] [address] Dr. Teddy Purcell EGFR-NON AF COMORAN >60 Normal >=60 [facility] Comment on above: Performed By: #### L IPID, FT3, T4, CMP, TSH #### [facility] [address] [place] [address] Dr. Teddy Purcell Globulin (S) [Mass/Vol] 3.9 g/dL Normal [facility] Comment on above: Performed By: #### L IPID, FT3, T4, CMP, TSH #### [facility] [address] [place] [address] Dr. Teddy Purcell Glucose [Mass/Vol] 165 mg/dL Critically high 74-106 [facility] Comment on above: Performed By: #### L IPID, FT3, T4, CMP, TSH #### [facility] [address] [place] [address] Dr. Teddy Purcell Potassium [Moles/Vol] 4.4 mmol/L Normal 3.5-5.1 [facility] Comment on above: Performed By: #### L IPID, FT3, T4, CMP, TSH #### [facility] [address] [place] [address] Dr. Teddy Purcell Protein [Mass/Vol] 7.6 g/dL Normal 6.4-8.2 [facility] Comment on above: Performed By: #### L IPID, FT3, T4, CMP, TSH #### [facility] [address] [address] [address] Teddy Purcell Sodium [Moles/Vol] 136 mmol/L Normal 136-145 [facility] Comment on above: Performed By: #### L IPID, FT3, T4, CMP, TSH #### [facility] [address] [place] [address] Dr. Teddy Purcell Urea nitrogen [Mass/Vol] 14.0 mg/dL Normal 7.0-18.0 [facility] Comment on above: Performed By: #### L IPID, FT3, T4, CMP, TSH #### [facility] [address] [place] [address] Dr. Teddy Purcell Urea nitrogen/Creatinine [Mass ratio] 17.9 mg/mg Normal [facility] Comment on above: Performed By: #### L IPID, FT3, T4, CMP, TSH #### [facility] [address] [place] [address] Dr. Teddy Purcell PROTIMEon 04-03-2022 INR Coag (PPP) [Relative time] 3.13 {INR} Normal [facility] Comment on above: Performed By: #### P T #### [facility] [address] [place] [address] Dr. Teddy Purcell INR GUIDELINES SEE BELOW Normal [facility] Comment on above: Result Comment: ISMA RED INR: 2.0 - 3.0 CONDITIONS NOT LISTED BELOW 2.5 - 3.5 FOR PROSTHETIC HEART VALVE REPLACEMENT 2.5 - 3.5 RECURRENT THROMBOSIS Performed By: #### P T #### [facility] [address] [place] [address] Dr. Teddy Purcell PT Coag (PPP) [Time] 31.4 s Critically high 9.0-11.6 [facility] Comment on above: Performed By: #### P T #### [facility] [address] [place] [address] Dr. Teddy Purcell T4on 04-03-2022 T4 [Mass/Vol] 7.60 ug/dL Normal 4.50-12.10 [facility] Comment on above: Performed By: #### L IPID, FT3, T4, CMP, TSH #### [facility] [address] [address] [address] Teddy Purcell TSHon 04-03-2022 TSH 1.595 uIU/mL Normal 0.358-3.740 [facility] Comment on above: Performed By: #### L IPID, FT3, T4, CMP, TSH #### [facility] [id number] Teddy Purcell PROTIMEon 12-05-2021 INR Coag (PPP) [Relative time] 3.69 {INR} Normal [facility] Comment on above: Performed By: #### P T #### [facility] [address] [address] [address] Teddy Purcell INR GUIDELINES SEE BELOW Normal [facility] Comment on above: Result Comment: ISMA RED INR: 2.0 - 3.0 CONDITIONS NOT LISTED BELOW 2.5 - 3.5 FOR PROSTHETIC HEART VALVE REPLACEMENT 2.5 - 3.5 RECURRENT THROMBOSIS Performed By: #### P T #### [facility] [address] [place] [address] Dr. Teddy Purcell PT Coag (PPP) [Time] 36.6 s Critically high 9.0-11.6 [facility] Comment on above: Performed By: #### P T #### [facility] [address] [place] [address] Dr. Teddy Purcell TESTOSTERONE, TOTALon 2021 Testosterone [Mass/Vol] 633 ng/dL Normal 264-916 [facility] Comment on above: Result Comment: Adul t male reference interval is based on a population of healthy nonobese males (BMI <30) between 19 and 39 years old. Thea et.al. JCEM 2017,102;8926-3652. PMID: [id number]. Performed By: #### P T #### [facility] [address] [place] [address] Dr. Teddy Purcell CBC AUTO DIFFon 10-08-2021 BASO # 0.0 103/ul Normal 0.0-0.1 [facility] Comment on above: Performed By: #### C BC #### [facility] [address] [address] [address] Teddy Purcell Basophils/100 WBC (Bld) 0.4 % Normal 0.2-2.0 [facility] Comment on above: Performed By: #### C BC #### [facility] [address] [address] [address] Teddy Purcell EO # 0.1 103/ul Normal 0.0-0.7 [facility] Comment on above: Performed By: #### C BC #### [facility] [address] [place] [address] Dr. Teddy Purcell Eosinophils/100 WBC (Bld) 2.0 % Normal 0.9-7.0 [facility] Comment on above: Performed By: #### C BC #### [facility] [address] [place] [address] Dr. Teddy Purcell Erythrocyte distribution width (RBC) [Ratio] 13.7 % Normal 11.0-15.0 [facility] Comment on above: Performed By: #### C BC #### [facility] [address] [place] [address] Dr. Teddy Purcell Hematocrit (Bld) [Volume fraction] 45.6 % Normal 42.0-54.0 [facility] Comment on above: Performed By: #### C BC #### [facility] [address] [place] [address] Dr. Teddy uPrcell Hemoglobin (Bld) [Mass/Vol] 14.8 g/dL Normal 14.0-18.0 [facility] Comment on above: Performed By: #### C BC #### [facility] [address] [place] [address] Dr. Teddy Purcell IG # 0.01 10e3/ul Normal 0.00-0.03 [facility] [facility] Comment on above: Performed By: #### C BC #### [facility] [address] [place] [address] Dr. Teddy Purcell IG % 0.2 % Normal 0.0-0.5 [facility] Comment on above: Performed By: #### C BC #### [facility] [address] [place] [address] Dr. Teddy Purcell LYMPH # 1.8 103/ul Normal 1.2-3.8 [facility] Comment on above: Performed By: #### C BC #### [facility] [address] [place] [address] Dr. Teddy Purcell Lymphocytes/100 WBC (Bld) 36.6 % Normal 20.5-60.0 [facility] Comment on above: Performed By: #### C BC #### [facility] [address] [place] [address] Dr. Teddy Purcell MANUAL DIFF REQ NO Normal [facility] Comment on above: Performed By: #### C BC #### [facility] [address] [place] [address] Dr. Teddy Purcell MCH (RBC) [Entitic mass] 30.0 pg Normal 25.9-34.0 [facility] Comment on above: Performed By: #### C BC #### [facility] [address] [place] [address] Dr. Teddy Purcell MCHC (RBC) [Mass/Vol] 32.5 g/dL Normal 29.9-35.2 [facility] Comment on above: Performed By: #### C BC #### [facility] [address] [place] [address] Dr. Teddy Purcell MCV (RBC) [Entitic vol] 92.3 fL Normal 80.0-94.0 [facility] Comment on above: Performed By: #### C BC #### [facility] [address] [place] [address] Dr. Teddy Purcell MONO # 0.7 103/ul Normal 0.3-0.8 [facility] Comment on above: Performed By: #### C BC #### [facility] [address] [place] [address] Dr. Teddy Purcell Monocytes/100 WBC (Bld) 13.7 % Critically high 1.7-12.0 [facility] Comment on above: Performed By: #### C BC #### [facility] [address] [place] [address] Dr. Teddy Purcell NEUT # 2.3 103/ul Normal 1.4-6.5 [facility] Comment on above: Performed By: #### C BC #### [facility] [address] [place] [address] Dr. Teddy Purcell Neutrophils/100 WBC (Bld) 47.1 % Normal 43.0-75.0 [facility] Comment on above: Performed By: #### C BC #### [facility] [address] [place] [address] Dr. Teddy Purcell Platelet mean volume (Bld) [Entitic vol] 10.3 fL Normal 9.5-13.5 [facility] Comment on above: Performed By: #### C BC #### [facility] [address] [place] [address] Dr. Teddy Purcell PLT 252 103/ul Normal 150-450 [facility] Comment on above: Performed By: #### C BC #### [facility] [address] [place] [address] Dr. Teddy Purcell RBC 4.94 106/ul Normal 4.70-6.10 [facility] Comment on above: Performed By: #### C BC #### [facility] [address] [place] [address] Dr. Teddy Purcell WBC 5.0 103/ul Normal 4.0-11.0 [facility] Comment on above: Performed By: #### C BC #### [facility] [address] [place] [address] Dr. Teddy Purcell IRONon 10-08-2021 Iron [Mass/Vol] 85.0 ug/dL Normal 65.0-175.0 [facility] Comment on above: Performed By: #### P SASC #### [facility] [address] [place] [address] Dr. Teddy Purcell MAGNESIUMon 10-08-2021 Magnesium [Mass/Vol] 1.9 mg/dL Normal 1.8-2.4 [facility] Comment on above: Performed By: #### P SASC #### [facility] [address] [address] [address] Teddy Purcell PHOSPHORUSon 10-08-2021 Phosphate [Mass/Vol] 3.1 mg/dL Normal 2.6-4.7 [facility] Comment on above: Performed By: #### P SASC #### [facility] [address] [address] [address] Teddy Purcell PROF 14(COMP METB)on 022 Albumin [Mass/Vol] 3.5 g/dL Normal 3.4-5.0 [facility] Comment on above: Performed By: #### P SASC #### [facility] [address] [place] [address] Dr. Teddy Purcell Albumin/Globulin [Mass ratio] 1.0 {ratio} Normal [facility] Comment on above: Performed By: #### P SASC #### [facility] [address] [place] [address] Dr. Teddy Purcell ALP [Catalytic activity/Vol] 59 U/L Normal 46-116 [facility] Comment on above: Performed By: #### P SASC #### [facility] [address] [place] [address] Dr. Teddy Purcell ALT [Catalytic activity/Vol] 58 U/L Normal 16-63 [facility] Comment on above: Performed By: #### P SASC #### [facility] [address] [place] [address] Dr. Teddy Purcell Anion gap [Moles/Vol] 9.5 mmol/L Normal [facility] Comment on above: Performed By: #### P SASC #### [facility] [address] [address] [address] Teddy Purcell AST [Catalytic activity/Vol] 28 U/L Normal 15-37 [facility] Comment on above: Performed By: #### P SASC #### [facility] [address] [place] [address] Dr. Teddy Purcell Bilirubin [Mass/Vol] 0.3 mg/dL Normal 0.2-1.0 [facility] Comment on above: Performed By: #### P SASC #### [facility] [address] [address] [address] Teddy Purcell Calcium [Mass/Vol] 9.1 mg/dL Normal 8.5-10.1 [facility] Comment on above: Performed By: #### P SASC #### [facility] [address] [address] [address] Teddy Purcell Chloride [Moles/Vol] 104 mmol/L Normal 98-107 [facility] Comment on above: Performed By: #### P SASC #### [facility] [address] [address] [address] Teddy Purcell CO2 [Moles/Vol] 30.8 mmol/L Normal 21.0-32.0 [facility] Comment on above: Performed By: #### P SASC #### [facility] [address] [address] [address] Teddy Purcell Creatinine [Mass/Vol] 0.90 mg/dL Normal 0.70-1.30 [facility] Comment on above: Performed By: #### P SASC #### [facility] [address] [address] [address] Teddy Purcell EGFR-AF COMORAN >60 Normal >=60 [facility] Comment on above: Performed By: #### P SASC #### [facility] [address] [address] [address] Teddy Purcell EGFR-NON AF COMORAN >60 Normal >=60 [facility] Comment on above: Performed By: #### P SASC #### [facility] [address] [address] [address] Teddy Purcell Globulin (S) [Mass/Vol] 3.5 g/dL Normal [facility] Comment on above: Performed By: #### P SASC #### [facility] [address] [address] [address] Teddy Purcell Glucose [Mass/Vol] 145 mg/dL Critically high 74-106 [facility] Comment on above: Performed By: #### P SASC #### [facility] [address] [address] [address] Teddy Purcell Potassium [Moles/Vol] 4.3 mmol/L Normal 3.5-5.1 [facility] Comment on above: Performed By: #### P SASC #### [facility] [address] [address] [address] Teddy Purcell Protein [Mass/Vol] 7.0 g/dL Normal 6.4-8.[address] [facility] Comment on above: Performed By: #### P SASC #### [facility] [address] [address] [address] Teddy Purcell Sodium [Moles/Vol] 140 mmol/L Normal 136-145 [facility] Comment on above: Performed By: #### P SASC #### [facility] [address] [address] [address] Teddy Purcell Urea nitrogen [Mass/Vol] 17.0 mg/dL Normal 7.0-18.0 [facility] Comment on above: Performed By: #### P SASC #### [facility] [address] [address] [address] Teddy Purcell Urea nitrogen/Creatinine [Mass ratio] 18.9 mg/mg Normal [facility] Comment on above: Performed By: #### P SASC #### [facility] [address] [address] [address] Teddy Purcell PROTIMEon 10-08-2021 INR Coag (PPP) [Relative time] 2.83 {INR} Normal [facility] Comment on above: Performed By: #### P T #### [facility] [address] [address] [address] Teddy Purcell INR GUIDELINES SEE BELOW Normal [facility] Comment on above: Result Comment: ISMA RED INR: 2.0 - 3.0 CONDITIONS NOT LISTED BELOW 2.5 - 3.5 FOR PROSTHETIC HEART VALVE REPLACEMENT 2.5 - 3.5 RECURRENT THROMBOSIS Performed By: #### P T #### [facility] [address] [address] [address] Teddy Purcell PT Coag (PPP) [Time] 28.6 s Critically high 9.0-11.6 [facility] Comment on above: Performed By: #### P T #### [facility] [address] [address] [address] Teddy Purcell Prothrombin Time INRon 07-04 INR Coag (Bld) [Relative time] 10.5 s Normal 9.0-12.9 [facility] Comment on above: Performed By: #### P T #### [facility] [address] [place], [place] [id number] [facility] INR Coag (PPP) [Relative time] 0.9 {INR} Normal [facility] Comment on above: Result Comment: INR [...] heart valves: 3 - 4.5 PERFORMED BY: [place] [address] PATHOLOGIST INSPECTOR [employer] DANIKA COE M.D. Performed By: #### P T #### [facility] [address] [place] [address] Operative Reporton 7 Operative Report MR#: [id number] [facility] Pt. Name: Mariajose Packer Room #: 0C [...] Dict: 10/20/2016//Chicho Barba M.D.Date Trans: 10/24/2016 05:16 [id number] cc: Celio Oseguera M.D. [facility] [address] [place] [address] [place] [address] Dane Pompa M.D. [address] [place] [address] [facility] POC GLUCOSE LABon 10-20-2016 Glucose mass conc 117 mg/dL High 70-100 [facility] Comment on above: Performed By: #### 8 [id number] ####[facility] [place] [address], [facility] Glucose mass conc 132 mg/dL High 70-100 [facility] Comment on above: Performed By: #### 8 5499 ####[facility] Vital Signs Date Time Vital Sign Value Performing Clinician Bree reyes 04-23-2022 15:13-0500 Blood Pressure Location [facility] [place] 04-23-2022 15:13-0500 Diastolic blood pressure 84 mm[Hg] Durga [employer] [facility] [place] 04-23-2022 15:13-0500 Heart rate 76 /min Durga NILL [facility] [place] 04-23-2022 15:13-0500 Respiratory rate 16 /min Durga NILL [facility] [place] 04-23-2022 15:13-0500 Systolic blood pressure 132 mm[Hg] Durga NILL [facility] [place] Encounters Encounter Date Encounter Type Care Provider Facility Start: 12-26-2024 End: 12-26-2024 ambulatory Dane Pompa Facility:[facility] Start: 08-14-2022 End: 08-15-[address] DANE POMPA . Facility: Start: 06-23-2022 End: 06-24-[address] DANE POMPA . Facility: Start: 06-16-2022 End: 06-17-[address] DANE POMPA . Facility:[facility] Start: 06-09-2022 End: 06-10-[address] DANE POMPA . Facility:[facility] Start: 04-23-2022 End: 04-23-2022 Patient encounter procedure Durga BANKS [facility] [place] Start: 04-11-2022 End: 04-11-[address] DANE POMPA . Facility:[facility] Start: 04-10-2022 Encounter for genera l adult medical examination without abnormal findings DR DANE POMPA . [facility] Start: 04-03-2022 End: 04-04-[address] DANE POMPA . Facility:[facility] Start: 04-03-2022 End: 04-04-2022 Encounter for general adult medical examination without abnormal findings DR DANE POMPA . Facility:[facility] Start: 12-05-2021 End: 12-06-[address] DANE POMPA . Facility:[facility] Start: 10-08-2021 End: 10-09-[address] DANE POMPA . Facility:[facility] Start: 10-20-2016 End: 10-21-2016 Ambulatory CHICHO BARBA Facility:[facility] Procedures Date Procedure Procedure Detail Performing Clinician Start: 04-03-[address] RYAN POMPA . Comment on above: Performed By: #### P [facility] #### [facility] [address] [place] [address] Dr. Teddy Purcell Start: 10-20-2016 ANESTH LOWER ARM SURGERY SHAHANA CALVO Start: 10-20-2016 WRIST ARTHROSCOPY/SURGERY CHICHO CHRIS History of lumbar laminectomy Durag NILL Open acromioplasty f or decompression of [...] [place] Payers Date Payer Category Payer Unknown [id number] 2.16.84 [id number] 1973 Unknown [id number] 2.16.84 [id number] 1973 Unknown [id number] 2.16.84 [id number] 1973 Unknown [id number] 2.16.84 [id number] 1973 Unknown [id number] 2.16.84 [id number] 1973 Unknown [id number] 2.16.84 [id number] 1973 Unknown [id number] 2.16.84 [id number] 1973 Unknown [id number] 2.16.84 [id number] 1973 Unknown [id number] 2.16.8 [id number] 1961 Medicare [id number] 1961 Unknown [id number] Social History Date Type Detail Facility Start: 04-23-2022 Tobacco smoking status Never s moked tobacco (finding) [facility] [place] Tobacco smoking status Never [facility] [place] Sex Assigned At Male [facility] Functional Status Date Assessment Result Facility 04-23-2022 Functional Status N/A [facility] [place] Evaluation + Plan note Note Date & Type Note Facility Evaluation + Plan note No data available for this section [facility] Discharge instructions Note Date & Type Note Facility Hospital Discharge instructions No data available for this section [facility] note Note Date & Type Note Facility Progress note No data available for this section [facility] [place] Summary Purpose Family History No Family History [...] section and content) DATE CREATED AUTHOR 10/07/2017 [facility] DATE CREATED AUTHOR AUTHOR'S ORGANIZ ATION 07/12/2020 [facility] DATE CREATED AUTHOR AUTHOR'S ORGANIZ ATION 08/22/2022 [facility] DATE CREATED AUTHOR AUTHOR'S ORGANIZ ATION 12/27/2024 [facility] DATE CREATED AUTHOR AUTHOR'S ORGANIZ ATION 01/03/2025 [facility] Patient Care team informatio n (unrecognized section and content) Personnel Name: Dane Pompa MD Address: Address: [address] [place] [address] FOR RECORDS PERTAINING TO PATIENTS WHO ARE [...] THE PRIMARY CLINICAL RECORDS. [facility] [employer] [facility]. provides no warranty or guarantee of the accuracy or completeness of information in this document.
[2025-01-19 14:57] LABS: INR 3.15; Prothrombin Time 29.8 sec (9.0-11.6)
== END 2025-01-19 13:47 | disposition home or self-care (01) ==
LOC: LAB 13:48
PROVIDERS: PCP Family Medicine; Visit Provider Family Medicine
DX: I26.99 Other pulmonary embolism without acute cor pulmonale (principal)
CPT/HCPCS: 36415; 85610

== ENCOUNTER 2025-02-02 13:37 | Outpatient (RCR) | payer BC, MEDICARE, SELFPAY ==
[2025-02-02 15:08] LABS: INR 3.07; Prothrombin Time 29.1 sec (9.0-11.6)
== END 2025-02-13 12:04 | disposition home or self-care (01) ==
LOC: LAB 13:37
PROVIDERS: PCP Family Medicine; Visit Provider Family Medicine
DX: Z51.81 Encounter for therapeutic drug level monitoring (principal); Z79.01 Long term (current) use of anticoagulants; I26.99 Other pulmonary embolism without acute cor pulmonale
CPT/HCPCS: 36415; 85610

== ENCOUNTER 2025-02-16 13:32 | Outpatient (RCR) | payer BC, MEDICARE, SELFPAY ==
--- OUTSIDE RECORDS SUMMARY | 2025-02-16 13:37 | XMS_ITS | Clinical Summary ---
Author Organization [facility] Healthcare Address [address] [place] [address] Care Team Providers Care Spar Finisher Name Role Phone Unavailable Primary Care Provider Unavailabl e Social History Tobacco UseTypesPacks/DayYears UsedDateSmoking Tobacco: Never AssessedSex and Gender InformationValueDate RecordedSex Assigned at BirthNot on fileLegal Sex Male06/25/2022 6:35 PM EDTGender IdentityNot on fileSexual OrientationNot on file Last Filed Vital Signs Vital SignReadingTime TakenCommentsBlood Attsmvjh574/7803/12/2018 12:00 PM EST Pulse--Temperature--Respiratory Rate--Oxygen Saturation--Inhaled Oxygen Concentration--Elgtgg598 kg (262 lb)03/12/2018 12:00 PM PMBTpiylq560.9 cm (6') 03/12/2018 12:00 PM ESTBody Mass Index35.5303/12/2018 12:00 PM EST Plan of Treatment Not on file Insurance
--- OUTSIDE RECORDS SUMMARY | 2025-02-16 13:39 | XMS_ITS | CCD ---
Author Organization [facility] Providers Care Farmworker [employer] Name Role Phone DAMIE, CHICHO Unavailable Unavailable SKIE, CHICHO Unavailable Unavailable HOY, DANE Unavailable Unavailable FOGT, CELIO Unavailable Unavailable ID Unavailable Unavailable SKIE, CHICHO Unavailable Unavailable ID Unavailable Unavailable PITRODA, SHAHANA Unavailable Unavailable Dane [...] Attending Unavailable HoyDane Admitting Unavailable Allergies Allergy ClassificationReported Allergen(s)Allergy TypeDate of OnsetReaction(s) Facility (2 sources)celecoxib; 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: [CELEBREX]Drug Ytbuuxi19-10-6256[facility] Repository (3 sources)morphine; 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: [MORPHINE]Drug Bmggtwd03-38-2162Tqmntwj (qualifier value)[facility] Repository (2 sources)orphenadrine; 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: [Norflex]Drug Nzoabzl81-03-6392HEKJyk [facility] (2 sources)Adhesive bandage; 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: [Adhesive Bandage]Drug allergyUnknown (qualifier value)[facility] [place] (2 sources)celecoxib; 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: [celecoxib]Drug Xrrmizg71-93-9198Skfvfwv [facility] (3 sources)Orphenadrine; 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: [orphenadrine]Drug Zkrxfho89-04-4662 Unknown (qualifier value)[facility] [place] (1 source)OrphenadrineDrug Cqwclqj57-57-0955Vwq [facility] Medications Current Medications MedicationDrug Class(es)DatesSig (Normalized)Sig (Original)acetaminophen 325 mg / oxyCODONE hydrochloride 5 mg oral tablet (1 source)Opioid AgonistStart: 90-81-6379ngyt 2 tablets by mouth every four hours as needed for painPercocet 5 mg-325 mg oral tablet 2 tab(s), Oral, q4hr as needed for pain, Refill(s) 0 Start Date: 04/09/22 Status: Orderedadapalene 0.003 mg/mg topical gel (1 source)RetinoidStart: 44-13-2214Qnwfvtkk 0.3% topical gel 1 noemy, Topical, Once a day (at bedtime), Refill(s) 0 Start Date: 04/09/22Status: Ordered atorvastatin 40 mg oral tablet (1 source)HMG-CoA Reductase InhibitorStart: 62-54-4309ahuv 1 tablet by mouth once dailyatorvastatin 40 mg Tab 40 mg = 1 tab(s), Oral, Daily, Refills(s) 0 Start Date: 04/09/22 Status: Orderedazelastine hydrochloride 0.5 mg/ml ophthalmic solution (1 source)Histamine-1 Receptor AntagonistStart: 92-43-2055crmhjkpsrf 0.05% Opth Annette 1 drop(s), Daily, Refill(s) 0 Start Date: 04/09/22 Status: Ordered cyclobenzaprine hydrochloride 10 mg oral tablet (1 source)Muscle RelaxantStart: 34-75-1417zwkb 2 tablets by mouth at bedtime as needed for muscle spasmscyclobenzaprine 10 mg Tab 20 mg = 2 tab(s), Oral, Bedtime, PRN for spasm, Refills(s) 0 Start Date: 04/09/22 Status: Ordered doxycycline monohydrate 100 mg oral capsule (1 source)Tetracycline-class DrugStart: 14-87-4841lizk 1 capsule by mouth twice dailydoxycycline monohydrate 100 mg oral capsule 100 mg = 1 cap(s), Oral, BID, Refills(s) 0 Start Date: 04/09/22 Status: Orderedibuprofen 800 mg oral tablet (1 source)Nonsteroidal Anti-inflammatory DrugStart: 63-82-7930rqxq 1 tablet by mouth four times daily as needed for painibuprofen 800 mg Tab 800 mg = 1 tab(s), Oral, QID, PRN as needed for pain, Refills(s) 0 Start Date:04/09/22 Status: Orderedlisinopril 20 mg oral tablet (1 source)Angiotensin Converting Enzyme InhibitorStart: 07-00-8925dprd 1 tablet by mouth once dailylisinopril 20 mg Tab 20 mg = 1 tab(s), Oral, Daily, Refills(s) 0 Start Date: 04/09/22 Status: OrderedmetFORMIN hydrochloride 500 mg oral tablet (1 source)BiguanideStart: 75-12-4007yxjz 1 tablet by mouth twice dailymetformin 500 mg Tab 500 mg = 1 tab(s), Oral, BID, Refills(s) 0 Start Date: 04/09/22 Status: Orderedomeprazole 20 mg delayed release oral capsule (1 source)Proton Pump InhibitorStart: 38-53-4697gpme 1 capsule by mouth once dailyomeprazole 20 mg Cap-DR 20 mg = 1 cap(s), Oral, Daily, Refills(s) 0 Start Date: 04/09/22 Status: OrderedoxyCODONE hydrochloride 10 mg oral tablet (1 source)Opioid AgonistStart: 07-09-5254jwab 1-2 tablets by mouth twice daily oxycodone 10 mg oral tablet 1-2 tabs, Oral, BID, Refills(s) 0 Start Date: 04/09/22 Status: Orderedpioglitazone 30 mg oral tablet (1 source)Peroxisome Proliferator Receptor alpha Agonist, Peroxisome Proliferator Receptor gamma Agonist, ThiazolidinedioneStart: 55-19-9376ssox 1 tablet by mouth once dailypioglitazone 30 mg Tab 30 mg = 1 tab(s), Oral, Daily, Refills(s) 0 Start Date: 04/09/22 Status: Orderedpregabalin 100 mg oral capsule (1 source)Start: 86-80-8041ailz 1 capsule by mouth three times dailyLyrica 100 mg Cap 100 mg = 1 cap(s), Oral, TID, Refills(s) 0 Start Date: 04/09/22 Status: Orderedtestosterone cypionate 200 mg/mL IM Annette (1 source)Start: 77-20-3283gemrri 100 mg by intramuscular injection every week testosterone cypionate 200 mg/mL IM Annette 100 mg = 0.5 mL, IntraMuscular, qWeek, Refills(s) 0 Start Date: 04/09/22 Status: OrderedVitamin D3 2000 intl units oral Tab (1 source)Start: 49-53-7825dcod 1 tablet by mouth once dailyVitamin D3 2000 intl units oral Tab 50 mcg, Oral, Daily, Refills(s) 0 Start Date: 04/09/22 Status: O rderedwarfarin sodium 10 mg oral tablet (2 sources)Vitamin K AntagonistStart: 40-25-3428Pwrwzupd 10 mg oral tablet as directed, Refills(s) 0 Start Date: 04/09/22 Status: OrderedStart: 04-09-2022 Coumadin 7.5 mg Tab as directed, Refills(s) 0 Start Date: 04/09/22 Status: Ordered Problems Active Problems Problem ClassificationProblemDateDocumented DateEpisodic/ChronicDiabetes mellitus with complications (1 source)Type 2 diabetes mellitus with 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 edema, bilateral; 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: [TYPE 2 DM MILD NPDR W/O MAC ED KAVIN]Onset: 13-46-8306InqigaeWagclbys mellitus without complication (2 sources)Type 2 diabetes mellitus without complications; 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: [Diabetes mellitus]Onset: 262312-34-9597ZdhnkyyXpvilhshhs disorders (1 source)Gastro-esophageal reflux disease without esophagitis; 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: [GASTRO-ESOPHAGEAL REFLUX DISEASE WITHOUT ESOPHAGITIS]Onset: 07-77-8693Helfnxc Essential hypertension (2 sources)Essential hypertension; 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: [Hypertensive disorder]Onset: 963290-62-6389EoahihiHbuzxodm (1 source)Iqdgugdt70-51-1773ZrvlagmHajayzix; including migraine (1 source)Belsoqaz68-38-8959TcekxjwUwggz aftercare (5 sources)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; 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: [FCI CURRNT USE 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]Onset: 77-14-5368FnqomtsiZyjii endocrine disorders (1 source)Male dtlsltfjniyl39-07-6666PricdukWitaa endocrine disorders (5 sources)Testicular hypofunction; 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: [TESTICULAR HYPOFUNCTION] Onset: 71-49-6026RnlwvwfCdibk eye disorders (1 source)Retinal pjkj63-11-0672KzmxpwkUbclo inflammatory condition of skin (1 source)Hwatfolhr79-71-3533QgeblhhCqjqg nervous system disorders (1 source)Craig's hbbecvwxmkrvo87-05-1895KboktnoPiisc nutritional; endocrine; and metabolic disorders (1 source)Body mass index 30+ - ywoqccm30-19-7577AfmjxkyCaeje skin disorders (2 sources)Actinic keratosis; 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: [Actinic keratosis]Onset: 04-23-2022 EpisodicOther skin disorders (1 source)Acne afcuhxhk73-29-4797OrkzaezpMurdu upper respiratory disease (1 source)Allergic gkxiizpw81-79-3058NhhxcnoLrevnlvkq; thrombophlebitis and thromboembolism (2 sources)H/O: Deep vein thrombosis; 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: [Superficial thrombophlebitis]93-94-0425ZmeloojePxpjczrrw heart disease (6 sources)H/O: pulmonary embolus; 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: [Other pulmonary embolism without acute cor pulmonale]Onset: 270040-17-4666MducfniiMhklalcxdlg; intervertebral disc disorders; other back problems (1 source)Prolapsed lumbar intervertebral elth27-45-7553IejuczaHhcyravvykzb (1 source)[facility] (current) use of oral hypoglycemic drugs; 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: [STEM LEAD FORMER (CURRENT) USE OF ORAL HYPOGLYCEMIC DRUGS]Onset: 10-20-2016 Past or Other Problems Problem ClassificationProblemDateDocumented DateEpisodic/ChronicDeficiency and other anemia (1 source)Anemia, unspecified; 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: [ANEMIA UNSPECIFIED]Onset: 79-88-5374EjrvwctgPqrnbls and fatigue (1 source)Other fatigue; 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: [OTHER FATIGUE]Onset: 52-55-2684Pzeyojuz Other aftercare (1 source)Other mcfp (current) drug therapy; 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: [OTH STEM LEAD FORMER CURRENT DRUG THERAPY]Onset: 10-12-9286NngkvhyfHughu non-traumatic joint disorders (4 sources)Other instability, right wrist; 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: [OTHER INSTABILITY, RIGHT WRIST]Onset: 75-10-5887DgrsqhpfKxxaq screening for suspected conditions (not mental disorders or infectious disease) (6 sources)Encounter for screening for malignant neoplasm of colon; 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: [Encounter for screening formalignant neoplasm of prostate]Onset: 55-54-1072QgdtyzcvLnokcwj and strains (1 source)Other specified sprain of right wrist, initial encounter; 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: [OTHER SPECIFIED SPRAIN OF RIGHT WRIST, INITIAL ENCOUNTER]Onset: 30-79-2771WpygcsvvIhgykkbppwfk (2 sources)Unknown / UNK(Unknown)Onset: 10-20-2016 Results Test NameValueInterpretationReference RangeFacilityPT & PTTon 64-69-0128BIT Coag (PPP) [Relative time]2.45 {INR}Invalid Interpretation CodeFisher St. Agnes HospitalComment on above:Result Comment: INR results are specifically intended to assess patients stabilized on long-term Anticoagulation therapy suggested INR???s ???Less Intensive Anticoagulation??? 2.0 ??? 3.0 Conventional Range 3.0 ??? 4.5Performed By: #### [id number] #### [facility] [address], [place] [address]SQ30.9 second(s)High9.4-12.5Fisher St. Agnes HospitalComment on above:Result Comment: 15 days - 4 weeks 1 - 5 months 6 -11 months 1-5 years 6-10 years 11 -17 years Mean: 11.2 (9.5-12.6) Mean: 11.0 (9.7-12.8) Mean: 11.0 (9.8-13.0) Mean: 11.3 (9.9-13.4) Mean: 11.7 (10.0-14.6) Mean: 11.8 (10.0 - 14.1) Pediatric Reference ranges were obtained from a study by maribeth Nelson prepared from 1437 samples obtained at 7 different centers using the same coagulation reagent and instrumentation as [facility] [place] [place]. Currently there are no coagulation studies available worldwide for children to 14 days, andno normal ranges.Performed By: #### [id number] #### [facility] [address], [place] [address]NCB26.0 second(s)High25.1-36.5[facility] Comment on above:Result Comment: Parameter 15 days - 4 weeks 1 - 5 months 6 - 11 months 1 - 5 years 6 - 10 years 11 - 17 years PTT Mean: 35.4 (27.6-45.6) Mean: 33.5 (24.8-40.7) Mean: 32.4 (25.1-40.7) Mean: 31.6 (24.0-39.2) Mean: 31.6 (26.9-38.7) Mean: 31.0 (24.6-38.4) Pediatric Reference ranges were obtained from a study by maribeth Nelson prepared from 1437 samples obtained at 7 different centers using the same coagulation reagent and instrumentation as [facility] [place] [place]. Currently there are no coagulation studies available worldwide for children to 14 days, andno normal ranges. Heparin therapeutic range (represented by Anti-Factor Xa activity of 0.2 - 0.4 U/mL) corresponds to PTT of 56.6 - 109.0 sec.Performed By: #### [id number] #### [facility] [address], [place] [address]YBWIGJJvz 29-87-8581MXV Coag (PPP) [Relative time]2.84 {INR} NormalThe [facility] HospitalComment on above:Performed By: #### PT #### [facility] [address] [place] [address] Dr. Teddy Gilmore GUIDELINESSEE [facility] HospitalCom[facility] on above:Result Comment: DESIRED INR: 2.0 - 3.0 CONDITIONS NOT LISTED BELOW 2.5 - 3.5 FOR PROSTHETIC HEART VALVE REPLACEMENT 2.5 - 3.5 RECURRENT THROMBOSIS Performed By: #### PT #### [facility] [address] [place] [address] Dr. Teddy Turner Coag (PPP) [Time]28.4 sCritically high9.0-11.6ThUniversity Hospitals Samaritan Medical CenterComuniversity of [facility] on above:Performed By: #### PT #### [facility] [address] [place] [address] Dr. Teddy Kemp 60-71-3586OZB Coag (PPP) [Relative time]3.22 {INR} NormalGrant Hospital on above:Performed By: #### PT #### [facility] [address] [place] [address] Dr. Teddy Gilmore GUIDELINESSEE [facility] HospitalCom[facility] on above:Result Comment: DESIRED INR: 2.0 - 3.0 CONDITIONS NOT LISTED BELOW 2.5 - 3.5 FOR PROSTHETIC HEART VALVE REPLACEMENT 2.5 - 3.5 RECURRENT THROMBOSIS Performed By: #### PT #### [facility] [address] [place] [address] Dr. Teddy Turner Coag (PPP) [Time]31.9 sCritically high9.0-11.6ThMetroHealth [facility] on above:Performed By: #### PT #### [facility] [address] [place] [address] Dr. Teddy Kemp 88-16-0741EHE Coag (PPP) [Relative time]3.26 {INR} NormalGrant Hospital on above:Performed By: #### PSASC #### [facility] [address] [place] [address] Dr. Teddy Gilmore GUIDELINESSEE [facility] HospitalCom[facility] on above:Result Comment: DESIRED INR: 2.0 - 3.0 CONDITIONS NOT LISTED BELOW 2.5 - 3.5 FOR PROSTHETIC HEART VALVE REPLACEMENT 2.5 - 3.5 RECURRENT THROMBOSIS Performed By: #### PSASC #### [facility] [address] [place] [address] Dr. Teddy Turner Coag (PPP) [Time]32.3 sCritically high9.0-11.6The [facility] HospitalComment on above:Performed By: #### PSASC #### [facility] [address] [place] [address] Dr. Teddy PurcellPROTIMEon 34-83-2868NQV Coag (PPP) [Relative time]4.37 {INR} Critically highThe [facility] HospitalComment on above:Performed By: #### PT #### [facility] [address] [place] [address] Dr. Teddy Gilmore [facility] CompanyComment on above:Result Comment: DESIRED INR: 2.0 - 3.0 CONDITIONS NOT LISTED BELOW 2.5 - 3.5 FOR PROSTHETIC HEART VALVE REPLACEMENT 2.5 - 3.5 RECURRENT THROMBOSIS Performed By: #### PT #### [facility] [address] [place] [address] Dr. Teddy Turner Coag (PPP) [Time]42.6 sCritically high9.0-11.6The [facility] HospitalComment on above:Performed By: #### PT #### [facility] [address] [place] [address] Dr. Teddy PurcellOCC BLD IMMUNO SCREENon 90-49-5616SRVMWG BLOODNegativeNormal NEGATIVEThe [facility] HospitalComment on above:Performed By: #### PSASC #### [facility] [address] [place] [address] Dr. Teddy PurcellTESTOSTERONE, TOTALon 67-46-4444Sjqrptlhcvzr [Mass/Vol]905 ng/dL Grhruw368-136AksCleveland Clinic Hillcrest HospitalComment on above:Result Comment: Adult male reference interval is based on a population of healthy nonobese males (BMI <30) between 19 and 39 years old. Travison, et.al. JCEM 2017,102;8807-8837. PMID: [id number].Performed By: #### PSASC #### [facility] [address] [place] [address] Dr. Teddy Swenson AUTO DIFFon 46-24-8925GKNZ #0.0 103/ulNormal0.0-0.1The [facility] HospitalComment on above:Performed By: #### PSASC #### [facility] [address] [place] [address] Dr. Teddy PurcellBasophils/100 WBC (Bld)0.2 %Normal0.2-2.0The [facility] Comment on above:Performed By: #### PSASC #### [facility] [address] [place] [address] Dr. Teddy Da SilvaO #0.1 103/ulNormal0.0-0.7The [facility] HospitalComment on above: Performed By: #### PSASC #### [facility] [address] [place] [address] Dr. Teddy Da Silvaosinophils/100 WBC (Bld)2.4 %Normal0.9-7.0The [facility] Comment on above:Performed By: #### PSASC #### [facility] [address] [place] [address] Dr. Teddy Da Silvarythrocyte distribution width (RBC) [Ratio]15.7 %Critically high 11.0-15.0The [facility] HospitalComment on above:Performed By: #### PSASC #### [facility] [address] [place] [address] Dr. Teddy PurcellHematocrit (Bld) [Volume fraction]51.4 %Esafxt64.0-54.0The [facility] HospitalComment on above:Performed By: #### PSASC #### [facility] [address] [place] [address] Dr. Teddy PurcellHemoglobin (Bld) [Mass/Vol]16.9 g/sBOtisop79.0-18.0The [facility] HospitalComment on above:Performed By: #### PSASC #### [facility] [address] [address] [address] Teddy Avila #0.01 10e3/ulNormal0.00-0.03The [facility] on above:Performed By: #### PSASC #### [facility] [address] [place] [address] Dr. Teddy Avila %0.2 %Normal0.0-0.5The [facility] HospitalComuniversity of [facility] health on above: Performed By: #### PSASC #### [facility] [address] [place] [address] Dr. Teddy BabinHEALTHALLI[facility] #2.0 103/ulNormal1.2-3.8The [facility] HospitalComuniversity of [facility] on above:Performed By: #### PSASC #### [facility] [address] [place] [address] Dr. Teddy Cunhahocytes/100 WBC (Bld)33.1 %Wepjvr70.5-60.0The [facility] on above:Performed By: #### PSASC #### [facility] [address] [place] [address] Dr. Teddy PurcellMEMPHISUAL DIFF REQNONormalThe [facility] HospitalComun[facility] on above: Performed By: #### PSASC #### [facility] [address] [place] [address] Dr. Teddy Friedman (RBC) [Entitic mass]29.8 baUaqsra11.9-34.0The [facility] on above:Performed By: #### PSASC #### [facility] [address] [place] [address] Dr. Teddy Friedman (RBC) [Mass/Vol]32.9 g/cZYnwixu18.9-35.2The [facility] on above:Performed By: #### PSASC #### [facility] [address] [place] [address] Dr. Teddy Friedman (RBC) [Entitic vol]90.7 gMMurydu59.0-94.0The [facility] HospitalComment on above:Performed By: #### PSASC #### [facility] [address] [place] [address] Dr. Teddy Doran #0.8 103/ulNormal0.3-0.8The [facility] HospitalComment on above:Performed By: #### PSASC #### [facility] [address] [place] [address] Dr. Teddy Mcadamsocytes/100 WBC (Bld)12.9 %Critically high1.7-12.0The [place] HospitalComment on above:Performed By: #### PSASC #### [facility] [address] [place] [address] Dr. Teddy Quinn #3.1 103/ulNormal1.4-6.5The [facility] HospitalComment on above:Performed By: #### PSASC #### [facility] [address] [place] [address] Dr. Teddy Wattersutrophils/100 WBC (Bld)51.2 %Bnphsy46.0-75.0The [facility] HospitalComment on above:Performed By: #### PSASC #### [facility] [address] [place] [address] Dr. Teddy Harmonlet mean volume (Bld) [Entitic vol]10.0 fLNormal9.5-13.5The [facility] HospitalComment on above:Performed By: #### PSASC #### [facility] [address] [place] [address] Dr. Teddy PurcellPLT302 103/upKfextk532-836Pnz [facility] HospitalComment on above: Performed By: #### PSASC #### [facility] [address] [place] [address] Dr. Teddy PurcellRBC5.67 106/ulNormal4.70-6.10The [facility] HospitalComment on above:Performed By: #### PSASC #### [facility] [address] [place] [address] Dr. Teddy PurcellWBC6.0 103/ulNormal4.0-11.0The [facility] HospitalComment on above: Performed By: #### PSASC #### [facility] [address] [address] [address] Teddy Astudillo T3on 72-86-7014QSVK T33.52 pg/mlLNormal2.18-3.98[facility] HospitalComment on above:Performed By: #### PSASC #### [facility] [address] [address] [address] Teddy PurcellGLYCOHEMOGLOBIN A1Con 20-62-1099GFM RECOMMENDATIONSEE BELOWNormLima Memorial HospitalComment on above:Result Comment: ADA RECOMMENDED LIMIT 4.0 - 6.0 ADA THERAPEUTIC TARGET < 7.0 ACTION SUGGESTED > 7.0Performed By: #### PSASC #### [facility] [address] [place] [address] Dr. Teddy PurcellGlucose [Mass/Vol]209 mg/dLNormWilson HealthComment on above:Performed By: #### PSASC #### [facility] [address] [place] [address] Dr. Teddy PurcellHbA1c (Bld) [Mass fraction]8.9 %Critically high4.5-6.2[facility] HospitalComment on above:Performed By: #### PSASC #### [facility] [address] [place] [address] Dr. Teddy PurcellLIPID PROFILEon 05-60-3001BWRU-HDL RATIO NORMSEE [facility] HospitalComun[facility] of [facility] on above:Result Comment: 3.3 - 4.4 LOW RISK 4.4 - 7.1 AVERAGE RISK 7.1 - 11.0 MODERATE RISK >11.0 HIGH RISKPerformed By: #### LIPID, FT3, T4, CMP, TSH #### [facility] [address] [place] [address] Dr. Teddy PurcellCholesterol [Mass/Vol]150 mg/dLNormal<=200The [facility] Comment on above:Performed By: #### LIPID, FT3, T4, CMP, TSH #### [facility] [address] [place], [place] [address] Dr. Teddy Ochoaol in HDL [Mass/Vol]31 mg/dLCritically apt64-73ZraGrant Hospital on above:Performed By: #### LIPID, FT3, T4, CMP, TSH #### [facility] [address] [place] [address] Dr. Teddy Cruzesterol in LDL [Mass/Vol]85.4 mg/dLDoctors Hospital on above:Performed By: #### LIPID, FT3, T4, CMP, TSH #### [facility] [address] [place] [address] Dr. Teddy Smith.total/Cholesterol in HDL [Mass ratio]4.8 {ratio} NormalGrant Hospital on above:Performed By: #### LIPID, FT3, T4, CMP, TSH #### [facility] [address] [place] [address] Dr. Teddy Heck NORMAL> or = 60 mg/dl - LOW CARDIOVASCULAR RISK <40 mg/dl - HIGH CARDIOVASCULAR RISKDoctors Hospital on above:Performed By: #### LIPID, FT3, T4, CMP, TSH #### [facility] [address] [place] [address] Dr. Teddy Gould CALC NORMALSEE BELOWMorrow County HospitalComuniversity of michigan health on above:Result Comment: <100 mg/dl OPTIMAL 100 - 129 mg/dl NEAR OR ABOVE OPTIMAL 130 - 159 mg/dl BORDERLINE HIGH 160 - 189 mg/dl HIGH >190 mg/dl VERY HIGH Performed By: #### LIPID, FT3, T4, CMP, TSH #### [facility] [address] [place] [address] Dr. Teddy PurcellTriglyceride [Mass/Vol]168 mg/dLCritically high<=150[facility] on above:Performed By: #### LIPID, FT3, T4, CMP, TSH #### [facility] [address] [place] [address] Dr. Teddy WassermanLDL CALC33.6 mg/dLDoctors Hospital on above: Performed By: #### LIPID, FT3, T4, CMP, TSH #### [facility] [address] [place] [address] Dr. Teddy Roberson 14(COMP METB)on 41-08-5762Kwnlixw [Mass/Vol]3.7 g/dLNormal 3.4-5.0The [facility] HospitalComment on above:Performed By: #### LIPID, FT3, T4, CMP, TSH #### [facility] [address] [place] [address] Dr. Teddy PurcellAlbumin/Globulin [Mass ratio]0.9 {ratio}NormalThe [facility] HospitalComment on above:Performed By: #### LIPID, FT3, T4, CMP, TSH #### [facility] [address] [place] [address] Dr. Teddy Fields [Catalytic activity/Vol]63 U/JXxlxsh21-846Wzc The Surgical Hospital at Southwoodsment on above:Performed By: #### LIPID, FT3, T4, CMP, TSH #### [facility] [address] [place] [address] Dr. Teddy Justin [Catalytic activity/Vol]61 U/PXlrztz35-87Xbn [facility] HospitalComment on above:Performed By: #### LIPID, FT3, T4, CMP, TSH #### [facility] [address] [place] [address] Dr. Teddy Arthur gap [Moles/Vol]9.7 mmol/LNormalThe [facility] HospitalComment on above:Performed By: #### LIPID, FT3, T4, CMP, TSH #### [facility] [address] [place] [address] Dr. Teddy PurcellAST [Catalytic activity/Vol]30 U/IZikdsh97-98Cvr [facility] HospitalComment on above:Performed By: #### LIPID, FT3, T4, CMP, TSH #### [facility] [address] [place] [address] Dr. Teddy PurcellBilirubin [Mass/Vol]0.3 mg/dLNormal0.2-1.0The [facility] Comment on above:Performed By: #### LIPID, FT3, T4, CMP, TSH #### [facility] [address] [place] [address] Dr. Teddy PurcellCalcium [Mass/Vol]9.7 mg/dLNormal8.5-10.1The [facility] Comment on above:Performed By: #### LIPID, FT3, T4, CMP, TSH #### [facility] [address] [place] [address] Dr. Teddy PurcellChloride [Moles/Vol]96 mmol/LCritically svv21-670Srk [facility] HospitalComment on above:Performed By: #### LIPID, FT3, T4, CMP, TSH #### [facility] [address] [place] [address] Dr. Teddy PurcellCO2 [Moles/Vol]34.7 mmol/LCritically high21.0-32.0The [facility] HospitalComment on above:Performed By: #### LIPID, FT3, T4, CMP, TSH #### [facility] [address] [place] [address] Dr. Teddy PurcellCreatinine [Mass/Vol]0.78 mg/dLNormal0.70-1.30[facility] on above:Performed By: #### LIPID, FT3, T4, CMP, TSH #### [facility] [address] [place] [address] Dr. Teddy Da SilvaGFR-AF COLOMBIAN>60Normal>=60[facility] on above:Performed By: #### LIPID, FT3, T4, CMP, TSH #### [facility] [address] [place] [address] Dr. Teddy Da SilvaGFR-NON AF COLOMBIAN>60Normal>=60[facility] on above:Performed By: #### LIPID, FT3, T4, CMP, TSH #### [facility] [address] [place] [address] Dr. Teddy PurcellGlobulin (S) [Mass/Vol]3.9 g/dLNormalThe [facility] HospitalComun[facility] on above:Performed By: #### LIPID, FT3, T4, CMP, TSH #### [facility] [address] [address] [address] Teddy PurcellGlucose [Mass/Vol]165 mg/dLCritically pqir55-194Gge [facility] HospitalComment on above:Performed By: #### LIPID, FT3, T4, CMP, TSH #### [facility] [address] [address] [address] Teddy PurcellPotassium [Moles/Vol]4.4 mmol/LNormal3.5-5.1The [facility] Comment on above:Performed By: #### LIPID, FT3, T4, CMP, TSH #### [facility] [address] [address] [address] Teddy PurcellProtein [Mass/Vol]7.6 g/dLNormal6.4-8.2The [facility] Comment on above:Performed By: #### LIPID, FT3, T4, CMP, TSH #### [facility] [address] [address] [address] Teddy PurcellSodium [Moles/Vol]136 mmol/PJfpvar163-946Pbb [facility] Comment on above:Performed By: #### LIPID, FT3, T4, CMP, TSH #### [facility] [address] [place] [address] Dr. Teddy PurcellUrea nitrogen [Mass/Vol]14.0 mg/dLNormal7.0-18.0The [facility] HospitalComment on above:Performed By: #### LIPID, FT3, T4, CMP, TSH #### [facility] [address] [place] [address] Dr. Teddy PurcellUrea nitrogen/Creatinine [Mass ratio]17.9 mg/mgNormalThe [facility] HospitalComment on above:Performed By: #### LIPID, FT3, T4, CMP, TSH #### [facility] [address] [place] [address] Dr. Teddy WigginsIMEmasha 70-47-4518VQN Coag (PPP) [Relative time]3.13 {INR} NormalThe [facility] HospitalComment on above:Performed By: #### PT #### [facility] [address] [place] [address] Dr. Teddy Gilmore GUIDELINESSEE [facility]let[facility] HospitalComment on above:Result Comment: DESIRED INR: 2.0 - 3.0 CONDITIONS NOT LISTED BELOW 2.5 - 3.5 FOR PROSTHETIC HEART VALVE REPLACEMENT 2.5 - 3.5 RECURRENT THROMBOSIS Performed By: #### PT #### [facility] [address] [place] [address] Dr. Teddy Turner Coag (PPP) [Time]31.4 sCritically high9.0-11.6The [facility]Com[facility] on above:Performed By: #### PT #### [facility] [address] [place] [address] Dr. Teddy Arroyo 71-65-7853B2 [Mass/Vol]7.60 ug/dLNormal4.50-12.10The [facility]Com[facility] on above:Performed By: #### LIPID, FT3, T4, CMP, TSH #### [facility] [address] [place] [address] Dr. Teddy Mccrary 49-83-2987AGI1.595 uIU/mLNormal0.358-3.740[facility] on above:Performed By: #### LIPID, FT3, T4, CMP, TSH #### [facility] [address] [place] [address] Dr. Teddy WigginsIMEmasha 27-46-5185BKO Coag (PPP) [Relative time]3.69 {INR} NormalThe [facility] on above:Performed By: #### PT #### [facility] [address] [place] [address] Dr. Teddy Gilmore GUIDELINESSEE [facility]Com[facility] on above:Result Comment: DESIRED INR: 2.0 - 3.0 CONDITIONS NOT LISTED BELOW 2.5 - 3.5 FOR PROSTHETIC HEART VALVE REPLACEMENT 2.5 - 3.5 RECURRENT THROMBOSIS Performed By: #### PT #### [facility] [address] [place] [address] Dr. Teddy PurcellPT Coag (PPP) [Time]36.6 sCritically high9.0-11.6The [facility] HospitalComment on above:Performed By: #### PT #### [facility] [address] [place] [address] Dr. Teddy PurcellTESTOSTERONE, TOTALon 46-54-6601Cjxzzbxfuull [Mass/Vol]633 ng/dL Adlhln675-359Fhx [facility] HospitalComment on above:Result Comment: Adult male reference interval is based on a population of healthy nonobese males (BMI <30) between 19 and 39 years old. Thea, et.al. JCEM 2017,102;2901-9530. PMID: [id number].Performed By: #### PT #### [facility] [address] [place] [address] Dr. Teddy PurcellCBC AUTO DIFFon 92-82-3077NSKG #0.0 103/ulNormal0.0-0.1[facility] HospitalComment on above:Performed By: #### CBC #### [facility] [address] [place] [address] Dr. Teddy PurcellBasophils/100 WBC (Bld)0.4 %Normal0.2-2.0[facility] Comment on above:Performed By: #### CBC #### [facility] [address] [place] [address] Dr. Teddy Villegas #0.1 103/ulNormal0.0-0.7The [facility] HospitalComment on above: Performed By: #### CBC #### [facility] [address] [place] [address] Dr. Teddy Da Silvaosinophils/100 WBC (Bld)2.0 %Normal0.9-7.0The [facility] Comment on above:Performed By: #### CBC #### [facility] [address] [place] [address] Dr. Teddy Da Silvarythrocyte distribution width (RBC) [Ratio]13.7 %Eynqxz30.0-15.0 The [facility] HospitalComment on above:Performed By: #### CBC #### [facility] [address] [place] [address] Dr. Teddy PurcellHematocrit (Bld) [Volume fraction]45.6 %Kfltfh00.0-54.0The [facility] HospitalComment on above:Performed By: #### CBC #### [facility] [address] [place] [address] Dr. Teddy PurcellHemoglobin (Bld) [Mass/Vol]14.8 g/lMKcqeze39.0-18.0The [facility] HospitalComment on above:Performed By: #### CBC #### [facility] [address] [place] [address] Dr. Teddy Avila #0.01 10e3/ulNormal0.00-0.03The [facility] HospitalComment on above:Performed By: #### CBC #### [facility] [address] [place] [address] Dr. Teddy Avila %0.2 %Normal0.0-0.5The [facility] HospitalComment on above: Performed By: #### CBC #### [facility] [address] [place] [address] Dr. Teddy Peck #1.8 103/ulNormal1.2-3.8The [facility] HospitalCom[facility] on above:Performed By: #### CBC #### [facility] [address] [place] [address] Dr. Teddy Babinmphocytes/100 WBC (Bld)36.6 %Dmsfao25.5-60.0The [facility] HospitalComment on above:Performed By: #### CBC #### [facility] [address] [place] [address] Dr. Teddy BurdenUAL DIFF REQNONormalThe [facility] HospitalComment on above: Performed By: #### CBC #### [facility] [address] [place] [address] Dr. Teddy Casas (RBC) [Entitic mass]30.0 ssHavvox93.9-34.0The [facility] HospitalComment on above:Performed By: #### CBC #### [facility] [address] [address] [address] Teddy FriedmanHC (RBC) [Mass/Vol]32.5 g/fAEabjla94.9-35.2The [facility] HospitalComment on above:Performed By: #### CBC #### [facility] [address] [place] [address] Dr. Teddy FriedmanV (RBC) [Entitic vol]92.3 wMGbvsww75.0-94.0The [facility] HospitalComment on above:Performed By: #### CBC #### [facility] [address] [place] [address] Dr. Teddy Doran #0.7 103/ulNormal0.3-0.8The [facility] HospitalComment on above:Performed By: #### CBC #### [facility] [address] [place] [address] Dr. Teddy Mcadamsocytes/100 WBC (Bld)13.7 %Critically high1.7-12.0The [facility] HospitalComment on above:Performed By: #### CBC #### [facility] [address] [place] [address] Dr. Teddy Quinn #2.3 103/ulNormal1.4-6.5The [facility] HospitalComment on above:Performed By: #### CBC #### [facility] [address] [place] [address] Dr. Teddy Wattersutrophils/100 WBC (Bld)47.1 %Oicosq10.0-75.0The [facility] HospitalComment on above:Performed By: #### CBC #### [facility] [address] [place] [address] Dr. Teddy Harmonlet mean volume (Bld) [Entitic vol]10.3 fLNormal9.5-13.5The [facility] HospitalComment on above:Performed By: #### CBC #### [facility] [address] [place] [address] Dr. Teddy NicoleT252 103/mzXdodlq247-673Ogm [facility] HospitalComment on above: Performed By: #### CBC #### [facility] [address] [place] [address] Dr. Teddy PurcellRBC4.94 106/ulNormal4.70-6.10The [facility] Hospital at Southwoodsment on above:Performed By: #### CBC #### [facility] [address] [place] [address] Dr. Teddy PurcellWBC5.0 103/ulNormal4.0-11.0The [facility] HospitalComment on above: Performed By: #### CBC #### [facility] [address] [place] [address] Dr. Teddy Jama 74-56-5133Pgcd [Mass/Vol]85.0 ug/lOGwykwq76.0-175.0The [facility] HospitalComment on above:Performed By: #### PSASC #### [facility] [address] [place] [address] Dr. Teddy PurcellMAGNESIUMon 15-09-9121Tocvfeyob [Mass/Vol]1.9 mg/dLNormal1.8-2.4 The [facility] HospitalComment on above:Performed By: #### PSASC #### [facility] [address] [place] [address] Dr. Teddy PurcellPHOSPHORUSon 43-09-0180Ogvbaghkg [Mass/Vol]3.1 mg/dLNormal2.6-4.7 The [facility] HospitalCom[facility] on above:Performed By: #### PSASC #### [facility] [address] [place] [address] Dr. Teddy PurcellPROF 14(COMP METB)on 93-62-6557Gelmbae [Mass/Vol]3.5 g/dLNormal 3.4-5.0The [facility] HospitalComment on above:Performed By: #### PSASC #### [facility] [address] [place] [address] Dr. Teddy PurcellAlbumin/Globulin [Mass ratio]1.0 {ratio}NormalThe [facility] HospitalComment on above:Performed By: #### PSASC #### [facility] [address] [address] [address] Teddy DiopP [Catalytic activity/Vol]59 U/DGyeggf65-021Luh [facility] HospitalComment on above:Performed By: #### PSASC #### [facility] [address] [address] [address] Teddy DiopT [Catalytic activity/Vol]58 U/RWlyqty68-28Bdd [facility] HospitalComment on above:Performed By: #### PSASC #### [facility] [address] [address] [address] Teddy Fulleron gap [Moles/Vol]9.5 mmol/LNormalThe [facility] HospitalComment on above:Performed By: #### PSASC #### [facility] [address] [address] [address] Teddy PurcellAST [Catalytic activity/Vol]28 U/SYmbwer05-38Nbx [facility] HospitalComment on above:Performed By: #### PSASC #### [facility] [address] [address] [address] Teddy PurcellBilirubin [Mass/Vol]0.3 mg/dLNormal0.2-1.0[facility] Comment on above:Performed By: #### PSASC #### [facility] [address] [address] [address] Teddy PurcellCalcium [Mass/Vol]9.1 mg/dLNormal8.5-10.1The [facility] Comment on above:Performed By: #### PSASC #### [facility] [address] [address] [address] Teddy PurcellChloride [Moles/Vol]104 mmol/KJpydsr35-883Mzr [facility] Comment on above:Performed By: #### PSASC #### [facility] [address] [address] [address] Teddy PurcellCO2 [Moles/Vol]30.8 mmol/PEdkstq43.0-32.0The [facility] Comment on above:Performed By: #### PSASC #### [facility] [address] [address] [address] Teddy PurcellCreatinine [Mass/Vol]0.90 mg/dLNormal0.70-1.30The [facility] HospitalComment on above:Performed By: #### PSASC #### [facility] [address] [address] [address] Teddy Da SilvaGFR-AF COLOMBIAN>60Normal>=60The [facility] HospitalComment on above:Performed By: #### PSASC #### [facility] [address] [address] [address] Teddy Da SilvaGFR-NON AF COLOMBIAN>60Normal>=60The [facility] HospitalComment on above:Performed By: #### PSASC #### [facility] [address] [address] [address] Teddy PurcellGlobulin (S) [Mass/Vol]3.5 g/dLNormalThe [facility] HospitalComment on above:Performed By: #### PSASC #### [facility] [address] [address] [address] Teddy PurcellGlucose [Mass/Vol]145 mg/dLCritically gtlh47-612HazCleveland Clinic Hillcrest HospitalComment on above:Performed By: #### PSASC #### [facility] [address] [address] [address] Teddy PurcellPotassium [Moles/Vol]4.3 mmol/LNormal3.5-5.1The [facility] Comment on above:Performed By: #### PSASC #### [facility] [address] [address] [address] Teddy PurcellProtein [Mass/Vol]7.0 g/dLNormal6.4-8.2The [facility] Comment on above:Performed By: #### PSASC #### [facility] [address] [address] [address] Teddy PurcellSodium [Moles/Vol]140 mmol/VMhlzcu150-340Csy [facility] Comment on above:Performed By: #### PSASC #### [facility] [address] [address] [address] Teddy Rodriguez nitrogen [Mass/Vol]17.0 mg/dLNormal7.0-18.0[facility] HospitalComment on above:Performed By: #### PSASC #### [facility] [address] [address] [address] Teddy Rodriguez nitrogen/Creatinine [Mass ratio]18.9 mg/mgNoCleveland Clinic South Pointe HospitalComment on above:Performed By: #### PSASC #### [facility] [address] [place] [address] Dr. Teddy PurcellPROTIMEon 59-68-3963EYE Coag (PPP) [Relative time]2.83 {INR} NormalCleveland Clinic Hillcrest HospitalComment on above:Performed By: #### PT #### [facility] [address] [place] [address] Dr. Teddy Gilmore GUIDELINESSEE BELOWMorrow County HospitalComment on above:Result Comment: DESIRED INR: 2.0 - 3.0 CONDITIONS NOT LISTED BELOW 2.5 - 3.5 FOR PROSTHETIC HEART VALVE REPLACEMENT 2.5 - 3.5 RECURRENT THROMBOSIS Performed By: #### PT #### [facility] [address] [place] [address] Dr. Teddy PurcellPT Coag (PPP) [Time]28.6 sCritically high9.0-11.6The [facility] HospitalComment on above:Performed By: #### PT #### [facility] [address] [place] [address] Dr. Teddy PurcellProthrombin Time INRon 35-01-8060GNC Coag (Bld) [Relative time] 10.5 sNormal9.0-12.9[facility] HospitalComment on above:Performed By: #### PT #### [place] [address] USAINR Coag (PPP) [Relative time]0.9 {INR}NormalOhio State Harding HospitalComment on above:Result Comment: INR Therapeutic Range A) Pre- and [...] heart valves: 3 - 4.5 PERFORMED BY: [place] [id number] PATHOLOGIST [employer]IV[employer] ENGINEERING PROFESSIONAL DANIKA COE M.D.Performed By: #### PT #### [id number] USAOperative Reporton 17-75-5966Shvvvlcti ReportMR#: [id number] [facility] Pt. Name: Mariajose Packer Room #: 0C Discharge 10/20/2016 Date: Birthdate: 1975 OPERATIVE REPORTDATE OF SURGERY: 10/20/2016SURGEON: Chicho Barba M.D.PREOPERATIVE DIAGNOSISScapholunate instability, right wrist.POSTOPERATIVE DIAGNOSES1.Scapholunate instability, right wrist2.Type 1B triangular fibrocartilage complex tear, right wrist.PROCEDU RE1.Arthroscopic examination, right wrist.2.Repair of triangular fiber cartilage, [...] lunate fossa as expectedstill looks good. As t o get over to the ulnar side of [...] 2-0FiberWire suture across the tear. The needles werepassed out through theskin and made a 1.5 cm longitudinal incision over the ulnar styloid,dissecteddown to the capsular plane, and retrieved our [...] a probe, I can grossly open the jointupand spread to bones apart. I could not [...] Dict: 10/20/2016//Chicho Barba M.D.Date Trans: 10/24/2016 05:16 P/hhDN_JN:[id number]: Celio Oseguera M.D. [facility] [address] [place] [address]. [facility] [id number] Dane Pompa M.D. [address] [address]ZaicymPqbKettering Health PreblePO GLUCOSE LABon 58-91-6711Sztfpks mass ueid643 mg/qMOcyh78-761Wxf [facility] HospitalComment on above:Performed By: #### [id number] ####[facility] [facility] [place] [address], [facility] Glucose mass ttsa369 mg/mSWsyd32-939Iyc [facility] Comment on above:Performed By: #### [id number] ####[facility] [facility] [place] [address], [facility] Vital Signs Date TimeVital SignValuePerforming RghtvlioqCbgjsxla50-00-3989 15:13-0500Blood Pressure LocationMichael NILL [facility] Raymarxs69-06-0396 15:13-0500Diastolic blood mvkkvvez66 mm[Hg]Durga NILL [facility] Surgery Tiugexct60-93-7420 15:13-0500Heart rate 76 /minMichael NILL [facility] Surgery Zoywplom71-52-7128 15:13-0500 Respiratory rate16 /minMichael NILL [facility] Surgery Jvvtglng73-34-1071 15:13-0500Systolic blood kngoosmy345 mm[Hg]Durga NILL [facility] [place] Encounters Encounter DateEncounter TypeCare ProviderFacilityStart: 12-26-2024 End: 91-06-1412crujideerfAbzgytq HoyFacility:[facility]ITALtart: 08-14-2022 End: 85-87-7594rhdhhcvehvLL DANE HOY .Facility:A1Hrvhz: 06-23-2022 End: 06-07-7632dniayuvhxmUG DANE HOY .Facility:Y3Agvqj: 06-16-2022 End: 07-62-7278xmycukfnziMU DANE HOY .Facility:C4Sahoi: 06-09-2022 End: 18-81-9966ddmcifdymcRO DANE HOY .Facility:A7Xfapj: 04-23-2022 End: 32-08-1508Wtypdal encounter procedureMichael R NILL [facility] Surgery Nill/S[facility] [place] Start: 04-11-2022 End: 92-13-0393dbthvkjvjaXR DANE HOY .Facility:A2Nmfqx: 09-29-2874Fwdnqhtqm for general adult medical examination without abnormal findingsDR DANE HOY . [facility]Start: 04-03-2022 End: 37-68-9678qqiribuqjkDU DANE HOY .Facility:H0Xpuke: 04-03-2022 End: 37-30-6817Zsawbclrq for general adult medical examination without abnormal findingsDR DANE POMPA .Facility:W2Mznqb: 12-05-2021 End: 06-18-2469neltirlxvqQT DOUGLAS HOY .Facility:D4Vvnug: 10-08-2021 End: 44-30-4799sniwwvrljnPU DOUGLAS HOY .Facility:M4Vkjnr: 10-20-2016 End: 77-95-4289TvslmbcumhYYPYRV SKIEFacility:[facility] Procedures DateProcedureProcedure DetailPerforming ClinicianStart: 49-14-7134BWN screening DR DANE POMPA .Comment on above:Performed By: #### PSASC #### [facility] [address] [place] [address] Dr. Teddy PurcellStart: 79-18-5144RQVXXI LOWER ARM SURGERYMUREHABILITATION HOSPITAL OF RHODE ISLANDRODAStart: 17-23-6247YGLRW ARTHROSCOPY/SURGERYMARTIN SKIEHistory of lumbar laminectomy Durga BANKS Open acromioplasty for decompression of rotator cuff Durga BANKS Partial resection of colonMichael NILL Repair of ligamentMichael NILL Repair of meniscusMichael NILL Repair of musculotendinous cuff of shoulderMichael NILL TonsillectomyMichael NILL Immunizations Immunization DateImmunizationNotesCare ProviderFacilityNEGATED: Highlighted row has not occurred!20-79-8416zpmtkwljd virus vaccine, unspecified formulation Durga JOCELYN General Surgery [facility] DatePayer CategoryPayerPolicy [id number] 2.1.[id number] 2.0.1.992753.3.57[id number] 2.0.1.767014.3.57[id number] 2.840.1.537633.3.57[id number] 2.0.1.099282.3.57[id number] 2.0.1.399076.3.57[id number] 2.0.1.456252.3.57[id number] 2.0.1.414721.3.57[id number] [id number] Social History DateTypeDetailFacilityStart: 78-16-2927Lcivpcj smoking statusNever smoked tobacco (finding)[facility]vueTobacco smoking statusNeverGeneral Surgery [facility]vueSex [facility] Status FuitEfsssweiyxIsepqbTnqskatr04-42-0338Brgsbbamdf StatusN/AGeneral Surgery [place] Evaluation + Plan note Note Date & TypeNoteFacilityEvaluation + Plan note No data available for this section [facility] [place] [facility] Discharge instructions Note Date & TypeNoteFacilityHospital Discharge instructions No data available for this section [facility] [place] Progress note Note Date & TypeNoteFacilityProgress note No data available for this section [...] section and content) DATE CREATED AUTHOR 10/07/2017 [facility] DATE CREATED AUTHOR AUTHOR'S ORGANIZ ATION 07/12/2020 [facility] DATE CREATED AUTHOR AUTHOR'S ORGANIZ ATION 08/22/2022 [facility] DATE CREATED AUTHOR AUTHOR'S ORGANIZ ATION 12/27/2024 [facility] DATE CREATED AUTHOR AUTHOR'S ORGANIZ ATION 01/03/2025 [facility] Patient Care team informatio n (unrecognized section and content) Personnel Name: Dane Pompa MD Address: Address: [address] [place] [address] FOR RECORDS PERTAINING TO PATIENTS WHO ARE [...] BE BASED ON THE PRIMARY CLINICAL RECORDS. [facility] SystemMy[facility]. provides no warranty or guarantee of the accuracy or completeness of information in this document.
[2025-02-16 14:29] LABS: INR 3.39; Prothrombin Time 31.8 sec (9.0-11.6)
== END 2025-02-16 23:59 | disposition home or self-care (01) ==
LOC: LAB 13:32
PROVIDERS: PCP Family Medicine; Visit Provider Family Medicine
DX: Z51.81 Encounter for therapeutic drug level monitoring (principal); Z79.01 Long term (current) use of anticoagulants; I26.99 Other pulmonary embolism without acute cor pulmonale
CPT/HCPCS: 36415; 85610

== ENCOUNTER 2025-03-08 13:39 | Outpatient (OUT) | payer BC, MEDICARE, SELFPAY ==
--- OUTSIDE RECORDS SUMMARY | 2025-03-08 13:44 | XMS_ITS | Clinical Summary ---
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 Name Role Phone Unavailable Primary Care Provider Unavailabl e Social History Tobacco UseTypesPacks/DayYears UsedDateSmoking Tobacco: Never AssessedSex and Gender InformationValueDate RecordedSex Assigned at BirthNot on fileLegal Sex Male06/25/2022 6:35 PM EDTGender IdentityNot on fileSexual OrientationNot on file Last Filed Vital Signs Vital SignReadingTime TakenCommentsBlood Ehlxskfn111/7803/12/2018 12:00 PM EST Pulse--Temperature--Respiratory Rate--Oxygen Saturation--Inhaled Oxygen Concentration--Lqyflt233 kg (262 lb)03/12/2018 12:00 PM NNJDjspsj135.9 cm (6') 03/12/2018 12:00 PM ESTBody Mass Index35.5303/12/2018 12:00 PM EST Plan of Treatment Not on file Insurance
[2025-03-08 14:34] LABS: INR 3.34; Prothrombin Time 31.4 sec (9.0-11.6)
== END 2025-03-08 13:40 | disposition home or self-care (01) ==
PROVIDERS: PCP Family Medicine; Visit Provider Family Medicine
DX: I26.99 Other pulmonary embolism without acute cor pulmonale (principal)
CPT/HCPCS: 36415; 85610

== ENCOUNTER 2025-03-23 13:41 | Outpatient (OUT) | payer BC, MEDICARE, SELFPAY ==
--- OUTSIDE RECORDS SUMMARY | 2025-03-23 13:49 | XMS_ITS | CCD ---
Author Organization [facility] Providers Care Advertising Photographer Name Role Phone DAMIE, CHICHO Unavailable Unavailable SKIE, CHICHO Unavailable Unavailable HOY, DANE Unavailable Unavailable FOGT, CELIO Unavailable Unavailable [facility] Unavailable Unavailable SKIE, CHICHO Unavailable Unavailable [facility] Unavailable Unavailable PITRODA, SHAHANA Unavailable Unavailable Dane [place] Primary Care Physician [phone] VELA Primary Care Unavailable [...] of OnsetReaction(s) Facility (2 sources)celecoxib; 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: [CELEBREX]Drug Sopmnro72-13-3870Cxt [facility] Repository (3 sources)morphine; 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: [MORPHINE]Drug Oqvotyh88-24-8042Uhwddtw (qualifier value)The [facility] Rep[facility] (2 sources)orphenadrine; 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: [Norflex]Drug Ayvyjwf97-97-6701HMNXha [facility] Rep[facility] (2 sources)Adhesive bandage; 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: [Adhesive Bandage]Drug allergyUnknown (qualifier value)[facility] [place] (2 sources)celecoxib; 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: [celecoxib]Drug Vubitzj72-44-4318Ecsmjsk [facility] (3 sources)Orphenadrine; 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: [orphenadrine]Drug Zpvzluo29-59-4412 Unknown (qualifier value)[facility] [place] (1 source)OrphenadrineDrug Mwwpgpi94-04-7074Gal [facility] Repository Medications Current Medications MedicationDrug Class(es)DatesSig (Normalized)Sig (Original)acetaminophen 325 mg / oxyCODONE hydrochloride 5 mg oral tablet (1 source)Opioid AgonistStart: 32-43-6459thcj 2 tablets by mouth every four hours as needed for painPercocet 5 mg-325 mg oral tablet 2 tab(s), Oral, q4hr as needed for pain, Refill(s) 0 Start Date: 04/09/22 Status: Orderedadapalene 0.003 mg/mg topical gel (1 source)RetinoidStart: 57-80-9101Tlkbgxwm 0.3% topical gel 1 noemy, Topical, Once a day (at bedtime), Refill(s) 0 Start Date: 04/09/22Status: Ordered atorvastatin 40 mg oral tablet (1 source)HMG-CoA Reductase InhibitorStart: 32-39-0848oixs 1 tablet by mouth once dailyatorvastatin 40 mg Tab 40 mg = 1 tab(s), Oral, Daily, Refills(s) 0 Start Date: 04/09/22 Status: Orderedazelastine hydrochloride 0.5 mg/ml ophthalmic solution (1 source)Histamine-1 Receptor AntagonistStart: 20-46-4909ahavelbcdp 0.05% Opth Annette 1 drop(s), Daily, Refill(s) 0 Start Date: 04/09/22 Status: Ordered cyclobenzaprine hydrochloride 10 mg oral tablet (1 source)Muscle RelaxantStart: 62-25-6416fttr 2 tablets by mouth at bedtime as needed for muscle spasmscyclobenzaprine 10 mg Tab 20 mg = 2 tab(s), Oral, Bedtime, PRN for spasm, Refills(s) 0 Start Date: 04/09/22 Status: Ordered doxycycline monohydrate 100 mg oral capsule (1 source)Tetracycline-class DrugStart: 04-98-7826pxhr 1 capsule by mouth twice dailydoxycycline monohydrate 100 mg oral capsule 100 mg = 1 cap(s), Oral, BID, Refills(s) 0 Start Date: 04/09/22 Status: Orderedibuprofen 800 mg oral tablet (1 source)Nonsteroidal Anti-inflammatory DrugStart: 17-10-0029gsch 1 tablet by mouth four times daily as needed for painibuprofen 800 mg Tab 800 mg = 1 tab(s), Oral, QID, PRN as needed for pain, Refills(s) 0 Start Date:04/09/22 Status: Orderedlisinopril 20 mg oral tablet (1 source)Angiotensin Converting Enzyme InhibitorStart: 35-94-8460fxak 1 tablet by mouth once dailylisinopril 20 mg Tab 20 mg = 1 tab(s), Oral, Daily, Refills(s) 0 Start Date: 04/09/22 Status: OrderedmetFORMIN hydrochloride 500 mg oral tablet (1 source)BiguanideStart: 13-48-6169eqwc 1 tablet by mouth twice dailymetformin 500 mg Tab 500 mg = 1 tab(s), Oral, BID, Refills(s) 0 Start Date: 04/09/22 Status: Orderedomeprazole 20 mg delayed release oral capsule (1 source)Proton Pump InhibitorStart: 16-88-9282eqvm 1 capsule by mouth once dailyomeprazole 20 mg Cap-DR 20 mg = 1 cap(s), Oral, Daily, Refills(s) 0 Start Date: 04/09/22 Status: OrderedoxyCODONE hydrochloride 10 mg oral tablet (1 source)Opioid AgonistStart: 93-22-8436rprs 1-2 tablets by mouth twice daily oxycodone 10 mg oral tablet 1-2 tabs, Oral, BID, Refills(s) 0 Start Date: 04/09/22 Status: Orderedpioglitazone 30 mg oral tablet (1 source)Peroxisome Proliferator Receptor alpha Agonist, Peroxisome Proliferator Receptor gamma Agonist, ThiazolidinedioneStart: 82-25-0908rmyg 1 tablet by mouth once dailypioglitazone 30 mg Tab 30 mg = 1 tab(s), Oral, Daily, Refills(s) 0 Start Date: 04/09/22 Status: Orderedpregabalin 100 mg oral capsule (1 source)Start: 44-57-1096ivhp 1 capsule by mouth three times dailyLyrica 100 mg Cap 100 mg = 1 cap(s), Oral, TID, Refills(s) 0 Start Date: 04/09/22 Status: Orderedtestosterone cypionate 200 mg/mL IM Annette (1 source)Start: 94-51-8814cmyfvx 100 mg by intramuscular injection every week testosterone cypionate 200 mg/mL IM Annette 100 mg = 0.5 mL, IntraMuscular, qWeek, Refills(s) 0 Start Date: 04/09/22 Status: OrderedVitamin D3 2000 intl units oral Tab (1 source)Start: 35-73-7465odvr 1 tablet by mouth once dailyVitamin D3 2000 intl units oral Tab 50 mcg, Oral, Daily, Refills(s) 0 Start Date: 04/09/22 Status: O rderedwarfarin sodium 10 mg oral tablet (2 sources)Vitamin K AntagonistStart: 62-68-9314Nyoazbar 10 mg oral tablet as directed, Refills(s) 0 Start Date: 04/09/22 Status: OrderedStart: 04-09-2022 Coumadin 7.5 mg Tab as directed, Refills(s) 0 Start Date: 04/09/22 Status: Ordered Problems Active Problems Problem ClassificationProblemDateDocumented DateEpisodic/ChronicDiabetes mellitus with complications (1 source)Type 2 diabetes mellitus with 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 edema, bilateral; 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: [TYPE 2 DM MILD NPDR W/O MAC ED KAVIN]Onset: 86-01-8239VapmbegUavbsneu mellitus without complication (2 sources)Type 2 diabetes mellitus without complications; 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: [Diabetes mellitus]Onset: 407377-28-5084BduxdorKsjfknqsih disorders (1 source)Gastro-esophageal reflux disease without esophagitis; 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: [GASTRO-ESOPHAGEAL REFLUX DISEASE WITHOUT ESOPHAGITIS]Onset: 52-59-4457Exbaqqe Essential hypertension (2 sources)Essential hypertension; 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: [Hypertensive disorder]Onset: 785507-09-4811QhyflwlWjnzwmzg (1 source)Tkwaqfqe65-98-3254YvyeclhXepbjglk; including migraine (1 source)Shvvgeci22-12-7032HmvbwzfMujof aftercare (5 sources)penitentiary (current) use of anticoagulants; 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: [SENIOR LIVING CURRNT USE 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]Onset: 78-12-8722NjjvqykvEwwrm endocrine disorders (1 source)Male zcjxpulqomxr61-62-7238AraoeqvGuvyd endocrine disorders (5 sources)Testicular hypofunction; 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: [TESTICULAR HYPOFUNCTION] Onset: 81-01-5107ZuanglcBvifi eye disorders (1 source)Retinal kqld65-36-5026RowsusrJjwqc inflammatory condition of skin (1 source)Kqmeuzwdm17-74-2810RhkenkaAgrwf nervous system disorders (1 source)Craig's ecohemqdoqxwb49-63-2747UadjyctAomqd nutritional; endocrine; and metabolic disorders (1 source)Body mass index 30+ - -63-5159OaynrcaQvtfg skin disorders (2 sources)Actinic keratosis; 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: [Actinic keratosis]Onset: 04-23-2022 EpisodicOther skin disorders (1 source)Acne rerezspv76-11-0291HlrxxmtyTovwe upper respiratory disease (1 source)Allergic bquwatim56-17-9072FnpcacjIszxrsmmh; thrombophlebitis and thromboembolism (2 sources)H/O: Deep vein thrombosis; 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: [Superficial thrombophlebitis]20-27-5720DjuixdksMqgsrcapg heart disease (6 sources)H/O: pulmonary embolus; 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: [Other pulmonary embolism without acute cor pulmonale]Onset: 504892-48-9045FmujnirdXcnobymidfu; intervertebral disc disorders; other back problems (1 source)Prolapsed lumbar intervertebral aywn60-59-4894CgycptaSgiwzvjhcvjq (1 source)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; 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: [SENIOR LIVING (CURRENT) USE OF ORAL HYPOGLYCEMIC DRUGS]Onset: 10-20-2016 Past or Other Problems Problem ClassificationProblemDateDocumented DateEpisodic/ChronicDeficiency and other anemia (1 source)Anemia, unspecified; 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: [ANEMIA UNSPECIFIED]Onset: 81-53-1413IolhdimyYpfhiwk and fatigue (1 source)Other fatigue; 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: [OTHER FATIGUE]Onset: 16-00-7032Pheiwecc Other aftercare (1 source)Other long term care social worker (current) drug therapy; 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: [OTH SENIOR LIVING CURRENT DRUG THERAPY]Onset: 77-17-7777XiolyxhzTwjtd non-traumatic joint disorders (4 sources)Other instability, right wrist; 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: [OTHER INSTABILITY, RIGHT WRIST]Onset: 50-83-0968JlupoejlBneju screening for suspected conditions (not mental disorders or infectious disease) (6 sources)Encounter for screening for malignant neoplasm of colon; 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: [Encounter for screening formalignant neoplasm of prostate]Onset: 92-36-8854PklvfzayNonmmtr and strains (1 source)Other specified sprain of right wrist, initial encounter; 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: [OTHER SPECIFIED SPRAIN OF RIGHT WRIST, INITIAL ENCOUNTER]Onset: 78-31-2323QbhinyhqVchbiijotfro (2 sources)Unknown / UNK(Unknown)Onset: 10-20-2016 Results Test NameValueInterpretationReference RangeFacilityPT & PTTon 65-60-0901VOV Coag (PPP) [Relative time]2.45 {INR}Invalid Interpretation CodeFisher [facility]noch Pratt HospitalComment on above:Result Comment: INR results are specifically intended to assess patients stabilized on long-term Anticoagulation therapy suggested INR???s ???Less Intensive Anticoagulation??? 2.0 ??? 3.0 Conventional Range 3.0 ??? 4.5Performed By: #### [id number] #### [facility] [address], [place] [address]LQ92.9 second(s)High9.4-12.5Fisher [facility] Pr[facility] HospitalComment on above:Result Comment: 15 days - [...] the same coagulation reagent and instrumentation as [facility]. Currently there are no coagulation studies available worldwide for children to 14 days, andno normal ranges.Performed By: #### [id number] #### [facility] [address], [place] [address]ZJO25.0 second(s)High25.1-36.5Fisher [facility] Comment on above:Result Comment: Parameter 15 [...] the same coagulation reagent and instrumentation as [facility]. Currently there are no coagulation studies available worldwide for children to 14 days, andno normal ranges. Heparin therapeutic range (represented by Anti-Factor Xa activity of 0.2 - 0.4 U/mL) corresponds to PTT of 56.6 - 109.0 sec.Performed By: #### [id number] #### [facility] [address], [place] [address]AVRPZQClw 93-51-9205KXP Coag (PPP) [Relative time]2.84 {INR} NormalThe [facility] WestComment on above:Performed By: #### PT #### [facility] [address] [place] [address] Dr. Teddy Gilmore GUIDELINESSEE [facility] on above:Result Comment: DESIRED INR: 2.0 - 3.0 CONDITIONS NOT LISTED BELOW 2.5 - 3.5 FOR PROSTHETIC HEART VALVE REPLACEMENT 2.5 - 3.5 RECURRENT THROMBOSIS Performed By: #### PT #### [facility] [address] [place] [address] Dr. Teddy Turner Coag (PPP) [Time]28.4 sCritically high9.0-11.6ThSouthwest General Health CenterComva medical center on above:Performed By: #### PT #### [facility] [address] [place] [address] Dr. Teddy Kemp 20-28-2229SCY Coag (PPP) [Relative time]3.22 {INR} NormalClermont County Hospital on above:Performed By: #### PT #### [facility] [address] [place] [address] Dr. Teddy Gilmore GUIDELINESSEE [facility] on above:Result Comment: DESIRED INR: 2.0 - 3.0 CONDITIONS NOT LISTED BELOW 2.5 - 3.5 FOR PROSTHETIC HEART VALVE REPLACEMENT 2.5 - 3.5 RECURRENT THROMBOSIS Performed By: #### PT #### [facility] [address] [place] [address] Dr. Teddy Turner Coag (PPP) [Time]31.9 sCritically high9.0-11.6ThCleveland Clinic [facility] on above:Performed By: #### PT #### [facility] [address] [place] [address] Dr. Teddy Kemp 84-91-0276NZV Coag (PPP) [Relative time]3.26 {INR} NormalClermont County Hospital on above:Performed By: #### PSASC #### [facility] [address] [place] [address] Dr. Teddy Gilmore GUIDELINESSEE [facility] on above:Result Comment: DESIRED INR: 2.0 - 3.0 CONDITIONS NOT LISTED BELOW 2.5 - 3.5 FOR PROSTHETIC HEART VALVE REPLACEMENT 2.5 - 3.5 RECURRENT THROMBOSIS Performed By: #### PSASC #### [facility] [address] [place] [address] Dr. Teddy Turner Coag (PPP) [Time]32.3 sCritically high9.0-11.6The [facility] WestComment on above:Performed By: #### PSASC #### [facility] [address] [place] [address] Dr. Teddy PurcellPROTIMEon 64-04-2161HYP Coag (PPP) [Relative time]4.37 {INR} Critically highThe [facility] WestComment on above:Performed By: #### PT #### [facility] [address] [place] [address] Dr. Teddy Gilmore [facility] CenterComment on above:Result Comment: DESIRED INR: 2.0 - 3.0 CONDITIONS NOT LISTED BELOW 2.5 - 3.5 FOR PROSTHETIC HEART VALVE REPLACEMENT 2.5 - 3.5 RECURRENT THROMBOSIS Performed By: #### PT #### [facility] [address] [place] [address] Dr. Teddy Turner Coag (PPP) [Time]42.6 sCritically high9.0-11.6The [facility] WestComment on above:Performed By: #### PT #### [facility] [address] [place] [address] Dr. Teddy PurcellOCC BLD IMMUNO SCREENon 54-72-7120TVBPLP BLOODNegativeNormal NEGATIVEThe [facility] WestComment on above:Performed By: #### PSASC #### [facility] [address] [place] [address] Dr. Teddy PurcellTESTOSTERONE, TOTALon 23-20-3547Eitkyvveucdp [Mass/Vol]905 ng/dL Pxalhd311-597UirFirelands Regional Medical Center South CampusComment on above:Result Comment: Adult male reference interval is based on a population of healthy nonobese males (BMI <30) between 19 and 39 years old. Travison, et.al. JCEM 2017,102;7454-2661. PMID: [id number].Performed By: #### PSASC #### [facility] [address] [place] [address] Dr. Teddy Swenson AUTO DIFFon 03-04-2822TSZV #0.0 103/ulNormal0.0-0.1The [facility] WestComment on above:Performed By: #### PSASC #### [facility] [address] [place] [address] Dr. Teddy PurcellBasophils/100 WBC (Bld)0.2 %Normal0.2-2.0The [facility] Comment on above:Performed By: #### PSASC #### [facility] [address] [place] [address] Dr. Teddy Da SilvaO #0.1 103/ulNormal0.0-0.7The [facility] WestComment on above: Performed By: #### PSASC #### [facility] [address] [place] [address] Dr. Teddy Da Silvaosinophils/100 WBC (Bld)2.4 %Normal0.9-7.0The [facility] Comment on above:Performed By: #### PSASC #### [facility] [address] [place] [address] Dr. Teddy Da Silvarythrocyte distribution width (RBC) [Ratio]15.7 %Critically high 11.0-15.0The [facility] WestComment on above:Performed By: #### PSASC #### [facility] [address] [place] [address] Dr. Teddy PurcellHematocrit (Bld) [Volume fraction]51.4 %Omfivb38.0-54.0The [facility] WestComment on above:Performed By: #### PSASC #### [facility] [address] [place] [address] Dr. Teddy PurcellHemoglobin (Bld) [Mass/Vol]16.9 g/sMEghetq09.0-18.0The [facility] WestComment on above:Performed By: #### PSASC #### [facility] [address] [address] [address] Teddy Avila #0.01 10e3/ulNormal0.00-0.03The [facility] on above:Performed By: #### PSASC #### [facility] [address] [place] [address] Dr. Teddy Avila %0.2 %Normal0.0-0.5The [facility] WestComva medical center on above: Performed By: #### PSASC #### [facility] [address] [place] [address] Dr. [facility]inJ[facility] #2.0 103/ulNormal1.2-3.8The [facility] WestComva [facility] center on above:Performed By: #### PSASC #### [facility] [address] [place] [address] Dr. Teddy Cunhahocytes/100 WBC (Bld)33.1 %Ufapap82.5-60.0The [facility] on above:Performed By: #### PSASC #### [facility] [address] [place] [address] Dr. Teddy PurcellINDIANAPOLISUAL DIFF REQNONormalThe [facility] WestComva medical center on above: Performed By: #### PSASC #### [facility] [address] [place] [address] Dr. Teddy Friedman (RBC) [Entitic mass]29.8 gyJjripp53.9-34.0The [facility] on above:Performed By: #### PSASC #### [facility] [address] [place] [address] Dr. Teddy Friedman (RBC) [Mass/Vol]32.9 g/xVMiukjz99.9-35.2The [facility] on above:Performed By: #### PSASC #### [facility] [address] [place] [address] Dr. Teddy Friedman (RBC) [Entitic vol]90.7 cBAfloiy65.0-94.0The [facility] HospitalComment on above:Performed By: #### PSASC #### [facility] [address] [place] [address] Dr. Teddy Doran #0.8 103/ulNormal0.3-0.8The [facility] WestComment on above:Performed By: #### PSASC #### [facility] [address] [place] [address] Dr. Teddy Mcadamsocytes/100 WBC (Bld)12.9 %Critically high1.7-12.0The [place] HospitalComment on above:Performed By: #### PSASC #### [facility] [address] [place] [address] Dr. Teddy Quinn #3.1 103/ulNormal1.4-6.5The [facility] WestComment on above:Performed By: #### PSASC #### [facility] [address] [place] [address] Dr. Teddy Wattersutrophils/100 WBC (Bld)51.2 %Oqomsy24.0-75.0The [facility] WestComment on above:Performed By: #### PSASC #### [facility] [address] [place] [address] Dr. Teddy Harmonlet mean volume (Bld) [Entitic vol]10.0 fLNormal9.5-13.5The [facility] WestComment on above:Performed By: #### PSASC #### [facility] [address] [place] [address] Dr. Teddy PurcellPLT302 103/vyUbplea812-357Nsr [facility] WestComment on above: Performed By: #### PSASC #### [facility] [address] [place] [address] Dr. Teddy PurcellRBC5.67 106/ulNormal4.70-6.10The [facility] WestComment on above:Performed By: #### PSASC #### [facility] [address] [place] [address] Dr. Teddy PurcellWBC6.0 103/ulNormal4.0-11.0The [facility] HospitalComment on above: Performed By: #### PSASC #### [facility] [address] [address] [address] Teddy Astudillo T3on 94-02-1932JLAB T33.52 pg/mlLNormal2.18-3.98[facility] CampusComment on above:Performed By: #### PSASC #### [facility] [address] [address] [address] Teddy PurcellGLYCOHEMOGLOBIN A1Con 52-34-3440UPN RECOMMENDATIONSEE BELOWNormGreen Cross HospitalComment on above:Result Comment: ADA RECOMMENDED LIMIT 4.0 - 6.0 ADA THERAPEUTIC TARGET < 7.0 ACTION SUGGESTED > 7.0Performed By: #### PSASC #### [facility] [address] [place] [address] Dr. Teddy PurcellGlucose [Mass/Vol]209 mg/dLNormParma Community General HospitalComment on above:Performed By: #### PSASC #### [facility] [address] [place] [address] Dr. Teddy PurcellHbA1c (Bld) [Mass fraction]8.9 %Critically high4.5-6.2[facility] CampusComment on above:Performed By: #### PSASC #### [facility] [address] [place] [address] Dr. Teddy PurcellLIPID PROFILEon 26-93-9010ERST-HDL RATIO NORMSEE [facility] on above:Result Comment: 3.3 - 4.4 LOW RISK 4.4 - 7.1 AVERAGE RISK 7.1 - 11.0 MODERATE RISK >11.0 HIGH RISKPerformed By: #### LIPID, FT3, T4, CMP, TSH #### [facility] [address] [place] [address] Dr. Teddy PurcellCholesterol [Mass/Vol]150 mg/dLNormal<=200The [facility] Comment on above:Performed By: #### LIPID, FT3, T4, CMP, TSH #### [facility] [address] [place], [place] [address] Dr. Teddy Ochoaol in HDL [Mass/Vol]31 mg/dLCritically jfl51-25WysClermont County Hospital on above:Performed By: #### LIPID, FT3, T4, CMP, TSH #### [facility] [address] [place] [address] Dr. Teddy Cruzesterol in LDL [Mass/Vol]85.4 mg/dLOhioHealth Nelsonville Health Center on above:Performed By: #### LIPID, FT3, T4, CMP, TSH #### [facility] [address] [place] [address] Dr. Teddy Smith.total/Cholesterol in HDL [Mass ratio]4.8 {ratio} NormalClermont County Hospital on above:Performed By: #### LIPID, FT3, T4, CMP, TSH #### [facility] [address] [place] [address] Dr. Teddy Heck NORMAL> or = 60 mg/dl - LOW CARDIOVASCULAR RISK <40 mg/dl - HIGH CARDIOVASCULAR RISKOhioHealth Nelsonville Health Center on above:Performed By: #### LIPID, FT3, T4, CMP, TSH #### [facility] [address] [place] [address] Dr. Teddy Gould CALC NORMALSEE BELOWMercy Health Urbana HospitalComva medical center on above:Result Comment: <100 mg/dl OPTIMAL 100 - 129 mg/dl NEAR OR ABOVE OPTIMAL 130 - 159 mg/dl BORDERLINE HIGH 160 - 189 mg/dl HIGH >190 mg/dl VERY HIGH Performed By: #### LIPID, FT3, T4, CMP, TSH #### [facility] [address] [place] [address] Dr. Teddy PurcellTriglyceride [Mass/Vol]168 mg/dLCritically high<=150[facility] on above:Performed By: #### LIPID, FT3, T4, CMP, TSH #### [facility] [address] [place] [address] Dr. Teddy WassermanLDL CALC33.6 mg/dLOhioHealth Nelsonville Health Center on above: Performed By: #### LIPID, FT3, T4, CMP, TSH #### [facility] [address] [place] [address] Dr. Teddy Roberson 14(COMP METB)on 08-66-0213Dzbpfqg [Mass/Vol]3.7 g/dLNormal 3.4-5.0The [facility] WestComment on above:Performed By: #### LIPID, FT3, T4, CMP, TSH #### [facility] [address] [place] [address] Dr. Teddy PurcellAlbumin/Globulin [Mass ratio]0.9 {ratio}NormalThe [facility] WestComment on above:Performed By: #### LIPID, FT3, T4, CMP, TSH #### [facility] [address] [place] [address] Dr. Teddy Fields [Catalytic activity/Vol]63 U/BJzhbpv71-291Mfx [facility] Hospitalment on above:Performed By: #### LIPID, FT3, T4, CMP, TSH #### [facility] [address] [place] [address] Dr. Teddy Justin [Catalytic activity/Vol]61 U/KHwwxwy61-04Bns [facility] WestComment on above:Performed By: #### LIPID, FT3, T4, CMP, TSH #### [facility] [address] [place] [address] Dr. Teddy Arthur gap [Moles/Vol]9.7 mmol/LNormalThe [facility] WestComment on above:Performed By: #### LIPID, FT3, T4, CMP, TSH #### [facility] [address] [place] [address] Dr. Teddy PurcellAST [Catalytic activity/Vol]30 U/QJtqadk74-76Gbk [facility] WestComment on above:Performed By: #### LIPID, FT3, T4, CMP, TSH #### [facility] [address] [place] [address] Dr. Teddy PurcellBilirubin [Mass/Vol]0.3 mg/dLNormal0.2-1.0The [facility] Comment on above:Performed By: #### LIPID, FT3, T4, CMP, TSH #### [facility] Laboratory [address] [place] [address] Dr. Teddy PurcellCalcium [Mass/Vol]9.7 mg/dLNormal8.5-10.1The [facility] Comment on above:Performed By: #### LIPID, FT3, T4, CMP, TSH #### [facility] Laboratory [address] [place] [address] Dr. Teddy PurcellChloride [Moles/Vol]96 mmol/LCritically qzq08-701Yhw [facility] WestComment on above:Performed By: #### LIPID, FT3, T4, CMP, TSH #### [facility] Laboratory [address] [place] [address] Dr. Teddy PurcellCO2 [Moles/Vol]34.7 mmol/LCritically high21.0-32.0The [facility] WestComment on above:Performed By: #### LIPID, FT3, T4, CMP, TSH #### [facility] Laboratory [address] [place] [address] Dr. Teddy PurcellCreatinine [Mass/Vol]0.78 mg/dLNormal0.70-1.30The [facility] on above:Performed By: #### LIPID, FT3, T4, CMP, TSH #### [facility] Laboratory [address] [place] [address] Dr. Teddy Da SilvaGFR-AF SLOVENIAN>60Normal>=60The [facility] on above:Performed By: #### LIPID, FT3, T4, CMP, TSH #### [facility] Laboratory [address] [place] [address] Dr. Teddy Da SilvaGFR-NON AF SLOVENIAN>60Normal>=60The [facility] on above:Performed By: #### LIPID, FT3, T4, CMP, TSH #### [facility] Laboratory [address] [place] [address] Dr. Teddy PurcellGlobulin (S) [Mass/Vol]3.9 g/dLNormalThe [facility]Comva [facility] on above:Performed By: #### LIPID, FT3, T4, CMP, TSH #### [facility] Laboratory [address] [address] [address] Teddy PurcellGlucose [Mass/Vol]165 mg/dLCritically ujmq83-739Nfa [facility] WestComment on above:Performed By: #### LIPID, FT3, T4, CMP, TSH #### [facility] Laboratory [address] [address] [address] Teddy PurcellPotassium [Moles/Vol]4.4 mmol/LNormal3.5-5.1The [facility] Comment on above:Performed By: #### LIPID, FT3, T4, CMP, TSH #### [facility] Laboratory [address] [address] [address] Teddy PurcellProtein [Mass/Vol]7.6 g/dLNormal6.4-8.2The [facility] Comment on above:Performed By: #### LIPID, FT3, T4, CMP, TSH #### [facility] Laboratory [address] [address] [address] Teddy PurcellSodium [Moles/Vol]136 mmol/ZVoqmuf479-065Muv [facility] Comment on above:Performed By: #### LIPID, FT3, T4, CMP, TSH #### [facility] Laboratory [address] [place] [address] Dr. Teddy PurcellUrea nitrogen [Mass/Vol]14.0 mg/dLNormal7.0-18.0The [facility] WestComment on above:Performed By: #### LIPID, FT3, T4, CMP, TSH #### [facility] Laboratory [address] [place] [address] Dr. Teddy PurcellUrea nitrogen/Creatinine [Mass ratio]17.9 mg/mgNormalThe [facility] WestComment on above:Performed By: #### LIPID, FT3, T4, CMP, TSH #### [facility] Laboratory [address] [place] [address] Dr. Teddy WigginsIMEmasha 59-81-0117TGZ Coag (PPP) [Relative time]3.13 {INR} NormalThe [facility] WestComment on above:Performed By: #### PT #### [facility] Laboratory [address] [place] [address] Dr. Teddy Gilmore GUIDELINESSEE Premier HealthComment on above:Result Comment: DESIRED INR: 2.0 - 3.0 CONDITIONS NOT LISTED BELOW 2.5 - 3.5 FOR PROSTHETIC HEART VALVE REPLACEMENT 2.5 - 3.5 RECURRENT THROMBOSIS Performed By: #### PT #### [facility] Laboratory [address] [place] [address] Dr. Teddy Turner Coag (PPP) [Time]31.4 sCritically high9.0-11.6The [facility] on above:Performed By: #### PT #### [facility] Laboratory [address] [place] [address] Dr. Teddy Arroyo 52-28-9677C4 [Mass/Vol]7.60 ug/dLNormal4.50-12.10The [facility]Com[facility] on above:Performed By: #### LIPID, FT3, T4, CMP, TSH #### [facility] Laboratory [address] [place] [address] Dr. Teddy Mccrary 94-09-4405EFI2.595 uIU/mLNormal0.358-3.740The [facility] on above:Performed By: #### LIPID, FT3, T4, CMP, TSH #### [facility] Laboratory [address] [place] [address] Dr. Teddy WigginsIMEmasha 86-77-8231UPM Coag (PPP) [Relative time]3.69 {INR} NormalThe [facility] on above:Performed By: #### PT #### [facility] Laboratory [address] [place] [address] Dr. Teddy Gilmore GUIDELINESSEE [facility] HealthComva [facility] center on above:Result Comment: DESIRED INR: 2.0 - 3.0 CONDITIONS NOT LISTED BELOW 2.5 - 3.5 FOR PROSTHETIC HEART VALVE REPLACEMENT 2.5 - 3.5 RECURRENT THROMBOSIS Performed By: #### PT #### [facility] Laboratory [address] [place] [address] Dr. Teddy PurcellPT Coag (PPP) [Time]36.6 sCritically high9.0-11.6The [facility] WestComment on above:Performed By: #### PT #### [facility] Laboratory [address] [place] [address] Dr. Teddy PurcellTESTOSTERONE, TOTALon 71-66-8899Ctysxhrwclwc [Mass/Vol]633 ng/dL Tjloeb126-896Tlv [facility] WestComment on above:Result Comment: Adult male reference interval is based on a population of healthy nonobese males (BMI <30) between 19 and 39 years old. Thea, et.al. JCEM 2017,102;4443-0358. PMID: [id number].Performed By: #### PT #### [facility] Laboratory [address] [place] [address] Dr. Teddy PurcellCBC AUTO DIFFon 63-04-6642AHHA #0.0 103/ulNormal0.0-0.1[facility] CampusComment on above:Performed By: #### CBC #### [facility] Laboratory [address] [place] [address] Dr. Teddy PurcellBasophils/100 WBC (Bld)0.4 %Normal0.2-2.0[facility] Comment on above:Performed By: #### CBC #### [facility] Laboratory [address] [place] [address] Dr. Teddy Villegas #0.1 103/ulNormal0.0-0.7The [facility] WestComment on above: Performed By: #### CBC #### [facility] Laboratory [address] [place] [address] Dr. Teddy Da Silvaosinophils/100 WBC (Bld)2.0 %Normal0.9-7.0The [facility] Comment on above:Performed By: #### CBC #### [facility] Laboratory [address] [place] [address] Dr. Teddy Da Silvarythrocyte distribution width (RBC) [Ratio]13.7 %Rjzwmw84.0-15.0 The [facility] WestComment on above:Performed By: #### CBC #### [facility] Laboratory [address] [place] [address] Dr. Teddy PurcellHematocrit (Bld) [Volume fraction]45.6 %Zqzeub15.0-54.0The [facility] WestComment on above:Performed By: #### CBC #### [facility] Laboratory [address] [place] [address] Dr. Teddy PurcellHemoglobin (Bld) [Mass/Vol]14.8 g/tBHkgzdk15.0-18.0The [facility] WestComment on above:Performed By: #### CBC #### [facility] Laboratory [address] [place] [address] Dr. Teddy Avila #0.01 10e3/ulNormal0.00-0.03The [facility] WestComment on above:Performed By: #### CBC #### [facility] Laboratory [address] [place] [address] Dr. Teddy Avila %0.2 %Normal0.0-0.5The [facility] WestComment on above: Performed By: #### CBC #### [facility] Laboratory [address] [place] [address] Dr. Teddy Peck #1.8 103/ulNormal1.2-3.8The [facility]Com[facility] on above:Performed By: #### CBC #### [facility] Laboratory [address] [place] [address] Dr. Teddy Babinmphocytes/100 WBC (Bld)36.6 %Kzwrls36.5-60.0The [facility] WestComment on above:Performed By: #### CBC #### [facility] Laboratory [address] [place] [address] Dr. Teddy BurdenUAL DIFF REQNONormalThe [facility] WestComment on above: Performed By: #### CBC #### [facility] Laboratory [address] [place] [address] Dr. Teddy Casas (RBC) [Entitic mass]30.0 upAqaphf61.9-34.0The [facility] WestComment on above:Performed By: #### CBC #### [facility] Laboratory [address] [address] [address] Teddy FriedmanHC (RBC) [Mass/Vol]32.5 g/rTBpepap14.9-35.2The [facility] WestComment on above:Performed By: #### CBC #### [facility] Laboratory [address] [place] [address] Dr. Teddy FriedmanV (RBC) [Entitic vol]92.3 yLOjxyzz29.0-94.0The [facility] WestComment on above:Performed By: #### CBC #### [facility] Laboratory [address] [place] [address] Dr. Teddy Doran #0.7 103/ulNormal0.3-0.8The [facility] WestComment on above:Performed By: #### CBC #### [facility] Laboratory [address] [place] [address] Dr. Teddy Mcadamsocytes/100 WBC (Bld)13.7 %Critically high1.7-12.0The [facility] WestComment on above:Performed By: #### CBC #### [facility] Laboratory [address] [place] [address] Dr. Teddy Quinn #2.3 103/ulNormal1.4-6.5The [facility] WestComment on above:Performed By: #### CBC #### [facility] Laboratory [address] [place] [address] Dr. Teddy Wattersutrophils/100 WBC (Bld)47.1 %Jdqbtd45.0-75.0The [facility] WestComment on above:Performed By: #### CBC #### [facility] Laboratory [address] [place] [address] Dr. Teddy Harmonlet mean volume (Bld) [Entitic vol]10.3 fLNormal9.5-13.5The [facility] WestComment on above:Performed By: #### CBC #### [facility] Laboratory [address] [place] [address] Dr. Teddy NicoleT252 103/qgHuhemw884-762Pvs [facility] WestComment on above: Performed By: #### CBC #### [facility] Laboratory [address] [place] [address] Dr. Teddy PurcellRBC4.94 106/ulNormal4.70-6.10The [facility] Hospitalment on above:Performed By: #### CBC #### [facility] Laboratory [address] [place] [address] Dr. Teddy PurcellWBC5.0 103/ulNormal4.0-11.0The [facility] WestComment on above: Performed By: #### CBC #### [facility] Laboratory [address] [place] [address] Dr. Teddy Jama 66-00-7331Erbe [Mass/Vol]85.0 ug/zVHylvyi43.0-175.0The [facility] WestComment on above:Performed By: #### PSASC #### [facility] Laboratory [address] [place] [address] Dr. Teddy PurcellMAGNESIUMon 09-66-3736Ibnwagcav [Mass/Vol]1.9 mg/dLNormal1.8-2.4 The [facility] WestComment on above:Performed By: #### PSASC #### [facility] Laboratory [address] [place] [address] Dr. Teddy PurcellPHOSPHORUSon 09-61-5270Pfmvkkeri [Mass/Vol]3.1 mg/dLNormal2.6-4.7 The [facility]Com[facility] on above:Performed By: #### PSASC #### [facility] Laboratory [address] [place] [address] Dr. Teddy PurcellPROF 14(COMP METB)on 56-46-7980Owuxzgp [Mass/Vol]3.5 g/dLNormal 3.4-5.0The [facility] WestComment on above:Performed By: #### PSASC #### [facility] Laboratory [address] [place] [address] Dr. Teddy PurcellAlbumin/Globulin [Mass ratio]1.0 {ratio}NormalThe [facility] WestComment on above:Performed By: #### PSASC #### [facility] Laboratory [address] [address] [address] Teddy DiopP [Catalytic activity/Vol]59 U/LJpucoe35-690Zrs [facility] WestComment on above:Performed By: #### PSASC #### [facility] Laboratory [address] [address] [address] Teddy DiopT [Catalytic activity/Vol]58 U/WVhimio57-87Ejs [facility] WestComment on above:Performed By: #### PSASC #### [facility] Laboratory [address] [address] [address] Teddy Fulleron gap [Moles/Vol]9.5 mmol/LNormalThe [facility] WestComment on above:Performed By: #### PSASC #### [facility] Laboratory [address] [address] [address] Teddy PurcellAST [Catalytic activity/Vol]28 U/RFrrrwi28-01Egy [facility] WestComment on above:Performed By: #### PSASC #### [facility] Laboratory [address] [address] [address] Teddy PurcellBilirubin [Mass/Vol]0.3 mg/dLNormal0.2-1.0[facility] Comment on above:Performed By: #### PSASC #### [facility] Laboratory [address] [address] [address] Teddy PurcellCalcium [Mass/Vol]9.1 mg/dLNormal8.5-10.1The [facility] Comment on above:Performed By: #### PSASC #### [facility] Laboratory [address] [address] [address] Teddy PurcellChloride [Moles/Vol]104 mmol/YPiowvj81-310Kjw [facility] Comment on above:Performed By: #### PSASC #### [facility] Laboratory [address] [address] [address] Teddy PurcellCO2 [Moles/Vol]30.8 mmol/XRbgvxe31.0-32.0The [facility] Comment on above:Performed By: #### PSASC #### [facility] Laboratory [address] [address] [address] Teddy PurcellCreatinine [Mass/Vol]0.90 mg/dLNormal0.70-1.30The [facility] WestComment on above:Performed By: #### PSASC #### [facility] Laboratory [address] [address] [address] Teddy Da SilvaGFR-AF SLOVENIAN>60Normal>=60The [facility] WestComment on above:Performed By: #### PSASC #### [facility] Laboratory [address] [address] [address] Teddy Da SilvaGFR-NON AF SLOVENIAN>60Normal>=60The [facility] WestComment on above:Performed By: #### PSASC #### [facility] Laboratory [address] [address] [address] Teddy PurcellGlobulin (S) [Mass/Vol]3.5 g/dLNormalThe [facility] WestComment on above:Performed By: #### PSASC #### [facility] Laboratory [address] [address] [address] Teddy PurcellGlucose [Mass/Vol]145 mg/dLCritically zlqd08-241AjlFirelands Regional Medical Center South CampusComment on above:Performed By: #### PSASC #### [facility] Laboratory [address] [address] [address] Teddy PurcellPotassium [Moles/Vol]4.3 mmol/LNormal3.5-5.1The [facility] Comment on above:Performed By: #### PSASC #### [facility] Laboratory [address] [address] [address] Teddy PurcellProtein [Mass/Vol]7.0 g/dLNormal6.4-8.2The [facility] Comment on above:Performed By: #### PSASC #### [facility] Laboratory [address] [address] [address] Teddy PurcellSodium [Moles/Vol]140 mmol/TOkhtdh747-106Iwl [facility] Comment on above:Performed By: #### PSASC #### [facility] Laboratory [address] [address] [address] Teddy Rodriguez nitrogen [Mass/Vol]17.0 mg/dLNormal7.0-18.0[facility] CampusComment on above:Performed By: #### PSASC #### [facility] Laboratory [address] [address] [address] Teddy Rodriguez nitrogen/Creatinine [Mass ratio]18.9 mg/mgNoUC West Chester HospitalComment on above:Performed By: #### PSASC #### [facility] Laboratory [address] [place] [address] Dr. Teddy PurcellPROTIMEon 12-54-4879FPN Coag (PPP) [Relative time]2.83 {INR} NormalFirelands Regional Medical Center South CampusComment on above:Performed By: #### PT #### [facility] Laboratory [address] [place] [address] Dr. Teddy Gilmore GUIDELINESSEE BELOWMercy Health Urbana HospitalComment on above:Result Comment: DESIRED INR: 2.0 - 3.0 CONDITIONS NOT LISTED BELOW 2.5 - 3.5 FOR PROSTHETIC HEART VALVE REPLACEMENT 2.5 - 3.5 RECURRENT THROMBOSIS Performed By: #### PT #### [facility] Laboratory [address] [place] [address] Dr. Teddy PurcellPT Coag (PPP) [Time]28.6 sCritically high9.0-11.6The [facility] WestComment on above:Performed By: #### PT #### [facility] Laboratory [address] [place] [address] Dr. Teddy PurcellProthrombin Time INRon 71-30-1030WOS Coag (Bld) [Relative time] 10.5 sNormal9.0-12.9[facility] Health InstituteComment on above:Performed By: #### PT #### [place] [address] USAINR Coag (PPP) [Relative time]0.9 {INR}NormalRiverview Health InstituteComment on above:Result Comment: INR Therapeutic Range A) [...] heart valves: 3 - 4.5 PERFORMED BY: [address] [place] [id number] PATHOLOGIST GIFT SHOP CLERK DANIAK COE M.D.Performed By: #### PT #### [address] [id number] USAOperative Reporton 56-33-2675Gojwdrozg ReportMR#: [id number] [facility] Pt. Name: Mariajose Packer Room #: [...] at the time of closure.Electronically Signed by:Chicho Braba M.D. 10/27/2016 09:05 A Chicho Barba M.D.Date Dict: 10/20/2016//Chicho Barba M.D.Date Trans: 10/24/2016 05:16 P/hhDN_JN:[id number]: Celio Oseguera M.D. [facility] [address] [place] [address]. [facility] [address] Dane Pompa M.D. [address] [address]WehnazHlyBellevue HospitalPO GLUCOSE LABon 10-79-2960Mpekpmd mass rzdy104 mg/rWTslh71-988Uqh [facility] Health PrebleComment on above:Performed By: #### [id number] ####[facility] [facility] [place] [address], [facility] Glucose mass cuaa853 mg/dOEocv91-173Gqd [facility] Comment on above:Performed By: #### [id number] ####[facility] [facility] [place] [address], [facility] Vital Signs Date TimeVital SignValuePerforming KthtnhfzhDioxknks89-57-0022 15:13-0500Blood Pressure LocationMichael NILL [facility] Kefrfbag81-30-0509 15:13-0500Diastolic blood xcpkxanf71 mm[Hg]Durga NILL [facility] Kefswwdx67-07-6797 15:13-0500Heart rate 76 /minMichael NILL [facility] Gdvpacbw73-43-3976 15:13-0500 Respiratory rate16 /minMichael NILL [facility] Grdlnvxc13-09-7699 15:13-0500Systolic blood ssixnaol914 mm[Hg]Durga NILL [facility] Encounters Encounter DateEncounter TypeCare ProviderFacilityStart: 12-26-2024 End: 25-69-8929niamnjhxyrJtpjkuo HoyFacility:[facility]ENTERtart: 08-14-2022 End: 61-98-3498ujfvbhtpveGI DANE HOY .Facility:N6Qfptn: 06-23-2022 End: 45-09-4771vocjnqilisCC DANE HOY .Facility:F2Zqfrw: 06-16-2022 End: 04-45-2835chhxtngcgsKP DANE HOY .Facility:I9Deewm: 06-09-2022 End: 78-61-4106thwjoblgiuXN DANE HOY .Facility:D6Acxoj: 04-23-2022 End: 08-86-0995Cymfosb encounter procedureMichael R NILL [facility] Nill/Said [facility] Start: 04-11-2022 End: 69-12-8731vjapkuddksNE DANE HOY .Facility:P6Ecgba: 26-12-8383Lztslcgtq for general adult medical examination without abnormal findingsDR DANE HOY . [facility]Start: 04-03-2022 End: 06-04-8282wdobmumzvcUN DANE HOY .Facility:T8Aomfw: 04-03-2022 End: 91-27-4559Zuittcvvj for general adult medical examination without abnormal findingsDR DANE POMPA .Facility:D9Vienr: 12-05-2021 End: 34-48-2056xvtlivgroxNS DOUGLAS HOY .Facility:S4Scwza: 10-08-2021 End: 16-97-9657ckbmacjohtEN DOUGLAS HOY .Facility:O8Spldy: 10-20-2016 End: 20-91-7952IwxqpknmhzYOBSZH SKIEFacility:[facility] Procedures DateProcedureProcedure DetailPerforming ClinicianStart: 39-96-0681LQR screening DR DANE POMPA .Comment on above:Performed By: #### PSASC #### [facility] Laboratory [address] [place] [address] Dr. Teddy PurcellStart: 82-11-4027VHQMWK LOWER ARM SURGERYMULANDMARK MEDICAL CENTERRODAStart: 51-63-3469YRGOJ ARTHROSCOPY/SURGERYMARTIN SKIEHistory of lumbar laminectomy Durga BANKS Open acromioplasty for decompression of rotator cuff Durga BANKS Partial resection of colonMichael NILL Repair of ligamentMichael NILL Repair of meniscusMichael NILL Repair of musculotendinous cuff of shoulderMichael NILL TonsillectomyMichael NILL Immunizations Immunization DateImmunizationNotesCare ProviderFacilityNEGATED: Highlighted row has not occurred!41-93-5552qjpfgonen virus vaccine, unspecified formulation Durga JOCELYN General Surgery [facility] DatePayer CategoryPayerPolicy [id number] 2.[id number] 2.0.1.927223.3.57[id number] 2.0.1.004260.3.57[id number] 2.840.1.852146.3.57[id number] 2.0.1.063171.3.57[id number] 2.0.1.764064.3.57[id number] 2.0.1.435190.3.57[id number] 2.0.1.380186.3.57[id number] [id number] Social History DateTypeDetailFacilityStart: 53-85-4751Gnkqftv smoking statusNever smoked tobacco (finding)[facility] BellevueTobacco smoking statusNeverGeneral Surgery BellevueSex [facility] Functional Status MxtrUjlrgongsiCiprqbDcyvcksc21-58-2367Rnltiauwxf StatusN/AGeneral Surgery [place] Evaluation + Plan note Note Date & TypeNoteFacilityEvaluation + Plan note No data available for this section [facility] Discharge instructions Note Date & TypeNoteFacilityHospital Discharge instructions No data available for this section General Surgery [facility] Progress note Note Date & TypeNoteFacilityProgress note No data available for this section [facility] [place] Summary Purpose Family History No Family History [...] section and content) DATE CREATED AUTHOR 10/07/2017 [facility] DATE CREATED AUTHOR AUTHOR'S ORGANIZ ATION 07/12/2020 [facility] DATE CREATED AUTHOR AUTHOR'S ORGANIZ ATION 08/22/2022 [facility] DATE CREATED AUTHOR AUTHOR'S ORGANIZ ATION 12/27/2024 [facility] DATE CREATED AUTHOR AUTHOR'S ORGANIZ ATION 01/03/2025 [facility] Patient Care team informatio n (unrecognized section and content) Personnel Name: Dane Pompa MD Address: Address: [address] [place] [address] FOR RECORDS PERTAINING TO PATIENTS WHO ARE [...] BE BASED ON THE PRIMARY CLINICAL RECORDS. Graham County HospitalKingnaru Entertainment [facility]. provides no warranty or guarantee of the accuracy or completeness of information in this document.
[2025-03-23 15:15] LABS: INR 3.23; Prothrombin Time 31.4 sec (9.0-11.6)
== END 2025-03-23 13:42 | disposition home or self-care (01) ==
LOC: LAB 13:44
PROVIDERS: PCP Family Medicine; Visit Provider Family Medicine
DX: I26.99 Other pulmonary embolism without acute cor pulmonale (principal)
CPT/HCPCS: 36415; 85610

== ENCOUNTER 2025-04-12 09:13 | Outpatient (OUT) | payer MEDICARE, BC, SELFPAY ==
--- OUTSIDE RECORDS SUMMARY | 2025-03-30 08:30 | XMS_ITS ---
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 Role Phone Jeffrey Pompa Primary Care Provider Allergies Allergen (clinical drug ingredient) Drug/Non Drug Allergy documented on EMR Reaction Allergy Type Onset Date Status celecoxib CeleBREX Unknown Drug Allergy ActiveNorflexUnknownDrug AllergyActiveAdhesiveUnknownAllergyActive REASON FOR VISIT 3mon- CSA signed Medications Medication SIG (Take, Route, Frequency, Duration) Notes Start Date End Date Status Glucose Meter check blood sugar 3 times daily DX E11.9; Duration: 90 days glucose meter covered by insurance 5ActiveIbuprofen 800 MGTAKE 1 TABLET BY MOUTH FOUR TIMES A DAY NEEDED FOR PAIN; Duration: 25ActiveCyclobenzaprine HCl 10 MGTAKE 2 TABLETS BY MOUTH EVERY DAY AT BEDTIME; Duration: 30ActiveEzetimibe 10 MGTAKE 1 TABLET BY MOUTH EVERY DAY FOR 30 DAYS; Duration: 90ActiveCialis 20 MG1 tablet as needed Orally every 3 days; Duration: 90 daysActiveCholecalciferol 50 MCG (2000 UT)1 tablet Orally Once a day; Duration: 30 day(s)ActiveWarfarin Sodium 2 MGTake 1 tablet with 7.5mg to EQUAL 9.5mg Orally Once a day; Duration: 30 daysActive Adapalene 0.3 %APPLY SMALL AMOUNT TO AFFECTED AREA DAILY; Duration: 30Active Blood Glucose Monitor System w/Deviceuse device Dx:E11.9 daily to monitor blood glucose level5ActiveWarfarin Sodium 10 MG1 tablet Orally Once a dayPRN ActiveTest Strips -Dx: E11.9 Dx: Diabetes Type II Once daily; Duration: 90 days 5ActiveTest Strips -used to check blood sugar 3 times daily DX E11.9; Duration: 30 5ActiveTestosterone Cypionate 200 MG/MLINJECT 0.4ML INTRAMUSCULARLY ONCE A WEEK; Duration: 28 02/09/2025tiveTriamcinolone Acetonide 0.1 %1 application Externally Twice a day; Duration: ActiveWarfarin Sodium 7.5 MGTAKE 1 TABLET BY MOUTH EVERY DAY; Duration: 30Active Pioglitazone HCl 30 MGTake 1 tablet by mouth once daily; Duration: 30Active oxyCODONE HCl 10 MG1-2 tabs Orally dx M51.26 every 4 to 6 hours; Duration: 30 03/30/2025tivePercocet 5-325 MG2 tablets Orally dx M51.26 every 4 to 6 hours prn; Duration: 30 03/30/2025tivemetFORMIN HCl 500 MGTAKE 1 TABLET BY MOUTH TWICE A DAY; Duration: 90ActiveOmeprazole 20 MGTAKE 1 CAPSULE BY MOUTH EVERY DAY; Duration: 90ActiveKetoconazole 2 %1 application Externally Twice a day; Duration: 52DMA173ActiveLancets -used to check blood sugar 3 times daily DX E11.9; Duration: 30 5ActiveLancets 30G -Use 1 lancet E11.9 once daily; Duration: 5ActiveLisinopril 20 MGTAKE 1 TABLET BY MOUTH EVERY DAY FOR 90 DAYS; Duration: 90ActiveLyrica 100 MG1 capsule Orally DX m51.26 TID; Duration: 30 5Active Social History Tobacco Use: Social History Observation Description Date Details (start date - stop date) Never Smoker NA - NA Tobacco Use/Smoking Question Answer Notes Patient is a nonsmoker Vital Signs Weight 273.6 lbs 03/30/2025 Height 73 in 03/30/2025 Blood pressure systolic 126 mm Hg 03/30/20 25 Blood pressure diastolic 82 mm Hg 025 BMI 36.09 kg/m2 03/30/2025 Encounters Encounter Location Date Provider Diagnosis [address] [address] 03/30/2025 Jeffrey Pompa Well adult Z00.00 an d Testicular hypofunction E29.1 Assessments Encounter Date Diagnosis (ICD Code) Assessment Notes Treatment Notes Treatment Clinical Notes Section Notes 03/30/2025 Well adult (ICD-10 - Z00.00) 03/30/2025Testicular hypofunction (ICD-10 - E29.1) Plan Of Treatment Pending Test Test Name Order Date HEMOGLOBIN A1C (GLYCO) 03/30/2025 LIPID PANEL (CHOL/TRIG/HDL/LDL) 03/30/20 25 URIC ACID 03/30/2025 TESTOSTERONE, TOTAL 03/30/2025 THYROID PANEL (T4/TSH/FREE T3) 5 PSA, SCREENING 03/30/2025 CMP (COMP MET MACKENZIE) w/eGFR CKD-EPI 2024 CBC WITH DIFF 03/30/2025 Next Appt Details Provider Name:Jeffrey Pompa, 01:30:00 PM, [address] [place], [address], Provider Name:Jeffrey Pompa, 01:30:00 PM, [address] [place], [address], Medications Administered Medication Instructions Date of Administration Dosage Notes Testosterone Cypionate 50.4 mL Progress Notes * Ernesto PACKERDOB:[birth year] (49 yo M)Acc No.[id number]:03/30/2025 Progress Note Patient: Elvira SOO Ernesto Hickey :?Jairo Pompa ([facility]), MDDOB:1975???Age: 49 Y???Sex:MaleDate:03/30/2025Phone:[phone]:[id number], [place], [id number] In:01:19 PM ESTCheck Out:01:57 PM EST Subjective: * Chief Complaints: * 3 mon- CSA signed * HPI: ???General:? DM- 180's - 210 - on bad diet Low back jamarcus - on meds - stabel HTN GERD - still - on nmeds - helping. * ROS: ???EENT:?hearing changes?denies.?visual changes?denies. non-healing mouth sores?denies.?swollen glands or neck lumps?denies.?hoarseness?denies.?sore throat?denies.?difficulty swallowing?denies.?nose bleeds?denies.?nasal congestion?denies.?ear ache?denies.?ear discharge denies.?ringing in ears?denies.?light sensitivity?denies.?eye pain?denies.?blurring?denies.?eye irritation?denies.?double vision?denies. vision loss?denies.?General/Constitutional:?Sweats:?Denies.?Fatigue?denies.?Sleep proble ms?denies.?Anorexia?denies.?Malaise?denies.?Weight loss?denies. Fatigue or Weakness?denies.?Fever or Chills?denies.?Cardiovascular:?Shortness of Breath w/lying flat?denies.?Lightheadedne ss/dizziness?denies.?Chest tightness/ heavy pressure?denies.?Swelling of legs, a nkles, or feet?denies.?Waking up with shortness of breath?denies.?Chest pain&#16 0;denies.?Palpitations?denies.?Weight gain?denies.?Respiratory:?Chronic or frequent cough?denies.?Coughing up blood&#1 60;denies.?Difficulty breathing?denies.?Productive cough?denies.?Snoring&#1 60;denies.?Shortness of breath that awakens from sleep (PND)?denies.?Chest pain? denies.?Sputum production?denies.?Wheezing?denies.?Musculoskeletal:?Joint pain?denies.?Joint Fluid?denies.?Backpain?denies.?Knee pain?denies.?Neck pain?denies.?Joint Stiffness?denies.?Muscle cramps?denies.?Weakness of muscles?denies.?Arthritis?denies.?Muscle aches?denies.?Pain in shoulder(s)?denies.?Swollen joints?denies.? * Active Problem List E29.1 Decreased testostero ne level Modified On:07/16/2023 Status:btshkpbdrX37.3293Type 2 diabetes mellitus with 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 edema, bilateral Modified On:07/01/2023 Status:prtmxnjtkV25.26Disc displacement, lumbar Modified On:07/04/2022 Status:eooxmkeriQ63FJ (high blood pressure) Modified On:07/01/2023 Status:aaesubqzoF64.9Nevus Modified On:07/14/2022 Status:nbeuldblaH28.1Low testosterone Modified On:06/04/2023 Status:iufaeomwhS04.83Fatigue Modified On:07/14/2022 Status:fgctqiipzP80.0Acne vulgaris Modified On:07/14/2022 Status:vnmgkuhdoX90.9Psoriasis Modified On:07/14/2022 Status:fetqkjhgmC59.1COVID-19 virus infection Modified On:07/14/2022 Status:wrocxoxqxN74.90Acute sinusitis Modified On:07/14/2022 Status:rgyfjjxtuT11.40Shoulder impingement syndrome Modified On:07/14/2022 Status:aawobejdqT31.9Prostatitis Modified On:07/14/2022 Status:ygehdgyypG31.229Regular astigmatism Modified On:07/14/2022 Status:gtacqldyiX48.009Retinal scar, unspecified laterality Modified On:07/14/2022 Status:ehupdsuufR11.059Borderline glaucoma with ocular hypertension, unspecified laterality Modified On:07/14/2022 Status:dxxktrxnwJ80.3293Mild nonproliferative diabetic retinopathy of both eyes without macular edema associated with type 2 diabetes mellitus Modified On:04/03/2023W/U Status:qblhunlilK72.9Superficial thrombophlebitis Modified On:07/14/2022 Status:ijjqoetxoS17.26Herniated lumbar disc without myelopathy Modified On:07/01/2023 Status:ieztqulxzW33.61Mortons neuroma, right Modified On:07/14/2022 Status:vbjursjrcA86.909Migraine headache Modified On:07/14/2022 Status:nbepwegfqZ62.209Thrombophlebitis of deep vein of lower leg, unspecified laterality Modified On:07/14/2022 Status:rzgjqovbtB97.9Allergic rhinitis Modified On:07/14/2022 Status:rodrfklkuU46Preurm hypertension Modified On:07/14/2022 Status:pouqpyruyG35.99Pulmonary embolism Modified On:07/01/2023 Status:pzknpohlyU76.1Testicular hypofunction Modified On:07/01/2023 Status:bawnlscnrO07.00Well adult Modified On:04/01/2023 Status:cnsfnmolaZ21.211Abdominal wall abscess Modified On:09/14/2023 Status:ufbqaimvoL14.9GERD (gastroesophageal reflux disease) Modified On:12/31/2023 Status:confirmed * Medical History: * Surgical History: b ck surgery 05/2011right shoulder surgery 05/2002left shoulder surgery 05/2019colon resection 06/2009left knee surgery 08/2005right hand surgery 06/2016Left eye surgery- glaucoma 08/2024 * Hospitalization/Major Diagno stic Procedure: i nfection scrotum 06/2022 * Family History: F ather: alive 73 yrs, diagnosed with Diabetes, Heart Disease. M other: alive 72 yrs. B rother(s): alive. S ister(s): alive. S on(s): alive. 1 brother(s) , 3 sister(s) - healthy. 2 son(s) - healthy. . mother breast cancer. * Social History: ???Tobacco Use:?Tobacco Use/Smoking?Patient is a?nonsmoker * Medications: T akingAdapalene 0.3 % Gel APPLY SMALL AMOUNT TO AFFECTED AREA DAILY Blood Glucose Monitor System w/Device Kit use device Dx:E11.9 daily to monitor blood glucose level Cholecalciferol 50 MCG (2000 UT) Tablet 1 tablet Orally Once a day Cialis(Tadalafil) 20 MG Tablet 1 tablet as needed Orally every 3 days Cyclobenzaprine HCl 10 MG Tablet TAKE 2 TABLETS BY MOUTH EVERY DAY AT BEDTIME Ezetimibe 10 MG Tablet TAKE 1 TABLET BY MOUTH EVERY DAY FOR 30 DAYS Glucose Meter check blood sugar 3 times daily DX E11.9 glucose meter covered by insuranceIbuprofen 800 MG Tablet TAKE 1 TABLET BY MOUTH FOUR TIMES A DAY NEEDED FOR PAIN Ketoconazole 2 % Cream 1 application Externally Twice a day , Notes to Pharmacist: PRNLancets - Miscellaneous used to check blood sugar 3 times daily DX E11.9 Lancets 30G - Miscellaneous Use 1 lancet E11.9 once daily Lisinopril 20 MG Tablet TAKE 1 TABLET BY MOUTH EVERY DAY FOR 90 DAYS Lyrica(Pregabalin) 100 MG Capsule 1 capsule Orally [...] E11.9 Dx: Diabetes Type II Once daily Test Strips - - used to check blood sugar 3 times daily DX E11.9 Testosterone Cypionate 200 MG/ML Solution INJECT 0.4ML [...] MG Tablet TAKE 2 TABLETS BY MOUTH EVERY DAY AT BEDTIME Taking Ezetimibe 10 MG Tablet TAKE 1 TABLET BY MOUTH EVERY DAY FOR 30 DAYS Taking Glucose Meter check blood sugar 3 times daily DX E11.9 glucose meter covered by insuranceTaking Ibuprofen 800 MG Tablet TAKE 1 TABLET BY MOUTH FOUR TIMES A DAY NEEDED FOR PAIN Taking Ketoconazole 2 % Cream 1 application Externally Twice a day , Notes to Pharmacist: PRNTaking Lancets - Miscellaneous used to check blood sugar 3 times daily DX E11.9 Taking Lancets 30G - Miscellaneous Use 1 lancet E11.9 once daily Taking Lisinopril 20 MG Tablet TAKE 1 TABLET BY MOUTH EVERY DAY FOR 90 DAYS Taking Lyrica(Pregabalin) 100 MG Capsule 1 capsule Orally DX m51.26 TID Taking metFORMIN HCl 500 MG Tablet TAKE 1 TABLET BY MOUTH TWICE A DAY Taking Omeprazole 20 MG Capsule Delayed Release TAKE 1 CAPSULE BY MOUTH EVERY DAY Taking oxyCODONE HCl 10 MG Tablet 1-2 tabs Orally dx M51.26 every 4 to 6 hours Taking Percocet(oxyCODONE- Acetaminophen) 5-325 MG Tablet 2 tablets Orally dx M51.26 every 4 to 6 hours prn Taking Pioglitazone HCl 30 MG Tablet Take 1 tablet by mouth once daily Taking Test Strips - - Dx: E11.9 Dx: Diabetes Type II Once daily Taking Test Strips - - used to check blood sugar 3 times daily DX E11.9 Taking Testosterone Cypionate 200 MG/ML Solution INJECT [...] N orflexCeleBREXAdhesiveno[Allergies Verified] Objective: * Vitals: W t:273.6lbs, Ht: 73 in, BP:126/82mm Hg, BMI:36.09Index, Ht-cm: 185.42 cm, Wt-k.1 kg. * Examination: ???Physical Exam: ?GENERAL:?well developed, well nourished, in no acute distress.?HEAD:?normocephalic/atraumatic.?EYES:?pupils equal, round and reactive to light, conjunctivae and sclerae normal.?EARS:?no deformity or lesion of external ear, canals and TM appear normal bilaterally, TM's intact, not inflamed with normal light reflex, hearing grossly normal to conversational speech.?NOSE:?no deformity, discharge, inflammation, or lesions. ?MOUTH:?mucous membranes moist, normal oropharynx and posterior pharynx without lesions or exudates, tongue normal, dentition normal.?NECK:?neck supple, no masses or palpable cervical nodes, trachea midline, thyroid without nodules, masses, tenderness, or enlargement.?CHEST:?no chest wall deformity, no chest wall tenderness. ?LUNGS:?normal respiratory effort and clear to auscultation, no wheezes, rales, or rhonchi, good air exchange.?CARDIO:?regular rate and rhythm, normal S1 and S2, nor murmur, rub, or gallop.?PULSES:?normal capillary refill.?ABDOMEN:?soft, non-distended, non-tender, no masses.?MUSCULOSKELETAL:?no deformity or scoliosis noted, normal range of motion, joints normal, no erythema, edema, effusion, or ecchymosis.?EXTREMITY:?no clubbing, cyanosis, edema, or deformity withnormal ROM in both upper and lower bilateral extremities.?NEUROLOGIC:?grossly normal.?SKIN:?no rashes, ulcerations, or suspicious lesions.?LYMPH NODES:?no cervical adenopathy, nodes normal.?MENTAL STATUS:?alert and oriented x3, normal mood and affect.? 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 Plan: * Treatment: ?LAB: HEMOGLOBIN A1C (GLYCO) ?LAB: LIPID PANEL (CHOL/TRIG/HDL/LDL) ?LAB: URIC ACID ?LAB: TESTOSTERONE, TOTAL ?LAB: THYROID PANEL (T4/TSH/FREE T3) ?LAB: PSA, SCREENING ?LAB: CMP (COMP MET MACKENZIE) w/eGFR CKD-EPI ?LAB: CBC WITH DIFF * Therapeutic Injections: Testosterone Cypionate 200mg : 0.4 mL (Route: Intramuscular) given by Lindsey Newman SA on left gluteus (Testicular hypofunction) * Procedure Codes: 9 6372 THERAP.INJ. OF MED. INTRAMUSCULAR OR [id number] TESTOST CYPIONATE 1MG * * Sign off status: CompletedVisit Status:?CHK (Check Out) true * Provider: Kang Pompa ([facility])MD Date: 1 05/31/2024 Generated for Printing/Faxing/eTransmitting on:?04/12/2025 09:16 AM EST History and Physical Notes * HPI (History of Present Illness) CategorySub-CategoryDetailNotesCategory NotesGeneral DM- 180's - 210 - on bad diet Low back jamarcus - on meds - stabel HTN GERD - still - on nmeds - helping Examination CategorySub-CategoryDetailNotesCategory NotesPhysical ExamGENERAL:well developed, well nourished, in no acute distressHEAD:normocephalic/atraumatic EYES:pupils equal, round and reactive to light, conjunctivae and sclerae normal EARS:no deformity or lesion of external ear, canals and TM appear normal bilaterally, TM's intact, not inflamed with normal light reflex, hearing grossly normal to conversational speechNOSE:no deformity, discharge, inflammation, or lesionsMOUTH:mucous membranes moist, normal oropharynx and posterior pharynx without lesions or exudates, tonguenormal, dentition normalNECK:neck supple, no masses or palpable cervical nodes, trachea midline, thyroid without nodules, masses, tenderness, or enlargementCHEST:no chest wall deformity, no chest wall tendernessLUNGS:normal respiratory effort and clear to auscultation, no wheezes, rales, or rhonchi, good air exchangeCARDIO:regular rate and rhythm, normal S1 and S2, nor murmur, rub, or gallopPULSES:normal capillary refillABDOMEN:soft, non-distended, non-tender, no massesRECTAL:MUSCULOSKELETAL:no deformity or scoliosis noted, normal range of motion, joints normal, no erythema, edema, effusion, or ecchymosisEXTREMITY:no clubbing, cyanosis, edema, or deformity with normal ROM in both upper and lower bilateral extremitiesNEUROLOGIC:grossly normalSKIN:no rashes, ulcerations, or suspicious lesionsLYMPH NODES:no cervical adenopathy, nodes normalMENTAL STATUS:alert and oriented x3, normal mood and affect
--- OUTSIDE RECORDS SUMMARY | 2025-04-04 08:45 | XMS_ITS ---
Author Organization [facility] in [place] Address [address] [place] [address] Care Team Providers Care Control Supervisor Name Role Phone DarrenJeffrey garcia Primary Care Provider [phone] REASON FOR VISIT Testosterone Injection Encounters Encounter Location Date Provider Diagnosis [facility] [address] [place] [address] 04/04/2025 Jeffrey Pompa 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 Assessments Encounter Date Diagnosis (ICD Code) Assessment Notes Treatment Notes Treatment Clinical Notes Section Notes 04/04/2025 Testicular hypofunction (ICD-10 - E29.1) Plan Of Treatment Next Appt Details Provider Name:Jeffrey Pompa, 01:30:00 PM, [address] [place], [address], Provider Name:Jeffrey Pompa, 01:30:00 PM, [address] [place], [address], Medications Administered Medication Instructions Date of Administration Dosage Notes Testosterone Cypionate 50.4 mL Progress Notes * Ernesto PACKERDOB:[birth year] (49 yo M)Acc No.[id number]:04/04/2025 Progress Note Patient: Elvira VANN Ernesto Hickey :?Jairo Pompa ([facility]), MDDOB:1975???Age: 49 Y???Sex:MaleDate:04/04/2025Phone:[phone]:[id number], [place], [id number] In:01:21 PM ESTCheck Out:01:31 PM EST Subjective: * Chief Complaints: * T estosterone Injection * HPI: ???General:? testosterone injection. * Active Problem List E29.1 Decreased testostero ne level Modified On:07/16/2023 Status:wjucorrzrY95.3293Type 2 diabetes mellitus with 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 edema, bilateral Modified On:07/01/2023 Status:rifsvicqgW63.26Disc displacement, lumbar Modified On:07/04/2022 Status:nndfsjkuwP93VZ (high blood pressure) Modified On:07/01/2023 Status:usovracsxL76.9Nevus Modified On:07/14/2022 Status:crbckgtykF28.1Low testosterone Modified On:06/04/2023 Status:rycntvcoqH06.83Fatigue Modified On:07/14/2022 Status:hwvgjzjsgV50.0Acne vulgaris Modified On:07/14/2022 Status:gbpdagdxnZ02.9Psoriasis Modified On:07/14/2022 Status:cvvbxnqecB45.1COVID-19 virus infection Modified On:07/14/2022 Status:rrgojpuaqT10.90Acute sinusitis Modified On:07/14/2022 Status:tukarywsxA68.40Shoulder impingement syndrome Modified On:07/14/2022 Status:iovmgppebU98.9Prostatitis Modified On:07/14/2022 Status:xwbrrluvtX40.229Regular astigmatism Modified On:07/14/2022 Status:yecqjgberI39.009Retinal scar, unspecified laterality Modified On:07/14/2022 Status:jctepzrwmL21.059Borderline glaucoma with ocular hypertension, unspecified laterality Modified On:07/14/2022 Status:lxibzqmdmQ15.3293Mild nonproliferative diabetic retinopathy of both eyes without macular edema associated with type 2 diabetes mellitus Modified On:07/14/2022 Status:nvpezganaE01.9Superficial thrombophlebitis Modified On:07/14/2022 Status:ixihxvsnvF48.26Herniated lumbar disc without myelopathy Modified On:07/01/2023 Status:hklhclbolQ52.61Mortons neuroma, right Modified On:07/14/2022 Status:kwzvqsvltX48.909Migraine headache Modified On:07/14/2022 Status:pqfrqosxbZ29.209Thrombophlebitis of deep vein of lower leg, unspecified laterality Modified On:07/14/2022 Status:opuceuhlzH09.9Allergic rhinitis Modified On:07/14/2022 Status:zltilfolbA45Idvfwz hypertension Modified On:07/14/2022 Status:xohsrofvzD86.99Pulmonary embolism Modified On:07/01/2023 Status:fjsnotmdvB63.1Testicular hypofunction Modified On:07/01/2023 Status:fzzxccmvkX52.00Well adult Modified On:04/01/2023 Status:zwtfrlxpzY32.211Abdominal wall abscess Modified On:09/14/2023 Status:yxsedvhygN06.9GERD (gastroesophageal reflux disease) Modified On:12/31/2023 Status:confirmed * Medical History: * Surgical History: * Hospitalization/Major Diagno stic Procedure: * Medications: Objective: * Vitals: Assessment: * Assessment: 1.?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 Plan: * Treatment: * Therapeutic Injections: Testosterone Cypionate 200mg : 0.4 mL (Route: Intramuscular) given by SOLITARIO Cannon on right gluteus (Testicular hypofunction) * Procedure Codes: 9 6372 THERAP.INJ. OF MED. INTRAMUSCULAR OR [id number] TESTOST CYPIONATE 1MG * * Sign off status: CompletedVisit Status:?CHK (Check Out) true * Provider: Kang Pompa ([facility])MD Date: 06/05/2024 Generated for Printing/Faxing/eTransmitting on:?04/12/2025 09:17 AM EST History and Physical Notes * HPI (History of Present Illness) CategorySub-CategoryDetailNotesCategory NotesGeneraltestosterone injection
--- OUTSIDE RECORDS SUMMARY | 2025-04-12 09:17 | XMS_ITS | Patient Health Record ---
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 Phone Jeffrey Pompa Primary Care Provider [phone] Allergies Allergen (clinical drug ingredient) Drug/Non Drug Allergy documented on EMR Reaction Allergy Type Onset Date Status celecoxib CeleBREX Unknown Drug Allergy ActiveNorflexUnknownDrug AllergyActiveAdhesiveUnknownAllergyActive Results Component Value Reference Range Notes Prothrombin Time INR Reviewed date:07/20/2024 06:24:03 PM Interpretation: Performing Lab: Notes/Report: [facility] , Prothrombin Time 29.8 9.0-11.6 sec INR3.15 2.5-3.5 RECURRENT THROMBOSIS DESIRED INR: 2.5-3.5 FOR PROSTHETIC HEART VALVE REPLACEMENT 2.0-3.0 CONDITIONS NOT LISTED BELOW Performing Lab:see noteML - [facility] LBProthrombin Time INR Reviewed date:11/30/2024 05:07:11 PM Interpretation: Performing Lab: Notes/Report: [facility] ,Prothrombin Time24.89.0-11.6 secINR2.57 DESIRED INR: 2.5-3.5 RECURRENT THROMBOSIS 2.0-3.0 CONDITIONS NOT LISTED BELOW 2.5-3.5 FOR PROSTHETIC HEART VALVE REPLACEMENT Performing Lab:see noteML - [facility] LBTestosterone Reviewed date:12/01/2024 12:57:42 PM Interpretation: Performing Lab: Notes/Report: [facility] ,Svowmnubhvuj897685-209 ng/dL [address], [place] [id number] Adult male reference interval is based on a population of healthy nonobese males (BMI <30) between 19 and 39 years Performed at: [facility] Motors Assembler: Duglas Jacob PhD, Phone: [phone] old. layne Sidhu. JCEM 2017,102;5766-8428. PMID: [id number]. Performing [facility] LBProthrombin Time INR Reviewed date:12/15/2024 03:58:41 PM Interpretation: Performing Lab: Notes/Report: [facility] ,Prothrombin Time23.59.0-11.6 secINR2.42 2.0-3.0 CONDITIONS NOT LISTED BELOW 2.5-3.5 RECURRENT THROMBOSIS DESIRED INR: 2.5-3.5 FOR PROSTHETIC HEART VALVE REPLACEMENT Performing Lab:see note - [facility] LBProthrombin Time INR Reviewed date:12/17/2024 04:26:40 PM Interpretation: Performing Lab: Notes/Report: [facility] ,Prothrombin Time24.79.0-11.6 secINR2.56 DESIRED INR: 2.0-3.0 CONDITIONS NOT LISTED BELOW 2.5-3.5 FOR PROSTHETIC HEART VALVE REPLACEMENT 2.5-3.5 RECURRENT THROMBOSIS Performing Lab:see note - [facility] LBProthrombin Time INR Reviewed date:12/22/2024 07:42:45 PM Interpretation: Performing Lab: Notes/Report: [facility] ,Prothrombin Time26.89.0-11.6 secINR2.80 2.5-3.5 RECURRENT THROMBOSIS 2.5-3.5 FOR PROSTHETIC HEART VALVE REPLACEMENT DESIRED INR: 2.0-3.0 CONDITIONS NOT LISTED BELOW Performing Lab:see noteML - [facility] LBProthrombin Time INR Reviewed date:12/26/2024 04:09:33 PM Interpretation: Performing Lab: Notes/Report: [facility] ,Prothrombin Time28.79.0-11.6 secINR3.02 2.5-3.5 FOR PROSTHETIC HEART VALVE REPLACEMENT 2.5-3.5 RECURRENT THROMBOSIS 2.0-3.0 CONDITIONS NOT LISTED BELOW DESIRED INR: Performing Lab:see noteML - [facility] LBProthrombin Time INR Reviewed date:01/12/2025 05:32:29 PM Interpretation: Performing Lab: Notes/Report: [facility] ,Prothrombin Time29.39.0-11.6 secINR3.09 2.5-3.5 RECURRENT THROMBOSIS 2.5-3.5 FOR PROSTHETIC HEART VALVE REPLACEMENT 2.0-3.0 CONDITIONS NOT LISTED BELOW DESIRED INR: Performing Lab:see noteML - [facility] LBProthrombin Time INR Reviewed date:01/19/2025 06:08:21 PM Interpretation: Performing Lab: Notes/Report: [facility] ,Prothrombin Time29.89.0-11.6 secINR3.15 2.0-3.0 CONDITIONS NOT LISTED BELOW DESIRED INR: 2.5-3.5 RECURRENT THROMBOSIS 2.5-3.5 FOR PROSTHETIC HEART VALVE REPLACEMENT Performing Lab:see note - [facility] LBProthrombin Time INR Reviewed date:03/08/2025 04:33:46 PM Interpretation: Performing Lab: Notes/Report: [facility] ,Prothrombin Time31.49.0-11.6 secINR3.34 2.5-3.5 RECURRENT THROMBOSIS DESIRED INR: 2.0-3.0 CONDITIONS NOT LISTED BELOW 2.5-3.5 FOR PROSTHETIC HEART VALVE REPLACEMENT Performing Lab:see note - [facility] LBProthrombin Time INR Reviewed date:03/23/2025 05:46:02 PM Interpretation: Performing Lab: Notes/Report: [facility] ,Prothrombin Time31.49.0-11.6 secINR3.23 2.0-3.0 CONDITIONS NOT LISTED BELOW 2.5-3.5 RECURRENT THROMBOSIS DESIRED INR: 2.5-3.5 FOR PROSTHETIC HEART VALVE REPLACEMENT Performing Lab:see note - [facility] LBProthrombin Time INR Reviewed date:02/02/2025 04:08:01 PM Interpretation: Performing Lab: Notes/Report: [facility] ,Prothrombin Time29.19.0-11.6 secINR3.07 DESIRED INR: 2.5-3.5 FOR PROSTHETIC HEART VALVE REPLACEMENT 2.0-3.0 CONDITIONS NOT LISTED BELOW 2.5-3.5 RECURRENT THROMBOSIS Performing Lab:see noteML - [facility] LBProthrombin Time INR Reviewed date:01/05/2025 06:01:50 PM Interpretation: Performing Lab: Notes/Report: [facility] ,Prothrombin Time38.79.0-11.6 secINR4.21 2.5-3.5 RECURRENT THROMBOSIS 2.5-3.5 FOR PROSTHETIC HEART VALVE REPLACEMENT 2.0-3.0 CONDITIONS NOT LISTED BELOW RESULTS CALLED TO DESIRED INR: Performing Lab:see noteML - [facility] LBTestosterone Reviewed date:2024 12:13:48 PM Interpretation: Performing Lab: Notes/Report: [facility] ,Mrbjtcdwpjwc159155-546 ng/dL Performed at: [facility] healthy nonobese males (BMI <30) between 19 and 39 years Motors Assembler: Duglas Jacob PhD, Phone: [phone]. Adult male reference interval is based on a population of [address] [place] [id number] old. Thea et.al. JCEM 2017,102;2322-6454. PMID: Performing Lab:see noteLC - [facility] LBProthrombin Time INR Reviewed date:02/16/2025 04:09:47 PM Interpretation: Performing Lab: Notes/Report: [facility] ,Prothrombin Time31.89.0-11.6 secINR3.39 DESIRED INR: 2.5-3.5 RECURRENT THROMBOSIS 2.5-3.5 FOR PROSTHETIC HEART VALVE REPLACEMENT 2.0-3.0 CONDITIONS NOT LISTED BELOW Performing Lab:see noteML - [facility] LB Reason For Referral No Information Medications [...] MOUTH EVERY DAY FOR 30 DAYS; Duration: 90ActiveKetoconazole 2 %1 application Externally Twice a day; Duration: 89FOU653ActiveLancets -used to check blood sugar 3 times daily DX E11.9; Duration: 30 days5Active Testosterone Cypionate 200 MG/MLINJECT 0.4ML INTRAMUSCULARLY ONCE A WEEK; Duration: 02/09/2025tiveTriamcinolone Acetonide 0.1 %1 application Externally Twice a day; Duration: 4ActiveCholecalciferol 50 MCG (2000 UT)1 tablet Orally Once a day; Duration: 30 day(s)ActiveWarfarin Sodium 2 MGTake 1 tablet with 7.5mg to EQUAL 9.5mg Orally Once a day; Duration: 30 daysActive Cialis 20 MG1 tablet as needed Orally every 3 days; Duration: 90 daysActive Adapalene 0.3 %APPLY SMALL AMOUNT TO AFFECTED AREA DAILY; Duration: 30Active Warfarin Sodium 7.5 MGTAKE 1 TABLET BY MOUTH EVERY DAY; Duration: 30ActiveBlood Glucose Monitor System w/Deviceuse device Dx:E11.9 daily to monitor blood glucose level09/29/2024tiveWarfarin Sodium 10 MG1 tablet Orally Once a dayPRN ActivePioglitazone HCl 30 MGTake 1 tablet by mouth once daily; Duration: 30 ActiveTest Strips -Dx: E11.9 Dx: Diabetes Type II Once daily; Duration: 90 days 09/29/2024tiveoxyCODONE HCl 10 MG1-2 tabs Orally dx M51.26 every 4 to 6 hours; Duration: 30 03/30/2025tivePercocet 5-325 MG2 tablets Orally dx M51.26 every 4 to 6 hours prn; Duration: 30 days03/30/2025tiveTest Strips -used to check blood sugar 3 times daily DX E11.9; Duration: 30 01/12/2025tive Lancets 30G -Use 1 lancet E11.9 once daily; Duration: 5Active metFORMIN HCl 500 MGTAKE 1 TABLET BY MOUTH TWICE A DAY; Duration: Active Omeprazole 20 MGTAKE 1 CAPSULE BY MOUTH EVERY DAY; Duration: ActiveLisinopril 20 MGTAKE 1 TABLET BY MOUTH EVERY DAY FOR 90 DAYS; Duration: 90ActiveLyrica 100 MG1 capsule Orally DX m51.26 TID; Duration: 30 days5Active Social History Tobacco Use: Social History Observation Description Date Details (start date - stop date) Never Smoker NA - NA Tobacco Use/Smoking Question Answer Notes Patient is a nonsmoker Alcohol Screen (Audit-C) Question Answer Notes Did you have a drink containing alcohol in the p ast year? 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) ActiveconfirmedProblemAcne vulgaris (38321650)Acne vulgaris (L70.0)Active confirmedProblemFatigue (02273068)Fatigue (R53.83)ActiveconfirmedProblemMigraine variant with headache (disorder) (020137736)Migraine headache (G43.909)Active confirmedProblemPsoriasis (8004861)Psoriasis (L40.9)ActiveconfirmedProblem Gastroesophageal reflux disease (753901985)GERD (gastroesophageal reflux disease) (K21.9)ActiveconfirmedProblemPulmonary embolism (63672668)Pulmonary embolism (I26.99)ActiveconfirmedProblemAcute sinusitis (82689618)Acute sinusitis (J01.90)ActiveconfirmedProblemAllergic rhinitis (42317539)Allergic rhinitis (J30.9)ActiveconfirmedProblemWell adult (852161961)Well adult (Z00.00)Active confirmedProblemBenign hypertension (40924197)Benign hypertension (I10)Active confirmedProblemLow testosterone (746128373)Low testosterone (E29.1)Active confirmedProblemDisplacement of lumbar intervertebral disc without myelopathy (51367932)Herniated lumbar disc without myelopathy (M51.26)Activeconfirmed ProblemCellulitis and abscess of trunk (515307035)Abdominal wall abscess (L02.211)ActiveconfirmedProblemNevus (2084050205)Nevus (D22.9)Activeconfirmed ProblemDecreased testosterone level (436051379)Decreased testosterone level (E29.1)ActiveconfirmedProblemProstatitis (6178595)Prostatitis (N41.9)Active confirmedProblemSuperficial thrombophlebitis (6842349)Superficial thrombophlebitis (I80.9)ActiveconfirmedProblemRegular astigmatism (82620495) Regular astigmatism (H52.229)ActiveconfirmedProblemDisplacement of lumbar intervertebral disc without myelopathy (48580165)Disc displacement, lumbar (M51.26)ActiveconfirmedProblemShoulder impingement syndrome (359649132)Shoulder impingement syndrome (M75.40)ActiveconfirmedProblemEssential hypertension (33439123)BP (high blood pressure) (I10)ActiveconfirmedProblemMild nonproliferative retinopathy due to type 2 diabetes mellitus (137811457202204) Type 2 diabetes mellitus with 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 edema, bilateral (E11.3293)ActiveconfirmedProblemMortons neuroma of right foot (030923918346982)Mortons neuroma, right (G57.61)Activeconfirmed ProblemMild nonproliferative retinopathy due to diabetes mellitus (disorder) (516133949)Mild nonproliferative diabetic retinopathy of both eyes without macular edema associated with type 2 diabetes mellitus (E11.3293)Activeconfirmed ProblemChorioretinal scar (17230629)Retinal scar, unspecified laterality (H31.009)ActiveconfirmedProblemOcular hypertension (3702617)Borderline glaucoma with ocular hypertension, 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 [address] [place] [address] 03/30/2025 Jeffrey Hoy Well adult Z00.00 an d Testicular hypofunction E29.1 [facility] [address] [place] [address] 06/30/2024 Jeffrey Hoy Low testosterone E29 .1 ; Herniated lumbar disc without myelopathy M51.26 ; Benign hypertension I10 and Type 2 diabetes mellitus with 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 edema, bilateral E11.3293 [facility] [address] [place] [address] 09/29/2024 Jfefrey Hoy Low testosterone E29 .1 ; Type 2 diabetes mellitus with 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 edema, bilateral E11.3293 ; Herniated lumbar disc without myelopathy M51.26 ; GERD (gastroesophageal reflux disease) K21.9 ; Benign hypertension I10 and Ankle pain M25.[address] [place] [address] 12/29/2024 Jeffrey Hoy 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 ; Type 2 diabetes mellitus with 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 edema, bilateral E11.3293 ; BP (high blood pressure) I10 ; Low testosterone E29.1 and Herniated lumbar disc without myelopathy M51.26 [facility] [address] [place] [address] 04/04/2025 Jeffrey Hoy 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 [address] [place] [address] 01/05/2025 Jeffrey Hoy Low testosterone E29 .1 [address] [place] [address] 01/12/2025 Jeffrey Hoy 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 [address] [place] [address] 01/19/2025 Jeffrey Hoy Low testosterone E29 .1 [address] [place] [address] 01/26/2025 Jeffrey Hoy 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 [facility] [address] [place] [facility] [place] [place] [address] 02/02/2025 Jeffrey Hoy Low testosterone E29 .1 [facility] [address] [place] [facility] [place] [address] 02/09/2025 Jeffrey Hoy Low testosterone E29 .1 [facility] [address] [place] [facility] [place] [address] 02/16/2025 Jeffrey Hoy 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 [facility] [address] [place] [facility] [place] [address] 02/23/2025 Jeffrey Hoy Low testosterone E29 .1 [facility] [address] [place] [facility] [place] [address] 03/02/2025 Jeffrey Hoy Decreased testostero ne level E29.1 [facility] [address] [place] [facility] [place] [address] 03/08/2025 Jeffrey Hoy Decreased testostero ne level E29.1 [facility] [address] [place] [facility] [place] [address] 03/16/2025 Jeffrey Hoy Low testosterone E29 .1 [facility] [address] [place] [facility] [place] [address] 03/23/2025 Jeffrey Hoy Low testosterone E29 .1 [facility] [address] [place] [facility] [place] [address] 10/06/2024 Jeffrey Hoy Low testosterone E29 .1 [facility] [address] [place] [facility] [place] [place] [address] 10/13/2024 Jeffrey Hoy Low testosterone E29 .1 [facility] [address] [place] [facility] [place] [address] 10/19/2024 Jeffrey Hoy Low testosterone E29 .1 [facility] [address] [place] [facility] [place] [address] 10/27/2024 Jeffrey Hoy Low testosterone E29 .1 [facility] [address] [place] [facility] [place] [address] 11/03/2024 Jeffrey Hoy Low testosterone E29 .1 [facility] [address] [place] [facility] [place] [address] 11/10/[address] [facility] [place] [facility] [place] [address] 11/17/2024Doug HoyTesticular hypofunction E29.1[facility] [address] [place] [facility] [place] [address]/Doug HoyLow testosterone E29.1[facility] [place] [facility] [place] [address] 12/01/2024Doug HoyLow testosterone E29.1[facility] [place] [facility] [place] [address]/Doug HoyDecreased testosterone level E29.1[facility] [place] [facility] [place] [address]/07/2024Doug HoyTesticular hypofunction E29.1BB[facility] [place] [facility] [place] [address]/02/2025Doug HoyLow testosterone E29.1[facility] [place] [facility] [place] [address]/Doug HoyLow testosterone E29.1[facility] [place] [facility] [place] [address]/06/2024Doug HoyDecreased testosterone level E29.1[facility] [place] [facility] [place] [address]/01/2025Doug HoyLow testosterone E29.1[facility] [place] [facility] [place] [address]/Doug HoyLow testosterone E29.1BB[facility] [place] [place] [address]/Doug HoyLow testosterone E29.1[facility] [place] [place] [address]/04/2024Doug HoyDecreased testosterone level E29.1[facility] [place] [place] [address]/10/2024Doug HoyTesticular hypofunction E29.1[facility] [place] [place] [address]/ Jeffrey HoyTesticular hypofunction E29.1BB[facility] [place] [facility] [place] [address]/Doug HoyLow testosterone E29.1BB[facility] [place] [place] [address]/ Jeffrey HoyLow testosterone E29.1[facility] [place] [place] [address]/08/2024Doug HoyTesticular hypofunction E29.1BB[facility] [place] [place] [address]/03/2025 Jeffrey HoyLow testosterone E29.1[facility] [place] [facility] [place] [address]/05/2024Doug HoyLow testosterone E29.1BB[facility] [place] [place] [address]/12/2024Doug HoyLow testosterone E29.1[facility] [place] [place] [address]/Doug HoyLow testosterone E29.1BB[facility] [place] [place] [address]/Doug HoyDecreased testosterone level E29.1[facility] [place] [place] [address]/Doug HoyDecreased testosterone level E29.1 [facility] [place] [place] [address] 05/19/2024Doug HoyLow testosterone E29.1BB[facility] [facility] [place] [address]/Doug HoyDecreased testosterone level E29.1BB[facility] [facility] [address]/Doug HoyLow testosterone E29.1[facility] [facility] [place] [address]/Doug HoyLow testosterone E29.1[facility] [facility] [address]/09/2024Doug HoyLow testosterone E29.1[facility] [facility] [address]/Doug HoyLow testosterone E29.1BB[facility] [place] [facility] [place] [place] [address]/04/2024[facility] [facility] [address]/[facility] [facility] [place] [address]/Doug HoyType 2 diabetes mellitus with 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 edema, bilateral E11.3293[facility] [facility] [place] [address] 05/23/2024Doug [facility] [facility] [address]/03/2025Doug [facility] [facility] [place] [address]/Doug HoyType 2 diabetes mellitus with 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 edema, bilateral E11.3293 [facility] [facility] [place] [address] 06/22/2024Doug [facility] [facility] [place] [address]/Doug HoyType 2 diabetes mellitus with 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 edema, bilateral E11.3293[facility] [place] [address]/04/2024Doug Hoy Testicular hypofunction E29.1[facility] [place] [facility] [place] [address]/04/2024Doug HoyTesticular hypofunction E29.1BB[facility] [place] [facility] [place] [address]/06/2024 Jeffrey HoyTesticular hypofunction E29.1BB[facility] [place] [place] [address]/12/2024Doug HoyPulmonary embolism I26.99 [facility] [place] [facility] [place] [address] 07/20/2024[facility] [place] [facility] [place] [address]/01/2025Doug [facility] [place] [facility] [place] [address]/01/2025Doug HoyTesticular hypofunction E29.1BB[facility] [place] [place] [address]/02/2025 Jeffrey [facility] [place] [facility] [place] [address]/Doug HoyType 2 diabetes mellitus with 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 edema, bilateral E11.3293[facility] [place] [address]/12/2024Doug Hoy [facility] [place] [facility] [place] [address] 09/01/2024Doug HoyType 2 diabetes mellitus with 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 edema, bilateral E11.3293[facility] [place] [facility] [place] [address]/12/2024Doug [facility] [place] [address]/ [facility] [place] [address]/Doug [facility] [place] [address]/10/2024Doug [facility] [place] [address]/Doug HoyLow testosterone E29.1BP[facility] [place] [address]/10/2024 [facility] [place] [address] 11/30/2024Doug HoyLow testosterone E29.[address] [place], [place] [address] [place] [address]/Doug [facility] [place] [address]/Doug [facility] [facility] [place] [address]/07/2024 [facility] [facility] [place] [address]/08/2024Doug [facility] [place] [address]/09/2024Doug [facility] [place] [address]/02/2025Doug HoyDeep vein phlebitis and thrombophlebitis of lower extremity, unspecified laterality I80.209[facility] [place] [address]/ Jeffrey [facility] [place] [address]/Doug [facility] [place] [address]/Doug HoyTesticular hypofunction E29.1[facility] [place] [address]/ Jeffrey [facility] [place] [address] 01/12/2025[facility] [place] [address]/05/2024[facility] [place] [address]/09/2024[facility] [place] [address]/12/2024[facility] [place] [address]/Doug HoyTesticular hypofunction E29.1BB[facility] [place] [address]/[facility] [place] [address]/[facility] [place] [address]/08/2024[facility] [place] [address]/09/2024[facility] [place] [address]/ Jeffrey HoyTesticular hypofunction E29.1BB[facility] [place] [address]/[facility] [address] [place] [address]/06/2024[facility] [place] [address]/11/2025[address] [facility] [place] [address] 03/30/2025Doug HoyTesticular hypofunction E29.1 Assessments Encounter Date Diagnosis (ICD Code) Assessment Notes Treatment Notes Treatment Clinical Notes Section Notes 06/30/2024 Low testosterone (ICD-10 - E29.1 ) 06/30/2024Herniated lumbar disc without myelopathy (ICD-10 - M51.26)10/06/2024 Low testosterone (ICD-10 - E29.1)10/13/2024Low testosterone (ICD-10 - E29.1) 10/19/2024Low testosterone (ICD-10 - E29.1)10/27/2024Low testosterone (ICD-10 - E29.1)11/03/2024Low testosterone (ICD-10 - E29.1)11/17/2024Testicular hypofunction (ICD-10 - E29.1)11/23/2024Low testosterone (ICD-10 - E29.1) 12/01/2024Low testosterone (ICD-10 - E29.1)12/08/2024Decreased testosterone level (ICD-10 - E29.1)12/15/2024Testicular hypofunction (ICD-10 - E29.1) 12/22/2024Low testosterone (ICD-10 - E29.1)01/05/2025Low testosterone (ICD-10 - E29.1)03/30/2025Well adult (ICD-10 - Z00.00)03/30/2025Testicular hypofunction (ICD-10 - E29.1)01/12/2025Testicular hypofunction (ICD-10 - E29.1)01/19/2025Low testosterone (ICD-10 - E29.1)01/26/2025Testicular hypofunction (ICD-10 - E29.1) 02/02/2025Low testosterone (ICD-10 - E29.1)02/09/2025Low testosterone (ICD-10 - E29.1)02/16/2025Testicular hypofunction (ICD-10 - E29.1)02/23/2025Low testosterone (ICD-10 - E29.1)03/02/2025Decreased testosterone level (ICD-10 - E29.1)03/08/2025Decreased testosterone level (ICD-10 - E29.1)03/16/2025Low testosterone (ICD-10 - E29.1)03/23/2025Low testosterone (ICD-10 - E29.1) 04/04/2025Testicular hypofunction (ICD-10 - E29.1)05/02/2024Type 2 diabetes mellitus with 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 edema, bilateral (ICD-10 - E11.3293)06/01/2024Type 2 diabetes mellitus with 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 edema, bilateral (ICD-10 - E11.3293)07/04/2024Type 2 diabetes mellitus with 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 edema, bilateral (ICD-10 - E11.3293)07/12/2024 Testicular hypofunction (ICD-10 - E29.1)07/12/2024Testicular hypofunction (ICD- 10 - E29.1)07/14/2024Testicular hypofunction (ICD-10 - E29.1)07/20/2024Pulmonary embolism (ICD-10 - I26.99)2024Testicular hypofunction (ICD-10 - E29.1) 08/03/2024Type 2 diabetes mellitus with 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 edema, bilateral (ICD-10 - E11.3293)09/01/2024Type 2 diabetes mellitus with 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 edema, bilateral (ICD-10 - E11.3293)11/01/2024Low testosterone (ICD-10 - E29.1)11/30/2024Low testosterone (ICD-10 - E29.1)12/22/2024Deep vein phlebitis and thrombophlebitis of lower extremity, unspecified laterality (ICD-10 - I80.20 9)12/30/2024Testicular hypofunction (ICD-10 - E29.1)01/27/2025Testicular hypofunction (ICD-10 - E29.1)03/01/2025Testicular hypofunction (ICD-10 - E29.1) 03/30/2025Testicular hypofunction (ICD-10 - E29.1)04/14/2024Low testosterone (ICD-10 - E29.1)04/21/2024Low testosterone (ICD-10 - E29.1)04/28/2024Low testosterone (ICD-10 - E29.1)05/05/2024Decreased testosterone level (ICD-10 - E29.1)05/12/2024Decreased testosterone level (ICD-10 - E29.1)05/19/2024Low testosterone (ICD-10 - E29.1)05/26/2024Decreased testosterone level (ICD-10 - E29.1)06/02/2024Low testosterone (ICD-10 - E29.1)06/09/2024Low testosterone (ICD-10 - E29.1)06/16/2024Low testosterone (ICD-10 - E29.1)06/23/2024Low testosterone (ICD-10 - E29.1)07/07/2024Low testosterone (ICD-10 - E29.1) 07/14/2024Decreased testosterone level (ICD-10 - E29.1)09/29/2024Low testosterone (ICD-10 - E29.1)09/29/2024Type 2 diabetes mellitus with 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 edema, bilateral (ICD-10 - E11.3293)2024Low testosterone (ICD-10 - E29.1)07/28/2024Low testosterone (ICD-10 - E29.1)08/04/2024Low testosterone (ICD-10 - E29.1)08/11/2024Decreased testosterone level (ICD-10 - E29.1)08/17/2024Testicular hypofunction (ICD-10 - E29.1)08/25/2024Testicular hypofunction (ICD-10 - E29.1)09/01/2024Low testosterone (ICD-10 - E29.1)09/08/2024Low testosterone (ICD-10 - E29.1) 09/15/2024Testicular hypofunction (ICD-10 - E29.1)09/22/2024Low testosterone (ICD-10 - E29.1)12/29/2024Testicular hypofunction (ICD-10 - E29.1)12/29/2024Type 2 diabetes mellitus with 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 edema, bilateral (ICD-10 - E11.3293)12/29/2024P (high blood pressure) (ICD-10 - I10)09/29/2024Herniated lumbar disc without myelopathy (ICD-10 - M51.26)06/30/2024enign hypertension (ICD-10 - I10)06/30/2024Type 2 diabetes mellitus with 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 edema, bilateral (ICD-10 - E11.3293)09/29/2024GERD (gastroesophageal reflux disease) (ICD-10 - K21.9)12/29/2024Low testosterone (ICD-10 - E29.1)12/29/2024Herniated lumbar disc without myelopathy (ICD-10 - M51.26)09/29/2024enign hypertension (ICD-10 - I10)09/29/2024nkle pain (ICD-10 - M25.579)09/29/2024OtherRecommended to rest and use a heating pad on the area. Take NSAIDs for pain as needed 12/29/2024OtherRecommended to rest and use a heating pad on the area. Take NSAIDs for pain as needed Plan Of Treatment Pending Test Test Name Order Date CMP (COMPLETE METABOLIC PANEL) 3 CMP (COMPLETE METABOLIC PANEL) 4 HEMOGLOBIN A1C (GLYCO) 03/30/2024 HEMOGLOBIN A1C (GLYCO) 04/01/2023 HEMOGLOBIN A1C (GLYCO) 03/30/2025 LIPID PANEL (CHOL/TRIG/HDL/LDL) 03/30/20 25 LIPID PANEL (CHOL/TRIG/HDL/LDL) 03/30/20 24 LIPID PANEL (CHOL/TRIG/HDL/LDL) 04/01/20 23 CBC WITH DIFF (EXP 02/2025) 04/01/2023 CBC WITH DIFF (EXP 02/2025) 03/30/2024 PT (PROTIME), INR AND PTT (PT/INR AND PT T) 12/22/2024 PSA, PROSTATE-SPECIFIC ANTIGEN 3 URIC ACID 03/30/2024 URIC ACID 03/30/2025 PT - INR 07/20/2024 TESTOSTERONE 09/03/2023 PSA, TOTAL 03/30/2024 STOOL OCCULT BLOOD 03/30/2024 CBC AUTO DIFF 2023 LIPID PROFILE 04/11/2024 LIVER PROFILE 04/11/2024 TESTOSTERONE, TOTAL 03/30/2025 TESTOSTERONE, TOTAL 09/29/2024 TESTOSTERONE, TOTAL 03/30/2024 TESTOSTERONE, TOTAL 06/30/2024 TESTOSTERONE, TOTAL 04/01/2023 THYROID PANEL (T4/TSH/FREE T3) 3 THYROID PANEL (T4/TSH/FREE T3) 4 THYROID PANEL (T4/TSH/FREE T3) 5 Testosterone 04/08/2023 PROTIME-INR 07/01/2023 PSA, SCREENING 03/30/2025 CMP (COMP MET MACKENZIE) w/eGFR CKD-EPI 2024 CBC WITH DIFF 03/30/2025 Next Appt Details Provider Name:Jeffrey Pompa, 01:30:00 PM, [address] [place], [address], Provider Name:Jeffrey Pompa, 01:30:00 PM, [address] [place], [address], Insurance Providers Payer Name Payer Address Payer Phone Subscriber Number Group Number Insured Name Patient Relationship to Insured Coverage Start Date Coverage End Date [employer] [address] [place] [address] [id number] Celia Packer Spouse - patient is the spouse of the insured 3 [place] [address] [address] [place] [id number] Marco Packer - patient is the [id number] Medications Administered Medication Instructions Date of Administration Dosage Notes Testosterone Cypionate 200mg .5 mLTestosterone Cypionate 518gq74.5 mLTestosterone Cypionate 308kb74.5 mLTestosterone Cypionate 322lg06.5 mL Testosterone Cypionate 754fn10.5 mLTestosterone Cypionate 200mg .5 mLTestosterone Cypionate 156be90.5 mLTestosterone Cypionate 021by38.5 mLTestosterone Cypionate 808jk0400 mg Testosterone Cypionate 306xm7600 mgTestosterone Cypionate 200mg mgTestosterone Cypionate 939ne99.5 mLTestosterone Cypionate 877fr4700 mgTestosterone Cypionate 036jk4110/01/2022 Testosterone Cypionate 576hc8500 mgTestosterone Cypionate 200mg .5 mLTestosterone Cypionate 820dk54.5 mLTestosterone Cypionate 354pj31.5 mLTestosterone Cypionate 787og18.5 mg Testosterone Cypionate 031tt18.5 mLTestosterone Cypionate 200mg mgTestosterone Cypionate 716ss9600 mgTestosterone Cypionate 082nu03.5 mLTestosterone Kgclmzlmr40/24/20230.5 mL Testosterone Splsgnxbm08/24/20230.5 mLTestosterone Zohsbahzv53/31/20230.5 mL Testosterone Vtbionbkq78/07/20230.5 mLTestosterone Wujgdkimj57/14/20231 mL Testosterone Qwojhkjyv81/20/20230.5 mLTestosterone Powbdlcwa97/20/20230.5 mL Testosterone Tdxstfbfr30/28/20230.5 mLTestosterone Izkabwepa13/05/20230.5 mL Testosterone Vkgzcctkv38/12/20230.5 mLTestosterone Kqgcxockq89/20/1675535 mg Testosterone Uescxsqoh15/26/20230.5 mLTestosterone Fxkqjkbfo48 mg Testosterone Zxviabpnw09/09/20230.5 mLTestosterone Pzrewjrzs98/16/20230.5 mL Testosterone Svuazessn41/22/0439605 mgTestosterone Pxgyjbwdp76/30/20230.5 mL Testosterone Gfmgbfywx54/07/20230.5 mLTestosterone Wjoqspqir92/14/20230.5 mL Testosterone Cngihaabs17/20/20230.5 mLTestosterone Ftakoxjvt84/28/20230.5 mL Testosterone Kqcvllpuh65/04/20240.5 mLTestosterone Unbibxhxu45/11/20240.5 mL Testosterone Pwjpmwwgw12/18/20240.5 mLTestosterone Wsqoojsqz90/25/20240.5 mL Testosterone Cbxuriasa32/01/20240.5 mLTestosterone Tcgtzpflz91/08/20240.5 mL Testosterone Yosevbxhx06/15/20240.5 mLTestosterone Zfmqswpvm99/22/20240.5 mL Testosterone Equdljful70 mgTestosterone Cuamthvkc16/07/20240.5 mL Testosterone Iibixamag11/14/20240.5 mLTestosterone Tdlsmixqc92/20/20240.5 mL Testosterone Lcpwqhslj15/28/2024.5 mLTestosterone Toalvduun52/04/20240.5 mL Testosterone Ewdxgnqte29/11/2024.5 mLTestosterone Faukzgzeo14/18/2024.5 mL Testosterone Rfmprgeja23/25/2024.5 mLTestosterone Ykrawpgfj03 mg Testosterone Wzywhbfld17 mgTestosterone Xnauzfqly31/16/2024.5 mL Testosterone Pfuaajipk36/23/2024.5 mLTestosterone Pfoqsfpel28 mg Testosterone Xznmczfic66/06/20240.5 mLTestosterone Gywkmnhxr57/13/2024.5 mL Testosterone Qkkdftgnv83/19/20240.5 mLTestosterone Nkeqhdqjn95 mg Testosterone Fruvgmquz69/05/20240.5 mLTestosterone Yctggnaxl78/11/20240.5 mL Testosterone Ihbrkfbzr02/18/20240.5 mLTestosterone Dyyxxsiso66 mg Testosterone Rqmzfzzpf56/01/20240.5 mLTestosterone Ztwlkuphz35/08/20240.5 mL Testosterone Pvcpxotiz54/15/2024Testosterone Zotdrqnkd68/15/20240.5 mL Testosterone Kgebxmcjn87/22/20240.5 mLTestosterone Dzsqjumwf95/29/20240.5 mL Testosterone Ntjphuffw87/05/20240.5 mLTestosterone Dnnaltjhi90/12/3511567 mg Testosterone Lygzuxfeo90/19/20240.5 mgTestosterone Pxiejilkt36/26/20240.5 mL Testosterone Jibbndkra57/03/20240.5 mLTestosterone Mpjvjosut03/10/20240.5 mL Testosterone Zsepezsht59/17/20240.5 mLTestosterone Apwrewmra65/24/20240.5 mL Testosterone Agozziobq87/24/20240.5 mLTestosterone Jeldwnnpf67/31/20240.5 mL Testosterone Rewrhmpbw68/07/20240.5 mLTestosterone Zcyrhoggl00/14/20240.5 mL Testosterone Nqgeflbok09/21/20240.5 mLTestosterone Qoqqqtvtg16/27/20240.5 mL Testosterone Mdudusraa27/05/20240.5 mgTestosterone Cyfbchlxs81/12/20240.5 mL Testosterone Huwsxovvo89/18/20240.5 mLTestosterone Gpfsukcyu42/26/20240.5 mL Testosterone Tnrjkmztd25/02/13106.3 mLTestosterone Ztdwwhmcs58/09/17001.3 mL Testosterone Ebwgyxxby6250.3 mLTestosterone Zantwwcrd30/23/15076.3 mL Testosterone Tmzjzurrd60/30/01409.5 mLTestosterone Obevyzcfn99/06/20250.5 mL Testosterone Tsmarxrqk84/13/83501.3 mLTestosterone Ngrcoxdyx20/13/09698.3 mL Testosterone Bztqyppdz66/20/16119.3 mLTestosterone Ambllyrpa85/27/45297.3 mL Testosterone Ewvotnrrg3650.3 mLTestosterone Snivnxajv47/13/22919.3 mL Testosterone Ssopmolbe33/20/76887.3 mLTestosterone Yruwpswkn83/27/25084.3 mL Testosterone Bmufzznyq12/03/19537.3 mLTestosterone Sblnqhvdn04/10/03178.3 mL Testosterone Ytweexbug88/17/64606.4 mLTestosterone Zbaizhxey58/24/51058.4 mL Testosterone Cipzklucu15/01/94240.4 mLTestosterone Cfgzyejpb13/07/76870.4 mL Testosterone Zxwuxavsa69/15/77372.4 mLTestosterone Mkleyjyor94/22/94741.4 mL Testosterone Jehypqekd89/29/94846.4 mLTestosterone Wtxgpweah3050.4 mL Testosterone Fbqsckbhe0550.4 mLTestosterone Xxukgnlof0850.4 mg Testosterone Nirypskpj6150.4 mLTestosterone Nkpfszgyr5650.4 mL Testosterone Texzybyrp3950.4 mLTestosterone Gwjcexvkt3950.4 mg Testosterone Vbadzyici01/24/82594.4 mLTestosterone Algulydyx7350.4 mL Testosterone Lratkzyvt4950.4 mLTestosterone Fjlfbyhms1650.4 mL Testosterone Gozuywlnj4450.4 mLTestosterone Matfiguto81/28/34546.4 mL Testosterone Fmzdqwcsb77/04/08953.4 mLTestosterone Wsqotelxz9350.4 mL Testosterone Xaltgfjvi4750.4 mLTestosterone Yhqmqkugl8350.4 mL Testosterone Qkanrvlym1350.4 mLTestosterone Puxmtxipg0050.4 mL Testosterone Gugalyclr7150.4 mLTestosterone Citdogbub56.4 mL Testosterone Ptiltfedv2650.4 mLTestosterone Sidmltysd0550.4 mL Testosterone Nybeteujc5750.4 mLTestosterone Yliwknobx6850.4 mL Testosterone Mfmtpgvbz45/26/35178.4 mLTestosterone Zzveddwqq4050.4 mL Testosterone Yuztiniqz56/11/73076.4 mLTestosterone Vfpqwyxkr46/18/29833.4 mL Testosterone Pgqlckvmx00/23/84097.4 mL Medical (General) History Medical History History [...] Pulmonary embolism I26.99 Surgical History Surgery Date(Month/Year) Left eye surgery- glaucoma 08/2024 right hand surgery 06/2016 left knee surgery 08/2005 colon resection 06/2009 left shoulder surgery 05/2019 right shoulder surgery 05/2002 bck surgery 05/2011 Hospitalization History Reason Date(Month/Year) infection scrotum 06/2022
--- OUTSIDE RECORDS SUMMARY | 2025-04-12 09:17 | XMS_ITS | Clinical Summary ---
Author Organization [facility] Healthcare Address [address] [place] [address] Care Team Providers Care Bilingual Customer Service Name Role Phone Unavailable Primary Care Provider Unavailabl e Social History Tobacco UseTypesPacks/DayYears UsedDateSmoking Tobacco: Never AssessedSex and Gender InformationValueDate RecordedSex Assigned at BirthNot on fileLegal Sex Male06/25/2022 6:35 PM EDTGender IdentityNot on fileSexual OrientationNot on file Last Filed Vital Signs Vital SignReadingTime TakenCommentsBlood Ehjijwyq236/7803/12/2018 12:00 PM EST Pulse--Temperature--Respiratory Rate--Oxygen Saturation--Inhaled Oxygen Concentration--Mlftcp884 kg (262 lb)03/12/2018 12:00 PM FMMQhwiih284.9 cm (6') 03/12/2018 12:00 PM ESTBody Mass Index35.5303/12/2018 12:00 PM EST Plan of Treatment Not on file Insurance
--- OUTSIDE RECORDS SUMMARY | 2025-04-12 09:18 | XMS_ITS | CCD ---
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 Repository (3 sources)morphine; 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: [MORPHINE]Drug Synjonf50-81-0400Fwkieen (qualifier value)[facility] Repository (2 sources)orphenadrine; 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: [Norflex]Drug Hmlpmhh27-42-3228RBXBsv [facility] (2 sources)Adhesive bandage; 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: [Adhesive Bandage]Drug allergyUnknown (qualifier value)[facility] (2 sources)celecoxib; 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: [celecoxib]Drug Kuvnwxr37-35-4438K[facility] (3 sources)Orphenadrine; 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: [orphenadrine]Drug Venkkzv55-37-9673 Unknown (qualifier value)[facility] (1 source)OrphenadrineDrug Uspgnzl02-80-2271Wym [facility] Repository Medications Current Medications MedicationDrug Class(es)DatesSig (Normalized)Sig (Original)acetaminophen 325 mg / oxyCODONE hydrochloride 5 mg oral tablet (1 source)Opioid AgonistStart: 30-68-3632ahef 2 tablets by mouth every four hours as needed for painPercocet 5 mg-325 mg oral tablet 2 tab(s), Oral, q4hr as needed for pain, Refill(s) 0 Start Date: 04/09/22 Status: Orderedadapalene 0.003 mg/mg topical gel (1 source)RetinoidStart: 53-02-3642Ertwboqq 0.3% topical gel 1 noemy, Topical, Once a day (at bedtime), Refill(s) 0 Start Date: 04/09/22Status: Ordered atorvastatin 40 mg oral tablet (1 source)HMG-CoA Reductase InhibitorStart: 53-18-0744nnva 1 tablet by mouth once dailyatorvastatin 40 mg Tab 40 mg = 1 tab(s), Oral, Daily, Refills(s) 0 Start Date: 04/09/22 Status: Orderedazelastine hydrochloride 0.5 mg/ml ophthalmic solution (1 source)Histamine-1 Receptor AntagonistStart: 49-19-2204hveauefpvn 0.05% Opth Annette 1 drop(s), Daily, Refill(s) 0 Start Date: 04/09/22 Status: Ordered cyclobenzaprine hydrochloride 10 mg oral tablet (1 source)Muscle RelaxantStart: 41-18-6652pvvs 2 tablets by mouth at bedtime as needed for muscle spasmscyclobenzaprine 10 mg Tab 20 mg = 2 tab(s), Oral, Bedtime, PRN for spasm, Refills(s) 0 Start Date: 04/09/22 Status: Ordered doxycycline monohydrate 100 mg oral capsule (1 source)Tetracycline-class DrugStart: 97-20-3623nmxq 1 capsule by mouth twice dailydoxycycline monohydrate 100 mg oral capsule 100 mg = 1 cap(s), Oral, BID, Refills(s) 0 Start Date: 04/09/22 Status: Orderedibuprofen 800 mg oral tablet (1 source)Nonsteroidal Anti-inflammatory DrugStart: 21-66-4981ymto 1 tablet by mouth four times daily as needed for painibuprofen 800 mg Tab 800 mg = 1 tab(s), Oral, QID, PRN as needed for pain, Refills(s) 0 Start Date:04/09/22 Status: Orderedlisinopril 20 mg oral tablet (1 source)Angiotensin Converting Enzyme InhibitorStart: 87-30-7908dcoo 1 tablet by mouth once dailylisinopril 20 mg Tab 20 mg = 1 tab(s), Oral, Daily, Refills(s) 0 Start Date: 04/09/22 Status: OrderedmetFORMIN hydrochloride 500 mg oral tablet (1 source)BiguanideStart: 32-71-3578lvpp 1 tablet by mouth twice dailymetformin 500 mg Tab 500 mg = 1 tab(s), Oral, BID, Refills(s) 0 Start Date: 04/09/22 Status: Orderedomeprazole 20 mg delayed release oral capsule (1 source)Proton Pump InhibitorStart: 56-96-7921pmep 1 capsule by mouth once dailyomeprazole 20 mg Cap-DR 20 mg = 1 cap(s), Oral, Daily, Refills(s) 0 Start Date: 04/09/22 Status: OrderedoxyCODONE hydrochloride 10 mg oral tablet (1 source)Opioid AgonistStart: 04-40-1181kqtt 1-2 tablets by mouth twice daily oxycodone 10 mg oral tablet 1-2 tabs, Oral, BID, Refills(s) 0 Start Date: 04/09/22 Status: Orderedpioglitazone 30 mg oral tablet (1 source)Peroxisome Proliferator Receptor alpha Agonist, Peroxisome Proliferator Receptor gamma Agonist, ThiazolidinedioneStart: 00-44-3452yubm 1 tablet by mouth once dailypioglitazone 30 mg Tab 30 mg = 1 tab(s), Oral, Daily, Refills(s) 0 Start Date: 04/09/22 Status: Orderedpregabalin 100 mg oral capsule (1 source)Start: 93-20-2959ymmr 1 capsule by mouth three times dailyLyrica 100 mg Cap 100 mg = 1 cap(s), Oral, TID, Refills(s) 0 Start Date: 04/09/22 Status: Orderedtestosterone cypionate 200 mg/mL IM Annette (1 source)Start: 36-23-9485ewwmuz 100 mg by intramuscular injection every week testosterone cypionate 200 mg/mL IM Annette 100 mg = 0.5 mL, IntraMuscular, qWeek, Refills(s) 0 Start Date: 04/09/22 Status: OrderedVitamin D3 2000 intl units oral Tab (1 source)Start: 79-73-7582pqjd 1 tablet by mouth once dailyVitamin D3 2000 intl units oral Tab 50 mcg, Oral, Daily, Refills(s) 0 Start Date: 04/09/22 Status: O rderedwarfarin sodium 10 mg oral tablet (2 sources)Vitamin K AntagonistStart: 89-70-0816Eezlqkjw 10 mg oral tablet as directed, Refills(s) 0 Start Date: 04/09/22 Status: OrderedStart: 04-09-2022 Coumadin 7.5 mg Tab as directed, Refills(s) 0 Start Date: 04/09/22 Status: Ordered Problems Active Problems Problem ClassificationProblemDateDocumented DateEpisodic/ChronicDiabetes mellitus with complications (1 source)Type 2 diabetes mellitus with 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 edema, bilateral; 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: [TYPE 2 DM MILD NPDR W/O MAC ED KAVIN]Onset: 48-11-7506SczeahnYepymxdc mellitus without complication (2 sources)Type 2 diabetes mellitus without complications; 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: [Diabetes mellitus]Onset: 970421-65-1263PnbhtpxZuyafaeccr disorders (1 source)Gastro-esophageal reflux disease without esophagitis; 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: [GASTRO-ESOPHAGEAL REFLUX DISEASE WITHOUT ESOPHAGITIS]Onset: 41-58-5899Edcghnw Essential hypertension (2 sources)Essential hypertension; 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: [Hypertensive disorder]Onset: 521035-29-6754KyzgarvUteiwuke (1 source)Gvkmawtx44-40-7473HhrsrbiBmzvqwjo; including migraine (1 source)Qybpyodr84-15-7355BtexpgbRttzb aftercare (5 sources)[facility] (current) use of anticoagulants; 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: [NURSING HOME CURRNT USE 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]Onset: 25-48-6073DiamisipVucuu endocrine disorders (1 source)Male sbirrurljiln05-50-4821LmrcufuLhzld endocrine disorders (5 sources)Testicular hypofunction; 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: [TESTICULAR HYPOFUNCTION] Onset: 68-66-3177YbotnmzAvyqu eye disorders (1 source)Retinal qmaa95-19-8551YyeqgqdZsewi inflammatory condition of skin (1 source)Mfocwbjkm89-55-0429JthlonjHemgp nervous system disorders (1 source)Craig's mrdaenlfljaqt53-67-4832CpnvexeQdjbe nutritional; endocrine; and metabolic disorders (1 source)Body mass index 30+ - -84-5324GtrvqegFvmqb skin disorders (2 sources)Actinic keratosis; 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: [Actinic keratosis]Onset: 04-23-2022 EpisodicOther skin disorders (1 source)Acne rbtfxasj36-24-8829XpdfermzNrlvv upper respiratory disease (1 source)Allergic -44-3355MhibeqiNxojqolfs; thrombophlebitis and thromboembolism (2 sources)H/O: Deep vein thrombosis; 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: [Superficial thrombophlebitis]62-58-9478JlmrebxkKskwsbhxi heart disease (6 sources)H/O: pulmonary embolus; 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: [Other pulmonary embolism without acute cor pulmonale]Onset: 859088-34-6361KljtuvbfMzeohasojth; intervertebral disc disorders; other back problems (1 source)Prolapsed lumbar intervertebral msle11-24-4235SxxrfkeIrebzskdabqn (1 source)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; 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: [NURSING HOME (CURRENT) USE OF ORAL HYPOGLYCEMIC DRUGS]Onset: 10-20-2016 Past or Other Problems Problem ClassificationProblemDateDocumented DateEpisodic/ChronicDeficiency and other anemia (1 source)Anemia, unspecified; 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: [ANEMIA UNSPECIFIED]Onset: 71-83-9544MmqyxbvgAmrgaqh and fatigue (1 source)Other fatigue; 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: [OTHER FATIGUE]Onset: 33-20-5653Xsxuytqy Other aftercare (1 source)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; 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: [OTH NURSING HOME CURRENT DRUG THERAPY]Onset: 14-54-0941AlquparhOpdkz non-traumatic joint disorders (4 sources)Other instability, right wrist; 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: [OTHER INSTABILITY, RIGHT WRIST]Onset: 97-98-5843ArojruraTxjgs screening for suspected conditions (not mental disorders or infectious disease) (6 sources)Encounter for screening for malignant neoplasm of colon; 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: [Encounter for screening formalignant neoplasm of prostate]Onset: 64-03-0118WehwqedoFzbyodt and strains (1 source)Other specified sprain of right wrist, initial encounter; 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: [OTHER SPECIFIED SPRAIN OF RIGHT WRIST, INITIAL ENCOUNTER]Onset: 40-82-1336XpmwvbkwIqrwrgjfesuy (2 sources)Unknown / UNK(Unknown)Onset: 10-20-2016 Results Test NameValueInterpretationReference RangeFacilityPT & PTTon 38-36-4721EXH Coag (PPP) [Relative time]2.45 {INR}Invalid Interpretation CodeFisher St. Agnes HospitalComment on above:Result Comment: INR results are specifically intended to assess patients stabilized on long-term Anticoagulation therapy suggested INR???s ???Less Intensive Anticoagulation??? 2.0 ??? 3.0 Conventional Range 3.0 ??? 4.5Performed By: #### [id number] #### [facility] [address], [place] [address]NP14.9 second(s)High9.4-12.5Fisher St. Agnes HospitalComment on above:Result Comment: [...] the same coagulation reagent and instrumentation as [facility]. Currently there are no coagulation studies available worldwide for children to 14 days, andno normal ranges.Performed By: #### [id number] #### [facility] [address], [place] [address]HYL84.0 second(s)High25.1-36.5[facility] Comment on above:Result [...] the same coagulation reagent and instrumentation as [facility]. Currently there are no coagulation studies available worldwide for children to 14 days, andno normal ranges. Heparin therapeutic range (represented by Anti-Factor Xa activity of 0.2 - 0.4 U/mL) corresponds to PTT of 56.6 - 109.0 sec.Performed By: #### [id number] #### [facility] [address], [place] [address]ZUMDFISso 31-07-4879AMX Coag (PPP) [Relative time]2.84 {INR} NormalThe Children'S Hospital Of ColumbusComment on above:Performed By: #### PT #### [facility] [address] [place] [address] Dr. Teddy Gilmore GUIDELINESSEE [facility]Comselect [facility] on above:Result Comment: DESIRED INR: 2.0 - 3.0 CONDITIONS NOT LISTED BELOW 2.5 - 3.5 FOR PROSTHETIC HEART VALVE REPLACEMENT 2.5 - 3.5 RECURRENT THROMBOSIS Performed By: #### PT #### [facility] [address] [place] [address] Dr. Teddy Turner Coag (PPP) [Time]28.4 sCritically high9.0-11.6ThAultman Alliance Community HospitalComselect specialty [facility] on above:Performed By: #### PT #### [facility] [address] [place] [address] Dr. Teddy Kemp 30-69-7524WLE Coag (PPP) [Relative time]3.22 {INR} NormalUniversity Hospitals Elyria Medical Center on above:Performed By: #### PT #### [facility] [address] [place] [address] Dr. Teddy Gilmore GUIDELINESSEE [facility]Com[facility] on above:Result Comment: DESIRED INR: 2.0 - 3.0 CONDITIONS NOT LISTED BELOW 2.5 - 3.5 FOR PROSTHETIC HEART VALVE REPLACEMENT 2.5 - 3.5 RECURRENT THROMBOSIS Performed By: #### PT #### [facility] [address] [place] [address] Dr. Teddy Turner Coag (PPP) [Time]31.9 sCritically high9.0-11.6ThWilson Memorial Hospital on above:Performed By: #### PT #### [facility] [address] [place] [address] Dr. Teddy Kemp 03-62-7132OLX Coag (PPP) [Relative time]3.26 {INR} NormalUniversity Hospitals Elyria Medical Center on above:Performed By: #### PSASC #### [facility] [address] [place] [address] Dr. Teddy Gilmore GUIDELINESSEE [facility]Com[facility] on above:Result Comment: DESIRED INR: 2.0 - 3.0 CONDITIONS NOT LISTED BELOW 2.5 - 3.5 FOR PROSTHETIC HEART VALVE REPLACEMENT 2.5 - 3.5 RECURRENT THROMBOSIS Performed By: #### PSASC #### [facility] [address] [place] [address] Dr. Teddy Turner Coag (PPP) [Time]32.3 sCritically high9.0-11.6The [facility]S Hospital Of ColumbusComment on above:Performed By: #### PSASC #### [facility] [address] [place] [address] Dr. Teddy PurcellPROTIMEon 35-75-0872CRZ Coag (PPP) [Relative time]4.37 {INR} Critically highThe Children'S Hospital Of ColumbusComment on above:Performed By: #### PT #### [facility] [address] [place] [address] Dr. Teddy Gilmore [facility] HospitalComment on above:Result Comment: DESIRED INR: 2.0 - 3.0 CONDITIONS NOT LISTED BELOW 2.5 - 3.5 FOR PROSTHETIC HEART VALVE REPLACEMENT 2.5 - 3.5 RECURRENT THROMBOSIS Performed By: #### PT #### [facility] [address] [place] [address] Dr. Teddy Turner Coag (PPP) [Time]42.6 sCritically high9.0-11.6The [facility]S Hospital Of ColumbusComment on above:Performed By: #### PT #### [facility] [address] [place] [address] Dr. Teddy PurcellOCC BLD IMMUNO SCREENon 98-67-0097DGGRTT BLOODNegativeNormal NEGATIVEThe Children'S Hospital Of ColumbusComment on above:Performed By: #### PSASC #### [facility] [address] [place] [address] Dr. Teddy PurcellTESTOSTERONE, TOTALon 74-46-7867Mkblgbnjpueb [Mass/Vol]905 ng/dL Zcaduq133-656CgzOhiohealth Mansfield HospitalComment on above:Result Comment: Adult male reference interval is based on a population of healthy nonobese males (BMI <30) between 19 and 39 years old. Travison, et.al. JCEM 2017,102;4191-9122. PMID: [id number].Performed By: #### PSASC #### [facility] [address] [place] [address] Dr. Teddy Swenson AUTO DIFFon 49-53-4554IYOX #0.0 103/ulNormal0.0-0.1The [facility]S Hospital Of ColumbusComment on above:Performed By: #### PSASC #### [facility] [address] [place] [address] Dr. Teddy PurcellBasophils/100 WBC (Bld)0.2 %Normal0.2-2.0The [facility] Comment on above:Performed By: #### PSASC #### [facility] [address] [place] [address] Dr. Teddy Da SilvaO #0.1 103/ulNormal0.0-0.7The [facility] Hospital Of ColumbusComment on above: Performed By: #### PSASC #### [facility] [address] [place] [address] Dr. Teddy Da Silvaosinophils/100 WBC (Bld)2.4 %Normal0.9-7.0The [facility] Comment on above:Performed By: #### PSASC #### [facility] [address] [place] [address] Dr. Teddy Da Silvarythrocyte distribution width (RBC) [Ratio]15.7 %Critically high 11.0-15.0The [facility]S Hospital Of ColumbusComment on above:Performed By: #### PSASC #### [facility] [address] [place] [address] Dr. Teddy PurcellHematocrit (Bld) [Volume fraction]51.4 %Ccmzer27.0-54.0The [facility]S Hospital Of ColumbusComment on above:Performed By: #### PSASC #### [facility] [address] [place] [address] Dr. Teddy PurcellHemoglobin (Bld) [Mass/Vol]16.9 g/cODkvrmv71.0-18.0The [facility] Hospital Of ColumbusComment on above:Performed By: #### PSASC #### [facility] [address] [address] [address] Teddy Avila #0.01 10e3/ulNormal0.00-0.03The [facility] on above:Performed By: #### PSASC #### [facility] [address] [place] [address] Dr. Teddy Avila %0.2 %Normal0.0-0.5The [facility] Hospital Of ColumbusComselect specialty hospital[facility] on above: Performed By: #### PSASC #### [facility] [address] [place] [address] Dr. Teddy BabinBRUNSWICK [facility] #2.0 103/ulNormal1.2-3.8The [facility] Of ColumbusComselect [facility] on above:Performed By: #### PSASC #### [facility] [address] [place] [address] Dr. Teddy Cunhahocytes/100 WBC (Bld)33.1 %Mpflgu77.5-60.0The [facility] on above:Performed By: #### PSASC #### [facility] [address] [place] [address] Dr. Teddy PurcellCAMERONUAL DIFF REQNONormalThe [facility] Hospital Of ColumbusComselect [facility] on above: Performed By: #### PSASC #### [facility] [address] [place] [address] Dr. Teddy Friedman (RBC) [Entitic mass]29.8 abOqdnyf22.9-34.0The [facility] on above:Performed By: #### PSASC #### [facility] [address] [place] [address] Dr. Teddy Friedman (RBC) [Mass/Vol]32.9 g/qAMtcike77.9-35.2The [facility] on above:Performed By: #### PSASC #### [facility] [address] [place] [address] Dr. Teddy Friedman (RBC) [Entitic vol]90.7 sECzevnd60.0-94.0The Coul[facility] HospitalComment on above:Performed By: #### PSASC #### [facility] [address] [place] [address] Dr. Teddy Doran #0.8 103/ulNormal0.3-0.8The [facility] Hospital Of ColumbusComment on above:Performed By: #### PSASC #### [facility] [address] [place] [address] Dr. Teddy Mcadamsocytes/100 WBC (Bld)12.9 %Critically high1.7-12.0The [facility] HospitalComment on above:Performed By: #### PSASC #### [facility] [address] [place] [address] Dr. Teddy Quinn #3.1 103/ulNormal1.4-6.5The [facility] Hospital Of ColumbusComment on above:Performed By: #### PSASC #### [facility] [address] [place] [address] Dr. Teddy Wattersutrophils/100 WBC (Bld)51.2 %Pyvgny10.0-75.0The [facility] Hospital Of ColumbusComment on above:Performed By: #### PSASC #### [facility] [address] [place] [address] Dr. Teddy Harmonlet mean volume (Bld) [Entitic vol]10.0 fLNormal9.5-13.5The [facility] Hospital Of ColumbusComment on above:Performed By: #### PSASC #### [facility] [address] [place] [address] Dr. Teddy PurcellPLT302 103/xeHkpazd787-622Evv [facility] Hospital Of ColumbusComment on above: Performed By: #### PSASC #### [facility] [address] [place] [address] Dr. Teddy PurcellRBC5.67 106/ulNormal4.70-6.10The [facility] Hospital Of ColumbusComment on above:Performed By: #### PSASC #### [facility] [address] [place] [address] Dr. Teddy PurcellWBC6.0 103/ulNormal4.0-11.0The [facility] HospitalComment on above: Performed By: #### PSASC #### [facility] [address] [address] [address] Teddy Astudillo T3on 84-68-6661NULG T33.52 pg/mlLNormal2.18-3.98Ohiohealth Mansfield HospitalComment on above:Performed By: #### PSASC #### [facility] [address] [address] [address] Teddy PurcellGLYCOHEMOGLOBIN A1Con 46-79-6778CPC RECOMMENDATIONSEE BELOWNormThe Jewish HospitalComment on above:Result Comment: ADA RECOMMENDED LIMIT 4.0 - 6.0 ADA THERAPEUTIC TARGET < 7.0 ACTION SUGGESTED > 7.0Performed By: #### PSASC #### [facility] [address] [place] [address] Dr. Teddy PurcellGlucose [Mass/Vol]209 mg/dLNormUniversity Hospitals TriPoint Medical CenterComment on above:Performed By: #### PSASC #### [facility] [address] [place] [address] Dr. Teddy PurcellHbA1c (Bld) [Mass fraction]8.9 %Critically high4.5-6.2Ohiohealth Mansfield HospitalComment on above:Performed By: #### PSASC #### [facility] [address] [place] [address] Dr. Teddy PurcellLIPID PROFILEon 52-83-7284SVLV-HDL RATIO NORMSEE [facility]Comselect [facility] on above:Result Comment: 3.3 - 4.4 LOW RISK 4.4 - 7.1 AVERAGE RISK 7.1 - 11.0 MODERATE RISK >11.0 HIGH RISKPerformed By: #### LIPID, FT3, T4, CMP, TSH #### [facility] [address] [place] [address] Dr. Teddy PurcellCholesterol [Mass/Vol]150 mg/dLNormal<=200The [facility] Comment on above:Performed By: #### LIPID, FT3, T4, CMP, TSH #### [facility] [address] [place], [place] [id number] Dr. Teddy Ochoaol in HDL [Mass/Vol]31 mg/dLCritically tra55-47UreUniversity Hospitals Elyria Medical Center on above:Performed By: #### LIPID, FT3, T4, CMP, TSH #### [facility] [address] [place] [address] Dr. Teddy Cruzesterol in LDL [Mass/Vol]85.4 mg/dLUniversity Hospitals Samaritan [facility] Center on above:Performed By: #### LIPID, FT3, T4, CMP, TSH #### [facility] [address] [place] [address] Dr. Teddy Smith.total/Cholesterol in HDL [Mass ratio]4.8 {ratio} NormalUniversity Hospitals Elyria Medical Center on above:Performed By: #### LIPID, FT3, T4, CMP, TSH #### [facility] [address] [place] [address] Dr. Teddy Heck NORMAL> or = 60 mg/dl - LOW CARDIOVASCULAR RISK <40 mg/dl - HIGH CARDIOVASCULAR RISKUniversity Hospitals Samaritan Medical Center on above:Performed By: #### LIPID, FT3, T4, CMP, TSH #### [facility] [address] [place] [address] Dr. Teddy Gould CALC NORMALSEE BELOWGreene Memorial HospitalComselect specialty hospital-[facility] on above:Result Comment: <100 mg/dl OPTIMAL 100 - 129 mg/dl NEAR OR ABOVE OPTIMAL 130 - 159 mg/dl BORDERLINE HIGH 160 - 189 mg/dl HIGH >190 mg/dl VERY HIGH Performed By: #### LIPID, FT3, T4, CMP, TSH #### [facility] [address] [place] [address] Dr. Teddy PurcellTriglyceride [Mass/Vol]168 mg/dLCritically high<=150[facility] on above:Performed By: #### LIPID, FT3, T4, CMP, TSH #### [facility] [address] [place] [address] Dr. Teddy WassermanLDL CALC33.6 mg/dLUniversity Hospitals Samaritan Medical Center on above: Performed By: #### LIPID, FT3, T4, CMP, TSH #### [facility] [address] [place] [address] Dr. Teddy Roberson 14(COMP METB)on 97-33-2456Pcruauq [Mass/Vol]3.7 g/dLNormal 3.4-5.0The [facility] Hospital Of ColumbusComment on above:Performed By: #### LIPID, FT3, T4, CMP, TSH #### [facility] [address] [place] [address] Dr. Teddy PurcellAlbumin/Globulin [Mass ratio]0.9 {ratio}NormalThe Children'S Hospital Of ColumbusComment on above:Performed By: #### LIPID, FT3, T4, CMP, TSH #### [facility] [address] [place] [address] Dr. Teddy Fields [Catalytic activity/Vol]63 U/MUsxlie61-744Yqj Kettering Health Washington Townshipment on above:Performed By: #### LIPID, FT3, T4, CMP, TSH #### [facility] [address] [place] [address] Dr. Teddy Justin [Catalytic activity/Vol]61 U/ISebxmh47-59Sth [facility] Hospital Of ColumbusComment on above:Performed By: #### LIPID, FT3, T4, CMP, TSH #### [facility] [address] [place] [address] Dr. Teddy Arthur gap [Moles/Vol]9.7 mmol/LNormalThe [facility]'S Hospital Of ColumbusComment on above:Performed By: #### LIPID, FT3, T4, CMP, TSH #### [facility] [address] [place] [address] Dr. Teddy PurcellAST [Catalytic activity/Vol]30 U/ODtvzqs75-65Rzj [facility] Hospital Of ColumbusComment on above:Performed By: #### LIPID, FT3, T4, CMP, TSH #### [facility] [address] [place] [address] Dr. Teddy PurcellBilirubin [Mass/Vol]0.3 mg/dLNormal0.2-1.0The [facility] Comment on above:Performed By: #### LIPID, FT3, T4, CMP, TSH #### [facility] [address] [place] [address] Dr. Teddy PurcellCalcium [Mass/Vol]9.7 mg/dLNormal8.5-10.1The [facility] Comment on above:Performed By: #### LIPID, FT3, T4, CMP, TSH #### [facility] [address] [place] [address] Dr. Teddy PurcellChloride [Moles/Vol]96 mmol/LCritically ypu88-031Vur [facility] ColumbusComment on above:Performed By: #### LIPID, FT3, T4, CMP, TSH #### [facility] [address] [place] [address] Dr. Teddy PurcellCO2 [Moles/Vol]34.7 mmol/LCritically high21.0-32.0The [facility] ColumbusComment on above:Performed By: #### LIPID, FT3, T4, CMP, TSH #### [facility] [address] [place] [address] Dr. eTddy PurcellCreatinine [Mass/Vol]0.78 mg/dLNormal0.70-1.30[facility] on above:Performed By: #### LIPID, FT3, T4, CMP, TSH #### [facility] [address] [place] [address] Dr. Teddy Da SilvaGFR-AF UGANDAN>60Normal>=60[facility] on above:Performed By: #### LIPID, FT3, T4, CMP, TSH #### [facility] [address] [place] [address] Dr. Teddy Da SilvaGFR-NON AF UGANDAN>60Normal>=60[facility] on above:Performed By: #### LIPID, FT3, T4, CMP, TSH #### [facility] [address] [place] [address] Dr. Teddy PurcellGlobulin (S) [Mass/Vol]3.9 g/dLNormalThe [facility] ColumbusComselect [facility] on above:Performed By: #### LIPID, FT3, T4, CMP, TSH #### [facility] [address] [address] [address] Teddy PurcellGlucose [Mass/Vol]165 mg/dLCritically sobs84-923Vad [facility] ColumbusComment on above:Performed By: #### LIPID, FT3, T4, CMP, TSH #### [facility] [address] [address] [address] Teddy PurcellPotassium [Moles/Vol]4.4 mmol/LNormal3.5-5.1The [facility] Comment on above:Performed By: #### LIPID, FT3, T4, CMP, TSH #### [facility] [address] [address] [address] Teddy PurcellProtein [Mass/Vol]7.6 g/dLNormal6.4-8.2The [facility] Comment on above:Performed By: #### LIPID, FT3, T4, CMP, TSH #### [facility] [address] [address] [address] Teddy PurcellSodium [Moles/Vol]136 mmol/LXkrmzh575-724Uop [facility] Comment on above:Performed By: #### LIPID, FT3, T4, CMP, TSH #### [facility] [address] [place] [address] Dr. Teddy PurcellUrea nitrogen [Mass/Vol]14.0 mg/dLNormal7.0-18.0The [facility] ColumbusComment on above:Performed By: #### LIPID, FT3, T4, CMP, TSH #### [facility] [address] [place] [address] Dr. Teddy PurcellUrea nitrogen/Creatinine [Mass ratio]17.9 mg/mgNormalThe [facility] Hospital Of ColumbusComment on above:Performed By: #### LIPID, FT3, T4, CMP, TSH #### [facility] [address] [place] [address] Dr. Teddy WigginsIMEmasha 58-97-1136AFK Coag (PPP) [Relative time]3.13 {INR} NormalThe [facility]'S Hospital Of ColumbusComment on above:Performed By: #### PT #### [facility] [address] [place] [address] Dr. Teddy Gilmore GUIDELINESSEE [facility] EastComment on above:Result Comment: DESIRED INR: 2.0 - 3.0 CONDITIONS NOT LISTED BELOW 2.5 - 3.5 FOR PROSTHETIC HEART VALVE REPLACEMENT 2.5 - 3.5 RECURRENT THROMBOSIS Performed By: #### PT #### [facility] [address] [place] [address] Dr. Teddy Turner Coag (PPP) [Time]31.4 sCritically high9.0-11.6The [facility]Comselect [facility] on above:Performed By: #### PT #### [facility] [address] [place] [address] Dr. Teddy Arroyo 04-30-7603U4 [Mass/Vol]7.60 ug/dLNormal4.50-12.10The [facility] ColumbusComselect [facility] on above:Performed By: #### LIPID, FT3, T4, CMP, TSH #### [facility] [address] [place] [address] Dr. Teddy Mccrary 29-68-9143GCI5.595 uIU/mLNormal0.358-3.740[facility] on above:Performed By: #### LIPID, FT3, T4, CMP, TSH #### [facility] [address] [place] [address] Dr. Teddy WigginsIMEmasha 74-16-2437YTD Coag (PPP) [Relative time]3.69 {INR} NormalThe [facility] on above:Performed By: #### PT #### [facility] [address] [place] [address] Dr. Teddy Gilmore GUIDELINESSEE [facility]Comselect [facility] on above:Result Comment: DESIRED INR: 2.0 - 3.0 CONDITIONS NOT LISTED BELOW 2.5 - 3.5 FOR PROSTHETIC HEART VALVE REPLACEMENT 2.5 - 3.5 RECURRENT THROMBOSIS Performed By: #### PT #### [facility] [address] [place] [address] Dr. Teddy PurcellPT Coag (PPP) [Time]36.6 sCritically high9.0-11.6The [facility] Of ColumbusComment on above:Performed By: #### PT #### [facility] [address] [place] [address] Dr. Teddy PurcellTESTOSTERONE, TOTALon 56-42-6688Uqnaeylfffor [Mass/Vol]633 ng/dL Cszjou980-236Ylj [facility] Of ColumbusComment on above:Result Comment: Adult male reference interval is based on a population of healthy nonobese males (BMI <30) between 19 and 39 years old. Thea, et.al. JCEM 2017,102;3446-9929. PMID: [id number].Performed By: #### PT #### [facility] [address] [place] [address] Dr. Teddy PurcellCBC AUTO DIFFon 99-22-7567OPAP #0.0 103/ulNormal0.0-0.1[facility] HospitalComment on above:Performed By: #### CBC #### [facility] [address] [place] [address] Dr. Teddy PurcellBasophils/100 WBC (Bld)0.4 %Normal0.2-2.0[facility] Comment on above:Performed By: #### CBC #### [facility] [address] [place] [address] Dr. Teddy Villegas #0.1 103/ulNormal0.0-0.7The [facility] Of ColumbusComment on above: Performed By: #### CBC #### [facility] [address] [place] [address] Dr. Teddy Da Silvaosinophils/100 WBC (Bld)2.0 %Normal0.9-7.0The [facility] Comment on above:Performed By: #### CBC #### [facility] [address] [place] [address] Dr. Teddy Da Silvarythrocyte distribution width (RBC) [Ratio]13.7 %Fjaynm82.0-15.0 The [facility] Hospital Of ColumbusComment on above:Performed By: #### CBC #### [facility] [address] [place] [address] Dr. Teddy PurcellHematocrit (Bld) [Volume fraction]45.6 %Ulexvf07.0-54.0The [facility] Of ColumbusComment on above:Performed By: #### CBC #### [facility] [address] [place] [address] Dr. Teddy PurcellHemoglobin (Bld) [Mass/Vol]14.8 g/gVGehqyy78.0-18.0The [facility] Of ColumbusComment on above:Performed By: #### CBC #### [facility] [address] [place] [address] Dr. Teddy Avila #0.01 10e3/ulNormal0.00-0.03The [facility] Of ColumbusComment on above:Performed By: #### CBC #### [facility] [address] [place] [address] Dr. Teddy Avila %0.2 %Normal0.0-0.5The [facility] Of ColumbusComment on above: Performed By: #### CBC #### [facility] [address] [place] [address] Dr. Teddy Peck #1.8 103/ulNormal1.2-3.8The [facility] ColumbusComselect [facility] on above:Performed By: #### CBC #### [facility] [address] [place] [address] Dr. Teddy Babinmphocytes/100 WBC (Bld)36.6 %Gqqkee00.5-60.0The [facility] Of ColumbusComment on above:Performed By: #### CBC #### [facility] [address] [place] [address] Dr. Teddy BurdenUAL DIFF REQNONormalThe [facility]'S Hospital Of ColumbusComment on above: Performed By: #### CBC #### [facility] [address] [place] [address] Dr. Teddy Casas (RBC) [Entitic mass]30.0 xePrcaxc03.9-34.0The [facility] Hospital Of ColumbusComment on above:Performed By: #### CBC #### [facility] [address] [address] [address] Teddy FriedmanHC (RBC) [Mass/Vol]32.5 g/lTCjcmmh96.9-35.2The [facility] Hospital Of ColumbusComment on above:Performed By: #### CBC #### [facility] [address] [place] [address] Dr. Teddy FriedmanV (RBC) [Entitic vol]92.3 kLKvunes98.0-94.0The [facility] Of ColumbusComment on above:Performed By: #### CBC #### [facility] [address] [place] [address] Dr. Teddy Doran #0.7 103/ulNormal0.3-0.8The [facility] Of ColumbusComment on above:Performed By: #### CBC #### [facility] [address] [place] [address] Dr. Teddy Mcadamsocytes/100 WBC (Bld)13.7 %Critically high1.7-12.0The [facility] Hospital Of ColumbusComment on above:Performed By: #### CBC #### [facility] [address] [place] [address] Dr. Teddy Quinn #2.3 103/ulNormal1.4-6.5The [facility] Of ColumbusComment on above:Performed By: #### CBC #### [facility] [address] [place] [address] Dr. Teddy Wattersutrophils/100 WBC (Bld)47.1 %Scpbzw23.0-75.0The [facility] Of ColumbusComment on above:Performed By: #### CBC #### [facility] [address] [place] [address] Dr. Teddy Harmonlet mean volume (Bld) [Entitic vol]10.3 fLNormal9.5-13.5The [facility] Hospital Of ColumbusComment on above:Performed By: #### CBC #### [facility] [address] [place] [address] Dr. Teddy NicoleT252 103/kuBdxfzq169-698Xfl [facility] Of ColumbusComment on above: Performed By: #### CBC #### [facility] [address] [place] [address] Dr. Teddy PurcellRBC4.94 106/ulNormal4.70-6.10The [facility] Health Washington Townshipment on above:Performed By: #### CBC #### [facility] [address] [place] [address] Dr. Teddy PurcellWBC5.0 103/ulNormal4.0-11.0The [facility] Of ColumbusComment on above: Performed By: #### CBC #### [facility] [address] [place] [address] Dr. Teddy Jama 00-13-9588Njnf [Mass/Vol]85.0 ug/zYPsujss04.0-175.0The [facility] Of ColumbusComment on above:Performed By: #### PSASC #### [facility] [address] [place] [address] Dr. Teddy PurcellMAGNESIUMon 03-23-3371Idiqmdvud [Mass/Vol]1.9 mg/dLNormal1.8-2.4 The [facility] Of ColumbusComment on above:Performed By: #### PSASC #### [facility] [address] [place] [address] Dr. Teddy PurcellPHOSPHORUSon 58-67-3434Bwfxhxwvf [Mass/Vol]3.1 mg/dLNormal2.6-4.7 The [facility]Com[facility] on above:Performed By: #### PSASC #### [facility] [address] [place] [address] Dr. Teddy PurcellPROF 14(COMP METB)on 13-79-8792Zyjjjdy [Mass/Vol]3.5 g/dLNormal 3.4-5.0The [facility] Of ColumbusComment on above:Performed By: #### PSASC #### [facility] [address] [place] [address] Dr. Teddy PurcellAlbumin/Globulin [Mass ratio]1.0 {ratio}NormalThe [facility]S Hospital Of ColumbusComment on above:Performed By: #### PSASC #### [facility] [address] [address] [address] Teddy DiopP [Catalytic activity/Vol]59 U/DEykqvt07-216Hsd [facility] Of ColumbusComment on above:Performed By: #### PSASC #### [facility] [address] [address] [address] Teddy DiopT [Catalytic activity/Vol]58 U/WZentur26-37Cvq [facility] Of ColumbusComment on above:Performed By: #### PSASC #### [facility] [address] [address] [address] Teddy Fulleron gap [Moles/Vol]9.5 mmol/LNormalThe [facility] Hospital Of ColumbusComment on above:Performed By: #### PSASC #### [facility] [address] [address] [address] Teddy PurcellAST [Catalytic activity/Vol]28 U/OCcgwxx73-34Pze [facility] ColumbusComment on above:Performed By: #### PSASC #### [facility] [address] [address] [address] Teddy PurcellBilirubin [Mass/Vol]0.3 mg/dLNormal0.2-1.0[facility] Comment on above:Performed By: #### PSASC #### [facility] [address] [address] [address] Teddy PurcellCalcium [Mass/Vol]9.1 mg/dLNormal8.5-10.1The [facility] Comment on above:Performed By: #### PSASC #### [facility] [address] [address] [address] Teddy PurcellChloride [Moles/Vol]104 mmol/NKnxisv69-581Spo [facility] Comment on above:Performed By: #### PSASC #### [facility] [address] [address] [address] Teddy PurcellCO2 [Moles/Vol]30.8 mmol/OLzbcdg76.0-32.0The [facility] Comment on above:Performed By: #### PSASC #### [facility] [address] [address] [address] Teddy PurcellCreatinine [Mass/Vol]0.90 mg/dLNormal0.70-1.30The [facility] Of ColumbusComment on above:Performed By: #### PSASC #### [facility] [address] [address] [address] Teddy Da SilvaGFR-AF UGANDAN>60Normal>=60The [facility] Of ColumbusComment on above:Performed By: #### PSASC #### [facility] [address] [address] [address] Teddy Da SilvaGFR-NON AF UGANDAN>60Normal>=60The [facility] Of ColumbusComment on above:Performed By: #### PSASC #### [facility] [address] [address] [address] Teddy PurcellGlobulin (S) [Mass/Vol]3.5 g/dLNormalThe [facility] Hospital Of ColumbusComment on above:Performed By: #### PSASC #### [facility] [address] [address] [address] Teddy PurcellGlucose [Mass/Vol]145 mg/dLCritically mxih23-890GrcOhiohealth Mansfield HospitalComment on above:Performed By: #### PSASC #### [facility] [address] [address] [address] Teddy PurcellPotassium [Moles/Vol]4.3 mmol/LNormal3.5-5.1The [facility] Comment on above:Performed By: #### PSASC #### [facility] [address] [address] [address] Teddy PurcellProtein [Mass/Vol]7.0 g/dLNormal6.4-8.2The [facility] Comment on above:Performed By: #### PSASC #### [facility] [address] [address] [address] Teddy PurcellSodium [Moles/Vol]140 mmol/ZHgsdha674-530Vpt [facility] Comment on above:Performed By: #### PSASC #### [facility] [address] [address] [address] Teddy Rodriguez nitrogen [Mass/Vol]17.0 mg/dLNormal7.0-18.0[facility] HospitalComment on above:Performed By: #### PSASC #### [facility] [address] [address] [address] Teddy Rodriguez nitrogen/Creatinine [Mass ratio]18.9 mg/mgNoEast Ohio Regional HospitalComment on above:Performed By: #### PSASC #### [facility] [address] [place] [address] Dr. Teddy PurcellPROTIMEon 14-88-4263MDC Coag (PPP) [Relative time]2.83 {INR} NormalOhiohealth Mansfield HospitalComment on above:Performed By: #### PT #### [facility] [address] [place] [address] Dr. Teddy Gilmore GUIDELINESSEE BELOWGreene Memorial HospitalComment on above:Result Comment: DESIRED INR: 2.0 - 3.0 CONDITIONS NOT LISTED BELOW 2.5 - 3.5 FOR PROSTHETIC HEART VALVE REPLACEMENT 2.5 - 3.5 RECURRENT THROMBOSIS Performed By: #### PT #### [facility] [address] [place] [address] Dr. Teddy PurcellPT Coag (PPP) [Time]28.6 sCritically high9.0-11.6The [facility] Of ColumbusComment on above:Performed By: #### PT #### [facility] [address] [place] [address] Dr. Teddy PurcellProthrombin Time INRon 05-74-9812KMH Coag (Bld) [Relative time] 10.5 sNormal9.0-12.9[facility] CenterComment on above:Performed By: #### PT #### [place] [address] USAINR Coag (PPP) [Relative time]0.9 {INR}NormalTrumbull Regional Medical CenterComment on above:Result Comment: INR Therapeutic Range A) [...] heart valves: 3 - 4.5 PERFORMED BY: [place] [id number] PATHOLOGIST CHAIRMAN PRESIDENT AND CHIEF EXECUTIVE OFFICER DANIKA COE M.D.Performed By: #### PT #### [address] [place] [id number] USAOperative Reporton [id number] ReportMR#: [id number] [facility] Pt. Name: Mariajose Packer Room #: [...] Dict: 10/20/2016//Chicho Barba M.D.Date Trans: 10/24/2016 05:16 P/hhDN_JN:[id number]: Celio Oseguera M.D. [facility] [address] [place] [address]. [facility] [address] Dane Pompa M.D. [address] [address]FqlzllSecUniversity Hospitals Geneva Medical CenterPO GLUCOSE LABon 13-53-5922Ywkwjph mass ffap382 mg/wWJoqi39-125Iuv [facility]. Francis HospitalComment on above:Performed By: #### [id number] ####[facility] [facility] [place] [place] [address], [facility] Glucose mass oeqq430 mg/pMAucp36-757Ffi [facility] Comment on above:Performed By: #### [id number] ####[facility] [facility] [place] [place] [address], [facility] Vital Signs Date TimeVital SignValuePerforming RoxmxdztaPbaepmcd02-98-7104 15:13-0500Blood Pressure LocationMichael NILL [facility] Vqpjicow79-48-8333 15:13-0500Diastolic blood bkpexwrw50 mm[Hg]Durga NILL [facility] Yjkepocv32-71-5299 15:13-0500Heart rate 76 /minMichael NILL [facility] Zfpyrwuk84-50-3435 15:13-0500 Respiratory rate16 /minMichael NILL [facility] Flyhlgcu64-45-8662 15:13-0500Systolic blood vyrvgagu626 mm[Hg]Durga NILL [facility] Surgery [place] Encounters Encounter DateEncounter TypeCare ProviderFacilityStart: 12-26-2024 End: 49-73-7589rbmvfdeknqUxlcovm HoyFacility:[facility]ITALtart: 08-14-2022 End: 37-39-7346haiprhxqxxVH DANE HOY .Facility:R4Uiotb: 06-23-2022 End: 32-88-2692qnquwyxbfpRX DANE HOY .Facility:B9Sfxnt: 06-16-2022 End: 46-37-3178luvuzijnogXF DANE HOY .Facility:Y7Pgaur: 06-09-2022 End: 44-47-7007spkxxxtzuvWD DANE HOY .Facility:H2Nysiw: 04-23-2022 End: 35-26-7173Spfukxx encounter procedureMichael R NILL [facility] Nill/Said [facility] Start: 04-11-2022 End: 48-37-2550aqpxxjvooqVA DANE HOY .Facility:O6Upxkz: 40-99-9763Rfjlvubrc for general adult medical examination without abnormal findingsDR DANE HOY . [facility]Start: 04-03-2022 End: 10-11-7695tzsilvvztmEW DANE HOY .Facility:Q5Ohinl: 04-03-2022 End: 86-61-3007Ekokqcgwa for general adult medical examination without abnormal findingsDR DANE POMPA .Facility:X3Isowt: 12-05-2021 End: 00-28-4733jzetbsvujeNQ DOUGLAS HOY .Facility:U3Lwmib: 10-08-2021 End: 39-79-7273vytxvddinkLR DOUGLAS HOY .Facility:K7Vqmab: 10-20-2016 End: 06-31-0640DwuaszoeyyKNLHSG SKIEFacility:RUST Procedures DateProcedureProcedure DetailPerforming ClinicianStart: 99-60-8734OPV screening DR DANE POMPA .Comment on above:Performed By: #### PSASC #### [facility] [address] [place] [address] Dr. Teddy PurcellStart: 23-53-9021FETXOO LOWER ARM SURGERYMUOUR LADY OF FATIMA HOSPITALRODAStart: 52-83-1512XIOAI ARTHROSCOPY/SURGERYMARTIN SKIEHistory of lumbar laminectomy Durga BANKS Open acromioplasty for decompression of rotator cuff Durga BANKS Partial resection of colonMichael NILL Repair of ligamentMichael NILL Repair of meniscusMichael NILL Repair of musculotendinous cuff of shoulderMichael NILL TonsillectomyMichael NILL Immunizations Immunization DateImmunizationNotesCare ProviderFacilityNEGATED: Highlighted row has not occurred!00-60-4069ouukhsjhq virus vaccine, unspecified formulation Durga JOCELYN General Surgery [facility] DatePayer CategoryPayerPolicy [id number] [id number] 2.0.1.814980.3.57[id number] 2.0.1.691013.3.57[id number] 2.840.1.095423.3.57[id number] 2.0.1.459527.3.57[id number] 2.0.1.760421.3.57[id number] 2.0.1.623851.3.57[id number] 2.0.1.800289.3.57[id number] [id number] Social History DateTypeDetailFacilityStart: 69-85-6451Uerpkrv smoking statusNever smoked tobacco (finding)[facility]vueTobacco smoking statusNeverGeneral Surgery [facility]vueSex [facility] [place] Functional Status VzfmUpmpoefhnsTjigziQxyqtqar74-74-5737Ruohqmkwey StatusN/AGeneral Surgery [facility] Evaluation + Plan note Note Date & TypeNoteFacilityEvaluation + Plan note No data available for this section [facility] Discharge instructions Note Date & TypeNoteFacilityHospital Discharge instructions No data available for this section [facility] Progress note Note Date & TypeNoteFacilityProgress note No data available for this section [facility] Summary Purpose Family History No Family History [...] section and content) DATE CREATED AUTHOR 10/07/2017 [facility] DATE CREATED AUTHOR AUTHOR'S ORGANIZ ATION 07/12/2020 [facility] DATE CREATED AUTHOR AUTHOR'S ORGANIZ ATION 08/22/2022 [facility] DATE CREATED AUTHOR AUTHOR'S ORGANIZ ATION 12/27/2024 [facility] DATE CREATED AUTHOR AUTHOR'S ORGANIZ ATION 01/03/2025 [facility] Patient Care team informatio n (unrecognized section and content) Personnel Name: Dane Pompa MD Address: Address: [address] [place] [address] FOR RECORDS PERTAINING TO PATIENTS WHO ARE [...] BE BASED ON THE PRIMARY CLINICAL RECORDS. [facility] HospitalThermal [facility] provides no warranty or guarantee of the accuracy or completeness of information in this document.
[2025-04-12 09:45] LABS: Hematocrit 53.4 % (42.0-54.0); Hemoglobin 17.9 g/dL (14.0-18.0); Immature Granulocytes Abs Auto 0.01 10^3/uL (0.00-0.03); Immature Granulocytes Pct Auto 0.2 % (0.0-0.5); Lymphocytes Absolute Auto 2.1 10^3/uL (1.2-3.8); Mean Corpuscular HGB Conc 33.5 g/dL (29.9-35.2); Mean Corpuscular Hemoglobin 31.2 pg (25.9-34.0); Mean Corpuscular Volume 93.2 fL (80.0-94.0); Platelet Count 249 10^3/uL (150-450); Red Blood Count 5.73 10^6/uL (4.70-6.10); White Blood Count 5.7 10^3/uL (4.0-11.0)
[2025-04-12 10:00] LABS: INR 3.44; Prothrombin Time 33.3 sec (9.0-11.6)
[2025-04-12 10:47] LABS: Alanine Aminotransferase 59 U/L (16-63); Albumin Globulin Ratio 1.0; Albumin Level 3.4 g/dL (3.4-5.0); Alkaline Phosphatase 57 U/L (46-116); Anion Gap 9.7; Aspartate Amino Transferase 33 U/L (15-37); Blood Urea Nitrogen 17.0 mg/dL (7.0-18.0); Calcium 9.5 mg/dL (8.5-10.1); Carbon Dioxide 34.7 mmol/L (21.0-32.0); Chloride 99 mmol/L (98-107); Cholesterol 241 mg/dL (<=200); Estimated GFR (African America >60 (>=60 mL/min/1.73m^2); Estimated GFR (Non-African Ame >60 (>=60 mL/min/1.73m^2); Free T3 3.27 pg/mL (2.18-3.98); Globulin 3.5 g/dL; Glucose 191 mg/dL (74-106); HDL Cholesterol 32 mg/dL (40-60); Potassium 4.4 mmol/L (3.5-5.1); Sodium 139 mmol/L (136-145); Thyroid Stimulating Hormone 2.189 uIU/mL (0.358-3.740); Total Protein 6.9 g/dL (6.4-8.2); Triglycerides 254 mg/dL (<=150); Uric Acid 4.1 mg/dL (3.5-7.2); VLDL CHOLESTEROL 50.8 mg/dL
== END 2025-04-12 09:14 | disposition home or self-care (01) ==
PROVIDERS: PCP Family Medicine; Visit Provider Family Medicine
DX: Z00.00 Encounter for general adult medical examination without abnormal findings (principal); Z12.5 Encounter for screening for malignant neoplasm of prostate; I26.99 Other pulmonary embolism without acute cor pulmonale
CPT/HCPCS: 36415; 80053; 80061; 83036; 84403; 84436; 84443; 84481; 84550; 85025; 85610; G0103